=== PATIENT | male | born 1955 | race Caucasian/White ===

== ENCOUNTER 2024-04-07 12:19 | Inpatient (IN) | payer MEDICARE, MEDICAID, SELFPAY ==
[2024-04-07] VITALS (10 sets, daily range): BP systolic 118–188; BP diastolic 62–117; PULSE 85–99; RESP 19–92; TEMP 36.6–36.9; O2SAT 92–98
--- NOTE | 2024-04-07 12:36 | XR_ITS ---
Examination: AP lateral chest 2 views TECHNIQUE: Upright AP lateral chest 2 views Exam date and time: April 07, 2024 1244 hours INDICATIONS: Shortness of breath this week FINDINGS: Minor subsegmental atelectasis left base No pneumonia or pulmonary edema Moderate osteopenia IMPRESSION: No pneumonia or pulmonary edema
--- NOTE | 2024-04-07 12:36 | EKG_ITS ---
[facility] Test Date: 2024-04-07 Pat Name: SHIRLEY VALDIVIA Department: Room: - Gender: Male Drink Mixer: : [id number] Requested By: Mark Pantoja (RYAN) Order Number: [id number] Reading MD: Mark Pantoja (VETERINARY X RAY OPERATOR) Measurements Intervals [place] Rate: 87 P: CO: QRS: 50 QRSD: 136 T: 4 QT: 380 QTc: 460 Interpretive Statements ATRIAL FIBRILLATION RIGHT BUNDLE BRANCH BLOCK [120+ ms QRS DURATION, UPRIGHT V1, 40+ ms S IN I/aVL/V4/V5/V6] Compared to ECG 04/01/2024 15:11:37 Indeterminate axis no longer present /store/S0/[id number].pdf
--- NOTE | 2024-04-07 12:36 | PD.EDRME ---
Rapid Medical Screening Exam RME Arrival date/time: 04/07/24 12:19 68-year-old male with history of CHF presents emergency department complaint of difficulty breathing per the patient, patient was sent by assistant chief nursing officer for admission Chief Complaint: General Adult/Misc Complain Time Seen by Provider: 04/07/24 12:32 Vital signs: Vital Signs Temperature 98.5 F 04/07/24 12:21 Pulse Rate 99 04/07/24 12:21 Respiratory Rate 22 H 04/07/24 12:21 Blood Pressure 125/80 04/07/24 12:21 Pulse Oximetry (%) 95 04/07/24 12:21 Oxygen Delivery Method Room Air 04/07/24 12:21
[2024-04-07 12:54] LABS: Collection Type, Urine Clean Catch; Squamous Epithelial Cell,Urine 0 /hpf (0-5)
[2024-04-07 12:58] LABS: Bilirubin,Urine Negative (Negative); Blood,Urine Negative (Negative); Clarity,Urine Clear (Clear/Hazy); Color,Urine Colorless (Lt Yel-Yel); Glucose, Urine Negative (Negative); Hyaline Casts,Urine < 1 /hpf (0-1); Ketones,Urine Negative (Negative); Leukocyte Esterase,Urine Negative (Negative); Nitrite,Urine Negative (Negative); PH,Urine 6.5 (5.0-7.0); Protein,Urine Negative (Neg - Trace); RBC,Urine 1 /hpf (0-3); Specific Gravity,Urine 1.009 (1.001-1.035); Urobilinogen,Urine Negative mg/dL (0.0-1.0); WBC,Urine < 1 /hpf (0-5)
[2024-04-07 13:09] LABS: Basophils # (Auto) 0.1 Thou/mm3 (0.0-0.2); Basophils % (Auto) 1 % (0-2.5); Eosinophils # (Auto) 0.3 Thou/mm3 (0.0-0.5); Eosinophils % (Auto) 2 % (0-10); Hematocrit 35.3 % (41.0-53.0); Hemoglobin 11.1 g/dL (13.5-16.0); Immature Granulocytes % (Auto) 1 % (0-0); Immature Granulocytes Auto 0.06 Thou/mm3 (0.00-0.00); Lymphocytes # (Auto) 2.3 Thou/mm3 (1.0-4.8); Lymphocytes % (Auto) 17 % (10-50); Mean Corpuscular HGB Conc 31.4 g/dl (31.0-37.0); Mean Corpuscular Hemoglobin 28.1 pg (25.0-35.0); Mean Corpuscular Volume 89 fL (80-100); Monocytes # (Auto) 1.3 Thou/mm3 (0.0-0.8); Monocytes % (Auto) 10 % (0-12); Neutrophils % (Auto) 69 % (37-80); Nucleated Red Blood Cell % 0 /100 WBC (0); Platelet Count 262 Thou/mm3 (140-440); RDW Standard Deviation 58.9 fL (35.1-43.9); Red Blood Count 3.95 Miln/mm3 (4.50-5.90); White Blood Count 12.9 Thou/mm3 (3.8-10.6)
[2024-04-07 13:16] LABS: Amphetamine/Methamp Scrn,U Negative (Negative); Barbiturate Screen,Urine Negative (Negative); Benzodiazepines Screen,Urine Negative (Negative); Benzoylecgonine Screen, Ur Negative (Negative); Fentanyl Screen,Urine Negative (Negative); Opiate Screen,Urine Positive (Negative); THC Screen,Urine Negative (Negative)
[2024-04-07 13:25] LABS: INR 1.1 (0.9-1.3); Partial Thromboplastin Time 31.2 Seconds (22.0-36.0); Prothrombin Time 11.9 Seconds (9.0-12.2)
[2024-04-07 13:26] LABS: B-Type Natriuretic Peptide 76 pg/mL (0-100)
[2024-04-07 13:28] LABS: Alanine Aminotransferase 13 U/L (10-49); Albumin, Serum 4.4 gm/dL (3.4-4.8); Albumin/Globulin Ratio 1.8 (1.2-2.2); Alkaline Phosphatase 172 U/L (46-116); Anion Gap 5 (7-16); BUN/Creatinine Ratio 18 Ratio (12-20); Bilirubin,Total 0.4 mg/dL (0.3-1.2); Blood Urea Nitrogen 31 mg/dL (9-23); Calcium 9.9 mg/dL (8.3-10.6); Calcium (Corrected) 9.9 mg/dL (8.5-10.1); Carbon Dioxide 34.7 mMol/L (20.0-31.0); Chloride 101 mMol/L (98-107); Creatinine (Component) 1.7 mg/dL (0.6-1.3); Globulin 2.5 gm/dL (2.3-3.5); Glucose 261 mg/dL (74-106); Magnesium 2.1 mg/dL (1.6-2.6); Osmolality,Calculated 296 (275-295); Potassium 4.4 mMol/L (3.4-5.1); Sodium 141 mMol/L (136-145); Total Protein 6.9 gm/dL (5.7-8.2); Troponin I < 0.020 ng/mL (0.0-0.045); eGFR 43 See Note
[2024-04-07 13:44] LABS: Aspartate Amino Transferase 14 U/L (0-34)
--- NOTE | 2024-04-07 14:08 | PD.EDRME ---
Rapid Medical Screening Exam RME Arrival date/time: 04/07/24 12:19 04/07/24 12:19 68-year-old male with history of CHF presents emergency department complaint of difficulty breathing per the patient, patient was sent by security engineer for admission Chief Complaint: General Adult/Misc Complain Time Seen by Provider: 04/07/24 12:32 Vital signs: Vital Signs Temperature 98.5 F 04/07/24 12:21 Pulse Rate 99 04/07/24 12:21 Respiratory Rate 22 H 04/07/24 12:21 Blood Pressure 125/80 04/07/24 12:21 Pulse Oximetry (%) 95 04/07/24 12:21 Oxygen Delivery Method Room Air 04/07/24 12:21 RME Narrative: 04/07/24 12:19 68-year-old male with history of CHF presents emergency department complaint of difficulty breathing per the patient, patient was sent by security engineer for admission
--- NOTE | 2024-04-07 17:01 | PD.EDWEAK ---
ED Weakness RME/HPI General Chief complaint: General Adult/Misc Complain Stated complaint: SWOLLEN EVERYWHERE AND HAS PNA Time Seen by Provider: 04/07/24 12:32 Arrival date/time: 04/07/24 12:19 RME / HPI RME / HPI Narrative: 04/07/24 12:19 A 68-year-old male patient with past medical history of atrial fibrillation, coronary artery disease status post stent placement, HFpEF, COPD on home oxygen of 3 L, type 2 diabetes mellitus, hypertension, hyperlipidemia, obesity, CVA, BPH, frequent admission to the hospital secondary to fluid overload was brought to the ED referred from his preparation supervisor freezing office due to volume overload. Patient reported that he is taking his medication regularly however he still retaining significant amount of fluids that made him weak and unable to ambulate. Patient also reported that he has shortness of breath when he lie flat and also increased cough with producing frothy sputum. He denied any fever or chills or chest pain. Related Data Home Medications ?Medication ?Instructions ?Recorded ?Confirmed duloxetine 60 mg capsule,delayed 60 mg PO QDAY 11/25/19 01/31/24 release sprinkle potassium chloride 10 mEq 10 meq PO QDAY 06/19/23 01/31/24 capsule,extended release allopurinol 100 mg tablet 100 mg PO QDAY 01/23/24 01/31/24 amlodipine 5 mg tablet 5 mg PO QDAY 01/23/24 01/31/24 atorvastatin 40 mg tablet 40 mg PO QDAY 01/23/24 01/31/24 carvedilol 6.25 mg tablet 6.25 mg PO BID 01/23/24 01/31/24 montelukast 10 mg tablet 10 mg PO QDAY 01/23/24 01/31/24 pantoprazole 40 mg tablet,delayed 40 mg PO QDAY 01/23/24 01/31/24 release pregabalin 150 mg capsule (Lyrica) 150 mg PO TID 01/23/24 01/31/24 ramipril 5 mg tablet 5 mg PO QDAY 01/23/24 01/31/24 semaglutide 2 mg/dose (8 mg/3 mL) 2 mg subcut QWEEK 01/23/24 01/31/24 subcutaneous pen injector (Ozempic) tizanidine 2 mg tablet 2 mg PO HS 01/23/24 01/31/24 hydrocodone 10 mg-acetaminophen 1 tab PO [id number] PRN Pain 01/31/24 01/31/24 325 mg tablet Previous Rx's ?Medication ?Instructions ?Recorded ferrous sulfate 325 mg (65 mg 325 mg PO QDAY #90 tabs 11/09/23 iron) tablet docusate sodium 100 mg capsule 100 mg PO BID #20 caps 01/29/24 (Colace) polyethylene glycol 3350 17 gram 17 gm PO QDAY #30 ea 01/29/24 oral powder packet (Miralax) furosemide 40 mg tablet (Lasix) 40 mg PO QDAY #3 tabs 03/28/24 Allergies Allergy/AdvReac Type Severity Reaction Status Date / Time baclofen Allergy Severe Confusion Verified 04/07/24 12:22 bee venom protein (honey bee) Allergy Severe Swelling Verified 04/07/24 12:22 of Lip/Tongue/Throat chicken derived Allergy Severe DIFF Verified 04/07/24 12:22 BREATHING ketorolac [From Toradol] Allergy Intermediate Hallucinati Verified 04/07/24 12:22 ng METAL Allergy Severe Rash Uncoded 04/24/23 13:24 ED Exam Narrative Physical exam: GEN: AOx3, morbidly obese, able to speak full sentences HEENT: NC/AC, oral mucosa moist, neck supple CVS: RRR, S1-S2 plus S3, no murmurs appreciated RESP: Wheezing on the right side of the lung, fine crepitations bilaterally basally GI: soft, distended, non tender, NBS MSK: able to move all 4 limbs, +4 lower extremity edema SKIN: warm and dry SCIENCE TUTOR: CN II-XII and Sensation grossly intact. Course Quality Measures none Orders Category Date Time Status EKG (ED ONLY) *Do not use* NOW Care 04/07/24 12:36 Completed EKG (ED Only) Stat Exams 04/07/24 12:36 Draft XR chest 2V Stat Exams 04/07/24 12:36 Completed B-Type Natriuretic Peptide Stat Lab 04/07/24 12:55 Completed CBC Stat Lab 04/07/24 12:55 Completed Comprehensive Metabolic Panel Stat Lab 04/07/24 12:55 Completed Drug Screen,Urine Stat Lab 04/07/24 12:47 Completed Magnesium Stat Lab 04/07/24 12:55 Completed Partial Thromboplastin Time Stat Lab 04/07/24 12:55 Completed Prothrombin Time with INR Stat Lab 04/07/24 12:55 Completed Troponin I Stat Lab 04/07/24 12:55 Completed Urinalysis Stat Lab 04/07/24 12:47 Completed Bumetanide Inj [Bumex Inj] Med 04/07/24 16:19 Discontinued 2 mg IVP X1 ONE HYDROcodone*/APAP 7.5/325 [[place] 7.5/325] Med 04/07/24 16:49 Discontinued 1 tab PO X1 ONE Levalbuterol Rt [Xopenex Rt Raqeul] Med 04/07/24 16:19 Discontinued 1.25 mg INH X1 ONE Sodium Chloride Rt Raquel 0.9% [NS Rt Raquel 0.9%] Med 04/07/24 16:19 Active 3 ml INH PRN PRN Vital Signs Vital signs: Vital Signs Temperature 98.5 F 04/07/24 12:21 Pulse Rate 99 04/07/24 12:21 Respiratory Rate 22 H 04/07/24 12:21 Blood Pressure 125/80 04/07/24 12:21 Pulse Oximetry (%) 95 04/07/24 12:21 Oxygen Delivery Method Room Air 04/07/24 12:21 Weakness MDM Narrative MDM Narrative:: Patient vital stable, blood work showed WBC level of 12.9, hemoglobin of 11.1, sodium and potassium and chloride within normal limits, carbon dioxide 34.7 secondary to his COPD as the patient chronic retainer, BUN and serum creatinine at baseline at 31 and 1.7 respectively, glucose 261, chest x-ray was negative for any congestion or pneumonia. I contacted the preparation supervisor freezing Dr. Rogerio Araujo and he recommended to admit the patient and start him on Bumex drip 2 mg/h with strict in and out. Hospitalist team was notified Patient data External records reviewed:: [facility] previous records Clinical information provided by:: patient and family Social determinants that could affect healthcare access:: none Patient has the following chronic illnesses:: Hypertension, CAD, hyperlipidemia, A-fib, COPD, chf How is presenting disease/condition affected by chronic disease/condition?: caused by Evaluation data The following diagnostics were reviewed and interpreted by me:: lab results, radiology exam(s) and EKG tracing(s) Lab and/or radiology exams considered but not ordered:: None Interpretation Summary: Fluid overload Medications / Prescriptions Medications or Prescriptions considered but not ordered:: None Medication administrations:: Medication Administration History Sodium Chloride (Sodium Chloride Rt Raquel 0.9% 3 Ml Nebu) 3 ml INH PRN PRN PRN Reason: SOLN Stop: 05/07/24 16:18 Discontinued Medications Hydrocodone Bitart/Acetaminophen (Hydrocodone/Apap 7.5/325 Tablet) 1 tab PO X1 ONE Stop: 04/07/24 16:50 Bumetanide (Bumetanide Inj 0.25 Mg/Ml Vial 4 Ml) 2 mg IVP X1 ONE Stop: 04/07/24 16:20 Levalbuterol HCl (Levalbuterol Rt 1.25 Mg/0.5 Ml Nebu) 1.25 mg INH X1 ONE Stop: 04/07/24 16:20 As above Consultations Consultation(s) initiated? (list below): Yes Diagnosis Weakness Differential Diagnosis: other (Of fluid overload) Most likely diagnosis given after review of the tests above:: anasarca Admission Indicated Admission indicated?: indicated Admission Request Was there a request for admission?: Yes Admission Attestation Admission request attestation: Discussed case with [] from Hospitalist service regarding admission. Discussed patients ED course, exam findings, labs, and radiology results. The Hospitalist [agrees,declines] to accept the patient for admission. Disposition Plan Disposition Plan: Admit Discharge Plan Prescriptions/Referrals Prescriptions/Med Rec: No Action duloxetine 60 mg Capsule, Delayed Rel Sprinkle 60 mg PO QDAY potassium chloride 10 mEq Capsule, Extended Release 10 meq PO QDAY Hold Instructions: hold until follow up with your health care provider ferrous sulfate 325 mg (65 mg iron) tablet 325 mg PO QDAY Qty: 90 3RF Hold Instructions: Re-evaluate with PCP atorvastatin 40 mg Tablet 40 mg PO QDAY carvedilol 6.25 mg Tablet 6.25 mg PO BID Rx Instructions: must administer with a meal/food tizanidine 2 mg Tablet 2 mg PO HS amlodipine 5 mg Tablet 5 mg PO QDAY allopurinol 100 mg Tablet 100 mg PO QDAY pantoprazole 40 mg Tablet,Delayed Release (Dr/Ec) 40 mg PO QDAY montelukast 10 mg Tablet 10 mg PO QDAY pregabalin [Lyrica] 150 mg Capsule 150 mg PO TID ramipril 5 mg Tablet 5 mg PO QDAY Hold Instructions: Unable to verify, re-evaluate with PCP Jameyempic 2 mg/dose (8 mg/3 mL) pen injector 2 mg SUBCUT QWEEK Patient Comments: INJECT 2 mg SUBCUTANEOUSLY EVERY WEEK Rx Instructions: Every Friday polyethylene glycol 3350 [Miralax] 17 gram powder in packet 17 gm PO QDAY Qty: 30 0RF docusate sodium [Colace] 100 mg capsule 100 mg PO BID Qty: 20 0RF hydrocodone-acetaminophen 10-325 mg tablet 1 tab PO [id number] PRN (Reason: Pain) furosemide [Lasix] 40 mg tablet 40 mg PO QDAY Qty: 3 0RF Referrals: Howard Briceño MD [Primary Care Provider] - In 1 week Problem List Clinical Impression: Fluid overload Patient/Caregiver Discharge Instructions Print Language: Japanese
[2024-04-07] MEDS: LEVALBUTEROL RT 1.25 MG/0.5 ML NEBU INH (17:13)
[2024-04-07] MEDS: SODIUM CHLORIDE RT SOL 0.9% 3 ML NEBU INH (17:13)
[2024-04-07] MEDS: PANTOPRAZOLE 40 MG TABLET PO (18:25)
[2024-04-07] MEDS: HYDROcodone/APAP 7.5/325 TABLET 1 TAB PO (18:28)
[2024-04-07] MEDS: BUMETANIDE INJ 0.25 MG/ML VIAL 4 ML 2 MG IVP (18:29)
--- NOTE | 2024-04-07 18:29 | ESHP_ITS ---
<Statement entered by Jannet Sibley MD - 04/08/24 16:06> Senior Resident Attestation: I supervised/discussed management plan with resident physician Dr. Sterling, and was involved in the care of this patient. I personally saw and examined the patient and discussed the assessment and plan with the entire medicine team, including my attending. I agree with the assessment and plan as documented. Thank 68-year-old male with complicated past medical history including HFpEF, CAD s/p stent placement, A-fib on Eliquis, CVA with left hemiparesis, COPD on home oxygen, HTN and type 2 diabetes admitted for acute on chronic hypoxic respiratory failure in setting of fluid overload along with COPD exacerbation. Patient was started on aggressive diuresis with bumetanide 2 mg/hour along with methylprednisolone, and DuoNebs. Will continue to monitor patient's ins and out along with cardiology consultation. At time of admission patient's A-fib was rate controlled, will continue same medications. Patient's care was discussed with attending physician, Dr. Milagros Sibley MD PGY-3 Documentation for date of: 04/07/24 HPI History of Present Illness Chief complaint: Shortness of breath and bilateral lower extremity swelling History of present illness: 68-year-old male with past medical history of HLD, T2DM (A1c 8.1%), HTN, HFpEF EF 50-60%, CAD s/p stent, A-fib on Eliquis, CVA with left hemiparesis (2022), COPD dependent on 3 L oxygen at home, gout, and BPH presented to the ED on 04/07/2024 for chief complaint of shortness of breath and bilateral lower extremity swelling. Patient states that his shortness of breath started 2 weeks ago with increased productive foamy clear sputum production. His shortness of breath and sputum have gotten progressively worse over the past few days. He also noted worsening bilateral lower extremity edema. Recent ED visit on 04/01/2024, discharged with oral antibiotics for pneumonia. He went to see his PCP today, who did not prescribe anything. He contacted his pipe stem sawyer Dr. Felton by phone who recommended patient come to the hospital. Patient denies headache, fever, chills, chest pain, palpitation, dizziness, nausea, vomiting, diarrhea, or constipation. Patient was found to to be in a fluid overloaded state. Dr. Felton was consulted, who recommended Bumex drip for CHF. Patient was admitted for management of CHF exacerbation. ED course: Blood pressure 125/80, heart rate 99, respiratory rate 22, temperature 98.5 F, O2 sat 95% room air. CMP: Within normal limits except bicarb 34.7, BUN 31, creatinine 1.7, glucose 261, alkaline phosphatase 172. BNP 76. CBC: WBC 12.9, hemoglobin 11.1, MCV 89, hematocrit 35.3%, platelet 262. Chest x-ray showed no pneumonia or pulmonary edema. EKG showed atrial fibrillation, heart rate 87. Subsegmental atelectasis left base seen on CXR. Past medical history: As above Allergies: Bee stings-swelling, chicken dust-shortness of breath Medications: Pending med rec Family history: Mother,?diabetes mellitus type II; Father?MA followed by Surgical history: Back surgery, left ankle surgery, stent placement Social history: 40-year-old chronic smoker 1-1/2 pack cigarettes daily. Denies alcohol use. Denies illicit drug use. Review of Systems Review of Systems Systems Reviewed: All systems reviewed, normal except as documented Past Medical History Past Medical History NEUROLOGIC: Positive Neurological Disorders, Cerebrovascular Accident and Peripheral Neuropathy CARDIAC: Positive Cardiac Disorders, Myocardial Infarction, Atrial Fibrillation, Coronary Artery Disease, Peripheral Vascular Disease, Hypercholesterolemia, Congestive Heart Failure, Congenital Heart Disease, Edema, Cellulitis and Hypertension RESPIRATORY: Positive Chronic Obstructive Pulmonary Disease (COPD), Asthma, Pneumonia, Smoking and Tobacco Use GASTROINTESTINAL: Positive Gastrointestinal Disorders, Gastrointestinal Bleed, Gastroesophageal Reflux Disease and Obesity GENITOURINARY: Positive Genitourinary Disorders and Benign Prostatic Hyperplasia MUSCULOSKELETAL: Positive Musculoskeletal Disorders, Arthritis and Fractures ENDOCRINE: Positive Endocrine Disorders and Diabetes Mellitus Type 2 HEMATOLOGIC: Positive Blood Disorders and Anemia PSYCHO/SOCIAL: Positive Anxiety OTHER HISTORY: Positive Hospitalization, Falls and MRSA Family History FAMILY HISTORY: Positive Family Respiratory Disorders, Family Cardiac Disorders and Family Cancer Surgical History SURGICAL: Positive Cardiac Surgery, Coronary Stent, Cardiac Catheterization, Angiogram, Joint Replacement and Arthroscopy Social History SMOKING STATUS: Current some day smoker SECOND HAND EXPOSURE: No SUBSTANCE USE: does not use Exam Vital Signs Temp Pulse Resp BP Pulse Ox O2 Del Method 98.0 F 90 20 118/68 98 Room Air 04/07/24 15:26 04/07/24 17:16 04/07/24 17:16 04/07/24 15:26 04/07/24 17:16 04/07/24 15:26 Narrative Exam GEN: able to speak full sentences, alert, sitting up in gurney. HEENT: NC/AC, PERRLA, oral mucosa moist. CVS: Irregular rhythm, S1-S2 present, no murmurs appreciated. +JVD. RESP: Faint wheezing bilaterally, mild lower lobe crackles appreciated GI: soft, non distended, non tender, NBS MSK: Difficulty lifting bilateral lower extremities. 2+ pitting b/l lower extremity edema. Right LE moderately enlarged compared to left LE. SKIN: warm and dry. Ulcer on the medial malleolus of right foot. Shiny bilateral LE from calves to the ankles. HVAC MECHANICAL ENGINEER: CN II-XII and Sensation grossly intact. Results: Labs 04/08/24 05:27 04/08/24 05:27 Labs: Short CBC 04/07/24 Range/Units 12:55 WBC 12.9 H (3.8-10.6) Thou/mm3 Hgb 11.1 L (13.5-16.0) g/dL Hct 35.3 L (41.0-53.0) % Plt Count 262 (140-440) Thou/mm3 BMP 04/07/24 12:55 Sodium 141 Potassium 4.4 Chloride 101 Carbon Dioxide 34.7 H BUN 31 H Creatinine 1.7 H Glucose 261 H Calcium 9.9 Cardiac Enzymes 04/07/24 Range/Units 12:55 Troponin I < 0.020 (0.0-0.045) ng/mL Liver Function 04/07/24 Range/Units 12:55 Total Bilirubin 0.4 (0.3-1.2) mg/dL AST 14 (0-34) U/L ALT 13 (10-49) U/L Alkaline Phosphatase 172 H (46-116) U/L Albumin 4.4 (3.4-4.8) gm/dL Urine 04/07/24 Range/Units 12:47 Urine Color Colorless A (Lt Yel-Yel) Urine Clarity Clear (Clear/Hazy) Urine pH 6.5 (5.0-7.0) Ur Specific [place] 1.009 (1.001-1.035) Urine Protein Negative (Neg - Trace) Urine Glucose (UA) Negative (Negative) Quality Measures Quality Measures none Advance care planning discussed with:: patient Medications Home Medications and Allergies Home Medications ?Medication ?Instructions ?Recorded ?Confirmed ?Type duloxetine 60 mg capsule,delayed 60 mg PO QDAY 11/25/19 01/31/24 History release sprinkle potassium chloride 10 mEq 10 meq PO QDAY 06/19/23 01/31/24 History capsule,extended release allopurinol 100 mg tablet 100 mg PO QDAY 01/23/24 01/31/24 History amlodipine 5 mg tablet 5 mg PO QDAY 01/23/24 01/31/24 History atorvastatin 40 mg tablet 40 mg PO QDAY 01/23/24 01/31/24 History carvedilol 6.25 mg tablet 6.25 mg PO BID 01/23/24 01/31/24 History montelukast 10 mg tablet 10 mg PO QDAY 01/23/24 01/31/24 History pantoprazole 40 mg tablet,delayed 40 mg PO QDAY 01/23/24 01/31/24 History release pregabalin 150 mg capsule (Lyrica) 150 mg PO TID 01/23/24 01/31/24 History ramipril 5 mg tablet 5 mg PO QDAY 01/23/24 01/31/24 History semaglutide 2 mg/dose (8 mg/3 mL) 2 mg subcut QWEEK 01/23/24 01/31/24 History subcutaneous pen injector (Ozempic) tizanidine 2 mg tablet 2 mg PO HS 01/23/24 01/31/24 History hydrocodone 10 mg-acetaminophen 1 tab PO [id number] PRN Pain 01/31/24 01/31/24 History 325 mg tablet Allergies Allergy/AdvReac Type Severity Reaction Status Date / Time baclofen Allergy Severe Confusion Verified 04/07/24 12:22 bee venom protein (honey bee) Allergy Severe Swelling Verified 04/07/24 12:22 of Lip/Tongue/Throat chicken derived Allergy Severe DIFF Verified 04/07/24 12:22 BREATHING ketorolac [From Toradol] Allergy Intermediate Hallucinati Verified 04/07/24 12:22 ng METAL Allergy Severe Rash Uncoded 04/24/23 13:24 Visit Medications Acetaminophen (Acetaminophen 325 Mg Tablet) 650 mg PO Q6H PRN PRN Reason: Fever >101.5 Stop: 05/07/24 17:54 Acetaminophen (Acetaminophen 325 Mg Tablet) 650 mg PO Q6H PRN PRN Reason: PAIN SCALE 1-3 (mild Stop: 05/07/24 17:54 Hydrocodone Bitart/Acetaminophen (Hydrocodone/Apap 10/325 Tab) 1 tab PO Q6H PRN PRN Reason: PAIN SCALE 4-6 (Moderate Stop: 04/12/24 17:54 Heparin Sodium (Porcine) (Heparin Sod Inj 5000 Unit/Ml Vial) 5,000 unit SC Q8HR HUDSON Stop: 04/21/24 21:59 Hydromorphone HCl (Hydromorphone Inj 2 Mg/Ml Vial) 1 mg IVP Q4HR PRN PRN Reason: PAIN Stop: 04/12/24 17:54 Bumetanide 20 mg/ IV (Miscellaneous Supplies) 80 mls @ 8 mls/hr IV .Q10H HUDSON Stop: 04/08/24 14:11 Ondansetron HCl (Ondansetron Inj 2 Mg/Ml Inj 2 Ml) 4 mg IV Q6H PRN; Protocol PRN Reason: NAUSEA OR VOMITING Stop: 05/07/24 17:54 Pantoprazole Sodium (Pantoprazole 40 Mg Tablet) 40 mg PO QDAY HU[place]ON Stop: 05/07/24 17:59 Sennosides (Senna Tablet) 1 tab PO QDAY PRN; Protocol PRN Reason: CONSTIPATION Stop: 05/07/24 18:03 Sodium Chloride (Sodium Chloride Rt Raquel 0.9% 3 Ml Nebu) 3 ml INH PRN PRN PRN Reason: SOLN Stop: 05/07/24 16:18 Last Admin: 04/07/24 17:13 Dose: 3 ml Sodium Chloride (Sodium Chloride Rt Raquel 0.9% 3 Ml Nebu) 3 ml INH PRN PRN PRN Reason: SOLN Stop: 05/07/24 18:16 Discontinued Medications Hydrocodone Bitart/Acetaminophen (Hydrocodone/Apap 7.5/325 Tablet) 1 tab PO X1 ONE Stop: 04/07/24 16:50 Bumetanide (Bumetanide Inj 0.25 Mg/Ml Vial 4 Ml) 2 mg IVP X1 ONE Stop: 04/07/24 16:20 Levalbuterol HCl (Levalbuterol Rt 1.25 Mg/0.5 Ml Nebu) 1.25 mg INH X1 ONE Stop: 04/07/24 16:20 Last Admin: 04/07/24 17:13 Dose: 1.25 mg Levalbuterol HCl (Levalbuterol Rt 1.25 Mg/0.5 Ml Nebu) 1.25 mg INH X1 ONE Stop: 04/07/24 18:18 Methylprednisolone Sodium Succinate (Methylprednisolone Sod Succ 62.5 Mg/Ml 2ml Vial) 125 mg IVP Q6HR HUDSON Stop: 04/14/24 18:29 Sodium Chloride (Sodium Chloride Rt 10% 15 Ml Nebu) 5 ml INH X1 ONE Stop: 04/07/24 18:01 Assessment & Plan Plan 68-year-old male with past medical history of HLD, T2DM (A1c 8.1%), HTN, HFpEF EF 55-60%, CAD s/p stent, A-fib on Eliquis, CVA with left hemiplegia (2022), COPD dependent on 3 L oxygen at home, asthma, gout, and BPH presented to the ED on 04/07/2024 for chief complaint of shortness of breath and bilateral lower extremity swelling. Patient was found to to be in a fluid overloaded state. Dr. Felton was consulted, who recommended Bumex drip for CHF. Patient was admitted for management of CHF exacerbation. #Acutely decompensated heart failure, HFpEF EF 55-60% Most likely secondary to hypertension and obesity Ddx: CHF vs COPD exacerbation Patient initially presented to the ED with shortness of breath and bilateral lower extremity swelling. He endorsed increased sputum production over the past 2 weeks. Patient denies any sick contacts or recent travel. In the setting of hypertension obesity, patient presents with acute decompensated heart failure clinically. Orthopnea and pitting edema noted on b/l lower extremities. +JVD noted. Wheezing b/l with crackles lower lung lobes. Chest x-ray showed no pneumonia or pulmonary edema. Subsegmental atelectasis left base seen on CXR. Echo on 06/2023: EF 55-60%. Plan: -Dr. Felton Cardiology was consulted, who recommended Bumex drip for CHF. -Strict TONY's and daily weight checks -Fluid restriction; 1500 cc daily #COPD #Asthma Patient has a history of COPD and asthma on montelukast and inhaler at home. Chronic smoking history of 40 years; 1.5 pack smoker daily. -Monteleukast -inhaler #A-fib He has hx of atrial fibrillation, on Eliquis. EKG showed atrial fibrillation, heart rate 87. -Appreciate cardiology consultation recommendations -Continue Eliquis 5 mg twice daily -Maintain potassium greater than 4 and magnesium greater than 2 #Hypertension Chronic, uncontrolled -Coreg 6.25 mg orally daily -Initiated metoprolol 50 XL twice daily -Anticipate adding back on home amlodipine tomorrow #DMT2 Chronic, uncontrolled -SSI -Bedside glucose checks -Hypoglycemic protocol #CAD status post stent placement #CVA (2022) with left hemiplegia -atorvastatin 40 mg orally daily -Pending med rec #HLD Patient does not appear to be on any medication for this condition. -recommend outpatient f/up Discussed case with my attending Dr. Linares and senior Jannet Sibley, PGY-3. Thank you, Estrella Sterling, PGY-2 Attending Provider Attestation/Addendum I have discussed and was present for the essential components of the history, physical examination, diagnosis, and treatment plan with the resident. I agree with the patient's care as documented by the resident and amended herein by me. Matias Linares, DO. Although this document has been carefully reviewed, there may still be some phonetic and other typographical errors. These errors are purely grammatical due to imperfections in the software program and should not be construed in any way to compromise the substance of the patient's medical care during this visit.
--- NOTE | 2024-04-07 18:39 | ECHO_ITS ---
Transthoracic Echo Report Ht (in): 69 Wt (lb): 310 Exam Location: Portable Status: Emergency Clinical Applications Manager: Pushpa Zuniga Indications: Procedure Performed: BP: 132 / 80 HR: 91 Rhythm: Atrial fibrillation Technical Quality: Technically difficult study MEASUREMENTS (Male / Female) Normal Values 2D ECHO LV Diastolic Diameter PLAX 5.0 cm 4.2 - 5.9 / 3.9 - 5.3 cm LV Systolic Diameter PLAX 3.6 cm IVS Diastolic Thickness 1.1 cm 0.6 - 1.0 / 0.6 - 0.9 cm LVPW Diastolic Thickness 0.9 cm 0.6 - 1.0 / 0.6 - 0.9 cm LV Relative Wall Thickness 0.4 LVOT Diameter 2.1 cm LA Volume Index 26.1 cm?/m? 16 - 28 cm?/m? Ascending Aorta Diameter 2.9 cm M-MODE Aortic Root Diameter MM 3.0 cm LA Systolic Diameter MM 3.9 cm LA Ao Ratio MM 1.3 AV Cusp Separation MM 1.9 cm DOPPLER AV Peak Velocity 126.0 cm/s AV Peak Gradient 6.4 mmHg AV Mean Gradient 4.0 mmHg AV Velocity Time Integral 24.2 cm LVOT Peak Velocity 109.0 cm/s LVOT Peak Gradient 4.8 mmHg LVOT Velocity Time Integral 21.4 cm LVOT Cardiac Index 2508.4 cm?/min?m? AV Area Cont Eq vti 3.1 cm? AV Area Cont Eq pk 3.0 cm? MV Peak Velocity 102.0 cm/s MV Peak Gradient 4.2 mmHg MV Mean Velocity 58.5 cm/s MV Mean Gradient 2.0 mmHg MV Area PHT 4.2 cm? Mitral E Point Velocity 109.0 cm/s Mitral A Point Velocity 0.5 cm/s Mitral E to A Ratio 224.7 LV E' Lateral Velocity 11.4 cm/s Mitral E to LV E' Lateral Ratio 9.6 LV E' Septal Velocity 5.0 cm/s Mitral E to LV E' Septal Ratio 21.8 FINDINGS Left Ventricle Normal left ventricular size, wall thickness, systolic function with no obvious regional wall motion abnormalities. The ejection fraction is visually estimated at 50-55%. Right Ventricle The right ventricle is normal in size and systolic function. Left Atrium The left atrium is normal by two-dimensional, color flow and Doppler imaging with no structural abnormalities, no thrombus formation present. Right Atrium The right atrium is normal by two-dimensional imaging, color flow and Doppler imaging with no struct ural abnormalities, no thrombus formation present. Atrial Septum The interatrial septum appears normal with no evidence of a shunt. Aorta The aorta is normal by two-dimensional, color flow and Doppler interrogation. Mitral Valve The mitral valve is mildly MAC. There is no significant mitral valve regurgitation. Aortic Valve The aortic valve is trileaflet and normal by two-dimensional, color flow and Doppler interrogation. There is no significant aortic valve regurgitation. Tricuspid Valve The tricuspid valve is normal by two-dimensional, color flow and Doppler interrogation. There is tra ce tricuspid valve regurgitation. Pulmonic Valve The pulmonic valve is not well visualized. There is no significant pulmonic valve regurgitation. Vessels The pulmonary artery appears normal. The inferior vena cava pulmonary and hepatic veins appear madisyn l. Pericardium The pericardium is normal by two-dimensional imaging. There is no significant pericardial effusion. CONCLUSIONS Indication: Fluid overload/CHF Suboptimal images due to body habitas. Normal LV size and function.diastolic function prsesent but cannit grade due to AFib. Estimated EF 5 0-55% Normal RV size and function. Mild MAC. Trace TRMiguel Sherman (Electronically Signed) Final Date: 08 April 2024 15:02
[2024-04-07] MEDS: BUMETANIDE INJ 20 MG in CONTAINER,EMPTY 50 ML 1 BAG 8 MG IV (19:53)
[2024-04-07] MEDS: carVEDILOL 3.125 MG TABLET 6.25 MG PO (20:14)
[2024-04-07] MEDS: APIXABAN 2.5 MG TABLET 5 MG PO (20:14)
[2024-04-07] MEDS: ATORVASTATIN CALCIUM 20 MG TABLET 40 MG PO (20:14)
[2024-04-07] MEDS: HYDROcodone/APAP 10/325 TAB PO (22:18)
[2024-04-07] MEDS: allopurinoL 100 MG TABLET PO (23:33)
[2024-04-07] MEDS: MONTELUKAST SODIUM 10 MG TABLET PO (23:33)
[2024-04-08] VITALS (15 sets, daily range): BP systolic 114–132; BP diastolic 61–81; PULSE 86–107; RESP 16–34; TEMP 36.1–36.8; O2SAT 93–97; BMI 45.1
[2024-04-08] MEDS: BUMETANIDE INJ 20 MG in CONTAINER,EMPTY 50 ML 1 BAG 8 MG IV ×2 (03:12→13:28)
[2024-04-08] MEDS: guaiFENesin SYRUP 200 MG/10 ML UDC 100 MG PO (04:22)
[2024-04-08] MEDS: HYDROcodone/APAP 10/325 TAB PO (04:22)
[2024-04-08 05:54] LABS: Basophils % (Auto) 0 % (0-2.5); Eosinophils # (Auto) 0.3 Thou/mm3 (0.0-0.5); Eosinophils % (Auto) 3 % (0-10); Hematocrit 32.3 % (41.0-53.0); Hemoglobin 10.4 g/dL (13.5-16.0); Immature Granulocytes % (Auto) 0 % (0-0); Immature Granulocytes Auto 0.04 Thou/mm3 (0.00-0.00); Lymphocytes # (Auto) 2.9 Thou/mm3 (1.0-4.8); Lymphocytes % (Auto) 23 % (10-50); Mean Corpuscular HGB Conc 32.2 g/dl (31.0-37.0); Mean Corpuscular Hemoglobin 28.5 pg (25.0-35.0); Mean Corpuscular Volume 89 fL (80-100); Monocytes # (Auto) 1.6 Thou/mm3 (0.0-0.8); Monocytes % (Auto) 13 % (0-12); Neutrophils # (Auto) 7.4 Thou/mm3 (1.8-7.7); Neutrophils % (Auto) 60 % (37-80); Nucleated Red Blood Cell % 0 /100 WBC (0); Platelet Count 249 Thou/mm3 (140-440); RDW Standard Deviation 58.9 fL (35.1-43.9); Red Blood Count 3.65 Miln/mm3 (4.50-5.90); White Blood Count 12.2 Thou/mm3 (3.8-10.6)
[2024-04-08 06:32] LABS: INR 1.1 (0.9-1.3); Prothrombin Time 12.3 Seconds (9.0-12.2)
[2024-04-08 06:42] LABS: Anion Gap 5 (7-16); BUN/Creatinine Ratio 19 Ratio (12-20); Blood Urea Nitrogen 34 mg/dL (9-23); Calcium 9.9 mg/dL (8.3-10.6); Carbon Dioxide 36.2 mMol/L (20.0-31.0); Cardiac Risk Estimate 4.5 RATIO (4.0-6.7); Chloride 100 mMol/L (98-107); Cholesterol 125 mg/dL (132-200); Creatinine (Component) 1.8 mg/dL (0.6-1.3); Estimated Creatinine Clearance 54.4 mL/min (>60); Glucose 220 mg/dL (74-106); HDL Cholesterol 28 mg/dL (40-60); LDL Cholesterol,Calculated 68 mg/dL (0-130); Magnesium 2.1 mg/dL (1.6-2.6); Osmolality,Calculated 295 (275-295); Phosphorous 4.5 mg/dL (2.4-5.1); Potassium 3.9 mMol/L (3.4-5.1); Sodium 141 mMol/L (136-145); Triglycerides 146 mg/dL (30-150); eGFR 40 See Note
[2024-04-08 06:46] LABS: Glucose Estimated Average 237 mg/dL (80-131); Hemoglobin A1C 9.9 % Hgb (4.8-6.0)
[2024-04-08] MEDS: INSULIN LISPRO (AdmeLOG) 1 UNIT/0.01 ML UNIT SC ×4 (07:47→20:46)
[2024-04-08 08:56] LABS: Free T4 (Free Thyroxine) 1.29 ng/dL (0.89-1.76)
[2024-04-08] MEDS: carVEDILOL 3.125 MG TABLET 6.25 MG PO ×2 (09:04→20:43)
[2024-04-08] MEDS: APIXABAN 2.5 MG TABLET 5 MG PO ×2 (09:04→20:43)
[2024-04-08] MEDS: PANTOPRAZOLE 40 MG TABLET PO (09:09)
--- NOTE | 2024-04-08 09:16 | PD.IMCONS ---
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 ; he was admitted yesterday with B/L leg edema , fluid overload , diastolic dysfunction currently on bumex drip BUN 34; creatinine 1.8 pt denies chest pain troponin negative cc:: cc: Trev Llanos MD Meds Home Medications and Allergies Home Medications ?Medication ?Instructions ?Recorded ?Confirmed ?Type duloxetine 60 mg capsule,delayed 60 mg PO QDAY 11/25/19 01/31/24 History release sprinkle potassium chloride 10 mEq 10 meq PO QDAY 06/19/23 01/31/24 History capsule,extended release allopurinol 100 mg tablet 100 mg PO QDAY 01/23/24 01/31/24 History amlodipine 5 mg tablet 5 mg PO QDAY 01/23/24 01/31/24 History atorvastatin 40 mg tablet 40 mg PO QDAY 01/23/24 01/31/24 History carvedilol 6.25 mg tablet 6.25 mg PO BID 01/23/24 01/31/24 History montelukast 10 mg tablet 10 mg PO QDAY 01/23/24 01/31/24 History pantoprazole 40 mg tablet,delayed 40 mg PO QDAY 01/23/24 01/31/24 History release pregabalin 150 mg capsule (Lyrica) 150 mg PO TID 01/23/24 01/31/24 History ramipril 5 mg tablet 5 mg PO QDAY 01/23/24 01/31/24 History semaglutide 2 mg/dose (8 mg/3 mL) 2 mg subcut QWEEK 01/23/24 01/31/24 History subcutaneous pen injector (Ozempic) tizanidine 2 mg tablet 2 mg PO HS 01/23/24 01/31/24 History hydrocodone 10 mg-acetaminophen 1 tab PO [id number] PRN Pain 01/31/24 01/31/24 History 325 mg tablet Allergies Allergy/AdvReac Type Severity Reaction Status Date / Time baclofen Allergy Severe Confusion Verified 04/07/24 12:22 bee venom protein (honey bee) Allergy Severe Swelling Verified 04/07/24 12:22 of Lip/Tongue/Throat chicken derived Allergy Severe DIFF Verified 04/07/24 12:22 BREATHING ketorolac [From Toradol] Allergy Intermediate Hallucinati Verified 04/07/24 12:22 ng METAL Allergy Severe Rash Uncoded 04/24/23 13:24 Exam Vital Signs Temp Pulse Resp BP Pulse Ox O2 Del Method O2 Flow Rate 97.6 F 86 34 H 132/81 H 95 Nasal Cannula 2 04/08/24 04:00 04/08/24 09:04 04/08/24 06:45 04/08/24 09:04 04/08/24 06:45 04/08/24 04:00 04/08/24 06:45 Routine HEENT Exam Head: Present normocephalic and atraumatic Eye: Present EOMI and PERRL ENT: Present mucous membranes moist Routine Neck Exam Neck: Present supple and trachea midline Routine Respiratory Exam Respiratory: Present chest non-tender, lungs clear, normal breath sounds and no resp distress Routine Cardiovascular Exam Cardiovascular: Present RRR Routine Abdominal Exam Abdominal: Present soft and normoactive bowel sounds Routine Extremities Exam Extremities: Present full ROM Routine Skin Exam Skin: Present intact, dry and warm Routine Neurological Exam Neurological: Present alert, oriented X3 and CN II-XII intact Routine Psychiatric Exam Psychiatric: Present normal affect and normal thought process Results Labs 04/08/24 05:27 04/08/24 05:27 Labs: Short CBC 04/07/24 04/08/24 Range/Units 12:55 05:27 WBC 12.9 H 12.2 H (3.8-10.6) Thou/mm3 Hgb 11.1 L 10.4 L (13.5-16.0) g/dL Hct 35.3 L 32.3 L (41.0-53.0) % Plt Count 262 249 (140-440) Thou/mm3 BMP 04/07/24 04/08/24 12:55 05:27 Sodium 141 141 Potassium 4.4 3.9 D Chloride 101 100 Carbon Dioxide 34.7 H 36.2 H BUN 31 H 34 H Creatinine 1.7 H 1.8 H Glucose 261 H 220 H Calcium 9.9 9.9 Cardiac Enzymes 04/07/24 Range/Units 12:55 Troponin I < 0.020 (0.0-0.045) ng/mL Liver Function 04/07/24 Range/Units 12:55 Total Bilirubin 0.4 (0.3-1.2) mg/dL AST 14 (0-34) U/L ALT 13 (10-49) U/L Alkaline Phosphatase 172 H (46-116) U/L Albumin 4.4 (3.4-4.8) gm/dL Urine 04/07/24 Range/Units 12:47 Urine Color Colorless A (Lt Yel-Yel) Urine Clarity Clear (Clear/Hazy) Urine pH 6.5 (5.0-7.0) Ur Specific [place] 1.009 (1.001-1.035) Urine Protein Negative (Neg - Trace) Urine Glucose (UA) Negative (Negative) Assessment and Plan Assessment and plan (1) Fluid overload: Status: Acute (2) Shortness of breath: Status: Acute (3) Congestive heart failure: Status: Acute (4) Localized swelling of lower leg: Status: Acute (5) Acute and chronic respiratory failure with hypoxia: Status: Acute (6) Atrial fibrillation: Status: Acute (7) Coronary artery disease: Status: Acute (8) Diabetes 1.5, managed as type 1: Status: Acute (9) Hypertension: Status: Acute Additional Assessment & Plan Additional Plan: will continue agressive diuresis with bumix creatinine is 1.8 will closely monitor his fluid status and creatinine care d/w family and resident
[2024-04-08] MEDS: amLODIPine BESYLATE 5 MG TABLET PO (09:18)
[2024-04-08] MEDS: POTASSIUM CHLORIDE 20 mEq TABCR 40 MEQ PO (09:18)
[2024-04-08] MEDS: FERROUS SULF 325 MG TABLET PO (09:18)
--- NOTE | 2024-04-08 09:21 | PD.RESCONSUL ---
HPI Data of Consult Requesting Physician: Trev Llanos MD Admitting Provider: Aram Linares DO Attending Provider: Trev Llanos MD Primary Care Provider: Howard Briceño MD Consult Narrative cc:: cc: Trev Llanos MD Exam Vital Signs Temp Pulse Resp BP Pulse Ox O2 Del Method O2 Flow Rate 97.6 F 86 34 H 132/81 H 95 Nasal Cannula 2 04/08/24 04:00 04/08/24 09:18 04/08/24 06:45 04/08/24 09:18 04/08/24 06:45 04/08/24 04:00 04/08/24 06:45 Results Labs 04/08/24 05:27 04/08/24 05:27 Labs: Short CBC 04/07/24 04/08/24 Range/Units 12:55 05:27 WBC 12.9 H 12.2 H (3.8-10.6) Thou/mm3 Hgb 11.1 L 10.4 L (13.5-16.0) g/dL Hct 35.3 L 32.3 L (41.0-53.0) % Plt Count 262 249 (140-440) Thou/mm3 BMP 04/07/24 04/08/24 12:55 05:27 Sodium 141 141 Potassium 4.4 3.9 D Chloride 101 100 Carbon Dioxide 34.7 H 36.2 H BUN 31 H 34 H Creatinine 1.7 H 1.8 H Glucose 261 H 220 H Calcium 9.9 9.9 Cardiac Enzymes 04/07/24 Range/Units 12:55 Troponin I < 0.020 (0.0-0.045) ng/mL Liver Function 04/07/24 Range/Units 12:55 Total Bilirubin 0.4 (0.3-1.2) mg/dL AST 14 (0-34) U/L ALT 13 (10-49) U/L Alkaline Phosphatase 172 H (46-116) U/L Albumin 4.4 (3.4-4.8) gm/dL Urine 04/07/24 Range/Units 12:47 Urine Color Colorless A (Lt Yel-Yel) Urine Clarity Clear (Clear/Hazy) Urine pH 6.5 (5.0-7.0) Ur Specific [place] 1.009 (1.001-1.035) Urine Protein Negative (Neg - Trace) Urine Glucose (UA) Negative (Negative) Quality Measures Quality Measures none Medications Home Medications and Allergies Home Medications ?Medication ?Instructions ?Recorded ?Confirmed ?Type duloxetine 60 mg capsule,delayed 60 mg PO QDAY 11/25/19 01/31/24 History release sprinkle potassium chloride 10 mEq 10 meq PO QDAY 06/19/23 01/31/24 History capsule,extended release allopurinol 100 mg tablet 100 mg PO QDAY 01/23/24 01/31/24 History amlodipine 5 mg tablet 5 mg PO QDAY 01/23/24 01/31/24 History atorvastatin 40 mg tablet 40 mg PO QDAY 01/23/24 01/31/24 History carvedilol 6.25 mg tablet 6.25 mg PO BID 01/23/24 01/31/24 History montelukast 10 mg tablet 10 mg PO QDAY 01/23/24 01/31/24 History pantoprazole 40 mg tablet,delayed 40 mg PO QDAY 01/23/24 01/31/24 History release pregabalin 150 mg capsule (Lyrica) 150 mg PO TID 01/23/24 01/31/24 History ramipril 5 mg tablet 5 mg PO QDAY 01/23/24 01/31/24 History semaglutide 2 mg/dose (8 mg/3 mL) 2 mg subcut QWEEK 01/23/24 01/31/24 History subcutaneous pen injector (Ozempic) tizanidine 2 mg tablet 2 mg PO HS 01/23/24 01/31/24 History hydrocodone 10 mg-acetaminophen 1 tab PO [id number] PRN Pain 01/31/24 01/31/24 History 325 mg tablet Allergies Allergy/AdvReac Type Severity Reaction Status Date / Time baclofen Allergy Severe Confusion Verified 04/07/24 12:22 bee venom protein (honey bee) Allergy Severe Swelling Verified 04/07/24 12:22 of Lip/Tongue/Throat chicken derived Allergy Severe DIFF Verified 04/07/24 12:22 BREATHING ketorolac [From Toradol] Allergy Intermediate Hallucinati Verified 04/07/24 12:22 ng METAL Allergy Severe Rash Uncoded 04/24/23 13:24 Visit Medications Acetaminophen (Acetaminophen 325 Mg Tablet) 650 mg PO Q6H PRN PRN Reason: Fever >101.5 Stop: 05/07/24 17:54 Acetaminophen (Acetaminophen 325 Mg Tablet) 650 mg PO Q6H PRN PRN Reason: PAIN SCALE 1-3 (mild Stop: 05/07/24 17:54 Hydrocodone Bitart/Acetaminophen (Hydrocodone/Apap 10/325 Tab) 1 tab PO Q6H PRN PRN Reason: PAIN SCALE 4-6 (Moderate Stop: 04/12/24 17:54 Last Admin: 04/08/24 04:22 Dose: 1 tab Allopurinol (Allopurinol 100 Mg Tablet) 100 mg PO HS [facility] Stop: 05/07/24 20:59 Last Admin: 04/07/24 23:33 Dose: 100 mg Amlodipine Besylate (Amlodipine Besylate 5 Mg Tablet) 5 mg PO QDAY [facility] Stop: 05/08/24 08:59 Last Admin: 04/08/24 09:18 Dose: 5 mg Apixaban (Apixaban 2.5 Mg Tablet) 5 mg PO BID [facility] Stop: 05/07/24 20:59 Last Admin: 04/08/24 09:04 Dose: 5 mg Atorvastatin Calcium (Atorvastatin Calcium 20 Mg Tablet) 40 mg PO HS [facility] Stop: 05/07/24 20:59 Last Admin: 04/07/24 20:14 Dose: 40 mg Carvedilol (Carvedilol 3.125 Mg Tablet) 6.25 mg PO BID [facility] Stop: 05/07/24 20:59 Last Admin: 04/08/24 09:04 Dose: 6.25 mg Dextrose (Dextrose 50%-Water Inj 50 Ml Syringe) 25 ml IV Q15MIN PRN PRN Reason: BG 50-70 responsive npo pt Stop: 05/08/24 04:01 Dextrose (Dextrose 50%-Water Inj 50 Ml Syringe) 50 ml IV Q15MIN PRN PRN Reason: BG <50 OR BG <70 & pt unresponsive Stop: 05/08/24 04:01 Ferrous Sulfate (Ferrous Sulf 325 Mg Tablet) 325 mg PO QOD [facility] Stop: 05/08/24 08:59 Last Admin: 04/08/24 09:18 Dose: 325 mg Glucagon (Glucagon Inj 1 Mg Vial) 1 mg IM Q15MIN PRN PRN Reason: BG <70, and no IV access Hydromorphone HCl (Hydromorphone Inj 2 Mg/Ml Vial) 1 mg IVP Q4HR PRN PRN Reason: PAIN (7-10) Stop: 04/12/24 17:54 Bumetanide 20 mg/ IV (Miscellaneous Supplies) 80 mls @ 8 mls/hr IV .Q10H [facility] Stop: 04/08/24 14:11 Last Admin: 04/08/24 03:12 Dose: 2 mg/hr, 8 mls/hr Insulin Glargine (Insulin Glargine (Lantus) 5 Unit/0.05 Ml (Per 5 Units)) 10 unit SC QDAY [facility] Stop: 05/08/24 08:59 Insulin Human Lispro (Insulin Lispro (Admelog) 1 Unit/0.01 Ml Unit) 0 unit SC [facility]; Protocol Stop: 05/08/24 07:29 Last Admin: 04/08/24 07:47 Dose: 2 unit Insulin Human Lispro (Insulin Lispro (Admelog) 1 Unit/0.01 Ml Unit) 3 unit SC [facility] Stop: 05/08/24 11:29 Montelukast Sodium (Montelukast Sodium 10 Mg Tablet) 10 mg PO HS [facility] Stop: 05/07/24 20:59 Last Admin: 04/07/24 23:33 Dose: 10 mg Ondansetron HCl (Ondansetron Inj 2 Mg/Ml Inj 2 Ml) 4 mg IV Q6H PRN; Protocol PRN Reason: NAUSEA OR VOMITING Stop: 05/07/24 17:54 Pantoprazole Sodium (Pantoprazole 40 Mg Tablet) 40 mg PO QDAY [facility] Stop: 05/07/24 17:59 Last Admin: 04/08/24 09:09 Dose: 40 mg Sennosides (Senna Tablet) 1 tab PO QDAY PRN; Protocol PRN Reason: CONSTIPATION Stop: 05/07/24 18:03 Sodium Chloride (Sodium Chloride Rt Raquel 0.9% 3 Ml Nebu) 3 ml INH PRN PRN PRN Reason: SOLN Stop: 05/07/24 18:16 Discontinued Medications Hydrocodone Bitart/Acetaminophen (Hydrocodone/Apap 7.5/325 Tablet) 1 tab PO X1 ONE Stop: 04/07/24 16:50 Last Admin: 04/07/24 18:28 Dose: 1 tab Bumetanide (Bumetanide Inj 0.25 Mg/Ml Vial 4 Ml) 2 mg IVP X1 ONE Stop: 04/07/24 16:20 Last Admin: 04/07/24 18:29 Dose: 2 mg Guaifenesin (Guaifenesin Syrup 200 Mg/10 Ml Udc) 100 mg PO X1 ONE; Protocol Stop: 04/08/24 04:06 Last Admin: 04/08/24 04:22 Dose: 100 mg Heparin Sodium (Porcine) (Heparin Sod Inj 5000 Unit/Ml Vial) 5,000 unit SC Q8HR [facility] Stop: 04/21/24 21:59 Hydromorphone HCl (Hydromorphone Inj 2 Mg/Ml Vial) 1 mg IVP Q4HR PRN PRN Reason: PAIN Stop: 04/12/24 17:54 Levalbuterol HCl (Levalbuterol Rt 1.25 Mg/0.5 Ml Nebu) 1.25 mg INH X1 ONE Stop: 04/07/24 16:20 Last Admin: 04/07/24 17:13 Dose: 1.25 mg Levalbuterol HCl (Levalbuterol Rt 1.25 Mg/0.5 Ml Nebu) 1.25 mg INH X1 ONE Stop: 04/07/24 18:18 Last Admin: 04/07/24 21:56 Dose: Not Given Methylprednisolone Sodium Succinate (Methylprednisolone Sod Succ 62.5 Mg/Ml 2ml Vial) 125 mg IVP Q6HR [facility] Stop: 04/14/24 18:29 Potassium Chloride (Potassium Chloride 20 Meq Tabcr) 40 meq PO X1 ONE Stop: 04/08/24 08:15 Last Admin: 04/08/24 09:18 Dose: 40 meq Sodium Chloride (Sodium Chloride Rt Raquel 0.9% 3 Ml Nebu) 3 ml INH PRN PRN PRN Reason: SOLN Stop: 05/07/24 16:18 Last Admin: 04/07/24 17:13 Dose: 3 ml Sodium Chloride (Sodium Chloride Rt 10% 15 Ml Nebu) 5 ml INH X1 ONE Stop: 04/07/24 18:01 Last Admin: 04/07/24 21:56 Dose: Not Given
[2024-04-08] MEDS: INSULIN GLARGINE (Lantus) 5 UNIT/0.05 ML (PER 5 UNITS) 10 UNIT SC (11:42)
[2024-04-08] MEDS: INSULIN LISPRO (AdmeLOG) 1 UNIT/0.01 ML UNIT 3 UNIT SC ×3 (11:43→20:46)
--- NOTE | 2024-04-08 11:46 | PC.SS ---
SS met with patient regarding his d/c plan. Pt is alert/oriented. Pt was admitted for Fluid Overload. Pt confirmed demographic and contact information is correct on facesheet. Pt resides with his son. Pt states he transfers into wheelchair with assistance. Pt also has and electric wheelchair. Pt has his standared wheelchair at bedside. Pt utilizes O2 at home from [facility]. Pt named his son, Maddison Anthony medical decision maker if he is unable. SS provided verbal d/c options for home or SNF. Patient?s choice is to return home upon d/c. Pt states he diabetic, has glucometer, and test strips. Pt states he not on dialysis. Pt followed up with PCP a week ago. Pt states his niece and dtr in law are his [facility] caregivers. Pt will require transportation home at d/c. D/C plan: Return home Next of Kin: Maddison Anthony, son, phone# [phone] PCP: Dr. Howard Briceño Address: Correct on facesheet
[2024-04-08] MEDS: HYDROmorphone INJ 2 MG/ML VIAL 1 MG IVP (12:33)
--- NOTE | 2024-04-08 14:04 | ESPR_ITS ---
Documentation for date of: 04/08/24 Subjective Subjective Interval history: No acute overnight events. Patient was seen and examined at bedside. Labs reviewed. He was laying in bed gurney. He said that he still felt short of breath but oxygen medication overnight helped him. He does not have much of an appetite today. Patient says that he has lower back and neck pain, which are both chronic. Patient is a chronic CO2 retainer. Today he is saturating at 96% on 2 L nasal cannula. Will continue breathing treatments. Will continue oxygen as needed, goal SaO2 88 to 92%. Exam Vital Signs Temp Pulse Resp BP Pulse Ox O2 Del Method O2 Flow Rate 97.5 F 104 H 20 120/81 93 L Nasal Cannula 2 04/08/24 12:00 04/08/24 13:28 04/08/24 12:00 04/08/24 13:28 04/08/24 12:00 04/08/24 12:00 04/08/24 12:00 Narrative Exam GEN: Elderly male wearing eyeglasses with breakfast at bedside,laying in bed gurney at 45 degree angle. HEENT: NC/AC, PERRLA, oral mucosa moist. CVS: Irregular rhythm, S1-S2 present, no murmurs. +JVD. RESP: Faint wheezing bilaterally- improving, mild crackles appreciated in all lung lobes bilaterally. GI: soft, non distended, non tender, NBS MSK: 1+ pitting b/l lower extremity edema, improving. Right LE moderately enlarged compared to left LE. SKIN: warm and dry. Ulcer, dime-size, on the medial malleolus of right foot. Shiny bilateral LE from calves to the ankles. 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 Generally alert and oriented to person and place. Routine HEENT Exam Head: Present normocephalic and atraumatic Eye: Present EOMI and PERRL ENT: Present mucous membranes moist Routine Neck Exam Neck: Present supple and trachea midline Routine Respiratory Exam Respiratory: Present chest non-tender, lungs clear, normal breath sounds and no resp distress Routine Cardiovascular Exam Cardiovascular: Present RRR Routine Abdominal Exam Abdominal: Present soft and normoactive bowel sounds Routine Extremities Exam Extremities: Present full ROM Routine Skin Exam Skin: Present intact, dry and warm Routine Neurological Exam Neurological: Present alert, oriented X3 and CN II-XII intact Routine Psychiatric Exam Psychiatric: Present normal affect and normal thought process Objective Labs 04/08/24 05:27 04/08/24 05:27 Labs: Laboratory Results - last 24 hr 04/08/24 05:27 WBC 12.2 H RBC 3.65 L Hgb 10.4 L Hct 32.3 L MCV 89 MCH 28.5 MCHC 32.2 RDW Std Deviation 58.9 H Plt Count 249 Neut % (Auto) 60 Lymph % (Auto) 23 [place] % (Auto) 13 H Eos % (Auto) 3 Baso % (Auto) 0 Neut # (Auto) 7.4 Lymph # (Auto) 2.9 [place] # (Auto) 1.6 H Eos # (Auto) 0.3 Baso # (Auto) 0.0 Immature Gran # (Auto) 0.04 H Absolute Nucleated RBC 0.00 Immature Gran % 0 Nucleated RBC % 0 PT 12.3 H INR 1.1 Sodium 141 Potassium 3.9 D Chloride 100 Carbon Dioxide 36.2 H Anion Gap 5 L BUN 34 H Creatinine 1.8 H Estim Creat Clear Calc 54.4 L eGFR 40 L BUN/Creatinine Ratio [address] Glu mg/dL 237 H Hemoglobin A1c 9.9 H Calculated Osmolality 295 Calcium 9.9 Phosphorus 4.5 Magnesium 2.1 Triglycerides 146 Cholesterol 125 L LDL Cholesterol, Calc 68 HDL Cholesterol 28 L Cholesterol/HDL Ratio 4.5 TSH 0.40 L Free T4 1.29 Quality Measures Quality Measures none Advance care planning discussed with:: patient Assessment & Plan Assessment Current Active Medications: Generic Name Dose Route Start Last Admin Trade Name Buddyq PRN Reason Stop Dose Admin Acetaminophen 650 mg 04/07/24 17:55 Acetaminophen 325 Mg Tablet PO 05/07/24 17:54 Q6H PRN Fever >101.5 Acetaminophen 650 mg 04/07/24 17:55 Acetaminophen 325 Mg Tablet PO 05/07/24 17:54 Q6H PRN PAIN SCALE 1-3 (mild Hydrocodone Bitart/Acetaminophen 1 tab 04/07/24 17:55 04/08/24 04:22 Hydrocodone/Apap 10/325 Tab PO 04/12/24 17:54 1 tab Q6H PRN Administration PAIN SCALE 4-6 (Moderate Allopurinol 100 mg 04/07/24 21:00 04/07/24 23:33 Allopurinol 100 Mg Tablet PO 05/07/24 20:59 100 mg HS HUDSON Administration Amlodipine Besylate 5 mg 04/08/24 09:00 04/08/24 09:18 Amlodipine Besylate 5 Mg Tablet PO 05/08/24 08:59 5 mg QDAY HUDSON Administration Apixaban 5 mg 04/07/24 21:00 04/08/24 09:04 Apixaban 2.5 Mg Tablet PO 05/07/24 20:59 5 mg BID HUDSON Administration Atorvastatin Calcium 40 mg 04/07/24 21:00 04/07/24 20:14 Atorvastatin Calcium 20 Mg Tablet PO 05/07/24 20:59 40 mg HS HUDSON Administration Carvedilol 6.25 mg 04/07/24 21:00 04/08/24 09:04 Carvedilol 3.125 Mg Tablet PO 05/07/24 20:59 6.25 mg BID HUDSON Administration Dextrose 25 ml 04/08/24 04:02 Dextrose 50%-Water Inj 50 Ml Syringe IV 05/08/24 04:01 Q15MIN PRN BG 50-70 responsive npo pt Dextrose 50 ml 04/08/24 04:02 Dextrose 50%-Water Inj 50 Ml Syringe IV 05/08/24 04:01 Q15MIN PRN BG <50 OR BG <70 & pt unresponsive Ferrous Sulfate 325 mg 04/08/24 09:00 04/08/24 09:18 Ferrous Sulf 325 Mg Tablet PO 05/08/24 08:59 325 mg QOD HUDSON Administration Glucagon 1 mg 04/08/24 04:02 Glucagon Inj 1 Mg Vial IM Q15MIN PRN BG <70, and no IV access Hydromorphone HCl 1 mg 04/07/24 18:36 04/08/24 12:33 Hydromorphone Inj 2 Mg/Ml Vial IVP 04/12/24 17:54 1 mg Q4HR PRN Administration PAIN (7-10) Bumetanide 20 mg/ IV 80 mls @ 8 mls/hr 04/07/24 18:12 04/08/24 03:12 Miscellaneous Supplies IV 04/08/24 14:11 2 mg/hr .Q10H HUDSON 8 mls/hr Administration 2 MG/HR Bumetanide 20 mg/ IV 80 mls @ 8 mls/hr 04/08/24 14:00 04/08/24 13:28 Miscellaneous Supplies IV 04/09/24 09:59 2 mg/hr .Q10H HUDSON 8 mls/hr Administration 2 MG/HR Insulin Glargine 10 unit 04/08/24 09:00 04/08/24 11:42 Insulin Glargine (Lantus) 5 Unit/0.05 Ml (Per 5 Units) SC 05/08/24 08:59 10 unit QDAY HUDSON Administration Insulin Human Lispro 0 unit 04/08/24 07:30 04/08/24 11:44 Insulin Lispro (Admelog) 1 Unit/0.01 Ml Unit SC 05/08/24 07:29 2 unit ACHS HUDSON Administration Protocol Insulin Human Lispro 3 unit 04/08/24 11:30 04/08/24 11:43 Insulin Lispro (Admelog) 1 Unit/0.01 Ml Unit SC 05/08/24 11:29 3 unit ACHS HUDSON Administration Montelukast Sodium 10 mg 04/07/24 21:00 04/07/24 23:33 Montelukast Sodium 10 Mg Tablet PO 05/07/24 20:59 10 mg HS HUDSON Administration Ondansetron HCl 4 mg 04/07/24 17:55 Ondansetron Inj 2 Mg/Ml Inj 2 Ml IV 05/07/24 17:54 Q6H PRN NAUSEA OR VOMITING Protocol Pantoprazole Sodium 40 mg 04/07/24 18:00 04/08/24 09:09 Pantoprazole 40 Mg Tablet PO 05/07/24 17:59 40 mg QDAY HUDSON Administration Sennosides 1 tab 04/07/24 18:04 Senna Tablet PO 05/07/24 18:03 QDAY PRN CONSTIPATION Protocol Sodium Chloride 3 ml 04/07/24 18:17 Sodium Chloride Rt Raquel 0.9% 3 Ml Nebu INH 05/07/24 18:16 PRN PRN SOLN Plan 68-year-old male with past medical history of HLD, T2DM (A1c 8.1%), HTN, HFpEF EF 55-60%, CAD s/p stent, A-fib on Eliquis, CVA with left sided residual deficits (2022), COPD dependent on 3 L oxygen at home, asthma, gout, and BPH presented to the ED on 04/07/2024 for chief complaint of shortness of breath and bilateral lower extremity swelling. Patient was found to to be in a fluid overloaded state. Dr. Felton was consulted, who recommended Bumex drip for CHF. Patient was admitted for management of CHF exacerbation. #Acutely decompensated heart failure #HFpEF EF 55-60% Most likely secondary to hypertension and obesity Ddx: CHF vs COPD exacerbation Patient presented with difficulty breathing and bilateral lower extremity swelling and increased sputum production over the past 2 weeks. He denied any sick contacts or recent travel. In the setting of hypertension obesity, patient presents with acute decompensated heart failure. Clinically, he remains fluid overloaded though significant improvement of lower extremity edema. Orthopnea and +JVD noted on exam. Wheezing b/l with crackles in b/l lungs. Net negative ~700 cc output, but appears to have had more output considering improvement in his clinical picture; it's possible that not all fluid output was recorded. Chest x-ray showed no pneumonia or pulmonary edema. Subsegmental atelectasis left base seen on CXR. Echo on 06/2023: EF 55-60%. NYHA class IV. Plan: -Dr. Felton Cardiology was consulted, who recommended Bumex drip for CHF. -Aggressive diuresis with Bumex drip 2 mg/hr -Echo ordered; pending follow-up -Strict TONY's and daily weight checks -Fluid restriction; 1500 cc daily -Follow-up CMP #COPD #Asthma #Chronic smoking history Patient has a history of COPD and asthma on montelukast and inhaler at home. Chronic smoking history of 40 years; 1.5 pack smoker daily. Wheezing on bilateral lungs. -Monteleukast -inhaler -Encourage patient to discontinue smoking -Will continue oxygen as needed, goal SaO2 88 to 92%. #Leukocytosis, improving Most likely secondary to inflammatory response from CHF with underlying COPD. WBC 12.9 on presentation, downtrended to 12.2 -Follow-up CBC #A-fib He has hx of atrial fibrillation, on Eliquis. EKG showed atrial fibrillation, heart rate 87. -Appreciate cardiology consultation recommendations -Continue Eliquis 5 mg twice daily -Maintain potassium greater than 4 and magnesium greater than 2 #Hypertension Chronic, uncontrolled Blood pressure is well-controlled on current regimen. -Coreg 6.25 mg orally daily -amlodipine 5mg daily #DMT2 Chronic, uncontrolled Glucose elevated at 202. -Glargine 10 units SC daily. -Insulin lispro 3 units SC ACHS -SSI -Bedside glucose checks -Hypoglycemic protocol #CAD status post stent placement #CVA (2022) with left hemiplegia -atorvastatin 40 mg orally daily #HLD Patient does not appear to be on any medication for this condition. -recommend outpatient f/up Discussed case with my attending Dr. Linares and senior Jannet Sibley, PGY-3. Thank you, Estrella Sterling, PGY-2 Attending Provider Attestation/Addendum I have discussed and was present for the essential components of the history, physical examination, diagnosis, and treatment plan with the resident. I agree with the patient's care as documented by the resident and amended herein by me. Matias Linares, DO. Patient seen and evaluated this AM. No subjective complaints overnight, vital signs stable, patient afebrile, currently on 2 L via nasal cannula, SpO2 95%, patient net -700 mL overnight however I suspect all I's and O's were not recorded as the patient clinically speaking, most notably in the lower extremities is much less edematous. Significant problem list #Acute on chronic decompensated diastolic heart failure, history of HFpEF, recent echo today showed an EF of 50 to 55% with normal LV size and function. #HFpEF #Atrial fibrillation #COPD #Active tobacco use #CAD #Hypertension #History of CVA Plan: -Dr. Llanos has been consulted, will continue Bumex drip for now per cardiology recommendations and continue to monitor strict I's and O's until euvolemic, will also add lispro 3 units 3 times daily AC for improved blood glucose control. Will reconcile home meds and add back appropriately. Appreciate cardiology recommendations. Although this document has been carefully reviewed, there may still be some phonetic and other typographical errors. These errors are purely grammatical due to imperfections in the software program and should not be construed in any way to compromise the substance of the patient's medical care during this visit.
[2024-04-08] MEDS: ATORVASTATIN CALCIUM 20 MG TABLET 40 MG PO (20:43)
[2024-04-08] MEDS: MONTELUKAST SODIUM 10 MG TABLET PO (20:44)
[2024-04-08] MEDS: allopurinoL 100 MG TABLET PO (20:44)
[2024-04-08] MEDS: ACETAMINOPHEN 325 MG TABLET 650 MG PO (20:48)
[2024-04-09] VITALS (14 sets, daily range): BP systolic 111–165; BP diastolic 56–109; PULSE 89–107; RESP 20–28; TEMP 36.1–36.6; O2SAT 93–97; BMI 45.1
[2024-04-09] MEDS: BUMETANIDE INJ 20 MG in CONTAINER,EMPTY 50 ML 1 BAG 8 MG IV (00:44)
[2024-04-09 05:56] LABS: Basophils # (Auto) 0.1 Thou/mm3 (0.0-0.2); Basophils % (Auto) 1 % (0-2.5); Eosinophils # (Auto) 0.4 Thou/mm3 (0.0-0.5); Eosinophils % (Auto) 3 % (0-10); Hematocrit 36.1 % (41.0-53.0); Hemoglobin 11.6 g/dL (13.5-16.0); Immature Granulocytes % (Auto) 0 % (0-0); Immature Granulocytes Auto 0.04 Thou/mm3 (0.00-0.00); Lymphocytes # (Auto) 2.8 Thou/mm3 (1.0-4.8); Lymphocytes % (Auto) 25 % (10-50); Mean Corpuscular HGB Conc 32.1 g/dl (31.0-37.0); Mean Corpuscular Hemoglobin 28.4 pg (25.0-35.0); Mean Corpuscular Volume 88 fL (80-100); Monocytes # (Auto) 1.7 Thou/mm3 (0.0-0.8); Monocytes % (Auto) 15 % (0-12); Neutrophils # (Auto) 6.4 Thou/mm3 (1.8-7.7); Neutrophils % (Auto) 56 % (37-80); Nucleated Red Blood Cell % 0 /100 WBC (0); Platelet Count 267 Thou/mm3 (140-440); RDW Standard Deviation 57.3 fL (35.1-43.9); Red Blood Count 4.09 Miln/mm3 (4.50-5.90); White Blood Count 11.4 Thou/mm3 (3.8-10.6)
[2024-04-09 06:23] LABS: Anion Gap 4 (7-16); BUN/Creatinine Ratio 19 Ratio (12-20); Blood Urea Nitrogen 40 mg/dL (9-23); Calcium 9.9 mg/dL (8.3-10.6); Carbon Dioxide 36.7 mMol/L (20.0-31.0); Chloride 100 mMol/L (98-107); Creatinine (Component) 2.1 mg/dL (0.6-1.3); Estimated Creatinine Clearance 46.6 mL/min (>60); Glucose 202 mg/dL (74-106); Magnesium 2.2 mg/dL (1.6-2.6); Osmolality,Calculated 296 (275-295); Potassium 3.7 mMol/L (3.4-5.1); Sodium 141 mMol/L (136-145); eGFR 34 See Note
[2024-04-09] MEDS: INSULIN LISPRO (AdmeLOG) 1 UNIT/0.01 ML UNIT 3 UNIT SC (07:54)
[2024-04-09] MEDS: INSULIN LISPRO (AdmeLOG) 1 UNIT/0.01 ML UNIT SC ×4 (07:55→21:25)
[2024-04-09] MEDS: carVEDILOL 3.125 MG TABLET 6.25 MG PO ×2 (08:10→21:20)
[2024-04-09] MEDS: APIXABAN 2.5 MG TABLET 5 MG PO ×2 (08:11→21:21)
[2024-04-09] MEDS: amLODIPine BESYLATE 5 MG TABLET PO (08:11)
[2024-04-09] MEDS: PANTOPRAZOLE 40 MG TABLET PO (08:11)
[2024-04-09] MEDS: HYDROmorphone INJ 2 MG/ML VIAL 1 MG IVP ×2 (08:12→19:36)
[2024-04-09] MEDS: INSULIN GLARGINE (Lantus) 5 UNIT/0.05 ML (PER 5 UNITS) 10 UNIT SC (08:12)
--- NOTE | 2024-04-09 09:27 | PC.SS ---
Follow up note: Continue IV diureses. Continue to return home upon dc. Pt has O2 at home.
[2024-04-09] MEDS: INSULIN LISPRO (AdmeLOG) 1 UNIT/0.01 ML UNIT 4 UNIT SC ×3 (11:29→21:25)
[2024-04-09] MEDS: HYDROcodone/APAP 10/325 TAB PO (11:31)
[2024-04-09] MEDS: POLYETHYLENE GLYCOL 17 GM PACKET PO (11:31)
--- NOTE | 2024-04-09 12:04 | PD.RESPRO ---
Documentation for date of: 04/09/24 Subjective Subjective Interval history: Patient seen in office on 04/07 with severe SOB and lower extremity swelling despite being on Bumex 4 Mg p.o. twice daily and metolazone 5 Mg p.o. daily. Patient was instructed to present to the ED. Patient was seen and examined at bedside this AM. No acute exents overnight. Patient tolerating diet, adequate urine output and mentation is at baseline. Patient endorses improvement of SOB and denies any chest pressure/pain, dizziness, presyncope/syncope. Patient was on bumetanide infusion since admission which was discontinued this a.m. Patient has adequate diuresis with a fluid balance of negative 4515cc in the past 24 hours. Recommend to transition to Bumex 2 Mg IV twice daily or Bumex 4 Mg p.o. twice daily. Potassium 3.7 and magnesium 2.2. Recommend KCl 40 mEq p.o. x 1. Please maintain potassium greater than 4 and magnesium greater than 2 at all times to prevent any arrhythmias EKG on admission showed atrial fibrillation rate controlled at 87. Previous EKGs also showed similar findings. Transthoracic echocardiogram completed on 04/07 findings include: Suboptimal images due to body habitas. Normal LV size and function.diastolic function prsesent but cannit grade due to AFib. Estimated EF 50-55% Normal RV size and function. Mild MAC. Trace TR. On previous admission transesophageal echocardiogram completed on 07/08/2023 findings include: Negative bubble study, no evidence of PFO or ASD or LA/CHRISTIE thrombus. Normal LV size and function. Estimated EF 55-60% RV mildly dilated and mildly dialted LA. Moderate MR. Mild to moderate TR. There is mild protruding plaque seen in the aortic arch. Pulomary flow is systolic blunting. Exam Vital Signs Temp Pulse Resp BP Pulse Ox O2 Del Method O2 Flow Rate 96.9 F 106 H 27 H 125/79 93 L Nasal Cannula 2 04/09/24 10:50 04/09/24 10:50 04/09/24 10:50 04/09/24 10:50 04/09/24 10:50 04/09/24 10:50 04/09/24 10:50 Narrative Exam Constitutional Alert, oriented x 3 and comfortable. Elderly, Obese male on O2 via NC HEENT Vision grossly intact. Patent nares. Trachea midline Respiratory Chest normal on inspection and decreased AE in all lung steward with crackles at bases b/l Cardiovascular S1 and S2 audible, RRR. No murmurs carotid bruit. No gross JVD. Abdominal Soft,obese and non tender to palpation in all quadrants. BS + Genitourinary No bladder tenderness, no flank pain. Normal to palpation. No scrotal edema Musculoskeletal Extremities tone within normal limits. 1+ LE edema, 3+ Hip edema B/L and Sacral edema Neurological CN II - XII grossly intact. Extremity motor and sensation grossly intact. Skin Warm, dry and intact. No apparent lesions. Psychiatric Patient has good affect, is cooperative Objective Labs 04/11/24 05:26 04/11/24 05:26 Labs: Laboratory Results - last 24 hr 04/09/24 04:45 WBC 11.4 H RBC 4.09 L Hgb 11.6 L Hct 36.1 L MCV 88 MCH 28.4 MCHC 32.1 RDW Std Deviation 57.3 H Plt Count 267 Neut % (Auto) 56 Lymph % (Auto) 25 [place] % (Auto) 15 H Eos % (Auto) 3 Baso % (Auto) 1 Neut # (Auto) 6.4 Lymph # (Auto) 2.8 [place] # (Auto) 1.7 H Eos # (Auto) 0.4 Baso # (Auto) 0.1 Immature Gran # (Auto) 0.04 H Absolute Nucleated RBC 0.00 Immature Gran % 0 Nucleated RBC % 0 Sodium 141 Potassium 3.7 Chloride 100 Carbon Dioxide 36.7 H Anion Gap 4 L BUN 40 H Creatinine 2.1 H Estim Creat Clear Calc 46.6 L eGFR 34 L BUN/Creatinine Ratio 19 Glucose 202 H Calculated Osmolality 296 H Calcium 9.9 Phosphorus 5.0 Magnesium 2.2 Quality Measures Quality Measures none Advance care planning discussed with:: patient and other Assessment & Plan Assessment Current Active Medications: Generic Name Dose Route Start Last Admin Trade Name Freq PRN Reason Stop Dose Admin Acetaminophen 650 mg 04/07/24 17:55 Acetaminophen 325 Mg Tablet PO 05/07/24 17:54 Q6H PRN Fever >101.5 Acetaminophen 650 mg 04/07/24 17:55 04/08/24 20:48 Acetaminophen 325 Mg Tablet PO 05/07/24 17:54 650 mg Q6H PRN Administration PAIN SCALE 1-3 (mild Hydrocodone Bitart/Acetaminophen 1 tab 04/07/24 17:55 04/09/24 11:31 Hydrocodone/Apap 10/325 Tab PO 04/12/24 17:54 1 tab Q6H PRN Administration PAIN SCALE 4-6 (Moderate Allopurinol 100 mg 04/07/24 21:00 04/08/24 20:44 Allopurinol 100 Mg Tablet PO 05/07/24 20:59 100 mg HS HUDSON Administration Amlodipine Besylate 5 mg 04/08/24 09:00 04/09/24 08:11 Amlodipine Besylate 5 Mg Tablet PO 05/08/24 08:59 5 mg QDAY HUDSON Administration Apixaban 5 mg 04/07/24 21:00 04/09/24 08:11 Apixaban 2.5 Mg Tablet PO 05/07/24 20:59 5 mg BID HUDSON Administration Atorvastatin Calcium 40 mg 04/07/24 21:00 04/08/24 20:43 Atorvastatin Calcium 20 Mg Tablet PO 05/07/24 20:59 40 mg HS HUDSON Administration Carvedilol 6.25 mg 04/07/24 21:00 04/09/24 08:10 Carvedilol 3.125 Mg Tablet PO 05/07/24 20:59 6.25 mg BID HUDSON Administration Dextrose 25 ml 04/08/24 04:02 Dextrose 50%-Water Inj 50 Ml Syringe IV 05/08/24 04:01 Q15MIN PRN BG 50-70 responsive npo pt Dextrose 50 ml 04/08/24 04:02 Dextrose 50%-Water Inj 50 Ml Syringe IV 05/08/24 04:01 Q15MIN PRN BG <50 OR BG <70 & pt unresponsive Ferrous Sulfate 325 mg 04/08/24 09:00 04/08/24 09:18 Ferrous Sulf 325 Mg Tablet PO 05/08/24 08:59 325 mg QOD HUDSON Administration Glucagon 1 mg 04/08/24 04:02 Glucagon Inj 1 Mg Vial IM Q15MIN PRN BG <70, and no IV access Hydromorphone HCl 1 mg 04/07/24 18:36 04/09/24 08:12 Hydromorphone Inj 2 Mg/Ml Vial IVP 04/12/24 17:54 1 mg Q4HR PRN Administration PAIN (7-10) Bumetanide 20 mg/ IV 80 mls @ 8 mls/hr 04/08/24 14:00 04/09/24 00:44 Miscellaneous Supplies IV 2 mg/hr .Q10H HUDSON 8 mls/hr Administration 2 MG/HR Insulin Glargine 15 unit 04/10/24 09:00 Insulin Glargine (Lantus) 5 Unit/0.05 Ml (Per 5 Units) SC 05/10/24 08:59 QDAY HUDSON Insulin Human Lispro 0 unit 04/08/24 07:30 04/09/24 11:30 Insulin Lispro (Admelog) 1 Unit/0.01 Ml Unit SC 05/08/24 07:29 2 unit ACHS HUDSON Administration Protocol Insulin Human Lispro 4 unit 04/09/24 11:30 04/09/24 11:29 Insulin Lispro (Admelog) 1 Unit/0.01 Ml Unit SC 05/09/24 11:29 4 unit ACHS HUDSON Administration Montelukast Sodium 10 mg 04/07/24 21:00 04/08/24 20:44 Montelukast Sodium 10 Mg Tablet PO 05/07/24 20:59 10 mg HS HUDSON Administration Ondansetron HCl 4 mg 04/07/24 17:55 Ondansetron Inj 2 Mg/Ml Inj 2 Ml IV 05/07/24 17:54 Q6H PRN NAUSEA OR VOMITING Protocol Pantoprazole Sodium 40 mg 04/07/24 18:00 04/09/24 08:11 Pantoprazole 40 Mg Tablet PO 05/07/24 17:59 40 mg QDAY HUDSON Administration Sennosides 1 tab 04/07/24 18:04 Senna Tablet PO 05/07/24 18:03 QDAY PRN CONSTIPATION Protocol Sodium Chloride 3 ml 04/07/24 18:17 Sodium Chloride Rt Raquel 0.9% 3 Ml Nebu INH 05/07/24 18:16 PRN PRN SOLN Plan 68-year-old male with past medical history of HLD, NIDDM type 2 (A1c 8.1%), HTN, HFpEF EF 50-55%, CAD s/p stent, A-fib on Eliquis, CVA with left hemiparesis (2022), COPD dependent on 3 L oxygen at home, gout, and BPH presented to the ED on 04/07/2024 for chief complaint of shortness of breath and bilateral lower extremity swelling. Patient was admitted for acute decompensated heart failure and cardiology was consulted. 1. Acute decompensated heart failure exacerbation with preserved ejection fraction [50-55%] and mild to moderate PAH Patient's home medication Bumex 4 Mg p.o. twice daily and metolazone 5 Mg p.o. daily. Despite this patient developed worsening SOB and bilateral lower extremity edema the day of admission and he presented to his coater carbon paper, Dr. Sherman who recommended he present to the ED. Chest x-ray on admission showed increased vascular markings and mild atelectasis left base. Patient was started on Bumex infusion initially which was held this morning and patient transition to Bumex 2 Mg IV twice daily. On exam patient has significant sacral and hip edema, crackles at lung bases bilaterally with no lower extremity swelling or scrotal edema BNP on admission was 76 NYHA stage D class III Transthoracic echocardiogram completed on 04/07 findings include: Suboptimal images due to body habitas. Normal LV size and function.diastolic function prsesent but cannit grade due to AFib. Estimated EF 50-55% Normal RV size and function. Mild MAC. Trace TR. On previous admission transesophageal echocardiogram completed on 07/08/2023 findings include: Negative bubble study, no evidence of PFO or ASD or LA/CHRISTIE thrombus. Normal LV size and function. Estimated EF 55-60% RV mildly dilated and mildly dialted LA. Moderate MR. Mild to moderate TR. There is mild protruding plaque seen in the aortic arch. Pulomary flow is systolic blunting. Plan: ? 2 g sodium restricted diet ? Strict input output charting ? Daily weights ?1500 cc/day fluid restriction ? Recommend diuresis with Bumex 2 Mg IV twice daily or Bumex 4 Mg p.o. twice daily with a goal of 1-2 L diuresis per day. ?Beta-blockers contraindicated in severe CHF exacerbation, recommend to discontinue or decrease dose of beta-ashish. 2. Essential hypertension Patient's home medication carvedilol 6.25 mg p.o. twice daily, metolazone 5 Mg p.o. daily and Bumex 4 Mg p.o. twice daily. On admission BP 125/80, currently BP 125/79. Plan: ? Recommend excellent control of blood pressure and maintain SBP less than 140 mmHg 3. CAD s/p stent with DEMARIO 4. Hyperlipidemia Patient on high-dose statin atorvastatin 40 Mg p.o. at bedtime. Patient not on aspirin or Plavix due to recent history of GI bleed 2 months ago. Hb currently stable at 11.6. Plan: ? Continue high intensity statin 5. Atrial fibrillation?long-term persistent Patient rate controlled on carvedilol 6.25 Mg p.o. twice daily at home and anticoagulated with Eliquis 5 Mg p.o. 3 times daily. EKG on admission showed A-fib rate 96 [id number]: 7 points; stroke risk 11.2 %/year HAS-BLED : 5 points; high risk for major bleeding Plan: ? Recommend to continue home anticoagulation Eliquis 5 Mg p.o. twice daily ? Beta-blockers contraindicated in severe CHF exacerbation recommend to decrease dose or hold at this time 6. History of CVA [2022] Patient has residual left hemiparesis. Currently not on aspirin or Plavix due to history of GI bleed 2 months ago. 7. COPD 8. Asthma 9. Nicotine dependence Patient has a history of COPD and asthma on montelukast and inhaler at home. Chronic smoking history of 40 years; 1.5 pack smoker daily. Continue management as per primary team 10. [id number] diabetes mellitus type 2 [8.1] Patient on Ozempic at home. Continue management as per primary team 11. History of GI bleed January 2024 Colonoscopy completed on 02/01/[address] 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 Findings consistent with ischemic colitis multiple polyps resected with hot snare. Recommendations were for repeat colonoscopy in 6 months and to avoid NSAIDs. Pathology of the polyps was positive for tubular adenomas. 12. ALMA on CKD stage III Baseline Cr 1.4-1.9. On admission Cr 1.7. Currently Cr 2.4. Continue management as per primary team Continue rest of management as per primary team. We are grateful to be able to participate in Mr. Anthony's care. Thank you for the consult Plan of care discussed with attending School Traffic Guard, Dr Whit Oleary MD PGY 1 Attending Provider Attestation/Addendum I have personally seen and examined the patient separately on the above date of service and discussed the plan of care with the resident. I reviewed the resident Dr. Oleary consultation progress note and agree with the resident findings and plan in the note above and have also edited the documentation to reflect my findings and plan. Rogerio Sherman M.D. Interventional Cardiology
[2024-04-09] MEDS: POTASSIUM CHLORIDE 20 mEq TABCR 40 MEQ PO (14:15)
[2024-04-09] MEDS: BUMETANIDE INJ 0.25 MG/ML VIAL 4 ML 2 MG IVP (14:16)
--- NOTE | 2024-04-09 16:01 | ESPR_ITS ---
<Statement entered by Jannet Sibley MD - 04/09/24 16:54> Senior Resident Attestation: I supervised/discussed management plan with resident physician Dr. Escudero, and was involved in the care of this patient. I personally saw and examined the patient and discussed the assessment and plan with the entire medicine team, including my attending. I agree with the assessment and plan as documented. Patient's care was discussed with attending physician, Dr. Milagros Sibley MD PGY-3 Documentation for date of: 04/09/24 Subjective Subjective Interval history: Patient seen at bedside. No acute overnight events. Patient reports improvements in her breathing, he does complain of lower back pain today, however this is a chronic condition. I&O today: 1045/5550(-2335). Patient has achieved good diuresis with IV Bumex drip. Labs today significant for bicarb of 36.7-contraction alkalosis and bump in creatinine to 2.1 from 1.8. Blood glucose also elevated today at 202, patient has been on insulin glargine 10 units and lispro 3 units, will adjust insulin regimen. Echocardiogram reported, ejection fraction 50 to 55%. Will hold diuresis now baseline creatinine and follow-up with cardiology recommendations. On telemetry, patient still in A-fib, rate controlled and is on Coreg and Eliquis. Exam Vital Signs Temp Pulse Resp BP Pulse Ox O2 Del Method O2 Flow Rate 97.3 F 101 H 27 H 128/56 L 95 Nasal Cannula 2 04/09/24 12:00 04/09/24 14:16 04/09/24 12:00 04/09/24 14:16 04/09/24 12:00 04/09/24 12:00 04/09/24 12:00 Narrative Exam GENERAL: AAOX3 NEURO: WRIST LINER grossly intact, moves extremities x4 HEENT: Moist mucosa. Eyes open, symmetrical, & clear CARDIO: No chest pain on palpation. Irregular, normal rate PULM: No noted coughing/dyspnea. Crackles bilaterally, saturating 96% on 3L on O2 GI: Abdomen soft, nondistended, no pain on palpation. BSx4 URO/FEDERAL AID COORDINATOR:: No further abnormalities noted. Gonzalez catheter/ in-situ SKIN/MSK/EXT: Bilateral edema 1+ resolving as well as generalized anasarca Objective Labs 04/10/24 05:52 04/10/24 05:52 Labs: Laboratory Results - last 24 hr 04/09/24 04:45 WBC 11.4 H RBC 4.09 L Hgb 11.6 L Hct 36.1 L MCV 88 MCH 28.4 MCHC 32.1 RDW Std Deviation 57.3 H Plt Count 267 Neut % (Auto) 56 Lymph % (Auto) 25 [place] % (Auto) 15 H Eos % (Auto) 3 Baso % (Auto) 1 Neut # (Auto) 6.4 Lymph # (Auto) 2.8 [place] # (Auto) 1.7 H Eos # (Auto) 0.4 Baso # (Auto) 0.1 Immature Gran # (Auto) 0.04 H Absolute Nucleated RBC 0.00 Immature Gran % 0 Nucleated RBC % 0 Sodium 141 Potassium 3.7 Chloride 100 Carbon Dioxide 36.7 H Anion Gap 4 L BUN 40 H Creatinine 2.1 H Estim Creat Clear Calc 46.6 L eGFR 34 L BUN/Creatinine Ratio 19 Glucose 202 H Calculated Osmolality 296 H Calcium 9.9 Phosphorus 5.0 Magnesium 2.2 Quality Measures Quality Measures none Advance care planning discussed with:: patient Assessment & Plan Assessment Current Active Medications: Generic Name Dose Route Start Last Admin Trade Name Freq PRN Reason Stop Dose Admin Acetaminophen 650 mg 04/07/24 17:55 Acetaminophen 325 Mg Tablet PO 05/07/24 17:54 Q6H PRN Fever >101.5 Acetaminophen 650 mg 04/07/24 17:55 04/08/24 20:48 Acetaminophen 325 Mg Tablet PO 05/07/24 17:54 650 mg Q6H PRN Administration PAIN SCALE 1-3 (mild Hydrocodone Bitart/Acetaminophen 1 tab 04/07/24 17:55 04/09/24 11:31 Hydrocodone/Apap 10/325 Tab PO 04/12/24 17:54 1 tab Q6H PRN Administration PAIN SCALE 4-6 (Moderate Allopurinol 100 mg 04/07/24 21:00 04/08/24 20:44 Allopurinol 100 Mg Tablet PO 05/07/24 20:59 100 mg HS HUDSON Administration Amlodipine Besylate 5 mg 04/08/24 09:00 04/09/24 08:11 Amlodipine Besylate 5 Mg Tablet PO 05/08/24 08:59 5 mg QDAY HUDSON Administration Apixaban 5 mg 04/07/24 21:00 04/09/24 08:11 Apixaban 2.5 Mg Tablet PO 05/07/24 20:59 5 mg BID HUDSON Administration Atorvastatin Calcium 40 mg 04/07/24 21:00 04/08/24 20:43 Atorvastatin Calcium 20 Mg Tablet PO 05/07/24 20:59 40 mg HS HUDSON Administration Bumetanide 2 mg 04/09/24 14:00 04/09/24 14:16 Bumetanide Inj 0.25 Mg/Ml Vial 4 Ml IVP 05/09/24 13:59 2 mg BID HUDSON Administration Carvedilol 6.25 mg 04/07/24 21:00 04/09/24 08:10 Carvedilol 3.125 Mg Tablet PO 05/07/24 20:59 6.25 mg BID HUDSON Administration Dextrose 25 ml 04/08/24 04:02 Dextrose 50%-Water Inj 50 Ml Syringe IV 05/08/24 04:01 Q15MIN PRN BG 50-70 responsive npo pt Dextrose 50 ml 04/08/24 04:02 Dextrose 50%-Water Inj 50 Ml Syringe IV 05/08/24 04:01 Q15MIN PRN BG <50 OR BG <70 & pt unresponsive Ferrous Sulfate 325 mg 04/08/24 09:00 04/08/24 09:18 Ferrous Sulf 325 Mg Tablet PO 05/08/24 08:59 325 mg QOD HUDSON Administration Glucagon 1 mg 04/08/24 04:02 Glucagon Inj 1 Mg Vial IM Q15MIN PRN BG <70, and no IV access Hydromorphone HCl 1 mg 04/07/24 18:36 04/09/24 08:12 Hydromorphone Inj 2 Mg/Ml Vial IVP 04/12/24 17:54 1 mg Q4HR PRN Administration PAIN (7-10) Insulin Glargine 15 unit 04/10/24 09:00 Insulin Glargine (Lantus) 5 Unit/0.05 Ml (Per 5 Units) SC 05/10/24 08:59 QDAY HUDSON Insulin Human Lispro 0 unit 04/08/24 07:30 04/09/24 11:30 Insulin Lispro (Admelog) 1 Unit/0.01 Ml Unit SC 05/08/24 07:29 2 unit ACHS HUDSON Administration Protocol Insulin Human Lispro 4 unit 04/09/24 11:30 04/09/24 11:29 Insulin Lispro (Admelog) 1 Unit/0.01 Ml Unit SC 05/09/24 11:29 4 unit ACHS HUDSON Administration Montelukast Sodium 10 mg 04/07/24 21:00 04/08/24 20:44 Montelukast Sodium 10 Mg Tablet PO 05/07/24 20:59 10 mg HS HUDSON Administration Ondansetron HCl 4 mg 04/07/24 17:55 Ondansetron Inj 2 Mg/Ml Inj 2 Ml IV 05/07/24 17:54 Q6H PRN NAUSEA OR VOMITING Protocol Pantoprazole Sodium 40 mg 04/07/24 18:00 04/09/24 08:11 Pantoprazole 40 Mg Tablet PO 05/07/24 17:59 40 mg QDAY HUDSON Administration Sennosides 1 tab 04/07/24 18:04 Senna Tablet PO 05/07/24 18:03 QDAY PRN CONSTIPATION Protocol Sodium Chloride 3 ml 04/07/24 18:17 Sodium Chloride Rt Raquel 0.9% 3 Ml Nebu INH 05/07/24 18:16 PRN PRN SOLN Plan Summary: 68-year-old male with past medical history of HLD, T2DM (A1c 8.1%), HTN, HFpEF EF 55-60%, CAD s/p stent, A-fib on Eliquis, CVA with left sided residual deficits (2022), COPD dependent on 3 L oxygen at home, asthma, gout, and BPH presented to the ED on 04/07/2024 for chief complaint of shortness of breath and bilateral lower extremity swelling. Patient was found to to be in a fluid overloaded state. Dr. Felton was consulted, who recommended Bumex drip for CHF. Patient was admitted for management of CHF exacerbation. #Acutely decompensated heart failure #HFpEF EF 55-60% Most likely secondary to hypertension and obesity Ddx: CHF vs COPD exacerbation Patient presented with difficulty breathing and bilateral lower extremity swelling and increased sputum production over the past 2 weeks. He denied any sick contacts or recent travel. In the setting of hypertension obesity, patient presents with acute decompensated heart failure. Clinically, he remains fluid overloaded though significant improvement of lower extremity edema. Orthopnea and +JVD noted on exam. Wheezing b/l with crackles in b/l lungs. Net negative ~700 cc output, but appears to have had more output considering improvement in his clinical picture; it's possible that not all fluid output was recorded. Chest x-ray showed no pneumonia or pulmonary edema. Subsegmental atelectasis left base seen on CXR. Echo on 06/2023: EF 55-60%. NYHA class IV. 04/09/2024- Patient reports improvements in her breathing, he does complain of lower back pain today, however this is a chronic condition. I&O today: 1045/5550(-4505). Patient has achieved good diuresis with IV Bumex drip. Labs today significant for bicarb of 36.7-contraction alkalosis and bump in creatinine to 2.1 from 1.8. Echocardiogram reported, ejection fraction 50 to 55% Plan: -Hold diuresis for now -Cardio consulted, appreciate recommendations -Strict TONY's and daily weight checks -Fluid restriction; 1500 cc daily -Follow-up CMP #COPD #Asthma #Chronic smoking history Patient has a history of COPD and asthma on montelukast and inhaler at home. Chronic smoking history of 40 years; 1.5 pack smoker daily. Wheezing on bilateral lungs. -Monteleukast -inhaler -Encourage patient to discontinue smoking -Will continue oxygen as needed, goal SaO2 88 to 92%. #Leukocytosis, improving Most likely secondary to inflammatory response from CHF with underlying COPD. WBC 12.9 on presentation, downtrended to 11.4 -Follow-up CBC #A-fib He has hx of atrial fibrillation, on Eliquis. EKG showed atrial fibrillation, heart rate 87. -Appreciate cardiology consultation recommendations -Continue Eliquis 5 mg twice daily -Maintain potassium greater than 4 and magnesium greater than 2 #Hypertension Chronic, uncontrolled Blood pressure is well-controlled on current regimen. -Coreg 6.25 mg orally daily -amlodipine 5mg daily #DMT2 Chronic, uncontrolled Glucose elevated at 202. -Glargine increased to 15 units SC daily. -Insulin lispro increased to 4 units SC ACHS -[facility] -Bedside glucose checks -Hypoglycemic protocol #CAD status post stent placement #CVA (2022) with left hemiplegia -atorvastatin 40 mg orally daily #HLD Patient does not appear to be on any medication for this condition. -recommend outpatient f/up Health maintenance: Dispo: Tele Diet: Cardiac GI: Pantoprazole DVT: Eliquis Gonzalez: None Lines: Peripheral PT: Code:Full Case was discussed with senior resident Dr Sibley PGY-3 and attending physician, Dr Milagros Hayward MD PGY-1 Attending Provider Attestation/Addendum I have discussed and was present for the essential components of the history, physical examination, diagnosis, and treatment plan with the resident. I agree with the patient's care as documented by the resident and amended herein by me. Matias Linares DO. Although this document has been carefully reviewed, there may still be some phonetic and other typographical errors. These errors are purely grammatical due to imperfections in the software program and should not be construed in any way to compromise the substance of the patient's medical care during this visit.
[2024-04-09] MEDS: ATORVASTATIN CALCIUM 20 MG TABLET 40 MG PO (21:20)
[2024-04-09] MEDS: MONTELUKAST SODIUM 10 MG TABLET PO (21:21)
[2024-04-09] MEDS: allopurinoL 100 MG TABLET PO (21:21)
[2024-04-10] VITALS (12 sets, daily range): BP systolic 123–134; BP diastolic 71–89; PULSE 83–107; RESP 17–26; TEMP 36.3–36.6; O2SAT 93–98; BMI 43.4; BMI 42.6
[2024-04-10 06:27] LABS: Basophils # (Auto) 0.1 Thou/mm3 (0.0-0.2); Basophils % (Auto) 0 % (0-2.5); Eosinophils # (Auto) 0.2 Thou/mm3 (0.0-0.5); Eosinophils % (Auto) 2 % (0-10); Hematocrit 37.8 % (41.0-53.0); Hemoglobin 12.1 g/dL (13.5-16.0); Immature Granulocytes % (Auto) 0 % (0-0); Immature Granulocytes Auto 0.04 Thou/mm3 (0.00-0.00); Lymphocytes # (Auto) 2.7 Thou/mm3 (1.0-4.8); Lymphocytes % (Auto) 19 % (10-50); Mean Corpuscular Hemoglobin 27.9 pg (25.0-35.0); Mean Corpuscular Volume 87 fL (80-100); Monocytes # (Auto) 1.9 Thou/mm3 (0.0-0.8); Monocytes % (Auto) 13 % (0-12); Neutrophils # (Auto) 9.3 Thou/mm3 (1.8-7.7); Neutrophils % (Auto) 65 % (37-80); Nucleated Red Blood Cell % 0 /100 WBC (0); Platelet Count 275 Thou/mm3 (140-440); RDW Standard Deviation 57.5 fL (35.1-43.9); Red Blood Count 4.34 Miln/mm3 (4.50-5.90); White Blood Count 14.1 Thou/mm3 (3.8-10.6)
[2024-04-10 06:50] LABS: Anion Gap 8 (7-16); BUN/Creatinine Ratio 18 Ratio (12-20); Blood Urea Nitrogen 43 mg/dL (9-23); Calcium 9.9 mg/dL (8.3-10.6); Carbon Dioxide 34.3 mMol/L (20.0-31.0); Chloride 100 mMol/L (98-107); Creatinine (Component) 2.4 mg/dL (0.6-1.3); Estimated Creatinine Clearance 39.9 mL/min (>60); Glucose 222 mg/dL (74-106); Magnesium 2.3 mg/dL (1.6-2.6); Osmolality,Calculated 300 (275-295); Phosphorous 5.1 mg/dL (2.4-5.1); Sodium 142 mMol/L (136-145); eGFR 29 See Note
[2024-04-10] MEDS: amLODIPine BESYLATE 5 MG TABLET PO (08:02)
[2024-04-10] MEDS: PREGABALIN 50 MG CAPSULE 150 MG PO ×3 (08:02→21:23)
[2024-04-10] MEDS: carVEDILOL 3.125 MG TABLET 6.25 MG PO ×2 (08:03→20:37)
[2024-04-10] MEDS: FERROUS SULF 325 MG TABLET PO (08:03)
[2024-04-10] MEDS: APIXABAN 2.5 MG TABLET 5 MG PO ×2 (08:03→20:38)
[2024-04-10] MEDS: INSULIN GLARGINE (Lantus) 5 UNIT/0.05 ML (PER 5 UNITS) 15 UNIT SC (08:03)
[2024-04-10] MEDS: PANTOPRAZOLE 40 MG TABLET PO (08:03)
[2024-04-10] MEDS: INSULIN LISPRO (AdmeLOG) 1 UNIT/0.01 ML UNIT SC ×3 (08:04→20:35)
[2024-04-10] MEDS: INSULIN LISPRO (AdmeLOG) 1 UNIT/0.01 ML UNIT 4 UNIT SC (08:04)
[2024-04-10] MEDS: DULoxetine HCL 30 MG CAPSULE 60 MG PO (08:12)
--- NOTE | 2024-04-10 09:58 | ESPR_ITS ---
Documentation for date of: 04/10/24 Subjective Subjective Interval history: Patient seen in office on 04/07 with severe SOB and lower extremity swelling despite being on Bumex 4 Mg p.o. twice daily and metolazone 5 Mg p.o. daily. Patient was instructed to present to the ED. Patient was seen and examined at bedside this AM. No acute exents overnight. Patient tolerating diet, adequate urine output and mentation is at baseline. Patient endorses SOB at rest but denies any chest pressure/pain, dizziness, presyncope/syncope. Patient was on bumetanide infusion since admission which was discontinued on 04/09 Patient has adequate diuresis with a fluid balance of negative 2210cc in the past 24 hours. Patient was transitioned to Buex 2 mg IV BID yesterday which is currently on hold by primary team It is ok to give diuretic holiday today in light of ALMA. Can resume tomorrow after reviewing the renal function Bicarb imporved to 34.3 from 36.7, BUN increased to 43 from 40 and Cr increased to 2.4 from 2.1 From telemetry review patient continues to be in A-fib with rate between 110s- 120s overnight Potassium 4 and magnesium 2.3. Please maintain potassium greater than 3.5 and magnesium greater than 2 at all times to prevent any arrhythmias EKG on admission showed atrial fibrillation rate controlled at 87. Previous EKGs also showed similar findings. Transthoracic echocardiogram completed on 04/07 findings include: Suboptimal images due to body habitas. Normal LV size and function.diastolic function prsesent but cannit grade due to AFib. Estimated EF 50-55% Normal RV size and function. Mild MAC. Trace TR. On previous admission transesophageal echocardiogram completed on 07/08/2023 findings include: Negative bubble study, no evidence of PFO or ASD or LA/CHRISTIE thrombus. Normal LV size and function. Estimated EF 55-60% RV mildly dilated and mildly dialted LA. Moderate MR. Mild to moderate TR. There is mild protruding plaque seen in the aortic arch. Pulomary flow is systolic blunting. Exam Vital Signs Temp Pulse Resp BP Pulse Ox O2 Del Method O2 Flow Rate 97.6 F 104 H 26 H 128/74 94 L Humidified Nasal Cannula 2 04/10/24 08:00 04/10/24 08:03 04/10/24 08:00 04/10/24 08:03 04/10/24 08:00 04/10/24 08:00 04/10/24 08:00 Narrative Exam Constitutional Alert, oriented x 3 and comfortable. Elderly, Obese male on O2 via NC HEENT Vision grossly intact. Patent nares. Trachea midline Respiratory Chest normal on inspection and decreased AE in all lung steward with wheeze and crackles at bases b/l Cardiovascular S1 and S2 audible, RRR. No murmurs carotid bruit. No gross JVD. Abdominal Soft,obese and non tender to palpation in all quadrants. BS + Genitourinary No bladder tenderness, no flank pain. Normal to palpation. No scrotal edema Musculoskeletal Extremities tone within normal limits. 1+ LE edema, 3+ Hip edema B/L and Sacral edema Neurological CN II - XII grossly intact. Extremity motor and sensation grossly intact. Skin Warm, dry and intact. No apparent lesions. Psychiatric Patient has good affect, is cooperative Objective Labs 04/11/24 05:26 04/11/24 05:26 Labs: Laboratory Results - last 24 hr 04/10/24 05:52 WBC 14.1 H RBC 4.34 L Hgb 12.1 L Hct 37.8 L MCV 87 MCH 27.9 MCHC 32.0 RDW Std Deviation 57.5 H Plt Count 275 Neut % (Auto) 65 Lymph % (Auto) 19 [place] % (Auto) 13 H Eos % (Auto) 2 Baso % (Auto) 0 Neut # (Auto) 9.3 H Lymph # (Auto) 2.7 [place] # (Auto) 1.9 H Eos # (Auto) 0.2 Baso # (Auto) 0.1 Immature Gran # (Auto) 0.04 H Absolute Nucleated RBC 0.00 Immature Gran % 0 Nucleated RBC % 0 Sodium 142 Potassium 4.0 Chloride 100 Carbon Dioxide 34.3 H Anion Gap 8 BUN 43 H Creatinine 2.4 H Estim Creat Clear Calc 39.9 L eGFR 29 L BUN/Creatinine Ratio 18 Glucose 222 H Calculated Osmolality 300 H Calcium 9.9 Phosphorus 5.1 Magnesium 2.3 Quality Measures Quality Measures none Advance care planning discussed with:: patient and other Assessment & Plan Assessment Current Active Medications: Generic Name Dose Route Start Last Admin Trade Name Freq PRN Reason Stop Dose Admin Acetaminophen 650 mg 04/07/24 17:55 Acetaminophen 325 Mg Tablet PO 05/07/24 17:54 Q6H PRN Fever >101.5 Acetaminophen 650 mg 04/07/24 17:55 04/08/24 20:48 Acetaminophen 325 Mg Tablet PO 05/07/24 17:54 650 mg Q6H PRN Administration PAIN SCALE 1-3 (mild Hydrocodone Bitart/Acetaminophen 1 tab 04/07/24 17:55 04/09/24 11:31 Hydrocodone/Apap 10/325 Tab PO 04/12/24 17:54 1 tab Q6H PRN Administration PAIN SCALE 4-6 (Moderate Allopurinol 100 mg 04/07/24 21:00 04/09/24 21:21 Allopurinol 100 Mg Tablet PO 05/07/24 20:59 100 mg HS HUDSON Administration Amlodipine Besylate 5 mg 04/08/24 09:00 04/10/24 08:02 Amlodipine Besylate 5 Mg Tablet PO 05/08/24 08:59 5 mg QDAY HUDSON Administration Apixaban 5 mg 04/07/24 21:00 04/10/24 08:03 Apixaban 2.5 Mg Tablet PO 05/07/24 20:59 5 mg BID HUDSON Administration Atorvastatin Calcium 40 mg 04/07/24 21:00 04/09/24 21:20 Atorvastatin Calcium 20 Mg Tablet PO 05/07/24 20:59 40 mg HS HUDSON Administration Bumetanide 2 mg 04/09/24 14:00 04/09/24 14:16 Bumetanide Inj 0.25 Mg/Ml Vial 4 Ml IVP 05/09/24 13:59 2 mg BID HUDSON Administration Carvedilol 6.25 mg 04/07/24 21:00 04/10/24 08:03 Carvedilol 3.125 Mg Tablet PO 05/07/24 20:59 6.25 mg BID HUDSON Administration Dextrose 25 ml 04/08/24 04:02 Dextrose 50%-Water Inj 50 Ml Syringe IV 05/08/24 04:01 Q15MIN PRN BG 50-70 responsive npo pt Dextrose 50 ml 04/08/24 04:02 Dextrose 50%-Water Inj 50 Ml Syringe IV 05/08/24 04:01 Q15MIN PRN BG <50 OR BG <70 & pt unresponsive Duloxetine HCl 60 mg 04/10/24 09:00 04/10/24 08:12 Duloxetine Hcl 30 Mg Capsule PO 05/10/24 08:59 60 mg QDAY HUDSON Administration Ferrous Sulfate 325 mg 04/08/24 09:00 04/10/24 08:03 Ferrous Sulf 325 Mg Tablet PO 05/08/24 08:59 325 mg QOD HUDSON Administration Glucagon 1 mg 04/08/24 04:02 Glucagon Inj 1 Mg Vial IM Q15MIN PRN BG <70, and no IV access Hydromorphone HCl 1 mg 04/07/24 18:36 04/09/24 19:36 Hydromorphone Inj 2 Mg/Ml Vial IVP 04/12/24 17:54 1 mg Q4HR PRN Administration PAIN (7-10) Insulin Glargine 25 unit 04/11/24 09:00 Insulin Glargine (Lantus) 5 Unit/0.05 Ml (Per 5 Units) SC 05/11/24 08:59 QDAY HUDSON Insulin Human Lispro 0 unit 04/08/24 07:30 04/10/24 08:04 Insulin Lispro (Admelog) 1 Unit/0.01 Ml Unit SC 05/08/24 07:29 2 unit ACHS [facility] Administration Protocol Insulin Human Lispro 5 unit 04/10/24 11:30 Insulin Lispro (Admelog) 1 Unit/0.01 Ml Unit SC 05/10/24 11:29 ACHS HUDSON Montelukast Sodium 10 mg 04/07/24 21:00 04/09/24 21:21 Montelukast Sodium 10 Mg Tablet PO 05/07/24 20:59 10 mg HS HUDSON Administration Ondansetron HCl 4 mg 04/07/24 17:55 Ondansetron Inj 2 Mg/Ml Inj 2 Ml IV 05/07/24 17:54 Q6H PRN NAUSEA OR VOMITING Protocol Pantoprazole Sodium 40 mg 04/07/24 18:00 04/10/24 08:03 Pantoprazole 40 Mg Tablet PO 05/07/24 17:59 40 mg QDAY HUDSON Administration Pregabalin 150 mg 04/10/24 08:00 04/10/24 08:02 Pregabalin 50 Mg Capsule PO 05/10/24 07:59 150 mg TID HUDSON Administration Sennosides 1 tab 04/07/24 18:04 Senna Tablet PO 05/07/24 18:03 QDAY PRN CONSTIPATION Protocol Sodium Chloride 3 ml 04/07/24 18:17 Sodium Chloride Rt Raquel 0.9% 3 Ml Nebu INH 05/07/24 18:16 PRN PRN SOLN Tizanidine HCl 2 mg 04/10/24 21:00 Tizanidine Hcl 2 Mg Tablet PO 05/10/24 20:59 HS HUDSON Plan 68-year-old male with past medical history of HLD, NIDDM type 2 (A1c 8.1%), HTN, HFpEF EF 50-55%, CAD s/p stent, A-fib on Eliquis, CVA with left hemiparesis (2022), COPD dependent on 3 L oxygen at home, gout, and BPH presented to the ED on 04/07/2024 for chief complaint of shortness of breath and bilateral lower extremity swelling. Patient was admitted for acute decompensated heart failure and cardiology was consulted. 1. Acute decompensated heart failure exacerbation with preserved ejection fraction [50-55%] and mild to moderate PAH Patient's home medication Bumex 4 Mg p.o. twice daily and metolazone 5 Mg p.o. daily. Despite this patient developed worsening SOB and bilateral lower extremity edema the day of admission and he presented to his burring machine operator, Dr. Sherman who recommended he present to the ED. Chest x-ray on admission showed increased vascular markings and mild atelectasis left base. Patient was started on Bumex infusion initially which was held this morning and patient transition to Bumex 2 Mg IV twice daily. On initial exam patient has significant sacral and hip edema, crackles at lung bases bilaterally with no lower extremity swelling or scrotal edema BNP on admission was 76 NYHA stage D class III Transthoracic echocardiogram completed on 04/07 findings include: Suboptimal images due to body habitas. Normal LV size and function.diastolic function prsesent but cannit grade due to AFib. Estimated EF 50-55% Normal RV size and function. Mild MAC. Trace TR. On previous admission transesophageal echocardiogram completed on 07/08/2023 findings include: Negative bubble study, no evidence of PFO or ASD or LA/CHRISTIE thrombus. Normal LV size and function. Estimated EF 55-60% RV mildly dilated and mildly dialted LA. Moderate MR. Mild to moderate TR. There is mild protruding plaque seen in the aortic arch. Pulomary flow is systolic blunting. Patient has adequate diuresis with a fluid balance of negative 2210cc in the past 24 hours. On exam patient still has significant sacral and hip edema Patient was transitioned to Buex 2 mg IV BID yesterday which is currently on hold and will resume in am after reviewing the renal function. Bicarb imporved to 34.3 from 36.7, BUN increased to 43 from 40 and Cr increased to 2.4 from 2.1 Plan: ? 2 g sodium restricted diet ? Strict input output charting ? Daily weights ?1500 cc/day fluid restriction ? It is ok to give diuretic holiday today in light of ALMA. Can resume Bumex 2mg IV BID from tomorrow with a goal of 1-2 L diuresis per day ?Beta-blockers contraindicated in severe CHF exacerbation, recommend to discontinue or decrease dose of beta-ashish. 2. Essential hypertension Patient's home medication carvedilol 6.25 mg p.o. twice daily, metolazone 5 Mg p.o. daily and Bumex 4 Mg p.o. twice daily. On admission BP 125/80, currently BP 128/74 Plan: - Recommend to continue amlodipine 5 mg po Qday ? Recommend excellent control of blood pressure and maintain SBP less than 140 mmHg 3. CAD s/p stent with DEMARIO 4. Hyperlipidemia Patient on high-dose statin atorvastatin 40 Mg p.o. at bedtime. Patient not on aspirin or Plavix due to recent history of GI bleed 2 months ago. Hb currently stable at 11.6. Plan: ? Continue high intensity statin 5. Atrial fibrillation?long-term persistent Patient rate controlled on carvedilol 6.25 Mg p.o. twice daily at home and anticoagulated with Eliquis 5 Mg p.o. 3 times daily. EKG on admission showed A-fib rate 96 [id number]: 7 points; stroke risk 11.2 %/year HAS-BLED : 5 points; high risk for major bleeding From telemetry review patient is in still in A fib with rate between 110's and 120's overnight Plan: ? Recommend to continue home anticoagulation Eliquis 5 Mg p.o. twice daily ? Beta-blockers contraindicated in severe CHF exacerbation recommend to decrease dose or hold at this time 6. History of CVA [2022] Patient has residual left hemiparesis. Currently not on aspirin or Plavix due to history of GI bleed 2 months ago. 7. COPD 8. Asthma 9. Nicotine dependence Patient has a history of COPD and asthma on montelukast and inhaler at home. Chronic smoking history of 40 years; 1.5 pack smoker daily. Continue management as per primary team 10. [id number] diabetes mellitus type 2 [8.1] Patient on Ozempic at home. Continue management as per primary team 11. History of GI bleed January 2024 Colonoscopy completed on 02/01/[address] Grossman, spa technician findings include: Hemorrhoids on perianal exam, mucosal ulceration in the sigmoid colon and in the proximal descending colon. Findings consistent with ischemic colitis multiple polyps resected with hot snare. Recommendations were for repeat colonoscopy in 6 months and to avoid NSAIDs. Pathology of the polyps was positive for tubular adenomas. 12. ALMA on CKD stage III Baseline Cr 1.4-1.9. On admission Cr 1.7. Currently Cr 2.4. Continue management as per primary team Continue rest of management as per primary team. We are grateful to be able to participate in Mr. Anthony's care. Thank you for the consult Plan of care discussed with attending Bottom Turning Lathe Tender, Dr Whit Oleary MD PGY 1 Attending Provider Attestation/Addendum I have personally seen and examined the patient separately on the above date of service and discussed the plan of care with the resident. I reviewed the resident Dr. Oleary consultation progress note and agree with the resident findings and plan in the note above and have also edited the documentation to reflect my findings and plan. Rogerio Sherman M.D. Interventional Cardiology
[2024-04-10] MEDS: ALBUTEROL/IPRATROPIUM (Duoneb) RT SOL 3 ML NEBU INH (11:11)
[2024-04-10] MEDS: INSULIN LISPRO (AdmeLOG) 1 UNIT/0.01 ML UNIT 5 UNIT SC ×3 (12:16→20:36)
--- NOTE | 2024-04-10 13:46 | ESPR_ITS ---
<Statement entered by Jannet Sibley MD - 04/10/24 15:29> Senior Resident Attestation: I supervised/discussed management plan with resident physician Dr. Hayward, and was involved in the care of this patient. I personally saw and examined the patient and discussed the assessment and plan with the entire medicine team, including my attending. I agree with the assessment and plan as documented. Patient's care was discussed with attending physician, Dr. Milagros Sibley MD PGY-3 Documentation for date of: 04/10/24 Subjective Subjective Interval history: Patient seen at bedside. No acute overnight events. Patient has continued improvement in breathing, saturating 95% on 3 L of oxygen. On examination, still has crackles bilaterally with some associated wheezing. Bilateral pitting edema resolving. I&O 240/2450 (-2210) Labs showed creatinine of 2.4, up from 2.1 and some contraction alkalosis. Currently holding Bumex until cardiology reevaluation, will continue Coreg. 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 Eyes open, symmetrical, & clear CARDIO: No chest pain on palpation. Irregular, normal rate PULM: No noted coughing/dyspnea. Crackles bilaterally, saturating 95% on 3L on O2, moderate wheezing bilaterally GI: Abdomen soft, nondistended, no pain on palpation. 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 Gonzalez catheter/ in-situ SKIN/MSK/EXT: Bilateral edema 2+ resolving as well as generalized anasarca Objective Labs 04/10/24 05:52 04/10/24 05:52 Labs: Laboratory Results - last 24 hr 04/10/24 05:52 WBC 14.1 H RBC 4.34 L Hgb 12.1 L Hct 37.8 L MCV 87 MCH 27.9 MCHC 32.0 RDW Std Deviation 57.5 H Plt Count 275 Neut % (Auto) 65 Lymph % (Auto) 19 Curry % (Auto) 13 H Eos % (Auto) 2 Baso % (Auto) 0 Neut # (Auto) 9.3 H Lymph # (Auto) 2.7 Curry # (Auto) 1.9 H Eos # (Auto) 0.2 Baso # (Auto) 0.1 Immature Gran # (Auto) 0.04 H Absolute Nucleated RBC 0.00 Immature Gran % 0 Nucleated RBC % 0 Sodium 142 Potassium 4.0 Chloride 100 Carbon Dioxide 34.3 H Anion Gap 8 BUN 43 H Creatinine 2.4 H Estim Creat Clear Calc 39.9 L eGFR 29 L BUN/Creatinine Ratio 18 Glucose 222 H Calculated Osmolality 300 H Calcium 9.9 Phosphorus 5.1 Magnesium 2.3 Quality Measures Quality Measures none Advance care planning discussed with:: patient Assessment & Plan Assessment Current Active Medications: Generic Name Dose Route Start Last Admin Trade Name Freq PRN Reason Stop Dose Admin Acetaminophen 650 mg 04/07/24 17:55 Acetaminophen 325 Mg Tablet PO 05/07/24 17:54 Q6H PRN Fever >101.5 Acetaminophen 650 mg 04/07/24 17:55 04/08/24 20:48 Acetaminophen 325 Mg Tablet PO 05/07/24 17:54 650 mg Q6H PRN Administration PAIN SCALE 1-3 (mild Hydrocodone Bitart/Acetaminophen 1 tab 04/07/24 17:55 04/09/24 11:31 Hydrocodone/Apap 10/325 Tab PO 04/12/24 17:54 1 tab Q6H PRN Administration PAIN SCALE 4-6 (Moderate Albuterol/Ipratropium 3 ml 04/10/24 10:14 Albuterol/Ipratropium (Duoneb) Rt Raquel 3 Ml Nebu INH 05/10/24 12:59 Q6HRRT PRN AGITATION OR ANXIETY Allopurinol 100 mg 04/07/24 21:00 04/09/24 21:21 Allopurinol 100 Mg Tablet PO 05/07/24 20:59 100 mg HS HUDSON Administration Amlodipine Besylate 5 mg 04/08/24 09:00 04/10/24 08:02 Amlodipine Besylate 5 Mg Tablet PO 05/08/24 08:59 5 mg QDAY HUDSON Administration Apixaban 5 mg 04/07/24 21:00 04/10/24 08:03 Apixaban 2.5 Mg Tablet PO 05/07/24 20:59 5 mg BID HUDSON Administration Atorvastatin Calcium 40 mg 04/07/24 21:00 04/09/24 21:20 Atorvastatin Calcium 20 Mg Tablet PO 05/07/24 20:59 40 mg HS HUDSON Administration Bumetanide 2 mg 04/09/24 14:00 04/09/24 14:16 Bumetanide Inj 0.25 Mg/Ml Vial 4 Ml IVP 05/09/24 13:59 2 mg BID HUDSON Administration Carvedilol 6.25 mg 04/07/24 21:00 04/10/24 08:03 Carvedilol 3.125 Mg Tablet PO 05/07/24 20:59 6.25 mg BID HUDSON Administration Dextrose 25 ml 04/08/24 04:02 Dextrose 50%-Water Inj 50 Ml Syringe IV 05/08/24 04:01 Q15MIN PRN BG 50-70 responsive npo pt Dextrose 50 ml 04/08/24 04:02 Dextrose 50%-Water Inj 50 Ml Syringe IV 05/08/24 04:01 Q15MIN PRN BG <50 OR BG <70 & pt unresponsive Duloxetine HCl 60 mg 04/10/24 09:00 04/10/24 08:12 Duloxetine Hcl 30 Mg Capsule PO 05/10/24 08:59 60 mg QDAY HUDSON Administration Ferrous Sulfate 325 mg 04/08/24 09:00 04/10/24 08:03 Ferrous Sulf 325 Mg Tablet PO 05/08/24 08:59 325 mg QOD HUDSON Administration Glucagon 1 mg 04/08/24 04:02 Glucagon Inj 1 Mg Vial IM Q15MIN PRN BG <70, and no IV access Hydromorphone HCl 1 mg 04/07/24 18:36 04/09/24 19:36 Hydromorphone Inj 2 Mg/Ml Vial IVP 04/12/24 17:54 1 mg Q4HR PRN Administration PAIN (7-10) Insulin Glargine 25 unit 04/11/24 09:00 Insulin Glargine (Lantus) 5 Unit/0.05 Ml (Per 5 Units) SC 05/11/24 08:59 QDAY HUDSON Insulin Human Lispro 0 unit 04/08/24 07:30 04/10/24 12:11 Insulin Lispro (Admelog) 1 Unit/0.01 Ml Unit SC 05/08/24 07:29 Not Given ACHS HUDSON Protocol Insulin Human Lispro 5 unit 04/10/24 11:30 04/10/24 12:16 Insulin Lispro (Admelog) 1 Unit/0.01 Ml Unit SC 05/10/24 11:29 5 unit ACHS HUDSON Administration Montelukast Sodium 10 mg 04/07/24 21:00 04/09/24 21:21 Montelukast Sodium 10 Mg Tablet PO 05/07/24 20:59 10 mg HS HUDSON Administration Ondansetron HCl 4 mg 04/07/24 17:55 Ondansetron Inj 2 Mg/Ml Inj 2 Ml IV 05/07/24 17:54 Q6H PRN NAUSEA OR VOMITING Protocol Pantoprazole Sodium 40 mg 04/07/24 18:00 04/10/24 08:03 Pantoprazole 40 Mg Tablet PO 05/07/24 17:59 40 mg QDAY HUDSON Administration Pregabalin 150 mg 04/10/24 08:00 04/10/24 08:02 Pregabalin 50 Mg Capsule PO 05/10/24 07:59 150 mg TID HUDSON Administration Sennosides 1 tab 04/07/24 18:04 Senna Tablet PO 05/07/24 18:03 QDAY PRN CONSTIPATION Protocol Sodium Chloride 3 ml 04/07/24 18:17 Sodium Chloride Rt Raquel 0.9% 3 Ml Nebu INH 05/07/24 18:16 PRN PRN SOLN Tizanidine HCl 2 mg 04/10/24 21:00 Tizanidine Hcl 2 Mg Tablet PO 05/10/24 20:59 HS HUDSON Plan Summary: 68-year-old male with past medical history of HLD, T2DM (A1c 8.1%), HTN, HFpEF EF 55-60%, CAD s/p stent, A-fib on Eliquis, CVA with left sided residual deficits (2022), COPD dependent on 3 L oxygen at home, asthma, gout, and BPH presented to the ED on 04/07/2024 for chief complaint of shortness of breath and bilateral lower extremity swelling. Patient was found to to be in a fluid overloaded state. Dr. Felton was consulted, who recommended Bumex drip for CHF. Patient was admitted for management of CHF exacerbation. #Acutely decompensated heart failure #HFpEF EF 55-60% Most likely secondary to hypertension and obesity Ddx: CHF vs COPD exacerbation Patient presented with difficulty breathing and bilateral lower extremity swelling and increased sputum production over the past 2 weeks. He denied any sick contacts or recent travel. In the setting of hypertension obesity, patient presents with acute decompensated heart failure. Clinically, he remains fluid overloaded though significant improvement of lower extremity edema. Orthopnea and +JVD noted on exam. Wheezing b/l with crackles in b/l lungs. Net negative ~700 cc output, but appears to have had more output considering improvement in his clinical picture; it's possible that not all fluid output was recorded. Chest x-ray showed no pneumonia or pulmonary edema. Subsegmental atelectasis left base seen on CXR. Echo on 06/2023: EF 55-60%. NYHA class IV. 04/10/2024- Patient has continued improvement in breathing, saturating 95% on 3 L of oxygen. On examination, still has crackles bilaterally with some associated wheezing. Bilateral pitting edema resolving. I&O 240/2450 (-2210) Labs showed creatinine of 2.4, up from 2.1 and some contraction alkalosis. Currently holding Bumex until cardiology reevaluation, will continue Coreg Plan: -Continue holding diuresis for now -Continue Coreg 6.25mg BID -Cardio consulted, appreciate recommendations -Strict TONY's and daily weight checks -Fluid restriction; 1500 cc daily -Follow-up CMP #COPD #Asthma #Chronic smoking history Patient has a history of COPD and asthma on montelukast and inhaler at home. Chronic smoking history of 40 years; 1.5 pack smoker daily. Wheezing on bilateral lungs. -Monteleukast -Duonebs scheduled -Encourage patient to discontinue smoking -Will continue oxygen as needed, goal SaO2 88 to 92%. #Leukocytosis, improving Most likely secondary to inflammatory response from CHF with underlying COPD. WBC 12.9 on presentation, downtrended to 11.4 -Follow-up CBC #A-fib He has hx of atrial fibrillation, on Eliquis. EKG showed atrial fibrillation, heart rate 87. -Appreciate cardiology consultation recommendations -Continue Eliquis 5 mg twice daily -Maintain potassium greater than 4 and magnesium greater than 2 #Hypertension Chronic, uncontrolled Blood pressure is well-controlled on current regimen. -Coreg 6.25 mg orally daily -amlodipine 5mg daily #DMT2 Chronic, uncontrolled Glucose elevated at 202. -Glargine increased to 15 units SC daily. -Insulin lispro increased to 4 units SC [facility] -Bedside glucose checks -Hypoglycemic protocol #CAD status post stent placement #CVA (2022) with left hemiplegia -atorvastatin 40 mg orally daily #HLD Patient does not appear to be on any medication for this condition. -recommend outpatient f/up Health maintenance: Dispo: Tele Diet: Cardiac GI: Pantoprazole DVT: Eliquis Gonzalez: None Lines: Peripheral PT: Not ordered Code:Full Case was discussed with senior resident Dr Sibley PGY-3 and attending physician, Dr Milagros Hayward MD PGY-1 Attending Provider Attestation/Addendum For agitation a hemoglobin of 9.5 and I have discussed and was present for the essential components of the history, physical examination, diagnosis, and treatment plan with the resident. I agree with the patient's care as documented by the resident and amended herein by me. Matias Linares, . Patient seen and evaluated this AM. The patient has no subjective complaints, denies any pain, to include chest pain, back pain, palpitations or shortness of breath in the morning. Patient was a bit tachycardic this morning with a rate of 104, respiratory rate 21, patient presently on nasal cannula, 2 L with an SpO2 measured at 93%. I's and O's 240/2450, Bumex has been held since yesterday due to increasing creatinine which was even more elevated at 2.4 today. I will continue the diuretic holiday as the patient has had copious output, approximately 7.5 L out since arrival. Bicarb slightly decreased to 34 today, WBC stable at 14. Clinically, the patient is significantly improved with a marked decrease in lower extremity edema. As such, we will continue the patient's Coreg, hold Bumex for another day until creatinine stabilizes. Cardiology consult did, I do appreciate recommendations. Although this document has been carefully reviewed, there may still be some phonetic and other typographical errors. These errors are purely grammatical due to imperfections in the software program and should not be construed in any way to compromise the substance of the patient's medical care during this visit.
[2024-04-10] MEDS: MONTELUKAST SODIUM 10 MG TABLET PO (20:38)
[2024-04-10] MEDS: tiZANidine HCL 2 MG TABLET PO (20:38)
[2024-04-10] MEDS: allopurinoL 100 MG TABLET PO (20:38)
[2024-04-10] MEDS: ATORVASTATIN CALCIUM 20 MG TABLET 40 MG PO (20:38)
[2024-04-11] VITALS (13 sets, daily range): BP systolic 100–124; BP diastolic 73–82; PULSE 83–111; RESP 17–23; TEMP 36.3–36.7; O2SAT 92–94; BMI 42.6
[2024-04-11] MEDS: PREGABALIN 50 MG CAPSULE 150 MG PO ×3 (05:51→21:14)
[2024-04-11 06:07] LABS: Basophils # (Auto) 0.1 Thou/mm3 (0.0-0.2); Basophils % (Auto) 0 % (0-2.5); Eosinophils # (Auto) 0.2 Thou/mm3 (0.0-0.5); Eosinophils % (Auto) 2 % (0-10); Hemoglobin 11.9 g/dL (13.5-16.0); Immature Granulocytes % (Auto) 0 % (0-0); Immature Granulocytes Auto 0.05 Thou/mm3 (0.00-0.00); Lymphocytes # (Auto) 3.5 Thou/mm3 (1.0-4.8); Lymphocytes % (Auto) 26 % (10-50); Mean Corpuscular HGB Conc 32.2 g/dl (31.0-37.0); Mean Corpuscular Hemoglobin 28.1 pg (25.0-35.0); Mean Corpuscular Volume 88 fL (80-100); Monocytes # (Auto) 1.8 Thou/mm3 (0.0-0.8); Monocytes % (Auto) 13 % (0-12); Neutrophils # (Auto) 7.8 Thou/mm3 (1.8-7.7); Neutrophils % (Auto) 58 % (37-80); Nucleated Red Blood Cell % 0 /100 WBC (0); Platelet Count 230 Thou/mm3 (140-440); Red Blood Count 4.23 Miln/mm3 (4.50-5.90); White Blood Count 13.4 Thou/mm3 (3.8-10.6)
[2024-04-11 06:22] LABS: Anion Gap 6 (7-16); BUN/Creatinine Ratio 19 Ratio (12-20); Blood Urea Nitrogen 48 mg/dL (9-23); Calcium 9.7 mg/dL (8.3-10.6); Chloride 103 mMol/L (98-107); Creatinine (Component) 2.5 mg/dL (0.6-1.3); Estimated Creatinine Clearance 37.3 mL/min (>60); Glucose 198 mg/dL (74-106); Magnesium 2.4 mg/dL (1.6-2.6); Osmolality,Calculated 305 (275-295); Phosphorous 5.3 mg/dL (2.4-5.1); Potassium 3.6 mMol/L (3.4-5.1); Sodium 144 mMol/L (136-145); eGFR 27 See Note
[2024-04-11] MEDS: INSULIN GLARGINE (Lantus) 5 UNIT/0.05 ML (PER 5 UNITS) 25 UNIT SC (08:01)
[2024-04-11] MEDS: INSULIN LISPRO (AdmeLOG) 1 UNIT/0.01 ML UNIT SC ×4 (08:02→21:14)
[2024-04-11] MEDS: INSULIN LISPRO (AdmeLOG) 1 UNIT/0.01 ML UNIT 5 UNIT SC ×4 (08:03→21:15)
--- NOTE | 2024-04-11 08:11 | ESPR_ITS ---
Documentation for date of: 04/11/24 Subjective Subjective Interval history: Patient seen in office on 04/07 with severe SOB and lower extremity swelling despite being on Bumex 4 Mg p.o. twice daily and metolazone 5 Mg p.o. daily. Patient was instructed to present to the ED. Patient was seen and examined at bedside this AM. No acute exents overnight. Patient tolerating diet, adequate urine output and mentation is at baseline. Patient endorses improvement of SOB at rest and denies any chest pressure/pain, dizziness, presyncope/syncope. Patient was on bumetanide infusion on admission which was discontinued on 04/09 Patient has diuresis with a fluid balance of negative 590cc in the past 24 hours. Patient was transitioned to Bumex 2 mg IV BID on 04/09 which is currently on hold for diuretic holiday due to ALMA on CKD Bicarb increased to 35 from 34.3 , BUN increased to 48 from 43 and Cr increased to 2.5 from 2.4 Recommend Acetazolamide 500mg po x 1 for contraction alkalosis From telemetry review patient continues to be in A-fib with rate between 100s - 110s overnight Potassium 3.6 and magnesium 2.4. Please maintain potassium greater than 3.5 and magnesium greater than 2 at all times to prevent any arrhythmias EKG on admission showed atrial fibrillation rate controlled at 87. Previous EKGs also showed similar findings. Transthoracic echocardiogram completed on 04/07 findings include: Suboptimal images due to body habitas. Normal LV size and function.diastolic function prsesent but cannit grade due to AFib. Estimated EF 50-55% Normal RV size and function. Mild MAC. Trace TR. On previous admission transesophageal echocardiogram completed on 07/08/2023 findings include: Negative bubble study, no evidence of PFO or ASD or LA/CHRISTIE thrombus. Normal LV size and function. Estimated EF 55-60% RV mildly dilated and mildly dialted LA. Moderate MR. Mild to moderate TR. There is mild protruding plaque seen in the aortic arch. Pulmonary flow is systolic blunting. Exam Vital Signs Temp Pulse Resp BP Pulse Ox O2 Del Method O2 Flow Rate 97.3 F 99 22 H 114/82 94 L Humidified Nasal Cannula 2 04/11/24 04:00 04/11/24 06:32 04/11/24 06:32 04/11/24 04:00 04/11/24 06:32 04/11/24 04:00 04/11/24 06:32 Narrative Exam Constitutional Alert, oriented x 3 and comfortable. Elderly, Obese male on O2 via NC HEENT Vision grossly intact. Patent nares. Trachea midline Respiratory Chest normal on inspection and decreased AE in all lung steward, clear to auscultation Cardiovascular S1 and S2 audible, RRR. No murmurs carotid bruit. No gross JVD. Abdominal Soft,obese and non tender to palpation in all quadrants. BS + Genitourinary No bladder tenderness, no flank pain. Normal to palpation. No scrotal edema Musculoskeletal Extremities tone within normal limits. No LE edema, 3+ Hip edema B/L and Sacral edema Neurological CN II - XII grossly intact. Extremity motor and sensation grossly intact. Skin Warm, dry and intact. No apparent lesions. Psychiatric Patient has good affect, is cooperative Objective Labs 04/11/24 05:26 04/11/24 05:26 Labs: Laboratory Results - last 24 hr 04/11/24 05:26 WBC 13.4 H RBC 4.23 L Hgb 11.9 L Hct 37.0 L MCV 88 MCH 28.1 MCHC 32.2 RDW Std Deviation 58.0 H Plt Count 230 D Neut % (Auto) 58 Lymph % (Auto) 26 [place] % (Auto) 13 H Eos % (Auto) 2 Baso % (Auto) 0 Neut # (Auto) 7.8 H Lymph # (Auto) 3.5 [place] # (Auto) 1.8 H Eos # (Auto) 0.2 Baso # (Auto) 0.1 Immature Gran # (Auto) 0.05 H Absolute Nucleated RBC 0.00 Immature Gran % 0 Nucleated RBC % 0 Sodium 144 Potassium 3.6 Chloride 103 Carbon Dioxide 35.0 H Anion Gap 6 L BUN 48 H Creatinine 2.5 H Estim Creat Clear Calc 37.3 L eGFR 27 L BUN/Creatinine Ratio 19 Glucose 198 H Calculated Osmolality 305 H Calcium 9.7 Phosphorus 5.3 H Magnesium 2.4 Quality Measures Quality Measures none Advance care planning discussed with:: patient Assessment & Plan Assessment Current Active Medications: Generic Name Dose Route Start Last Admin Trade Name Freq PRN Reason Stop Dose Admin Acetaminophen 650 mg 04/07/24 17:55 Acetaminophen 325 Mg Tablet PO 05/07/24 17:54 Q6H PRN Fever >101.5 Acetaminophen 650 mg 04/07/24 17:55 04/08/24 20:48 Acetaminophen 325 Mg Tablet PO 05/07/24 17:54 650 mg Q6H PRN Administration PAIN SCALE 1-3 (mild Hydrocodone Bitart/Acetaminophen 1 tab 04/07/24 17:55 04/09/24 11:31 Hydrocodone/Apap 10/325 Tab PO 04/12/24 17:54 1 tab Q6H PRN Administration PAIN SCALE 4-6 (Moderate Albuterol/Ipratropium 3 ml 04/10/24 10:14 Albuterol/Ipratropium (Duoneb) Rt Raquel 3 Ml Nebu INH 05/10/24 12:59 Q6HRRT PRN AGITATION OR ANXIETY Allopurinol 100 mg 04/07/24 21:00 04/10/24 20:38 Allopurinol 100 Mg Tablet PO 05/07/24 20:59 100 mg HS HUDSON Administration Amlodipine Besylate 5 mg 04/08/24 09:00 04/10/24 08:02 Amlodipine Besylate 5 Mg Tablet PO 05/08/24 08:59 5 mg QDAY HUDSON Administration Apixaban 5 mg 04/07/24 21:00 04/10/24 20:38 Apixaban 2.5 Mg Tablet PO 05/07/24 20:59 5 mg BID HUDSON Administration Atorvastatin Calcium 40 mg 04/07/24 21:00 04/10/24 20:38 Atorvastatin Calcium 20 Mg Tablet PO 05/07/24 20:59 40 mg HS HUDSON Administration Bumetanide 2 mg 04/09/24 14:00 04/09/24 14:16 Bumetanide Inj 0.25 Mg/Ml Vial 4 Ml IVP 05/09/24 13:59 2 mg BID HUDSON Administration Carvedilol 6.25 mg 04/07/24 21:00 04/10/24 20:37 Carvedilol 3.125 Mg Tablet PO 05/07/24 20:59 6.25 mg BID HUDSON Administration Dextrose 25 ml 04/08/24 04:02 Dextrose 50%-Water Inj 50 Ml Syringe IV 05/08/24 04:01 Q15MIN PRN BG 50-70 responsive npo pt Dextrose 50 ml 04/08/24 04:02 Dextrose 50%-Water Inj 50 Ml Syringe IV 05/08/24 04:01 Q15MIN PRN BG <50 OR BG <70 & pt unresponsive Duloxetine HCl 60 mg 04/10/24 09:00 04/10/24 08:12 Duloxetine Hcl 30 Mg Capsule PO 05/10/24 08:59 60 mg QDAY HUDSON Administration Ferrous Sulfate 325 mg 04/08/24 09:00 04/10/24 08:03 Ferrous Sulf 325 Mg Tablet PO 05/08/24 08:59 325 mg QOD HUDSON Administration Glucagon 1 mg 04/08/24 04:02 Glucagon Inj 1 Mg Vial IM Q15MIN PRN BG <70, and no IV access Hydromorphone HCl 1 mg 04/07/24 18:36 04/09/24 19:36 Hydromorphone Inj 2 Mg/Ml Vial IVP 04/12/24 17:54 1 mg Q4HR PRN Administration PAIN (7-10) Insulin Glargine 25 unit 04/11/24 09:00 04/11/24 08:01 Insulin Glargine (Lantus) 5 Unit/0.05 Ml (Per 5 Units) SC 05/11/24 08:59 25 unit QDAY HUDSON Administration Insulin Human Lispro 0 unit 04/08/24 07:30 04/11/24 08:02 Insulin Lispro (Admelog) 1 Unit/0.01 Ml Unit SC 05/08/24 07:29 2 unit ACHS HUDSON Administration Protocol Insulin Human Lispro 5 unit 04/10/24 11:30 04/11/24 08:03 Insulin Lispro (Admelog) 1 Unit/0.01 Ml Unit SC 05/10/24 11:29 5 unit ACHS HUDSON Administration Montelukast Sodium 10 mg 04/07/24 21:00 04/10/24 20:38 Montelukast Sodium 10 Mg Tablet PO 05/07/24 20:59 10 mg HS HUDSON Administration Ondansetron HCl 4 mg 04/07/24 17:55 Ondansetron Inj 2 Mg/Ml Inj 2 Ml IV 05/07/24 17:54 Q6H PRN NAUSEA OR VOMITING Protocol Pantoprazole Sodium 40 mg 04/07/24 18:00 04/10/24 08:03 Pantoprazole 40 Mg Tablet PO 05/07/24 17:59 40 mg QDAY HUDSON Administration Pregabalin 150 mg 04/10/24 08:00 04/11/24 05:51 Pregabalin 50 Mg Capsule PO 05/10/24 07:59 150 mg TID HUDSON Administration Sennosides 1 tab 04/07/24 18:04 Senna Tablet PO 05/07/24 18:03 QDAY PRN CONSTIPATION Protocol Sodium Chloride 3 ml 04/07/24 18:17 Sodium Chloride Rt Raquel 0.9% 3 Ml Nebu INH 05/07/24 18:16 PRN PRN SOLN Tizanidine HCl 2 mg 04/10/24 21:00 04/10/24 20:38 Tizanidine Hcl 2 Mg Tablet PO 05/10/24 20:59 2 mg HS HUDSON Administration Plan 68-year-old male with past medical history of HLD, NIDDM type 2 (A1c 8.1%), HTN, HFpEF EF 50-55%, CAD s/p stent, A-fib on Eliquis, CVA with left hemiparesis (2022), COPD dependent on 3 L oxygen at home, gout, and BPH presented to the ED on 04/07/2024 for chief complaint of shortness of breath and bilateral lower extremity swelling. Patient was admitted for acute decompensated heart failure and cardiology was consulted. 1. Acute decompensated heart failure exacerbation with preserved ejection fraction [50-55%] and mild to moderate PAH Patient's home medication Bumex 4 Mg p.o. twice daily and metolazone 5 Mg p.o. daily. Despite this patient developed worsening SOB and bilateral lower extremity edema the day of admission and he presented to his traffic control officer, Dr. Sherman who recommended he present to the ED. Chest x-ray on admission showed increased vascular markings and mild atelectasis left base. Patient was started on Bumex infusion initially which was held this morning and patient transition to Bumex 2 Mg IV twice daily. On initial exam patient has significant sacral and hip edema, crackles at lung bases bilaterally with no lower extremity swelling or scrotal edema BNP on admission was 76 NYHA stage D class III Transthoracic echocardiogram completed on 04/07 findings include: Suboptimal images due to body habitas. Normal LV size and function.diastolic function prsesent but cannit grade due to AFib. Estimated EF 50-55% Normal RV size and function. Mild MAC. Trace TR. On previous admission transesophageal echocardiogram completed on 07/08/2023 findings include: Negative bubble study, no evidence of PFO or ASD or LA/CHRISTIE thrombus. Normal LV size and function. Estimated EF 55-60% RV mildly dilated and mildly dialted LA. Moderate MR. Mild to moderate TR. There is mild protruding plaque seen in the aortic arch. Pulomary flow is systolic blunting. Patient has diuresis with a fluid balance of negative 590cc in the past 24 hours. Patient was transitioned to Bumex 2 mg IV BID on 04/09 which is currently on hold for diuretic holiday due to ALMA on CKD Bicarb increased to 35 from 34.3 , BUN increased to 48 from 43 and Cr increased to 2.5 from 2.4 Recommend Acetazolamide 500mg po x 1 for contraction alkalosis From telemetry review patient continues to be in A-fib with rate between 100s - 110s overnight Potassium 3.6 and magnesium 2.4. Please maintain potassium greater than 3.5 and magnesium greater than 2 at all times to prevent any arrhythmias Plan: ? 2 g sodium restricted diet ? Strict input output charting ? Daily weights ?1500 cc/day fluid restriction ? It is ok to continue diuretic holiday today in light of ALMA. - Recommend Acetazolamide 500mg po x 1 for contraction alkalosis ?Beta-blockers contraindicated in severe CHF exacerbation, recommend to discontinue or decrease dose of beta-ashish. 2. Essential hypertension Patient's home medication carvedilol 6.25 mg p.o. twice daily, metolazone 5 Mg p.o. daily and Bumex 4 Mg p.o. twice daily. On admission BP 125/80, currently BP 114/81 Plan: - Recommend to continue amlodipine 5 mg po Qday ? Recommend excellent control of blood pressure and maintain SBP less than 140 mmHg 3. CAD s/p stent with DEMARIO 4. Hyperlipidemia Patient on high-dose statin atorvastatin 40 Mg p.o. at bedtime. Patient not on aspirin or Plavix due to recent history of GI bleed 2 months ago. Hb currently stable at 11.6. Plan: ? Continue high intensity statin 5. Atrial fibrillation?long-term persistent Patient rate controlled on carvedilol 6.25 Mg p.o. twice daily at home and anticoagulated with Eliquis 5 Mg p.o. 3 times daily. EKG on admission showed A-fib rate 96 [id number]: 7 points; stroke risk 11.2 %/year HAS-BLED : 5 points; high risk for major bleeding From telemetry review patient is in still in A fib with rate between 110s and 110's overnight Plan: ? Recommend to continue home anticoagulation Eliquis 5 Mg p.o. twice daily ? Beta-blockers contraindicated in severe CHF exacerbation recommend to decrease dose or hold at this time 6. History of CVA [2022] Patient has residual left hemiparesis. Currently not on aspirin or Plavix due to history of GI bleed 2 months ago. 7. COPD 8. Asthma 9. Nicotine dependence Patient has a history of COPD and asthma on montelukast and inhaler at home. Chronic smoking history of 40 years; 1.5 pack smoker daily. Continue management as per primary team 10. [id number] diabetes mellitus type 2 [8.1] Patient on Ozempic at home. Continue management as per primary team 11. History of GI bleed January 2024 Colonoscopy completed on 02/01/[address] Grossman, hot stamp operator findings include: Hemorrhoids on perianal exam, mucosal ulceration in the sigmoid colon and in the proximal descending colon. Findings consistent with ischemic colitis multiple polyps resected with hot snare. Recommendations were for repeat colonoscopy in 6 months and to avoid NSAIDs. Pathology of the polyps was positive for tubular adenomas. 12. ALMA on CKD stage III Baseline Cr 1.4-1.9. On admission Cr 1.7. Currently Cr 2.5. Continue management as per primary team Continue rest of management as per primary team. We are grateful to be able to participate in Mr. Anthony's care. Thank you for the consult Plan of care discussed with attending Way Inspector, Dr Whit Oleary MD PGY 1 Attending Provider Attestation/Addendum I reviewed the resident Dr. Oleary consultation progress note and agree with the resident findings and plan in the note above and have also edited the documentation to reflect my findings and plan. Rogerio Sherman M.D. Interventional Cardiology
[2024-04-11] MEDS: carVEDILOL 3.125 MG TABLET 6.25 MG PO ×2 (08:34→21:13)
[2024-04-11] MEDS: PANTOPRAZOLE 40 MG TABLET PO (08:35)
[2024-04-11] MEDS: DULoxetine HCL 30 MG CAPSULE 60 MG PO (08:35)
[2024-04-11] MEDS: amLODIPine BESYLATE 5 MG TABLET PO (08:35)
[2024-04-11] MEDS: APIXABAN 2.5 MG TABLET 5 MG PO ×2 (08:35→21:12)
[2024-04-11] MEDS: ACETAzolaMIDE 250 MG TABLET 500 MG PO (09:36)
[2024-04-11] MEDS: SODIUM CHLORIDE 0.9% 250 ML 250 ML 999 ML IV (11:14)
--- NOTE | 2024-04-11 13:22 | PC.SS ---
Rounding: DC possible 1 more day, pending stabilization of kidney function
--- NOTE | 2024-04-11 14:42 | ESPR_ITS ---
Documentation for date of: 04/11/24 Subjective Subjective Interval history: No acute overnight events. Patient seen and examined at bedside. Labs reviewed. Patient endorses improvement in shortness of breath. He no longer requires head of bed to be elevated at> 60 degrees. Patient producing copious urine. Bumex will not be given today, in the setting of ALMA and recent aggressive diuresis. Exam Vital Signs Temp Pulse Resp BP Pulse Ox O2 Del Method O2 Flow Rate 97.9 F 90 23 H 100/73 93 L Humidified Nasal Cannula 2 04/11/24 12:00 04/11/24 12:00 04/11/24 12:00 04/11/24 12:00 04/11/24 12:00 04/11/24 12:00 04/11/24 12:00 Narrative Exam GENERAL: Elderly male, obese, in no acute distress. HEENT: Moist mucosa. Eyes open, symmetrical, & clear CARDIO: Irregular, normal rate. No murmurs appreciated. PULM: No noted coughing/dyspnea. Crackles bilaterally lower lung lobes>> ULL, improving, saturating 93% on 2L on O2. GI: Abdomen soft, nondistended, no pain on palpation. BSx4 URO/FINANCIAL SALES MANAGER:Gonzalez catheter/ in-situ NEURO: HOT MOLDER grossly intact, moves extremities x4, cranial nerves II through IV grossly intact. SKIN/MSK/EXT: Bilateral edema 1+, resolving. Objective Labs 04/11/24 05:26 04/11/24 05:26 Labs: Laboratory Results - last 24 hr 04/11/24 05:26 WBC 13.4 H RBC 4.23 L Hgb 11.9 L Hct 37.0 L MCV 88 MCH 28.1 MCHC 32.2 RDW Std Deviation 58.0 H Plt Count 230 D Neut % (Auto) 58 Lymph % (Auto) 26 [place] % (Auto) 13 H Eos % (Auto) 2 Baso % (Auto) 0 Neut # (Auto) 7.8 H Lymph # (Auto) 3.5 [place] # (Auto) 1.8 H Eos # (Auto) 0.2 Baso # (Auto) 0.1 Immature Gran # (Auto) 0.05 H Absolute Nucleated RBC 0.00 Immature Gran % 0 Nucleated RBC % 0 Sodium 144 Potassium 3.6 Chloride 103 Carbon Dioxide 35.0 H Anion Gap 6 L BUN 48 H Creatinine 2.5 H Estim Creat Clear Calc 37.3 L eGFR 27 L BUN/Creatinine Ratio 19 Glucose 198 H Calculated Osmolality 305 H Calcium 9.7 Phosphorus 5.3 H Magnesium 2.4 Quality Measures Quality Measures none Advance care planning discussed with:: patient Assessment & Plan Assessment Current Active Medications: Generic Name Dose Route Start Last Admin Trade Name Freq PRN Reason Stop Dose Admin Acetaminophen 650 mg 04/07/24 17:55 Acetaminophen 325 Mg Tablet PO 05/07/24 17:54 Q6H PRN Fever >101.5 Acetaminophen 650 mg 04/07/24 17:55 04/08/24 20:48 Acetaminophen 325 Mg Tablet PO 05/07/24 17:54 650 mg Q6H PRN Administration PAIN SCALE 1-3 (mild Hydrocodone Bitart/Acetaminophen 1 tab 04/07/24 17:55 04/09/24 11:31 Hydrocodone/Apap 10/325 Tab PO 04/12/24 17:54 1 tab Q6H PRN Administration PAIN SCALE 4-6 (Moderate Albuterol/Ipratropium 3 ml 04/10/24 10:14 Albuterol/Ipratropium (Duoneb) Rt Raquel 3 Ml Nebu INH 05/10/24 12:59 Q6HRRT PRN AGITATION OR ANXIETY Allopurinol 100 mg 04/07/24 21:00 04/10/24 20:38 Allopurinol 100 Mg Tablet PO 05/07/24 20:59 100 mg HS HUDSON Administration Amlodipine Besylate 5 mg 04/08/24 09:00 04/11/24 08:35 Amlodipine Besylate 5 Mg Tablet PO 05/08/24 08:59 5 mg QDAY HUDSON Administration Apixaban 5 mg 04/07/24 21:00 04/11/24 08:35 Apixaban 2.5 Mg Tablet PO 05/07/24 20:59 5 mg BID HUDSON Administration Atorvastatin Calcium 40 mg 04/07/24 21:00 04/10/24 20:38 Atorvastatin Calcium 20 Mg Tablet PO 05/07/24 20:59 40 mg HS HUDSON Administration Bumetanide 2 mg 04/09/24 14:00 04/09/24 14:16 Bumetanide Inj 0.25 Mg/Ml Vial 4 Ml IVP 05/09/24 13:59 2 mg BID HUDSON Administration Carvedilol 6.25 mg 04/07/24 21:00 04/11/24 08:34 Carvedilol 3.125 Mg Tablet PO 05/07/24 20:59 6.25 mg BID HUDSON Administration Dextrose 25 ml 04/08/24 04:02 Dextrose 50%-Water Inj 50 Ml Syringe IV 05/08/24 04:01 Q15MIN PRN BG 50-70 responsive npo pt Dextrose 50 ml 04/08/24 04:02 Dextrose 50%-Water Inj 50 Ml Syringe IV 05/08/24 04:01 Q15MIN PRN BG <50 OR BG <70 & pt unresponsive Duloxetine HCl 60 mg 04/10/24 09:00 04/11/24 08:35 Duloxetine Hcl 30 Mg Capsule PO 05/10/24 08:59 60 mg QDAY HUDSON Administration Ferrous Sulfate 325 mg 04/08/24 09:00 04/10/24 08:03 Ferrous Sulf 325 Mg Tablet PO 05/08/24 08:59 325 mg QOD HUDSON Administration Glucagon 1 mg 04/08/24 04:02 Glucagon Inj 1 Mg Vial IM Q15MIN PRN BG <70, and no IV access Hydromorphone HCl 1 mg 04/07/24 18:36 04/09/24 19:36 Hydromorphone Inj 2 Mg/Ml Vial IVP 04/12/24 17:54 1 mg Q4HR PRN Administration PAIN (7-10) Insulin Glargine 25 unit 04/11/24 09:00 04/11/24 08:01 Insulin Glargine (Lantus) 5 Unit/0.05 Ml (Per 5 Units) SC 05/11/24 08:59 25 unit QDAY HUDSON Administration Insulin Human Lispro 0 unit 04/08/24 07:30 04/11/24 11:13 Insulin Lispro (Admelog) 1 Unit/0.01 Ml Unit SC 05/08/24 07:29 3 unit ACHS HUDSON Administration Protocol Insulin Human Lispro 5 unit 04/10/24 11:30 04/11/24 11:14 Insulin Lispro (Admelog) 1 Unit/0.01 Ml Unit SC 05/10/24 11:29 5 unit ACHS HUDSON Administration Montelukast Sodium 10 mg 04/07/24 21:00 04/10/24 20:38 Montelukast Sodium 10 Mg Tablet PO 05/07/24 20:59 10 mg HS HUDSON Administration Ondansetron HCl 4 mg 04/07/24 17:55 Ondansetron Inj 2 Mg/Ml Inj 2 Ml IV 05/07/24 17:54 Q6H PRN NAUSEA OR VOMITING Protocol Pantoprazole Sodium 40 mg 04/07/24 18:00 04/11/24 08:35 Pantoprazole 40 Mg Tablet PO 05/07/24 17:59 40 mg QDAY HUDSON Administration Pregabalin 150 mg 04/10/24 08:00 04/11/24 13:43 Pregabalin 50 Mg Capsule PO 05/10/24 07:59 150 mg TID HUDSON Administration Sennosides 1 tab 04/07/24 18:04 Senna Tablet PO 05/07/24 18:03 QDAY PRN CONSTIPATION Protocol Sodium Chloride 3 ml 04/07/24 18:17 Sodium Chloride Rt Raquel 0.9% 3 Ml Nebu INH 05/07/24 18:16 PRN PRN SOLN Tizanidine HCl 2 mg 04/10/24 21:00 04/10/24 20:38 Tizanidine Hcl 2 Mg Tablet PO 05/10/24 20:59 2 mg HS HUDSON Administration Plan 68-year-old male with past medical history of HLD, T2DM (A1c 8.1%), HTN, HFpEF EF 55-60%, CAD s/p stent, A-fib on Eliquis, CVA with left sided residual deficits (2022), COPD dependent on 3 L oxygen at home, asthma, gout, and BPH presented to the ED on 04/07/2024 for chief complaint of shortness of breath and bilateral lower extremity swelling. Patient was found to to be in a fluid overloaded state. Dr. Felton was consulted, who recommended Bumex drip for CHF. Patient was admitted for management of CHF exacerbation #Acutely compensated heart failure #HFpEF EF 55-60% Most likely secondary to hypertension and obesity Ddx: CHF vs COPD exacerbation Patient presented with difficulty breathing and bilateral lower extremity swelling and increased sputum production over the past 2 weeks. He denied any sick contacts or recent travel. In the setting of hypertension obesity, patient presented with acute decompensated heart failure currently appears compensated. Now, clinically, he remains dry without edema of the lower extremities. Minimal JVD noted on exam. Wheezing, resolved. On examination, pt has faint crackles bilaterally LLL>>ULL. Chest x-ray showed no pneumonia or pulmonary edema. Subsegmental atelectasis left base seen on CXR. Echo on 06/2023: EF 55-60%. NYHA class IV. Plan: -Continue holding diuresis for now, per cardiology recs. -Continue Coreg 6.25mg BID -Cardio consulted, appreciate recommendations -Strict TONY's and daily weight checks -Fluid restriction; 1500 cc daily -Follow-up CMP #ALMA, pre- renal #Metabolic alkalosis ALMA developed in the setting of aggressive diuresis. Contraction alkalosis likely secondary to diuretic use. Creatinine of 2.5, up from 2.1 and some contraction alkalosis. Plan: -IV fluid bolus 250 cc given -Acetazolamide 500 mg x 1 per cardiology recs. -Continue to hold Bumex -Renally medications -Renal panel in a.m. #COPD #Asthma #Chronic smoking history Patient has a history of COPD and asthma on montelukast and inhaler at home. Chronic smoking history of 40 years; 1.5 pack smoker daily. Bilateral crackles in lower lung lobes. Plan: -Monteleukast -Duonebs scheduled -Oxygen as needed, goal SaO2 88 to 92%. #Leukocytosis Most likely secondary to inflammatory response from CHF with underlying COPD. WBC 12.9 on presentation, up trended to 13.4 -Follow-up CBC #A-fib, rate-controlled He has hx of atrial fibrillation, on Eliquis. EKG showed atrial fibrillation, heart rate 87. -Appreciate cardiology consultation recommendations; -Eliquis 5 mg twice daily -Maintain potassium greater than 4 and magnesium greater than 2; replete as needed #Hypertension Chronic, uncontrolled Blood pressure is currently stable. -Coreg 6.25 mg orally daily -amlodipine 5mg daily #DMT2 Chronic, uncontrolled Glucose elevated at 198. -Glargine 25 units SC daily. -Insulin lispro 5 units SC [facility] -Bedside glucose checks -Hypoglycemic protocol #CAD status post stent placement #CVA (2022) with left hemiplegia -atorvastatin 40 mg orally daily #HLD Patient does not appear to be on any medication for this condition. -recommend outpatient f/up Health maintenance: Dispo: Tele Diet: Cardiac GI: Pantoprazole DVT: Eliquis Lines: Peripheral Code:Full Discussed case with my attending Dr. Linares and senior Jannet Sibley, PGY-3. Thank you, Estrella Sterling, PGY-2 Attending Provider Attestation/Addendum I have discussed and was present for the essential components of the history, physical examination, diagnosis, and treatment plan with the resident. I agree with the patient's care as documented by the resident and amended herein by me. Matias Linares, DO. Patient seen and evaluated this AM. Patient clinically much improved, the patient denies any shortness of breath or chest pain, palpitations, nausea or vomiting at present. Patient does state he is thirsty and he is clinically dry. Vital signs stable, patient afebrile overnight, I 02/1100, patient still on diuretic holiday, creatinine slightly up trended to 2.5 today hence we will continue diuretic holiday. Patient can be discharged likely in 1 to 2 days pending renal function improvement. Will continue Eliquis and Coreg, cardiology consulted, appreciate recommendations. Will continue to monitor closely while he is here Although this document has been carefully reviewed, there may still be some phonetic and other typographical errors. These errors are purely grammatical due to imperfections in the software program and should not be construed in any way to compromise the substance of the patient's medical care during this visit.
[2024-04-11] MEDS: PROMETHAZINE/DM SYRUP 5 ML DOSE PO (20:08)
[2024-04-11] MEDS: ATORVASTATIN CALCIUM 20 MG TABLET 40 MG PO (21:12)
[2024-04-11] MEDS: MONTELUKAST SODIUM 10 MG TABLET PO (21:13)
[2024-04-11] MEDS: allopurinoL 100 MG TABLET PO (21:13)
[2024-04-11] MEDS: tiZANidine HCL 2 MG TABLET PO (21:14)
[2024-04-12] VITALS (13 sets, daily range): BP systolic 113–151; BP diastolic 71–85; PULSE 74–93; RESP 17–22; TEMP 36.2–36.6; O2SAT 93–99; BMI 42.9
[2024-04-12] MEDS: HYDROcodone/APAP 10/325 TAB PO ×3 (04:47→21:24)
[2024-04-12] MEDS: PREGABALIN 50 MG CAPSULE 150 MG PO ×3 (05:30→20:11)
[2024-04-12 05:44] LABS: Basophils # (Auto) 0.1 Thou/mm3 (0.0-0.2); Basophils % (Auto) 1 % (0-2.5); Eosinophils # (Auto) 0.4 Thou/mm3 (0.0-0.5); Eosinophils % (Auto) 3 % (0-10); Hematocrit 35.5 % (41.0-53.0); Hemoglobin 11.2 g/dL (13.5-16.0); Immature Granulocytes % (Auto) 1 % (0-0); Immature Granulocytes Auto 0.06 Thou/mm3 (0.00-0.00); Lymphocytes # (Auto) 3.2 Thou/mm3 (1.0-4.8); Lymphocytes % (Auto) 24 % (10-50); Mean Corpuscular HGB Conc 31.5 g/dl (31.0-37.0); Mean Corpuscular Hemoglobin 28.1 pg (25.0-35.0); Mean Corpuscular Volume 89 fL (80-100); Monocytes # (Auto) 1.5 Thou/mm3 (0.0-0.8); Monocytes % (Auto) 11 % (0-12); Neutrophils # (Auto) 8.1 Thou/mm3 (1.8-7.7); Neutrophils % (Auto) 61 % (37-80); Nucleated Red Blood Cell % 0 /100 WBC (0); Platelet Count 250 Thou/mm3 (140-440); RDW Standard Deviation 59.4 fL (35.1-43.9); Red Blood Count 3.98 Miln/mm3 (4.50-5.90); White Blood Count 13.3 Thou/mm3 (3.8-10.6)
[2024-04-12 06:26] LABS: Anion Gap 6 (7-16); BUN/Creatinine Ratio 19 Ratio (12-20); Blood Urea Nitrogen 48 mg/dL (9-23); Calcium 9.4 mg/dL (8.3-10.6); Carbon Dioxide 32.1 mMol/L (20.0-31.0); Chloride 104 mMol/L (98-107); Creatinine (Component) 2.5 mg/dL (0.6-1.3); Estimated Creatinine Clearance 37.2 mL/min (>60); Glucose 183 mg/dL (74-106); Osmolality,Calculated 300 (275-295); Potassium 3.2 mMol/L (3.4-5.1); Sodium 142 mMol/L (136-145); eGFR 27 See Note
[2024-04-12] MEDS: INSULIN GLARGINE (Lantus) 5 UNIT/0.05 ML (PER 5 UNITS) 25 UNIT SC (08:01)
[2024-04-12] MEDS: INSULIN LISPRO (AdmeLOG) 1 UNIT/0.01 ML UNIT 5 UNIT SC ×4 (08:02→20:27)
[2024-04-12] MEDS: INSULIN LISPRO (AdmeLOG) 1 UNIT/0.01 ML UNIT SC ×4 (08:02→20:28)
[2024-04-12] MEDS: carVEDILOL 3.125 MG TABLET 6.25 MG PO ×2 (08:42→20:12)
[2024-04-12] MEDS: INSULIN GLARGINE (Lantus) 5 UNIT/0.05 ML (PER 5 UNITS) SC (08:42)
[2024-04-12] MEDS: DULoxetine HCL 30 MG CAPSULE 60 MG PO (08:42)
[2024-04-12] MEDS: amLODIPine BESYLATE 5 MG TABLET PO (08:43)
[2024-04-12] MEDS: APIXABAN 2.5 MG TABLET 5 MG PO ×2 (08:43→20:12)
[2024-04-12] MEDS: FERROUS SULF 325 MG TABLET PO (08:44)
--- NOTE | 2024-04-12 08:45 | ESPR_ITS ---
Documentation for date of: 04/12/24 Subjective Subjective Interval history: Patient was seen and examined at bedside this AM. No acute exents overnight. Patient tolerating diet, adequate urine output and mentation is at baseline. Patient endorses improvement of SOB at rest and denies any chest pressure/pain, dizziness, presyncope/syncope. Patient was on bumetanide infusion on admission which was discontinued on 04/09 Patient has diuresis with a fluid balance of positive 180cc in the past 24 hours. However on exam patient's edema much improved, input/output most likely inaccurate Patient was transitioned to Bumex 2 mg IV BID on 04/09 which was on hold for diuretic holiday due to ALMA on CKD Recommend to restart Bumex 4mg po BID today Bicarb decreased to 32.1 from 35 , BUN unchanged at 48 and Cr unchanged at 2.5 Acetazolamide 500mg po x 1 for contraction alkalosis given on 04/11 From telemetry review patient continues to be in A-fib with rate between 90s- 100s overnight Potassium 3.2 and magnesium 2.4. Please maintain potassium greater than 3.5 and magnesium greater than 2 at all times to prevent any arrhythmias Will monitor renal function one more day and can start planning DC EKG on admission showed atrial fibrillation rate controlled at 87. Previous EKGs also showed similar findings. Exam Vital Signs Temp Pulse Resp BP Pulse Ox O2 Del Method O2 Flow Rate 97.5 F 84 19 113/72 95 Nasal Cannula 2 04/12/24 08:00 04/12/24 08:43 04/12/24 08:00 04/12/24 08:43 04/12/24 08:00 04/12/24 08:00 04/12/24 08:00 Narrative Exam Constitutional Alert, oriented x 3 and comfortable. Elderly, Obese male on O2 via NC HEENT Vision grossly intact. Patent nares. Trachea midline Respiratory Chest normal on inspection and decreased AE at bases b/l, clear to auscultation Cardiovascular S1 and S2 audible, RRR. No murmurs carotid bruit. No gross JVD. Abdominal Soft,obese and non tender to palpation in all quadrants. BS + Genitourinary No bladder tenderness, no flank pain. Normal to palpation. No scrotal edema Musculoskeletal Extremities tone within normal limits. No LE edema, 2+ Hip edema B/L and Sacral edema, improved Neurological CN II - XII grossly intact. Extremity motor and sensation grossly intact. Skin Warm, dry and intact. No apparent lesions. Psychiatric Patient has good affect, is cooperative Objective Labs 04/12/24 05:07 04/12/24 05:07 Labs: Laboratory Results - last 24 hr 04/12/24 05:07 WBC 13.3 H RBC 3.98 L Hgb 11.2 L Hct 35.5 L MCV 89 MCH 28.1 MCHC 31.5 RDW Std Deviation 59.4 H Plt Count 250 Neut % (Auto) 61 Lymph % (Auto) 24 [place] % (Auto) 11 Eos % (Auto) 3 Baso % (Auto) 1 Neut # (Auto) 8.1 H Lymph # (Auto) 3.2 [place] # (Auto) 1.5 H Eos # (Auto) 0.4 Baso # (Auto) 0.1 Immature Gran # (Auto) 0.06 H Absolute Nucleated RBC 0.00 Immature Gran % 1 H Nucleated RBC % 0 Sodium 142 Potassium 3.2 L Chloride 104 Carbon Dioxide 32.1 H Anion Gap 6 L BUN 48 H Creatinine 2.5 H Estim Creat Clear Calc 37.2 L eGFR 27 L BUN/Creatinine Ratio 19 Glucose 183 H Calculated Osmolality 300 H Calcium 9.4 Quality Measures Quality Measures none Advance care planning discussed with:: patient Assessment & Plan Assessment Current Active Medications: Generic Name Dose Route Start Last Admin Trade Name Freq PRN Reason Stop Dose Admin Acetaminophen 650 mg 04/07/24 17:55 Acetaminophen 325 Mg Tablet PO 05/07/24 17:54 Q6H PRN Fever >101.5 Acetaminophen 650 mg 04/07/24 17:55 04/08/24 20:48 Acetaminophen 325 Mg Tablet PO 05/07/24 17:54 650 mg Q6H PRN Administration PAIN SCALE 1-3 (mild Hydrocodone Bitart/Acetaminophen 1 tab 04/07/24 17:55 04/12/24 04:47 Hydrocodone/Apap 10/325 Tab PO 04/12/24 17:54 1 tab Q6H PRN Administration PAIN SCALE 4-6 (Moderate Albuterol/Ipratropium 3 ml 04/10/24 10:14 Albuterol/Ipratropium (Duoneb) Rt Raquel 3 Ml Nebu INH 05/10/24 12:59 Q6HRRT PRN AGITATION OR ANXIETY Allopurinol 100 mg 04/07/24 21:00 04/11/24 21:13 Allopurinol 100 Mg Tablet PO 05/07/24 20:59 100 mg HS HUDSON Administration Amlodipine Besylate 5 mg 04/08/24 09:00 04/12/24 08:43 Amlodipine Besylate 5 Mg Tablet PO 05/08/24 08:59 5 mg QDAY HUDSON Administration Apixaban 5 mg 04/07/24 21:00 04/12/24 08:43 Apixaban 2.5 Mg Tablet PO 05/07/24 20:59 5 mg BID HUDSON Administration Atorvastatin Calcium 40 mg 04/07/24 21:00 04/11/24 21:12 Atorvastatin Calcium 20 Mg Tablet PO 05/07/24 20:59 40 mg HS HUDSON Administration Bumetanide 2 mg 04/09/24 14:00 04/09/24 14:16 Bumetanide Inj 0.25 Mg/Ml Vial 4 Ml IVP 05/09/24 13:59 2 mg BID HUDSON Administration Carvedilol 6.25 mg 04/07/24 21:00 04/12/24 08:42 Carvedilol 3.125 Mg Tablet PO 05/07/24 20:59 6.25 mg BID HUDSON Administration Dextrose 25 ml 04/08/24 04:02 Dextrose 50%-Water Inj 50 Ml Syringe IV 05/08/24 04:01 Q15MIN PRN BG 50-70 responsive npo pt Dextrose 50 ml 04/08/24 04:02 Dextrose 50%-Water Inj 50 Ml Syringe IV 05/08/24 04:01 Q15MIN PRN BG <50 OR BG <70 & pt unresponsive Duloxetine HCl 60 mg 04/10/24 09:00 04/12/24 08:42 Duloxetine Hcl 30 Mg Capsule PO 05/10/24 08:59 60 mg QDAY HUDSON Administration Ferrous Sulfate 325 mg 04/08/24 09:00 04/12/24 08:44 Ferrous Sulf 325 Mg Tablet PO 05/08/24 08:59 325 mg QOD HUDSON Administration Glucagon 1 mg 04/08/24 04:02 Glucagon Inj 1 Mg Vial IM Q15MIN PRN BG <70, and no IV access Hydromorphone HCl 1 mg 04/07/24 18:36 04/09/24 19:36 Hydromorphone Inj 2 Mg/Ml Vial IVP 04/12/24 17:54 1 mg Q4HR PRN Administration PAIN (7-10) Insulin Glargine 30 unit 04/13/24 09:00 Insulin Glargine (Lantus) 5 Unit/0.05 Ml (Per 5 Units) SC 05/13/24 08:59 QDAY HUDSON Insulin Human Lispro 0 unit 04/08/24 07:30 04/12/24 08:02 Insulin Lispro (Admelog) 1 Unit/0.01 Ml Unit SC 05/08/24 07:29 2 unit ACHS HUDSON Administration Protocol Insulin Human Lispro 5 unit 04/10/24 11:30 04/12/24 08:02 Insulin Lispro (Admelog) 1 Unit/0.01 Ml Unit SC 05/10/24 11:29 5 unit ACHS HUDSON Administration Montelukast Sodium 10 mg 04/07/24 21:00 04/11/24 21:13 Montelukast Sodium 10 Mg Tablet PO 05/07/24 20:59 10 mg HS HUDSON Administration Ondansetron HCl 4 mg 04/07/24 17:55 Ondansetron Inj 2 Mg/Ml Inj 2 Ml IV 05/07/24 17:54 Q6H PRN NAUSEA OR VOMITING Protocol Pantoprazole Sodium 40 mg 04/07/24 18:00 04/11/24 08:35 Pantoprazole 40 Mg Tablet PO 05/07/24 17:59 40 mg QDAY HUDSON Administration Pregabalin 150 mg 04/10/24 08:00 04/12/24 05:30 Pregabalin 50 Mg Capsule PO 05/10/24 07:59 150 mg TID HUDSON Administration Sennosides 1 tab 04/07/24 18:04 Senna Tablet PO 05/07/24 18:03 QDAY PRN CONSTIPATION Protocol Sodium Chloride 3 ml 04/07/24 18:17 Sodium Chloride Rt Raquel 0.9% 3 Ml Nebu INH 05/07/24 18:16 PRN PRN SOLN Tizanidine HCl 2 mg 04/10/24 21:00 04/11/24 21:14 Tizanidine Hcl 2 Mg Tablet PO 05/10/24 20:59 2 mg HS HUDSON Administration Plan 68-year-old male with past medical history of HLD, NIDDM type 2 (A1c 8.1%), HTN, HFpEF EF 50-55%, CAD s/p stent, A-fib on Eliquis, CVA with left hemiparesis (2022), COPD dependent on 3 L oxygen at home, gout, and BPH presented to the ED on 04/07/2024 for chief complaint of shortness of breath and bilateral lower extremity swelling. Patient was admitted for acute decompensated heart failure and cardiology was consulted. 1. Acute decompensated heart failure exacerbation with preserved ejection fraction [50-55%] and mild to moderate PAH Patient's home medication Bumex 4 Mg p.o. twice daily and metolazone 5 Mg p.o. daily. Despite this patient developed worsening SOB and bilateral lower extremity edema the day of admission and he presented to his communications equipment installer, Dr. Sherman who recommended he present to the ED. Chest x-ray on admission showed increased vascular markings and mild atelectasis left base. Patient was started on Bumex infusion initially which was held this morning and patient transition to Bumex 2 Mg IV twice daily. On initial exam patient has significant sacral and hip edema, crackles at lung bases bilaterally with no lower extremity swelling or scrotal edema BNP on admission was 76 NYHA stage D class III Transthoracic echocardiogram completed on 04/07 findings include: Suboptimal images due to body habitas. Normal LV size and function.diastolic function prsesent but cannit grade due to AFib. Estimated EF 50-55% Normal RV size and function. Mild MAC. Trace TR. On previous admission transesophageal echocardiogram completed on 07/08/2023 findings include: Negative bubble study, no evidence of PFO or ASD or LA/CHRISTIE thrombus. Normal LV size and function. Estimated EF 55-60% RV mildly dilated and mildly dialted LA. Moderate MR. Mild to moderate TR. There is mild protruding plaque seen in the aortic arch. Pulomary flow is systolic blunting. Patient has diuresis with a fluid balance of positive 180cc in the past 24 hours. However on exam patient's edema much improved, input/output most likely inaccurate Patient was transitioned to Bumex 2 mg IV BID on 04/09 which was on hold for diuretic holiday due to ALMA on CKD Recommend to restart Bumex 4mg po BID today Bicarb decreased to 32.1 from 35 , BUN unchanged at 48 and Cr unchanged at 2.5 Acetazolamide 500mg po x 1 for contraction alkalosis given on 04/11 From telemetry review patient continues to be in A-fib with rate between 90s- 100s overnight Potassium 3.2 and magnesium 2.4. Please maintain potassium greater than 3.5 and magnesium greater than 2 at all times to prevent any arrhythmias Plan: ? 2 g sodium restricted diet ? Strict input output charting ? Daily weights ?1500 cc/day fluid restriction ? Recommend to start on Bumex 4mg po BID today ?Beta-blockers contraindicated in severe CHF exacerbation, recommend to discontinue or decrease dose of beta-ashish. - Will monitor renal function one more day and can start planning DC 2. Essential hypertension Patient's home medication carvedilol 6.25 mg p.o. twice daily, metolazone 5 Mg p.o. daily and Bumex 4 Mg p.o. twice daily. On admission BP 125/80, currently BP 123/81 Plan: - Recommend to continue amlodipine 5 mg po Qday ? Recommend excellent control of blood pressure and maintain SBP less than 140 mmHg 3. CAD s/p stent with DEMARIO 4. Hyperlipidemia Patient on high-dose statin atorvastatin 40 Mg p.o. at bedtime. Patient not on aspirin or Plavix due to recent history of GI bleed 2 months ago. Hb currently stable at 11.6. Plan: ? Continue high intensity statin 5. Atrial fibrillation?long-term persistent Patient rate controlled on carvedilol 6.25 Mg p.o. twice daily at home and anticoagulated with Eliquis 5 Mg p.o. 3 times daily. EKG on admission showed A-fib rate 96 [id number]: 7 points; stroke risk 11.2 %/year HAS-BLED : 5 points; high risk for major bleeding From telemetry review patient is in still in A fib with rate between 110s and 110's overnight Plan: ? Recommend to continue home anticoagulation Eliquis 5 Mg p.o. twice daily ? Beta-blockers contraindicated in severe CHF exacerbation recommend to decrease dose or hold at this time 6. History of CVA [2022] Patient has residual left hemiparesis. Currently not on aspirin or Plavix due to history of GI bleed 2 months ago. 7. COPD 8. Asthma 9. Nicotine dependence Patient has a history of COPD and asthma on montelukast and inhaler at home. Chronic smoking history of 40 years; 1.5 pack smoker daily. Continue management as per primary team 10. [id number] diabetes mellitus type 2 [8.1] Patient on Ozempic at home. Continue management as per primary team 11. History of GI bleed January 2024 Colonoscopy completed on 02/01/[address] Grossman, cork insulation installer findings include: Hemorrhoids on perianal exam, mucosal ulceration in the sigmoid colon and in the proximal descending colon. Findings consistent with ischemic colitis multiple polyps resected with hot snare. Recommendations were for repeat colonoscopy in 6 months and to avoid NSAIDs. Pathology of the polyps was positive for tubular adenomas. 12. ALMA on CKD stage III Baseline Cr 1.4-1.9. On admission Cr 1.7. Currently Cr 2.5. Continue management as per primary team Continue rest of management as per primary team. We are grateful to be able to participate in Mr. Anthony's care. Thank you for the consult Plan of care discussed with attending [facility] Nurse, Dr Whit Oleary MD PGY 1 Attending Provider Attestation/Addendum I have personally seen and examined the patient separately on the above date of service and discussed the plan of care with the resident. I reviewed the resident Dr. Oleary consultation progress note and agree with the resident findings and plan in the note above and have also edited the documentation to reflect my findings and plan. Rogerio Sherman M.D. Interventional Cardiology
[2024-04-12] MEDS: PANTOPRAZOLE 40 MG TABLET PO (08:46)
[2024-04-12] MEDS: POTASSIUM CHLORIDE 20 mEq TABCR 40 MEQ PO ×2 (09:07→14:00)
[2024-04-12 09:41] LABS: Magnesium 2.4 mg/dL (1.6-2.6)
--- NOTE | 2024-04-12 12:46 | ESPR_ITS ---
<Statement entered by Jannet Sibley MD - 04/13/24 07:35> Senior Resident Attestation: I supervised/discussed management plan with resident physician Dr. Sterling, and was involved in the care of this patient. I personally saw and examined the patient and discussed the assessment and plan with the entire medicine team, including my attending. Patient's care was discussed with attending physician, Dr. Milagros Sibley MD PGY-3 Documentation for date of: 04/12/24 Subjective Subjective Interval history: Absence of acute overnight events. Patient seen and examined at bedside. Patient notices improvement in his breathing. Relatively clear on auscultation. Faint crackles bilateral lower lung lobes. No pitting edema lower extremities bilaterally. Bumex will not be given today, in the setting of ALMA and recent aggressive diuresis. Exam Vital Signs Temp Pulse Resp BP Pulse Ox O2 Del Method O2 Flow Rate 97.5 F 76 22 H 113/72 96 Nasal Cannula 2 04/12/24 08:00 04/12/24 09:00 04/12/24 09:00 04/12/24 08:43 04/12/24 09:00 04/12/24 08:00 04/12/24 09:00 Narrative Exam GENERAL: Elderly male, obese, in no acute distress. HEENT: Moist mucosa. Eyes open, symmetrical, & clear CARDIO: Irregular, normal rate. No murmurs appreciated. PULM: Relatively clear on auscultation. Faint crackles bilateral lower lung lobes, on 2 L nasal cannula saturating at 96% GI: Abdomen soft, nondistended, no pain on palpation. BSx4 URO/MINING MACHINERY ASSEMBLER:Gonzalez catheter. NEURO: PRESALES ENGINEER grossly intact, moves extremities x4, cranial nerves II through IV grossly intact. SKIN/MSK/EXT: Bilateral edema 1+, resolving. Rhytids bilaterally of lower extremities. Objective Labs 04/12/24 05:07 04/12/24 05:07 Labs: Laboratory Results - last 24 hr 04/12/24 05:07 WBC 13.3 H RBC 3.98 L Hgb 11.2 L Hct 35.5 L MCV 89 MCH 28.1 MCHC 31.5 RDW Std Deviation 59.4 H Plt Count 250 Neut % (Auto) 61 Lymph % (Auto) 24 [place] % (Auto) 11 Eos % (Auto) 3 Baso % (Auto) 1 Neut # (Auto) 8.1 H Lymph # (Auto) 3.2 [place] # (Auto) 1.5 H Eos # (Auto) 0.4 Baso # (Auto) 0.1 Immature Gran # (Auto) 0.06 H Absolute Nucleated RBC 0.00 Immature Gran % 1 H Nucleated RBC % 0 Sodium 142 Potassium 3.2 L Chloride 104 Carbon Dioxide 32.1 H Anion Gap 6 L BUN 48 H Creatinine 2.5 H Estim Creat Clear Calc 37.2 L eGFR 27 L BUN/Creatinine Ratio 19 Glucose 183 H Calculated Osmolality 300 H Calcium 9.4 Magnesium 2.4 Quality Measures Quality Measures none Advance care planning discussed with:: patient Assessment & Plan Assessment Current Active Medications: Generic Name Dose Route Start Last Admin Trade Name Freq PRN Reason Stop Dose Admin Acetaminophen 650 mg 04/07/24 17:55 Acetaminophen 325 Mg Tablet PO 05/07/24 17:54 Q6H PRN Fever >101.5 Acetaminophen 650 mg 04/07/24 17:55 04/08/24 20:48 Acetaminophen 325 Mg Tablet PO 05/07/24 17:54 650 mg Q6H PRN Administration PAIN SCALE 1-3 (mild Hydrocodone Bitart/Acetaminophen 1 tab 04/07/24 17:55 04/12/24 04:47 Hydrocodone/Apap 10/325 Tab PO 04/12/24 17:54 1 tab Q6H PRN Administration PAIN SCALE 4-6 (Moderate Albuterol/Ipratropium 3 ml 04/10/24 10:14 Albuterol/Ipratropium (Duoneb) Rt Raquel 3 Ml Nebu INH 05/10/24 12:59 Q6HRRT PRN AGITATION OR ANXIETY Allopurinol 100 mg 04/07/24 21:00 04/11/24 21:13 Allopurinol 100 Mg Tablet PO 05/07/24 20:59 100 mg HS HUDSON Administration Amlodipine Besylate 5 mg 04/08/24 09:00 04/12/24 08:43 Amlodipine Besylate 5 Mg Tablet PO 05/08/24 08:59 5 mg QDAY HUDSON Administration Apixaban 5 mg 04/07/24 21:00 04/12/24 08:43 Apixaban 2.5 Mg Tablet PO 05/07/24 20:59 5 mg BID HUDSON Administration Atorvastatin Calcium 40 mg 04/07/24 21:00 04/11/24 21:12 Atorvastatin Calcium 20 Mg Tablet PO 05/07/24 20:59 40 mg HS HUDSON Administration Bumetanide 4 mg 04/12/24 11:00 Bumetanide 0.5 Mg Tablet PO 05/12/24 10:59 BID HUDSON Carvedilol 6.25 mg 04/07/24 21:00 04/12/24 08:42 Carvedilol 3.125 Mg Tablet PO 05/07/24 20:59 6.25 mg BID HUDSON Administration Dextrose 25 ml 04/08/24 04:02 Dextrose 50%-Water Inj 50 Ml Syringe IV 05/08/24 04:01 Q15MIN PRN BG 50-70 responsive npo pt Dextrose 50 ml 04/08/24 04:02 Dextrose 50%-Water Inj 50 Ml Syringe IV 05/08/24 04:01 Q15MIN PRN BG <50 OR BG <70 & pt unresponsive Duloxetine HCl 60 mg 04/10/24 09:00 04/12/24 08:42 Duloxetine Hcl 30 Mg Capsule PO 05/10/24 08:59 60 mg QDAY HUDSON Administration Ferrous Sulfate 325 mg 04/08/24 09:00 04/12/24 08:44 Ferrous Sulf 325 Mg Tablet PO 05/08/24 08:59 325 mg QOD HUDSON Administration Glucagon 1 mg 04/08/24 04:02 Glucagon Inj 1 Mg Vial IM Q15MIN PRN BG <70, and no IV access Hydromorphone HCl 1 mg 04/07/24 18:36 04/09/24 19:36 Hydromorphone Inj 2 Mg/Ml Vial IVP 04/12/24 17:54 1 mg Q4HR PRN Administration PAIN (7-10) Insulin Glargine 30 unit 04/13/24 09:00 Insulin Glargine (Lantus) 5 Unit/0.05 Ml (Per 5 Units) SC 05/13/24 08:59 QDAY HUDSON Insulin Human Lispro 0 unit 04/08/24 07:30 04/12/24 11:56 Insulin Lispro (Admelog) 1 Unit/0.01 Ml Unit SC 05/08/24 07:29 1 unit ACHS HUDSON Administration Protocol Insulin Human Lispro 5 unit 04/10/24 11:30 04/12/24 11:56 Insulin Lispro (Admelog) 1 Unit/0.01 Ml Unit SC 05/10/24 11:29 5 unit ACHS HUDSON Administration Montelukast Sodium 10 mg 04/07/24 21:00 04/11/24 21:13 Montelukast Sodium 10 Mg Tablet PO 05/07/24 20:59 10 mg HS HUDSON Administration Ondansetron HCl 4 mg 04/07/24 17:55 Ondansetron Inj 2 Mg/Ml Inj 2 Ml IV 05/07/24 17:54 Q6H PRN NAUSEA OR VOMITING Protocol Pantoprazole Sodium 40 mg 04/07/24 18:00 04/12/24 08:46 Pantoprazole 40 Mg Tablet PO 05/07/24 17:59 40 mg QDAY HUDSON Administration Pregabalin 150 mg 04/10/24 08:00 04/12/24 05:30 Pregabalin 50 Mg Capsule PO 05/10/24 07:59 150 mg TID HUDSON Administration Sennosides 1 tab 04/07/24 18:04 Senna Tablet PO 05/07/24 18:03 QDAY PRN CONSTIPATION Protocol Sodium Chloride 3 ml 04/07/24 18:17 Sodium Chloride Rt Raquel 0.9% 3 Ml Nebu INH 05/07/24 18:16 PRN PRN SOLN Tizanidine HCl 2 mg 04/10/24 21:00 04/11/24 21:14 Tizanidine Hcl 2 Mg Tablet PO 05/10/24 20:59 2 mg HS HUDSON Administration Plan 68-year-old male with past medical history of HLD, T2DM (A1c 8.1%), HTN, HFpEF EF 55-60%, CAD s/p stent, A-fib on Eliquis, CVA with left sided residual deficits (2022), COPD dependent on 3 L oxygen at home, asthma, gout, and BPH presented to the ED on 04/07/2024 for chief complaint of shortness of breath and bilateral lower extremity swelling. Patient was found to to be in a fluid overloaded state. Dr. Felton was consulted, who recommended Bumex drip for CHF. Patient was admitted for management of CHF exacerbation #Acutely compensated heart failure #HFpEF EF 55-60% Most likely secondary to hypertension and obesity Ddx: CHF vs COPD exacerbation Patient presented with difficulty breathing and bilateral lower extremity swelling and increased sputum production over the past 2 weeks. He denied any sick contacts or recent travel. In the setting of hypertension obesity, patient presented with acute decompensated heart failure currently appears compensated. Patient appears clinically dry without edema of the lower extremities. On examination, pt has faint crackles bilaterally LLL. Chest x-ray showed no pneumonia or pulmonary edema. Subsegmental atelectasis left base seen on CXR. Echo on 06/2023: EF 55-60%. NYHA class IV. Net +180 cc. Plan: -Continue holding diuresis for now as patient now is in ALMA, creatinine sustaining at 2.5. -If patient improves within 24 hours, patient to be discharged on oral Bumex. -Continue Coreg 6.25mg BID -Cardio consulted, appreciate recommendations-recommends 4 mg Bumex orally twice daily -Strict TONY's and daily weight checks -Fluid restriction; 1500 cc daily -Follow-up CMP #ALMA, pre- renal, stable #Metabolic alkalosis, improving ALMA developed in the setting of aggressive diuresis. Contraction alkalosis likely secondary to diuretic use. Creatinine of 2.5, up from 2.1 with some contraction alkalosis. Plan: -IV fluid bolus 250 cc given -Acetazolamide 500 mg x 1 per cardiology recs. -Continue to hold Bumex -Renally medications -Renal panel in a.m. #COPD #Asthma #Chronic smoking history #Leukocytosis, stable Most likely secondary to inflammatory response from CHF with underlying COPD. Patient has a history of COPD and asthma on montelukast and inhaler at home. Chronic smoking history of 40 years; 1.5 pack smoker daily. Bilateral crackles in lower lung lobes. WBC 12.9 on presentation, up trended to 13.3. Plan: -Monteleukast -Duonebs scheduled -Oxygen as needed, goal SaO2 88 to 92%. -Follow-up CBC #A-fib, rate-controlled He has hx of atrial fibrillation, on Eliquis. On telemetry, patient remains in A-fib rate controlled at 76. EKG showed atrial fibrillation, heart rate 87. -Appreciate cardiology consultation recommendations; -Eliquis 5 mg twice daily -Maintain potassium greater than 4 and magnesium greater than 2; replete as needed #Hypertension Chronic, uncontrolled Blood pressure is currently stable. -Coreg 6.25 mg orally daily -amlodipine 5mg daily #DMT2 Chronic, uncontrolled Glucose elevated at 198. -Glargine 25 units SC daily. -Insulin lispro 5 units SC [facility] -Bedside glucose checks -Hypoglycemic protocol #CAD status post stent placement #CVA (2022) with left hemiplegia -atorvastatin 40 mg orally daily #HLD Patient does not appear to be on any medication for this condition. -recommend outpatient f/up Health maintenance: Dispo: Admitted for management of CHF, currently on Bumex holiday as patient is not in ALMA. If patient improves within 24 hours, patient to be discharged on oral Bumex. Diet: Cardiac GI: Pantoprazole DVT: Eliquis Lines: Peripheral Code:Full Discussed case with my attending Dr. Linares and senior Jannet Sibley, PGY-3. Thank you, Estrella Sterling, PGY-2 Attending Provider Attestation/Addendum I have discussed and was present for the essential components of the history, physical examination, diagnosis, and treatment plan with the resident. I agree with the patient's care as documented by the resident and amended herein by me. Matias Linares, DO. Patient seen and evaluated this AM. In short 68-year-old male admitted for acute decompensated heart failure, specifically asked significant bilateral lower extremity edema. Vital signs stable, patient afebrile overnight, presently on 2 L nasal cannula, SpO2 95%, I/O, 1080/900. Diuretics have been held for the last 2 days due to rising creatinine however has been stable at 2.5 today. Will replete potassium, BUN 48, WBC 13, hemoglobin 11, relatively stable. Will continue Eliquis 5 mg twice daily for him and continue diuresis holiday today however the patient is clinically very dry, may be ready for discharge on 04/13 pending specialist recommendations. Although this document has been carefully reviewed, there may still be some phonetic and other typographical errors. These errors are purely grammatical due to imperfections in the software program and should not be construed in any way to compromise the substance of the patient's medical care during this visit.
--- NOTE | 2024-04-12 14:17 | PC.SS ---
Rounding: DC possible tomorrow still pending kidney improvement
--- NOTE | 2024-04-12 14:22 | PC.SS ---
SS was informed by RNJamila that pts son and caregiver would like to speak to Ingot Car Operator. SS attempted to make over the phone contact with pt son Maddison Anthony phone# [phone], no answer, VM left with call back information.
[2024-04-12] MEDS: ATORVASTATIN CALCIUM 20 MG TABLET 40 MG PO (20:11)
[2024-04-12] MEDS: tiZANidine HCL 2 MG TABLET PO (20:11)
[2024-04-12] MEDS: MONTELUKAST SODIUM 10 MG TABLET PO (20:12)
[2024-04-12] MEDS: allopurinoL 100 MG TABLET PO (20:12)
--- NOTE | 2024-04-12 22:20 | PC.NURSE ---
pt is refusing bed alarm at this time and stating he wants to sit on the side of bed because his back is hurting. Holton given at 2123. educated pt on fall risks. verbalizes understanding. pt is a/o
[2024-04-13] VITALS (15 sets, daily range): BP systolic 104–148; BP diastolic 58–90; PULSE 69–98; RESP 17–22; TEMP 36–36.3; O2SAT 94–99
[2024-04-13] MEDS: HYDROcodone/APAP 10/325 TAB PO ×3 (04:41→19:04)
[2024-04-13] MEDS: PREGABALIN 50 MG CAPSULE 150 MG PO ×3 (05:17→21:07)
[2024-04-13 06:31] LABS: Basophils # (Auto) 0.1 Thou/mm3 (0.0-0.2); Basophils % (Auto) 1 % (0-2.5); Eosinophils # (Auto) 0.5 Thou/mm3 (0.0-0.5); Eosinophils % (Auto) 3 % (0-10); Hematocrit 39.6 % (41.0-53.0); Hemoglobin 12.2 g/dL (13.5-16.0); Immature Granulocytes % (Auto) 0 % (0-0); Immature Granulocytes Auto 0.05 Thou/mm3 (0.00-0.00); Lymphocytes # (Auto) 3.3 Thou/mm3 (1.0-4.8); Lymphocytes % (Auto) 23 % (10-50); Mean Corpuscular HGB Conc 30.8 g/dl (31.0-37.0); Mean Corpuscular Volume 91 fL (80-100); Monocytes # (Auto) 1.6 Thou/mm3 (0.0-0.8); Monocytes % (Auto) 11 % (0-12); Neutrophils # (Auto) 8.7 Thou/mm3 (1.8-7.7); Neutrophils % (Auto) 61 % (37-80); Nucleated Red Blood Cell % 0 /100 WBC (0); Platelet Count 263 Thou/mm3 (140-440); Red Blood Count 4.36 Miln/mm3 (4.50-5.90); White Blood Count 14.3 Thou/mm3 (3.8-10.6)
[2024-04-13 07:24] LABS: Alanine Aminotransferase 8 U/L (10-49); Albumin, Serum 4.4 gm/dL (3.4-4.8); Albumin/Globulin Ratio 1.6 (1.2-2.2); Alkaline Phosphatase 167 U/L (46-116); Anion Gap 8 (7-16); Aspartate Amino Transferase 15 U/L (0-34); BUN/Creatinine Ratio 17 Ratio (12-20); Bilirubin,Total 0.5 mg/dL (0.3-1.2); Blood Urea Nitrogen 44 mg/dL (9-23); Calcium 9.7 mg/dL (8.3-10.6); Calcium (Corrected) 9.7 mg/dL (8.5-10.1); Carbon Dioxide 27.7 mMol/L (20.0-31.0); Chloride 103 mMol/L (98-107); Creatinine (Component) 2.6 mg/dL (0.6-1.3); Estimated Creatinine Clearance 30.8 mL/min (>60); Globulin 2.8 gm/dL (2.3-3.5); Glucose 136 mg/dL (74-106); Magnesium 2.5 mg/dL (1.6-2.6); Osmolality,Calculated 290 (275-295); Sodium 139 mMol/L (136-145); Total Protein 7.2 gm/dL (5.7-8.2); eGFR 26 See Note
[2024-04-13] MEDS: INSULIN LISPRO (AdmeLOG) 1 UNIT/0.01 ML UNIT SC ×4 (07:40→21:09)
[2024-04-13] MEDS: INSULIN LISPRO (AdmeLOG) 1 UNIT/0.01 ML UNIT 5 UNIT SC ×4 (07:41→21:10)
[2024-04-13] MEDS: INSULIN GLARGINE (Lantus) 5 UNIT/0.05 ML (PER 5 UNITS) 30 UNIT SC (08:45)
[2024-04-13] MEDS: DULoxetine HCL 30 MG CAPSULE 60 MG PO (08:46)
[2024-04-13] MEDS: amLODIPine BESYLATE 5 MG TABLET PO (08:46)
[2024-04-13] MEDS: PANTOPRAZOLE 40 MG TABLET PO (08:46)
[2024-04-13] MEDS: APIXABAN 2.5 MG TABLET 5 MG PO ×2 (08:47→20:56)
[2024-04-13] MEDS: carVEDILOL 3.125 MG TABLET 6.25 MG PO ×2 (08:47→20:56)
--- NOTE | 2024-04-13 08:59 | PC.PT ---
PT eval received. Patient is non ambulatory and has shon lift machine at home and is dependent in bed mobility and transfers. Patient is at his maximum rehab potential. Dr. Escudero made aware. Will cancel PT evaluation.
--- NOTE | 2024-04-13 09:37 | PD.RESPRO ---
Documentation for date of: 04/13/24 Subjective Subjective Interval history: Patient was seen and examined at bedside this AM. No acute exents overnight. Patient tolerating diet, adequate urine output and mentation is at baseline. Patient endorses improvement of SOB at rest and sat out of bed yesterday, denies any chest pressure/pain, dizziness, presyncope/syncope. Patient was on bumetanide infusion on admission which was discontinued on 04/09 Patient was transitioned to Bumex 2 mg IV BID on 04/09 which was on hold for diuretic holiday due to ALMA on CKD Bicarb decreased to 27.7 from 32.1 , BUN unchanged at 48 and Cr increased to 2.6 from 2.5 Patient has a fluid balance of positive 140cc in the past 24 hours. However on exam patient's edema much improved, input/output most likely inaccurate Acetazolamide 500mg po x 1 for contraction alkalosis given on 04/11 From telemetry review patient continues to be in A-fib with rate between 60-70s overnight Potassium 4 and magnesium 2.5. Please maintain potassium greater than 3.5 and magnesium greater than 2 at all times to prevent any arrhythmias Recommend to start on Bumex 4 Mg p.o. twice daily, metolazone 2.5 Mg p.o. twice weekly. Follow-up in cardiology clinic within 1 week of discharge EKG on admission showed atrial fibrillation rate controlled at 87. Previous EKGs also showed similar findings. Exam Vital Signs Temp Pulse Resp BP Pulse Ox O2 Del Method O2 Flow Rate 96.8 F 82 19 115/69 99 Nasal Cannula 2 04/13/24 08:00 04/13/24 08:47 04/13/24 08:05 04/13/24 08:47 04/13/24 08:05 04/13/24 00:00 04/13/24 08:05 Narrative Exam Constitutional Alert, oriented x 3 and comfortable. Elderly, Obese male on O2 via NC HEENT Vision grossly intact. Patent nares. Trachea midline Respiratory Chest normal on inspection and decreased AE at bases b/l, clear to auscultation Cardiovascular S1 and S2 audible, RRR. No murmurs carotid bruit. No gross JVD. Abdominal Soft,obese and non tender to palpation in all quadrants. BS + Genitourinary No bladder tenderness, no flank pain. Normal to palpation. No scrotal edema Musculoskeletal Extremities tone within normal limits. 1+ LE edema, 1+ Hip edema B/L and Sacral edema, improved Neurological CN II - XII grossly intact. Extremity motor and sensation grossly intact. Skin Warm, dry and intact. No apparent lesions. Psychiatric Patient has good affect, is cooperative Objective Labs 04/13/24 06:10 04/13/24 06:10 Labs: Laboratory Results - last 24 hr 04/12/24 04/13/24 05:07 06:10 WBC 14.3 H RBC 4.36 L Hgb 12.2 L Hct 39.6 L MCV 91 MCH 28.0 MCHC 30.8 L RDW Std Deviation 60.0 H Plt Count 263 Neut % (Auto) 61 Lymph % (Auto) 23 Irion % (Auto) 11 Eos % (Auto) 3 Baso % (Auto) 1 Neut # (Auto) 8.7 H Lymph # (Auto) 3.3 Irion # (Auto) 1.6 H Eos # (Auto) 0.5 Baso # (Auto) 0.1 Immature Gran # (Auto) 0.05 H Absolute Nucleated RBC 0.00 Immature Gran % 0 Nucleated RBC % 0 Sodium 139 Potassium 4.0 D Chloride 103 Carbon Dioxide 27.7 Anion Gap 8 BUN 44 H Creatinine 2.6 H Estim Creat Clear Calc 30.8 L eGFR 26 L BUN/Creatinine Ratio 17 Glucose 136 H Calculated Osmolality 290 Calcium 9.7 Corrected Calcium 9.7 Magnesium 2.4 2.5 Total Bilirubin 0.5 AST 15 ALT 8 L Alkaline Phosphatase 167 H Total Protein 7.2 Albumin 4.4 Globulin 2.8 Albumin/Globulin Ratio 1.6 Quality Measures Quality Measures none Advance care planning discussed with:: patient Assessment & Plan Assessment Current Active Medications: Generic Name Dose Route Start Last Admin Trade Name Freq PRN Reason Stop Dose Admin Acetaminophen 650 mg 04/07/24 17:55 Acetaminophen 325 Mg Tablet PO 05/07/24 17:54 Q6H PRN Fever >101.5 Acetaminophen 650 mg 04/07/24 17:55 04/08/24 20:48 Acetaminophen 325 Mg Tablet PO 05/07/24 17:54 650 mg Q6H PRN Administration PAIN SCALE 1-3 (mild Hydrocodone Bitart/Acetaminophen 1 tab 04/12/24 20:50 04/13/24 04:41 Hydrocodone/Apap 10/325 Tab PO 04/17/24 20:49 1 tab Q6HR PRN Administration PAIN SCALE 4-6 (Moderate Albuterol/Ipratropium 3 ml 04/10/24 10:14 Albuterol/Ipratropium (Duoneb) Rt Raquel 3 Ml Nebu INH 05/10/24 12:59 Q6HRRT PRN AGITATION OR ANXIETY Allopurinol 100 mg 04/07/24 21:00 04/12/24 20:12 Allopurinol 100 Mg Tablet PO 05/07/24 20:59 100 mg HS HUDSON Administration Amlodipine Besylate 5 mg 04/08/24 09:00 04/13/24 08:46 Amlodipine Besylate 5 Mg Tablet PO 05/08/24 08:59 5 mg QDAY HUDSON Administration Apixaban 5 mg 04/07/24 21:00 04/13/24 08:47 Apixaban 2.5 Mg Tablet PO 05/07/24 20:59 5 mg BID HUDSON Administration Atorvastatin Calcium 40 mg 04/07/24 21:00 04/12/24 20:11 Atorvastatin Calcium 20 Mg Tablet PO 05/07/24 20:59 40 mg HS HUDSON Administration Bumetanide 4 mg 04/12/24 11:00 Bumetanide 0.5 Mg Tablet PO 05/12/24 10:59 BID HUDSON Carvedilol 6.25 mg 04/07/24 21:00 04/13/24 08:47 Carvedilol 3.125 Mg Tablet PO 05/07/24 20:59 6.25 mg BID HUDSON Administration Dextrose 25 ml 04/08/24 04:02 Dextrose 50%-Water Inj 50 Ml Syringe IV 05/08/24 04:01 Q15MIN PRN BG 50-70 responsive npo pt Dextrose 50 ml 04/08/24 04:02 Dextrose 50%-Water Inj 50 Ml Syringe IV 05/08/24 04:01 Q15MIN PRN BG <50 OR BG <70 & pt unresponsive Duloxetine HCl 60 mg 04/10/24 09:00 04/13/24 08:46 Duloxetine Hcl 30 Mg Capsule PO 05/10/24 08:59 60 mg QDAY HUDSON Administration Ferrous Sulfate 325 mg 04/08/24 09:00 04/12/24 08:44 Ferrous Sulf 325 Mg Tablet PO 05/08/24 08:59 325 mg QOD HUDSON Administration Glucagon 1 mg 04/08/24 04:02 Glucagon Inj 1 Mg Vial IM Q15MIN PRN BG <70, and no IV access Insulin Glargine 30 unit 04/13/24 09:00 04/13/24 08:45 Insulin Glargine (Lantus) 5 Unit/0.05 Ml (Per 5 Units) SC 05/13/24 08:59 30 unit QDAY HUDSON Administration Insulin Human Lispro 0 unit 04/08/24 07:30 04/13/24 07:40 Insulin Lispro (Admelog) 1 Unit/0.01 Ml Unit SC 05/08/24 07:29 1 unit ACHS HUDSON Administration Protocol Insulin Human Lispro 5 unit 04/10/24 11:30 04/13/24 07:41 Insulin Lispro (Admelog) 1 Unit/0.01 Ml Unit SC 05/10/24 11:29 5 unit ACHS HUDSON Administration Montelukast Sodium 10 mg 04/07/24 21:00 04/12/24 20:12 Montelukast Sodium 10 Mg Tablet PO 05/07/24 20:59 10 mg HS HUDSON Administration Ondansetron HCl 4 mg 04/07/24 17:55 Ondansetron Inj 2 Mg/Ml Inj 2 Ml IV 05/07/24 17:54 Q6H PRN NAUSEA OR VOMITING Protocol Pantoprazole Sodium 40 mg 04/07/24 18:00 04/13/24 08:46 Pantoprazole 40 Mg Tablet PO 05/07/24 17:59 40 mg QDAY HUDSON Administration Pregabalin 150 mg 04/10/24 08:00 04/13/24 05:17 Pregabalin 50 Mg Capsule PO 05/10/24 07:59 150 mg TID HUDSON Administration Sennosides 1 tab 04/07/24 18:04 Senna Tablet PO 05/07/24 18:03 QDAY PRN CONSTIPATION Protocol Sodium Chloride 3 ml 04/07/24 18:17 Sodium Chloride Rt Raquel 0.9% 3 Ml Nebu INH 05/07/24 18:16 PRN PRN SOLN Tizanidine HCl 2 mg 04/10/24 21:00 04/12/24 20:11 Tizanidine Hcl 2 Mg Tablet PO 05/10/24 20:59 2 mg HS HUDSON Administration Plan 68-year-old male with past medical history of HLD, NIDDM type 2 (A1c 8.1%), HTN, HFpEF EF 50-55%, CAD s/p stent, A-fib on Eliquis, CVA with left hemiparesis (2022), COPD dependent on 3 L oxygen at home, gout, and BPH presented to the ED on 04/07/2024 for chief complaint of shortness of breath and bilateral lower extremity swelling. Patient was admitted for acute decompensated heart failure and cardiology was consulted. 1. Acute decompensated heart failure exacerbation with preserved ejection fraction [50-55%] and mild to moderate PAH Patient's home medication Bumex 4 Mg p.o. twice daily and metolazone 5 Mg p.o. daily. 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 Sherman who recommended he present to the ED. Chest x-ray on admission showed increased vascular markings and mild atelectasis left base. Patient was started on Bumex infusion initially which was held this morning and patient transition to Bumex 2 Mg IV twice daily. On initial exam patient has significant sacral and hip edema, crackles at lung bases bilaterally with no lower extremity swelling or scrotal edema BNP on admission was 76 NYHA stage D class III Transthoracic echocardiogram completed on 04/07 findings include: Suboptimal images due to body habitas. Normal LV size and function.diastolic function prsesent but cannit grade due to AFib. Estimated EF 50-55% Normal RV size and function. Mild MAC. Trace TR. On previous admission transesophageal echocardiogram completed on 07/08/2023 findings include: Negative bubble study, no evidence of PFO or ASD or LA/CHRISTIE thrombus. Normal LV size and function. Estimated EF 55-60% RV mildly dilated and mildly dialted LA. Moderate MR. Mild to moderate TR. There is mild protruding plaque seen in the aortic arch. Pulomary flow is systolic blunting. Bicarb decreased to 27.7 from 32.1 , BUN unchanged at 48 and Cr increased to 2.6 from 2.5 Patient has a fluid balance of positive 140cc in the past 24 hours. However on exam patient's edema much improved, input/output most likely inaccurate Acetazolamide 500mg po x 1 for contraction alkalosis given on 04/11 From telemetry review patient continues to be in A-fib with rate between 60-70s overnight Potassium 4 and magnesium 2.5. Please maintain potassium greater than 3.5 and magnesium greater than 2 at all times to prevent any arrhythmias Plan: ? 2 g sodium restricted diet ? Strict input output charting ? Daily weights ?1500 cc/day fluid restriction ? Recommend to start on Bumex 4 Mg p.o. twice daily and metolazone 2.5 Mg p.o. twice weekly. - Follow-up in cardiology clinic within 1 week of discharge 2. Essential hypertension Patient's home medication carvedilol 6.25 mg p.o. twice daily, metolazone 5 Mg p.o. daily and Bumex 4 Mg p.o. twice daily. On admission BP 125/80, currently BP 123/81 Plan: - Recommend to continue amlodipine 5 mg po Qday ? Recommend excellent control of blood pressure and maintain SBP less than 140 mmHg 3. CAD s/p stent with DEMARIO 4. Hyperlipidemia Patient on high-dose statin atorvastatin 40 Mg p.o. at bedtime. Patient not on aspirin or Plavix due to recent history of GI bleed 2 months ago. Hb currently stable at 11.6. Plan: ? Continue high intensity statin 5. Atrial fibrillation?long-term persistent Patient rate controlled on carvedilol 6.25 Mg p.o. twice daily at home and anticoagulated with Eliquis 5 Mg p.o. 3 times daily. EKG on admission showed A-fib rate 96 [id number]: 7 points; stroke risk 11.2 %/year HAS-BLED : 5 points; high risk for major bleeding From telemetry review patient is in still in A fib with rate between 110s and 110's overnight Plan: ? Recommend to continue home anticoagulation Eliquis 5 Mg p.o. twice daily ? Beta-blockers contraindicated in severe CHF exacerbation recommend to decrease dose or hold at this time 6. History of CVA [2022] Patient has residual left hemiparesis. Currently not on aspirin or Plavix due to history of GI bleed 2 months ago. 7. COPD 8. Asthma 9. Nicotine dependence Patient has a history of COPD and asthma on montelukast and inhaler at home. Chronic smoking history of 40 years; 1.5 pack smoker daily. Continue management as per primary team 10. [id number] diabetes mellitus type 2 [8.1] Patient on Ozempic at home. Continue management as per primary team 11. History of GI bleed January 2024 Colonoscopy completed on 02/01/[address] Grossman, epic anesthesia analyst findings include: Hemorrhoids on perianal exam, mucosal ulceration in the sigmoid colon and in the proximal descending colon. Findings consistent with ischemic colitis multiple polyps resected with hot snare. Recommendations were for repeat colonoscopy in 6 months and to avoid NSAIDs. Pathology of the polyps was positive for tubular adenomas. 12. ALMA on CKD stage III Baseline Cr 1.4-1.9. On admission Cr 1.7. Currently Cr 2.5. Continue management as per primary team Continue rest of management as per primary team. We are grateful to be able to participate in Mr. Anthony's care. Thank you for the consult Plan of care discussed with attending Calender Machine Operator Helper, Dr Whit Oleary MD PGY 1 Attending Provider Attestation/Addendum I have personally seen and examined the patient separately on the above date of service and discussed the plan of care with the resident. I reviewed the resident Dr. Oleary consultation progress note and agree with the resident findings and plan in the note above and have also edited the documentation to reflect my findings and plan. Rogerio Sherman M.D. Interventional Cardiology
--- NOTE | 2024-04-13 14:57 | ESPR_ITS ---
<Statement entered by Jannet Sibley MD - 04/14/24 16:26> Senior Resident Attestation: I supervised/discussed management plan with resident physician Dr. Sterling, and was involved in the care of this patient. I personally saw and examined the patient and discussed the assessment and plan with the entire medicine team, including my attending. Patient's care was discussed with attending physician, Dr. Mariza Sibley MD PGY-3 Documentation for date of: 04/13/24 Subjective Subjective Interval history: Absence of acute overnight events. Patient seen and examined at bedside. Relatively clear on auscultation of b/l lungs. Minimal pitting edema of lower extremities bilaterally. Will restart diuresis with Bumex 4 mg p.o. twice daily today, per cardiology recommendations. Exam Vital Signs Temp Pulse Resp BP Pulse Ox O2 Del Method O2 Flow Rate 97.2 F 69 19 117/58 L 98 Nasal Cannula 2 04/13/24 12:00 04/13/24 12:00 04/13/24 12:00 04/13/24 12:00 04/13/24 12:00 04/13/24 00:00 04/13/24 09:00 Narrative Exam GENERAL: Elderly male, obese, in no acute distress. HEENT: Moist mucosa. Eyes open, symmetrical, & clear CARDIO: Irregular, normal rate. No murmurs appreciated. PULM: Relatively clear on auscultation, on 2 L nasal cannula saturating at 98% GI: Abdomen soft, nondistended, nontender. BSx4 URO/OIL CHANGER:Gonzalez catheter. NEURO: ALLERGIST/PEDIATRIC PULMONOLOGIST grossly intact, moves extremities x4, cranial nerves II through IV grossly intact. SKIN/MSK/EXT: Bilateral edema 1+, stable. Rhytids bilaterally of lower extremities diminishing. Objective Labs 04/13/24 06:10 04/13/24 06:10 Labs: Laboratory Results - last 24 hr 04/13/24 06:10 WBC 14.3 H RBC 4.36 L Hgb 12.2 L Hct 39.6 L MCV 91 MCH 28.0 MCHC 30.8 L RDW Std Deviation 60.0 H Plt Count 263 Neut % (Auto) 61 Lymph % (Auto) 23 Peach % (Auto) 11 Eos % (Auto) 3 Baso % (Auto) 1 Neut # (Auto) 8.7 H Lymph # (Auto) 3.3 Peach # (Auto) 1.6 H Eos # (Auto) 0.5 Baso # (Auto) 0.1 Immature Gran # (Auto) 0.05 H Absolute Nucleated RBC 0.00 Immature Gran % 0 Nucleated RBC % 0 Sodium 139 Potassium 4.0 D Chloride 103 Carbon Dioxide 27.7 Anion Gap 8 BUN 44 H Creatinine 2.6 H Estim Creat Clear Calc 30.8 L eGFR 26 L BUN/Creatinine Ratio 17 Glucose 136 H Calculated Osmolality 290 Calcium 9.7 Corrected Calcium 9.7 Magnesium 2.5 Total Bilirubin 0.5 AST 15 ALT 8 L Alkaline Phosphatase 167 H Total Protein 7.2 Albumin 4.4 Globulin 2.8 Albumin/Globulin Ratio 1.6 Quality Measures Quality Measures none Advance care planning discussed with:: patient Assessment & Plan Assessment Current Active Medications: Generic Name Dose Route Start Last Admin Trade Name Freq PRN Reason Stop Dose Admin Acetaminophen 650 mg 04/07/24 17:55 Acetaminophen 325 Mg Tablet PO 05/07/24 17:54 Q6H PRN Fever >101.5 Acetaminophen 650 mg 04/07/24 17:55 04/08/24 20:48 Acetaminophen 325 Mg Tablet PO 05/07/24 17:54 650 mg Q6H PRN Administration PAIN SCALE 1-3 (mild Hydrocodone Bitart/Acetaminophen 1 tab 04/12/24 20:50 04/13/24 13:14 Hydrocodone/Apap 10/325 Tab PO 04/17/24 20:49 1 tab Q6HR PRN Administration PAIN SCALE 4-6 (Moderate Albuterol/Ipratropium 3 ml 04/10/24 10:14 Albuterol/Ipratropium (Duoneb) Rt Raquel 3 Ml Nebu INH 05/10/24 12:59 Q6HRRT PRN AGITATION OR ANXIETY Allopurinol 100 mg 04/07/24 21:00 04/12/24 20:12 Allopurinol 100 Mg Tablet PO 05/07/24 20:59 100 mg HS HUDSON Administration Amlodipine Besylate 5 mg 04/08/24 09:00 04/13/24 08:46 Amlodipine Besylate 5 Mg Tablet PO 05/08/24 08:59 5 mg QDAY HUDSON Administration Apixaban 5 mg 04/07/24 21:00 04/13/24 08:47 Apixaban 2.5 Mg Tablet PO 05/07/24 20:59 5 mg BID HUDSON Administration Atorvastatin Calcium 40 mg 04/07/24 21:00 04/12/24 20:11 Atorvastatin Calcium 20 Mg Tablet PO 05/07/24 20:59 40 mg HS HUDSON Administration Bumetanide 4 mg 04/12/24 11:00 Bumetanide 0.5 Mg Tablet PO 05/12/24 10:59 BID HUDSON Carvedilol 6.25 mg 04/07/24 21:00 04/13/24 08:47 Carvedilol 3.125 Mg Tablet PO 05/07/24 20:59 6.25 mg BID HUDSON Administration Dextrose 25 ml 04/08/24 04:02 Dextrose 50%-Water Inj 50 Ml Syringe IV 05/08/24 04:01 Q15MIN PRN BG 50-70 responsive npo pt Dextrose 50 ml 04/08/24 04:02 Dextrose 50%-Water Inj 50 Ml Syringe IV 05/08/24 04:01 Q15MIN PRN BG <50 OR BG <70 & pt unresponsive Duloxetine HCl 60 mg 04/10/24 09:00 04/13/24 08:46 Duloxetine Hcl 30 Mg Capsule PO 05/10/24 08:59 60 mg QDAY HUDSON Administration Ferrous Sulfate 325 mg 04/08/24 09:00 04/12/24 08:44 Ferrous Sulf 325 Mg Tablet PO 05/08/24 08:59 325 mg QOD HUDSON Administration Glucagon 1 mg 04/08/24 04:02 Glucagon Inj 1 Mg Vial IM Q15MIN PRN BG <70, and no IV access Insulin Glargine 30 unit 04/13/24 09:00 04/13/24 08:45 Insulin Glargine (Lantus) 5 Unit/0.05 Ml (Per 5 Units) SC 05/13/24 08:59 30 unit QDAY HUDSON Administration Insulin Human Lispro 0 unit 04/08/24 07:30 04/13/24 11:30 Insulin Lispro (Admelog) 1 Unit/0.01 Ml Unit SC 05/08/24 07:29 1 unit ACHS HUDSON Administration Protocol Insulin Human Lispro 5 unit 04/10/24 11:30 04/13/24 11:31 Insulin Lispro (Admelog) 1 Unit/0.01 Ml Unit SC 05/10/24 11:29 5 unit ACHS HUDSON Administration Montelukast Sodium 10 mg 04/07/24 21:00 04/12/24 20:12 Montelukast Sodium 10 Mg Tablet PO 05/07/24 20:59 10 mg HS HUDSON Administration Ondansetron HCl 4 mg 04/07/24 17:55 Ondansetron Inj 2 Mg/Ml Inj 2 Ml IV 05/07/24 17:54 Q6H PRN NAUSEA OR VOMITING Protocol Pantoprazole Sodium 40 mg 04/07/24 18:00 04/13/24 08:46 Pantoprazole 40 Mg Tablet PO 05/07/24 17:59 40 mg QDAY HUDSON Administration Pregabalin 150 mg 04/10/24 08:00 04/13/24 13:14 Pregabalin 50 Mg Capsule PO 05/10/24 07:59 150 mg TID HUDSON Administration Sennosides 1 tab 04/07/24 18:04 Senna Tablet PO 05/07/24 18:03 QDAY PRN CONSTIPATION Protocol Sodium Chloride 3 ml 04/07/24 18:17 Sodium Chloride Rt Raquel 0.9% 3 Ml Nebu INH 05/07/24 18:16 PRN PRN SOLN Tizanidine HCl 2 mg 04/10/24 21:00 04/12/24 20:11 Tizanidine Hcl 2 Mg Tablet PO 05/10/24 20:59 2 mg HS HUDSON Administration Plan 68-year-old male with past medical history of HLD, T2DM (A1c 8.1%), HTN, HFpEF EF 55-60%, CAD s/p stent, A-fib on Eliquis, CVA with left sided residual deficits (2022), COPD dependent on 3 L oxygen at home, asthma, gout, and BPH presented to the ED on 04/07/2024 for chief complaint of shortness of breath and bilateral lower extremity swelling. Patient was found to to be in a fluid overloaded state. Dr. Felton was consulted, who recommended Bumex drip for CHF. Patient was admitted for CHF exacerbation. #Acutely decompensated heart failure #HFpEF EF 55-60% Most likely secondary to hypertension and obesity Patient presented with difficulty breathing and bilateral lower extremity swelling and increased sputum production over the past 2 weeks, sputum nearly resolved. In the setting of hypertension obesity, patient presented with acute decompensated heart failure currently appears compensated. Patient appears clinically with 1+ pitting edema of the lower extremities. On examination, clear on auscultation of b/l lung lobes. Minimal retention of fluids with only less than +200cc net balance over 24 hours. Chest x-ray showed no pneumonia or pulmonary edema. Subsegmental atelectasis left base seen on CXR. Echo on 06/2023: EF 55-60%. Echo on 04/08/2024: Normal LV size and function.diastolic function prsesent but cannit grade due to AFib. Estimated EF 50-55% Normal RV size and function. Mild MAC. Trace TR. NYHA class IV. Repeat BNP 76. Plan: -Bumex 4 mg p.o. twice daily -If patient improves within 24 hours, patient to be discharged on oral Bumex. -Continue Coreg 6.25mg BID -Cardio consulted, appreciate recommendations-recommends 4 mg Bumex orally twice daily and methimazole 5 mg p.o. daily. -Strict TONY's and daily weight checks -Fluid restriction; 1500 cc daily -Follow-up CMP #ALMA on CKD stage IV Most likely in the setting of aggressive diuresis. Fluctuations in creatinine are expected to such patient with CKD. BUN 44, creatinine of 2.6, GFR 26. Patient's baseline cr is 1.8. Plan: -Avoid nephrotoxic agents -Renally medications -Renal panel in a.m. #COPD #Asthma #Chronic smoking history #Leukocytosis Most likely secondary to inflammatory response from CHF with underlying COPD. Patient has a history of COPD and asthma on montelukast and inhaler at home. Chronic smoking history of 40 years; 1.5 pack smoker daily. Bilateral crackles in lower lung lobes, resolved. Clear on auscultation. WBC 12.9 on presentation, up trended to 14.3. Plan: -Monteleukast -Duonebs scheduled -Oxygen as needed, goal SaO2 88 to 92%. -Follow-up CBC #A-fib, rate-controlled He has hx of atrial fibrillation, on Eliquis. On telemetry, patient remains in A-fib rate controlled at 76. EKG showed atrial fibrillation, heart rate 87. -Appreciate cardiology consultation recommendations; Eliquis 5 Mg p.o. twice daily; -beta-blockers contraindicated in severe CHF exacerbation recommend to decrease dose or hold at this time -Eliquis 5 mg twice daily -Maintain potassium greater than 4 and magnesium greater than 2; replete as needed #Hypertension Chronic, uncontrolled Blood pressure is currently stable. -Coreg 6.25 mg BID orally daily -amlodipine 5mg daily #DMT2 Chronic, uncontrolled Glucose elevated at 198. -Glargine 25 units SC daily. -Insulin lispro 5 units SC ACHS -Insulin glargine 30 units SC daily -SSI -Bedside glucose checks -Hypoglycemic protocol #CAD status post stent placement #CVA (2022) with left hemiplegia -atorvastatin 40 mg orally daily #HLD Patient does not appear to be on any medication for this condition. -recommend outpatient f/up #Metabolic alkalosis, resolved Health maintenance: Dispo: Admitted for management of CHF, currently on Bumex 4mg BID orally. If patient improves within 24 hours, patient to be discharged on oral Bumex. Diet: Cardiac GI: Pantoprazole DVT: Eliquis Lines: Peripheral Code:Full Discussed case with my attending Dr. Ramos and senior Jannet Sibley, PGY-3. Thank you, Estrella Sterling, PGY-2 Attending Provider Attestation/Addendum I reviewed labs, imaging, EKG, home medications and prior available records. Face to face evaluation was performed by me. I have personally examined the patient and discussed assessment and plan with the IM team. I reviewed the resident note and agree with the plan with exceptions as below. CHF exacerbation: In the setting of history of heart failure with preserved EF. Continue diuresis with Bumex. Discussed with cardiology: Recommended 4 mg twice daily. Monitor I's and O's. Monitor kidney function. ALMA versus CKD: Creatinine is fluctuating which could be either fluctuation of baseline CKD versus ALMA. Diuresis as above. Monitor kidney function closely. Avoid nephrotoxins. Renally dosed medications. Elevated troponin: Likely type II non-STEMI in the setting of CHF exacerbation. Troponin peaked. Management of CHF as above. Continue telemetry.
[2024-04-13] MEDS: tiZANidine HCL 2 MG TABLET PO (20:55)
[2024-04-13] MEDS: BUMETANIDE 0.5 MG TABLET 4 MG PO (20:55)
[2024-04-13] MEDS: MONTELUKAST SODIUM 10 MG TABLET PO (20:56)
[2024-04-13] MEDS: allopurinoL 100 MG TABLET PO (20:56)
[2024-04-13] MEDS: ATORVASTATIN CALCIUM 20 MG TABLET 40 MG PO (20:56)
[2024-04-14] VITALS (9 sets, daily range): BP systolic 107–165; BP diastolic 73–86; PULSE 67–86; RESP 13–22; TEMP 36.1–36.7; O2SAT 96–98
[2024-04-14] MEDS: HYDROcodone/APAP 10/325 TAB PO ×2 (03:06→14:01)
[2024-04-14] MEDS: PREGABALIN 50 MG CAPSULE 150 MG PO ×2 (05:41→14:08)
[2024-04-14 05:53] LABS: Basophils # (Auto) 0.1 Thou/mm3 (0.0-0.2); Basophils % (Auto) 1 % (0-2.5); Eosinophils # (Auto) 0.4 Thou/mm3 (0.0-0.5); Eosinophils % (Auto) 4 % (0-10); Hematocrit 35.9 % (41.0-53.0); Immature Granulocytes % (Auto) 0 % (0-0); Immature Granulocytes Auto 0.03 Thou/mm3 (0.00-0.00); Lymphocytes # (Auto) 2.9 Thou/mm3 (1.0-4.8); Lymphocytes % (Auto) 28 % (10-50); Mean Corpuscular HGB Conc 30.6 g/dl (31.0-37.0); Mean Corpuscular Hemoglobin 27.8 pg (25.0-35.0); Mean Corpuscular Volume 91 fL (80-100); Monocytes # (Auto) 1.1 Thou/mm3 (0.0-0.8); Monocytes % (Auto) 11 % (0-12); Neutrophils # (Auto) 5.9 Thou/mm3 (1.8-7.7); Neutrophils % (Auto) 57 % (37-80); Nucleated Red Blood Cell % 0 /100 WBC (0); Platelet Count 221 Thou/mm3 (140-440); RDW Standard Deviation 59.2 fL (35.1-43.9); Red Blood Count 3.96 Miln/mm3 (4.50-5.90); White Blood Count 10.4 Thou/mm3 (3.8-10.6)
[2024-04-14 06:44] LABS: Alanine Aminotransferase < 7 U/L (10-49); Albumin/Globulin Ratio 1.7 (1.2-2.2); Alkaline Phosphatase 149 U/L (46-116); Anion Gap 8 (7-16); Aspartate Amino Transferase 12 U/L (0-34); BUN/Creatinine Ratio 23 Ratio (12-20); Bilirubin,Total 0.3 mg/dL (0.3-1.2); Blood Urea Nitrogen 54 mg/dL (9-23); Calcium 9.1 mg/dL (8.3-10.6); Calcium (Corrected) 9.1 mg/dL (8.5-10.1); Carbon Dioxide 30.1 mMol/L (20.0-31.0); Chloride 103 mMol/L (98-107); Creatinine (Component) 2.4 mg/dL (0.6-1.3); Estimated Creatinine Clearance 39.4 mL/min (>60); Globulin 2.4 gm/dL (2.3-3.5); Glucose 143 mg/dL (74-106); Magnesium 2.4 mg/dL (1.6-2.6); Osmolality,Calculated 297 (275-295); Potassium 3.7 mMol/L (3.4-5.1); Sodium 141 mMol/L (136-145); Total Protein 6.4 gm/dL (5.7-8.2); eGFR 29 See Note
[2024-04-14] MEDS: INSULIN LISPRO (AdmeLOG) 1 UNIT/0.01 ML UNIT SC ×2 (07:25→11:42)
[2024-04-14] MEDS: INSULIN LISPRO (AdmeLOG) 1 UNIT/0.01 ML UNIT 5 UNIT SC ×2 (07:26→11:43)
[2024-04-14] MEDS: INSULIN GLARGINE (Lantus) 5 UNIT/0.05 ML (PER 5 UNITS) 30 UNIT SC (08:14)
[2024-04-14] MEDS: amLODIPine BESYLATE 5 MG TABLET PO (08:55)
[2024-04-14] MEDS: APIXABAN 2.5 MG TABLET 5 MG PO (08:55)
[2024-04-14] MEDS: PANTOPRAZOLE 40 MG TABLET PO (08:56)
[2024-04-14] MEDS: DULoxetine HCL 30 MG CAPSULE 60 MG PO (08:56)
[2024-04-14] MEDS: carVEDILOL 3.125 MG TABLET 6.25 MG PO (08:56)
[2024-04-14] MEDS: BUMETANIDE 0.5 MG TABLET 4 MG PO (08:56)
[2024-04-14] MEDS: FERROUS SULF 325 MG TABLET PO (08:56)
--- NOTE | 2024-04-14 10:30 | PC.SS ---
Follow up note: Pt is possible d/c for today. Pending Cardio recommendations. Pt will return home upon dc.
--- NOTE | 2024-04-14 10:33 | PD.RESPRO ---
Documentation for date of: 04/14/24 Subjective Subjective Interval history: Patient was seen and examined at bedside this AM. No acute exents overnight. Patient tolerating diet, adequate urine output and mentation is at baseline. Patient endorses improvement of SOB at rest, says he feels great and sat out of bed yesterday, denies any chest pressure/pain, dizziness, presyncope/syncope. Patient was on bumetanide infusion on admission which was discontinued on 04/09 Patient was transitioned to Bumex 2 mg IV BID on 04/09 which was on hold for diuretic holiday due to ALMA on CKD Bicarb increased to 30.1 from 27.7 , BUN increased to 54 from 48 and Cr decreased to 2.4 from 2.6 Patient has a fluid balance of negative 500cc in the past 24 hours. On exam patient's edema much improved Acetazolamide 500mg po x 1 for contraction alkalosis given on 04/11 From telemetry review patient continues to be in A-fib with rate between 80s-100s overnight Potassium 3.7 and magnesium 2.4. Please maintain potassium greater than 3.5 and magnesium greater than 2 at all times to prevent any arrhythmias. Continue Bumex 4 Mg p.o. twice daily, metolazone 2.5 Mg p.o. twice weekly. Follow-up in cardiology clinic within 1 week of discharge with a BMP and magnesium Exam Vital Signs Temp Pulse Resp BP Pulse Ox O2 Del Method O2 Flow Rate 97.0 F 84 16 116/73 96 Nasal Cannula 1 04/14/24 08:00 04/14/24 09:00 04/14/24 09:00 04/14/24 08:56 04/14/24 09:00 04/14/24 08:00 04/14/24 09:00 Narrative Exam Constitutional Alert, oriented x 3 and comfortable. Elderly, Obese male on O2 via NC HEENT Vision grossly intact. Patent nares. Trachea midline Respiratory Chest normal on inspection and decreased AE at bases b/l, clear to auscultation Cardiovascular S1 and S2 audible, RRR. No murmurs carotid bruit. No gross JVD. Abdominal Soft,obese and non tender to palpation in all quadrants. BS + Genitourinary No bladder tenderness, no flank pain. Normal to palpation. No scrotal edema Musculoskeletal Extremities tone within normal limits. 1+ LE edema, 1+ Hip edema B/L and Sacral edema, improved Neurological CN II - XII grossly intact. Extremity motor and sensation grossly intact. Skin Warm, dry and intact. No apparent lesions. Psychiatric Patient has good affect, is cooperative Objective Labs 04/14/24 05:03 04/14/24 05:03 Labs: Laboratory Results - last 24 hr 04/14/24 05:03 WBC 10.4 RBC 3.96 L Hgb 11.0 L Hct 35.9 L MCV 91 MCH 27.8 MCHC 30.6 L RDW Std Deviation 59.2 H Plt Count 221 D Neut % (Auto) 57 Lymph % (Auto) 28 [place] % (Auto) 11 Eos % (Auto) 4 Baso % (Auto) 1 Neut # (Auto) 5.9 Lymph # (Auto) 2.9 [place] # (Auto) 1.1 H Eos # (Auto) 0.4 Baso # (Auto) 0.1 Immature Gran # (Auto) 0.03 H Absolute Nucleated RBC 0.00 Immature Gran % 0 Nucleated RBC % 0 Sodium 141 Potassium 3.7 Chloride 103 Carbon Dioxide 30.1 Anion Gap 8 BUN 54 H Creatinine 2.4 H Estim Creat Clear Calc 39.4 L eGFR 29 L BUN/Creatinine Ratio 23 H Glucose 143 H Calculated Osmolality 297 H Calcium 9.1 Corrected Calcium 9.1 Magnesium 2.4 Total Bilirubin 0.3 AST 12 ALT < 7 L Alkaline Phosphatase 149 H Total Protein 6.4 Albumin 4.0 Globulin 2.4 Albumin/Globulin Ratio 1.7 Quality Measures Quality Measures none Advance care planning discussed with:: patient Assessment & Plan Assessment Current Active Medications: Generic Name Dose Route Start Last Admin Trade Name James PRN Reason Stop Dose Admin Acetaminophen 650 mg 04/07/24 17:55 Acetaminophen 325 Mg Tablet PO 05/07/24 17:54 Q6H PRN Fever >101.5 Acetaminophen 650 mg 04/07/24 17:55 04/08/24 20:48 Acetaminophen 325 Mg Tablet PO 05/07/24 17:54 650 mg Q6H PRN Administration PAIN SCALE 1-3 (mild Hydrocodone Bitart/Acetaminophen 1 tab 04/12/24 20:50 04/14/24 03:06 Hydrocodone/Apap 10/325 Tab PO 04/17/24 20:49 1 tab Q6HR PRN Administration PAIN SCALE 4-6 (Moderate Albuterol/Ipratropium 3 ml 04/10/24 10:14 Albuterol/Ipratropium (Duoneb) Rt Raquel 3 Ml Nebu INH 05/10/24 12:59 Q6HRRT PRN AGITATION OR ANXIETY Allopurinol 100 mg 04/07/24 21:00 04/13/24 20:56 Allopurinol 100 Mg Tablet PO 05/07/24 20:59 100 mg HS HUDSON Administration Amlodipine Besylate 5 mg 04/08/24 09:00 04/14/24 08:55 Amlodipine Besylate 5 Mg Tablet PO 05/08/24 08:59 5 mg QDAY HUDSON Administration Apixaban 5 mg 04/07/24 21:00 04/14/24 08:55 Apixaban 2.5 Mg Tablet PO 05/07/24 20:59 5 mg BID HUDSON Administration Atorvastatin Calcium 40 mg 04/07/24 21:00 04/13/24 20:56 Atorvastatin Calcium 20 Mg Tablet PO 05/07/24 20:59 40 mg HS HUDSON Administration Bumetanide 4 mg 04/12/24 11:00 04/14/24 08:56 Bumetanide 0.5 Mg Tablet PO 05/12/24 10:59 4 mg BID HUDSON Administration Carvedilol 6.25 mg 04/07/24 21:00 04/14/24 08:56 Carvedilol 3.125 Mg Tablet PO 05/07/24 20:59 6.25 mg BID HUDSON Administration Dextrose 25 ml 04/08/24 04:02 Dextrose 50%-Water Inj 50 Ml Syringe IV 05/08/24 04:01 Q15MIN PRN BG 50-70 responsive npo pt Dextrose 50 ml 04/08/24 04:02 Dextrose 50%-Water Inj 50 Ml Syringe IV 05/08/24 04:01 Q15MIN PRN BG <50 OR BG <70 & pt unresponsive Duloxetine HCl 60 mg 04/10/24 09:00 04/14/24 08:56 Duloxetine Hcl 30 Mg Capsule PO 05/10/24 08:59 60 mg QDAY HUDSON Administration Ferrous Sulfate 325 mg 04/08/24 09:00 04/14/24 08:56 Ferrous Sulf 325 Mg Tablet PO 05/08/24 08:59 325 mg QOD HUDSON Administration Glucagon 1 mg 04/08/24 04:02 Glucagon Inj 1 Mg Vial IM Q15MIN PRN BG <70, and no IV access Insulin Glargine 30 unit 04/13/24 09:00 04/14/24 08:14 Insulin Glargine (Lantus) 5 Unit/0.05 Ml (Per 5 Units) SC 05/13/24 08:59 30 unit QDAY HUDSON Administration Insulin Human Lispro 0 unit 04/08/24 07:30 04/14/24 07:25 Insulin Lispro (Admelog) 1 Unit/0.01 Ml Unit SC 05/08/24 07:29 2 unit ACHS HUDSON Administration Protocol Insulin Human Lispro 5 unit 04/10/24 11:30 04/14/24 07:26 Insulin Lispro (Admelog) 1 Unit/0.01 Ml Unit SC 05/10/24 11:29 5 unit ACHS HUDSON Administration Montelukast Sodium 10 mg 04/07/24 21:00 04/13/24 20:56 Montelukast Sodium 10 Mg Tablet PO 05/07/24 20:59 10 mg HS HUDSON Administration Ondansetron HCl 4 mg 04/07/24 17:55 Ondansetron Inj 2 Mg/Ml Inj 2 Ml IV 05/07/24 17:54 Q6H PRN NAUSEA OR VOMITING Protocol Pantoprazole Sodium 40 mg 04/07/24 18:00 04/14/24 08:56 Pantoprazole 40 Mg Tablet PO 05/07/24 17:59 40 mg QDAY HUDSON Administration Pregabalin 150 mg 04/10/24 08:00 04/14/24 05:41 Pregabalin 50 Mg Capsule PO 05/10/24 07:59 150 mg TID HUDSON Administration Sennosides 1 tab 04/07/24 18:04 Senna Tablet PO 05/07/24 18:03 QDAY PRN CONSTIPATION Protocol Sodium Chloride 3 ml 04/07/24 18:17 Sodium Chloride Rt Raquel 0.9% 3 Ml Nebu INH 05/07/24 18:16 PRN PRN SOLN Tizanidine HCl 2 mg 04/10/24 21:00 04/13/24 20:55 Tizanidine Hcl 2 Mg Tablet PO 05/10/24 20:59 2 mg HS HUDSON Administration Plan 68-year-old male with past medical history of HLD, NIDDM type 2 (A1c 8.1%), HTN, HFpEF EF 50-55%, CAD s/p stent, A-fib on Eliquis, CVA with left hemiparesis (2022), COPD dependent on 3 L oxygen at home, gout, and BPH presented to the ED on 04/07/2024 for chief complaint of shortness of breath and bilateral lower extremity swelling. Patient was admitted for acute decompensated heart failure and cardiology was consulted. 1. Acute decompensated heart failure exacerbation with preserved ejection fraction [50-55%] and mild to moderate PAH - improving Patient's home medication Bumex 4 Mg p.o. twice daily and metolazone 5 Mg p.o. daily. Despite this patient developed worsening SOB and bilateral lower extremity edema the day of admission and he presented to his turkey egg gatherer, Dr. Sherman who recommended he present to the ED. Chest x-ray on admission showed increased vascular markings and mild atelectasis left base. Patient was started on Bumex infusion initially which was held this morning and patient transition to Bumex 2 Mg IV twice daily. On initial exam patient has significant sacral and hip edema, crackles at lung bases bilaterally with no lower extremity swelling or scrotal edema BNP on admission was 76 NYHA stage D class III Transthoracic echocardiogram completed on 04/07 findings include: Suboptimal images due to body habitas. Normal LV size and function.diastolic function prsesent but cannit grade due to AFib. Estimated EF 50-55% Normal RV size and function. Mild MAC. Trace TR. On previous admission transesophageal echocardiogram completed on 07/08/2023 findings include: Negative bubble study, no evidence of PFO or ASD or LA/CHRISTIE thrombus. Normal LV size and function. Estimated EF 55-60% RV mildly dilated and mildly dialted LA. Moderate MR. Mild to moderate TR. There is mild protruding plaque seen in the aortic arch. Pulomary flow is systolic blunting. Bicarb increased to 30.1 from 27.7 , BUN increased to 54 from 48 and Cr decreased to 2.4 from 2.6 Patient has a fluid balance of negative 500cc in the past 24 hours. On exam patient's edema much improved Acetazolamide 500mg po x 1 for contraction alkalosis given on 04/11 From telemetry review patient continues to be in A-fib with rate between 80s-100s overnight Potassium 3.7 and magnesium 2.4. Please maintain potassium greater than 3.5 and magnesium greater than 2 at all times to prevent any arrhythmias Plan: ? 2 g sodium restricted diet ? Strict input output charting ? Daily weights ? 1500 cc/day fluid restriction Continue Bumex 4 Mg p.o. twice daily, metolazone 2.5 Mg p.o. twice weekly. Follow-up in cardiology clinic within 1 week of discharge with a BMP and magnesium 2. Essential hypertension Patient's home medication carvedilol 6.25 mg p.o. twice daily, metolazone 5 Mg p.o. daily and Bumex 4 Mg p.o. twice daily. On admission BP 125/80, currently BP 123/81 Plan: - Recommend to continue amlodipine 5 mg po Qday ? Recommend excellent control of blood pressure and maintain SBP less than 140 mmHg 3. CAD s/p stent with DEMARIO 4. Hyperlipidemia Patient on high-dose statin atorvastatin 40 Mg p.o. at bedtime. Patient not on aspirin or Plavix due to recent history of GI bleed 2 months ago. Hb currently stable at 11.6. Plan: ? Continue high intensity statin 5. Atrial fibrillation?long-term persistent Patient rate controlled on carvedilol 6.25 Mg p.o. twice daily at home and anticoagulated with Eliquis 5 Mg p.o. 3 times daily. EKG on admission showed A-fib rate 96 [id number]: 7 points; stroke risk 11.2 %/year HAS-BLED : 5 points; high risk for major bleeding From telemetry review patient is in still in A fib with rate between 80s-100s overnight Plan: ? Recommend to continue home anticoagulation Eliquis 5 Mg p.o. twice daily ? Can continue beta blockers as part of GDMT, CHF exacerbation now resolving 6. History of CVA [2022] Patient has residual left hemiparesis. Currently not on aspirin or Plavix due to history of GI bleed 2 months ago. 7. COPD 8. Asthma 9. Nicotine dependence Patient has a history of COPD and asthma on montelukast and inhaler at home. Chronic smoking history of 40 years; 1.5 pack smoker daily. Continue management as per primary team 10. Lhy-bymuimf-ejjeeauwy diabetes mellitus type 2 [8.1] Patient on Ozempic at home. Continue management as per primary team 11. History of GI bleed January 2024 Colonoscopy completed on 02/01/[address] Grossman, chemical preparer findings include: Hemorrhoids on perianal exam, mucosal ulceration in the sigmoid colon and in the proximal descending colon. Findings consistent with ischemic colitis multiple polyps resected with hot snare. Recommendations were for repeat colonoscopy in 6 months and to avoid NSAIDs. Pathology of the polyps was positive for tubular adenomas. 12. ALMA on CKD stage III Baseline Cr 1.4-1.9. On admission Cr 1.7. Currently Cr 2.5. Continue management as per primary team Continue rest of management as per primary team. We are grateful to be able to participate in Mr. Anthony's care. Thank you for the consult Plan of care discussed with attending Fur Examiner, Dr Whit Oleary MD PGY 1 Attending Provider Attestation/Addendum I have personally seen and examined the patient separately on the above date of service and discussed the plan of care with the resident. I reviewed the resident Dr. Oleary consultation progress note and agree with the resident findings and plan in the note above and have also edited the documentation to reflect my findings and plan. Rogerio Sherman M.D. Interventional Cardiology
--- NOTE | 2024-04-14 10:43 | ESDS_ITS ---
<Statement entered by Cristina Dawkins DO - 04/14/24 19:11> I, Cristina Dawkins DO, attest that I was physically present for the diehl portions of the service and evaluated the patient with the resident and I reviewed and discussed the case with the resident and agree with the resident's findings and plans of care as documented above Planned Discharge Date 04/14/24 DS: Providers Provider Date of admission: 04/07/24 19:20 Primary care physician: Howard Briceño MD Admitting Provider: Aram Linares DO Attending Provider on Admission: Cristina Dawkins DO Consults: 04/07/24 18:38 Consult to Cardiology Stat Comment: fluid overload Consulting Provider: Rogerio Sherman 04/14/24 09:07 Referral Physical Therapy Routine Comment: Discharging today back to home Physician Instructions: Attending Provider on DC: Estrella Sterling MD Discharging Provider: Estrella Sterling MD DS: Diagnosis Problem List Completed Was Problem List Reviewed/Reconciled?: Yes Hospital Course Hospital Course Hospital course: #Acutely decompensated heart failure, resolved #HFpEF EF 55-60% #ALMA on CKD stage IV #COPD #Asthma #Chronic smoking history #Leukocytosis #A-fib, rate-controlled #Hypertension #DMT2 #CAD status post stent placement #CVA (2022) with left hemiplegia #HLD #Metabolic alkalosis, resolved A 68-year-old male with past medical history of HLD, T2DM (A1c 8.1%), HTN, HFpEF EF 55-60%, CAD s/p stent, A-fib on Eliquis, CVA with left sided residual deficits (2022), COPD dependent on 3 L oxygen at home, asthma, gout, and BPH pr esented to the ED on 04/07/2024 for chief complaint of shortness of breath and bilateral lower extremity swelling. Patient was found to to be in a fluid overloaded state and was admitted for CHF exacerbation. BNP was 62. Weight 136kg. Echo on 04/08/2024: Normal LV size and function.diastolic function prsesent but cannot grade due to AFib. Estimated EF 50-55%. Normal RV size and function. Mild MAC. Trace TR. Dr. Felton was consulted, who recommended Bumex drip for CHF followed by oral bumex. He was placed on diuresis holiday as he was over diuresed and resulted with ALMA on this admission from likely overdiuresis. After 3 days of no diuretic, patient was restarted on home dose bumex 4mg twice daily orally. His ALMA improved. e was given eliquis for a. fib. Repeat BNP 76. Dry weight is 129.33kg. He now denies cough and shortness of breath. He appears euvolemic. He is on 2 L home oxygen now. Patient is medically stable and ready for discharge home. He understands to follow-up in ca rdiology clinic within 1 week of discharge. He will follow-up with PCP in outpatient clinic in 1-2 weeks of discharge. He understands to take insulin glargine 100 units/min (3 mL) insulin pen 30 unit s subcutaneously once at night for diabetes. Continue Ozempic as previously prescribed. Continue Bumex 4 mg p.o. twice daily for heart failure. Continue metolazone 2.5 mg tablet twice weekly by mouth for heart failure. Take montelukast 10 mg orally at night to help with breathing. Take all home medications as previously prescribed, except insulin glargine cartridge and ramipril. Patient understands to return to the ED if symptoms worsen. Discussed case with my attending Dr. Dawkins. Thank you, Estrella Sterling, PGY-2 Time Spent with Patient Time attestation: Total time spent providing and/or coordinating discharge services: Time spent: Greater than 30 minutes Exam Vital Signs Temp Pulse Resp BP Pulse Ox O2 Del Method O2 Flow Rate 97.0 F 84 16 116/73 96 Nasal Cannula 1 04/14/24 08:00 04/14/24 09:00 04/14/24 09:00 04/14/24 08:56 04/14/24 09:00 04/14/24 08:00 04/14/24 09:00 Narrative Exam GENERAL: Elderly male, obese, in no acute distress. HEENT: Moist mucosa. Eyes open, symmetrical, & clear CARDIO: Irregular, normal rate. No murmurs appreciated. PULM: Relatively clear on auscultation, saturating at 98% on 2 nasal cannula. GI: Abdomen soft, nondistended, nontender. BSx4 URO/MAPPING ANALYST:Gonzalez catheter. 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 SKIN/MSK/EXT: Edema of lower right extremity, nearly resolved. No edema of LLE. Rhytids bilaterally of lower extremities, improved. Discharge Plan Plan Patient Disposition: HOME (Self Care) Patient condition on transfer: Stable Care Plan Goals: Please take insulin glargine 100 units/min (3 mL) insulin pen 30 units subcutaneously once at night for diabetes. Please continue Ozempic as previously prescribed. Please take Bumex 4 mg p.o. twice daily for heart failure. Please take metolazone 2.5 mg tablet twice weekly by mouth for heart failure. Please take montelukast 10 mg orally at night to help with breathing. Please take all home medications as previously prescribed, except insulin glargine cartridge and ramipril. Please return to the ED if symptoms worsen. Follow-up in cardiology clinic within 1 week of discharge. Follow-up with PCP in outpatient clinic in 1-2 weeks of discharge. Prescriptions/Referrals Prescriptions/Med Rec: New montelukast 10 mg Tablet 10 mg PO HS Qty: 30 1RF metolazone 2.5 mg tablet See Rx Instructions .ROUTE .COMPLEX Qty: 8 1RF Rx Instructions: 2.5 mg orally twice weekly insulin glargine [Lantus Solostar U-100 Insulin] 100 unit/mL (3 mL) insulin pen 30 unit subcut QPM Qty: 15 2RF Continued duloxetine 60 mg Capsule, Delayed Rel Sprinkle 60 mg PO QDAY potassium chloride 10 mEq Capsule, Extended Release 10 meq PO QDAY Hold Instructions: hold until follow up with your health care provider atorvastatin 40 mg Tablet 40 mg PO QPM carvedilol 6.25 mg Tablet 6.25 mg PO BID Rx Instructions: must administer with a meal/food tizanidine 2 mg Tablet 2 mg PO HS Patient Comments: Per pt son. Pt does not take this every day. Only as needed amlodipine 5 mg Tablet 5 mg PO QDAY allopurinol 100 mg Tablet 100 mg PO HS pantoprazole 40 mg Tablet,Delayed Release (Dr/Ec) 40 mg PO QDAY montelukast 10 mg Tablet 10 mg PO QDAY pregabalin [Lyrica] 150 mg Capsule 150 mg PO TID Ozempic 2 mg/dose (8 mg/3 mL) pen injector 2 mg SUBCUT QWEEK Patient Comments: INJECT 2 mg SUBCUTANEOUSLY EVERY WEEK Rx Instructions: Every Friday hydrocodone-acetaminophen 10-325 mg tablet 1 tab PO [id number] PRN (Reason: Pain) bumetanide 2 mg tablet 4 mg PO BID Patient Comments: TAKE TWO TABLETS BY MOUTH TWICE DAILY FOR FOURTEEN DAYS famotidine 20 mg tablet 20 mg PO QDAY Patient Comments: TAKE ONE TABLET BY MOUTH EVERY DAY HEARTBURN GASTRIC ACIDITY docusate sodium 250 mg capsule 250 mg PO BID dutasteride 0.5 mg capsule 0.5 mg PO QDAY Patient Comments: TAKE ONE CAPSULE BY MOUTH EVERY DAY Eliquis 5 mg tablet 5 mg PO BID Patient Comments: TAKE ONE TABLET BY MOUTH TWICE DAILY FOR THE HEART magnesium oxide 400 mg magnesium Tablet 800 mg PO BID Discontinued ramipril 5 mg Tablet 5 mg PO QPM Hold Instructions: Unable to verify, re-evaluate with PCP insulin glargine 100 unit/mL Cartridge 22 unit SUBCUT QDAY Referrals: Howard Briceño MD [Primary Care Provider] - Patient/Caregiver Discharge Instructions Education Materials: Abdominal Pain, Chronic Lung Disease Sleep Probs, COPD: Coping with Mucus, Diabetes Shopping Preparing Meals, Shortness of Breath Coping, Acute Kidney Failure Dc, Limiting Fluids Dc, Back Exercises: Back Release, Heart Attack: Leaving the Hospital, ED Shortness of Breath (Dyspnea), Heart Failure Print Language: Yakut Stand Alone Forms: Kathleen Award Info., Patient Portal Info Letter Discharge Order Discharge Orders: Discharge (Routine); Ordered 04/14/24 Ordered By: Estrella Sterling Quality Discharge Quality Measures VTE prophylaxis
--- NOTE | 2024-04-14 12:07 | PC.SS ---
Addendum entered by Uma Mercado 04/14/24 15:53: SS has sent patient's facesheet and ambulance form to [facility] using [employer]. Ref# [id number]. Patient's sons, Rizwan and Maddison are aware transport is arranged for 3pm. Bedside nurse, Roberth is aware. Original Note: SS met with pt, Dr. Dawkins, and resident physician team to confirm d/c planl to home. Pt states he has voided today. SS has informed bedside nurse, Jamila. SS has spoken to [employer] from [employer] to setup transportation and [employer] transferred call to the transportation department. SS spoke to [facility] and requested gurney transportation with [facility]. Pt is returning home.
== END 2024-04-14 16:09 | disposition home or self-care (01) | DRG 291 ==
LOC: SERX 13:07 → SERHOLD 19:36 → S2NX 04-08 02:59
PROVIDERS: Nurse Practitioner Primary Care; Student in an Organized Health Care Education/Training Program; Admitting Provider Student in an Organized Health Care Education/Training Program; Emergency Provider Emergency Medicine; PCP Family Medicine; Visit Provider Internal Medicine
DX: I13.0 Hypertensive heart and chronic kidney disease with heart failure and stage 1 through stage 4 chronic kidney disease, or unspecified chronic kidney disease (principal); I50.33 Acute on chronic diastolic (congestive) heart failure; E87.3 Alkalosis; I69.354 Hemiplegia and hemiparesis following cerebral infarction affecting left non-dominant side; Z68.42 Body mass index [BMI] 45.0-49.9, adult; N17.9 Acute kidney failure, unspecified; N18.4 Chronic kidney disease, stage 4 (severe); I48.11 Longstanding persistent atrial fibrillation; I25.10 Atherosclerotic heart disease of native coronary artery without angina pectoris; E66.01 Morbid (severe) obesity due to excess calories; M10.9 Gout, unspecified; J44.89 Other specified chronic obstructive pulmonary disease; M54.50 Low back pain, unspecified; G89.29 Other chronic pain; E11.621 Type 2 diabetes mellitus with foot ulcer; I27.21 Secondary pulmonary arterial hypertension; L97.519 Non-pressure chronic ulcer of other part of right foot with unspecified severity; E78.00 Pure hypercholesterolemia, unspecified; F17.210 Nicotine dependence, cigarettes, uncomplicated; I25.2 Old myocardial infarction; E11.51 Type 2 diabetes mellitus with diabetic peripheral angiopathy without gangrene; E11.42 Type 2 diabetes mellitus with diabetic polyneuropathy; T50.2X5A Adverse effect of carbonic-anhydrase inhibitors, benzothiadiazides and other diuretics, initial encounter; Z95.5 Presence of coronary angioplasty implant and graft; D72.828 Other elevated white blood cell count; Z87.01 Personal history of pneumonia (recurrent); Z79.01 Long term (current) use of anticoagulants; Z87.11 Personal history of peptic ulcer disease; Z87.19 Personal history of other diseases of the digestive system; Z99.81 Dependence on supplemental oxygen; Z79.4 Long term (current) use of insulin; Z79.84 Long term (current) use of oral hypoglycemic drugs; Z79.899 Other long term (current) drug therapy; Y92.230 Patient room in hospital as the place of occurrence of the external cause
CPT/HCPCS: 36415; 71046; 80048; 80053; 80061; 80307; 81001; 83036; 83735; 83880; 84100; 84439; 84443; 84484; 85025; 85610; 85730; 87205; 93005; 93306; 94640; 94664; 96374; 99285; A9270; J1815; J3490; J7050

== ENCOUNTER 2024-04-21 10:16 | Observation (INO) | payer MEDICARE, MEDICAID, SELFPAY ==
[2024-04-21] VITALS (9 sets, daily range): BP systolic 109–132; BP diastolic 57–79; PULSE 76–92; RESP 18–20; TEMP 36.3–37; O2SAT 91–97; BMI 45.1
--- NOTE | 2024-04-21 10:56 | XR_ITS ---
Examination: AP chest single view Technique one AP portable upright chest single view Exam date and time: April 21, 2024 1112 hours Comparison April 07, 2024 INDICATIONS: Coughing shortness of breath today. FINDINGS: Subtle opacity at the left base suspicious for early pneumonia Normal heart size No pulmonary edema Prominent osteopenia IMPRESSION: Suspicious for early left base pneumonia
--- NOTE | 2024-04-21 10:56 | XR_ITS ---
Examination: CT cervical spine without contrast 2-D sagittal reconstructions 2-D coronal reconstructions 3-D reconstructions. Exam date and time:April 21, 2024 1128 hours INDICATIONS: Patient fell today with injury to the neck, neck pain CTDI:vol (mGy) 10.3 DLP: (mGycm) 254 Technique: Multiple 2 mm axial sections of the cervical spine have been obtained. The coronal and sagittal reconstructions have been obtained. 3-D reconstructions have been obtained. Low dose protocols were performed. One or more of the following dose reduction techniques were used; automated exposure control, adjustment of the mA and/or KV according to patient size, use of iterative reconstruction technique. Findings: Axial sections demonstrate intact base of the skull. C1 exhibit satisfactory relationship to the odontoid. No acute cervical vertebral body fracture seen. Alignment posterior spinous processes satisfactory. Impression: No acute cervical fracture. Incidental note heavy carotid vascular calcification
--- NOTE | 2024-04-21 10:56 | XR_ITS ---
Examination: CT brain head without contrast. 2-D sagittal coronal reconstructions Date and time of exam:April 21, 2024 1128 hours INDICATIONS: Patient fell today with injury to the head, head pain CTDI: vol (mGy):106.1 DLP: (mGycm):2061 Technique: Multiple CT axial sections of the brain have been obtained, 5 mm slice thickness. Contrast has not been administered. 2-D sagittal, coronal reconstructions have been obtained Low dose protocols were performed. One or more of the following dose reduction techniques were used; automated exposure control, adjustment of the mA and/or KV according to patient size, use of iterative reconstruction technique. Findings: No significant ventricular enlargement. Encephalomalacia posterior right parietal lobe Intra-axial or extra-axial hemorrhage density is not seen. No mass effect or midline shift Basal cisterns are not remarkable. Fourth ventricle is midline. Cranial vault intact. Impression: Negative for acute hemorrhage, mass effect or midline shift
--- NOTE | 2024-04-21 10:56 | EKG_ITS ---
[facility] Test Date: 2024-04-21 Pat Name: SHIRLEY VALDIVIA Department: Room: - Gender: Male Materials Supervisor: : 1955 Requested By: Sam Alcazar Order Number: [id number] Reading MD: Sam Alcazar Measurements Intervals [place] Rate: 74 P: OK: QRS: 11 QRSD: 159 T: 1 QT: 416 QTc: 463 Interpretive Statements ATRIAL FIBRILLATION RIGHT BUNDLE BRANCH BLOCK [120+ ms QRS DURATION, UPRIGHT V1, 40+ ms S IN I/aVL/V4/V5/V6] Compared to ECG 04/07/2024 12:54:16 No significant changes /store/S0/[id number].pdf
--- NOTE | 2024-04-21 11:20 | PD.EDWEAK ---
ED Weakness RME/HPI General Chief complaint: Weakness Stated complaint: WEAKNESS Time Seen by Provider: 04/21/24 10:43 Arrival date/time: 04/21/24 10:16 RME / HPI RME / HPI Narrative: 68 year old male with history of CVA, CAD s/p PCI, HFpEF EF 50-55% 03/2024, AFib, hypertension, diabetes, hyperlipidemia, COPD on 3L home oxygen, BPH presents to the ED BIBA from home for complaint of generalized weakness beginning 2 days ago. States this morning noted his weakness was worse adding he was falling over and hands were shaky . Patient additionally complains of cough x 3 days, left sided chest pain, no bowel movement x 3 days, and abdominal pain x 2 days. Denies fevers, chills, shortness of breath, nausea, vomiting, or urinary symptoms. Denies any sick contacts at home. Related Data Home Medications ?Medication ?Instructions ?Recorded ?Confirmed duloxetine 60 mg capsule,delayed 60 mg PO QDAY 11/25/19 04/08/24 release sprinkle potassium chloride 10 mEq 10 meq PO QDAY 06/19/23 04/08/24 capsule,extended release allopurinol 100 mg tablet 100 mg PO HS 01/23/24 04/13/24 amlodipine 5 mg tablet 5 mg PO QDAY 01/23/24 04/08/24 atorvastatin 40 mg tablet 40 mg PO QPM 01/23/24 04/08/24 carvedilol 6.25 mg tablet 6.25 mg PO BID 01/23/24 04/08/24 pantoprazole 40 mg tablet,delayed 40 mg PO QDAY 01/23/24 04/08/24 release pregabalin 150 mg capsule (Lyrica) 150 mg PO TID 01/23/24 04/08/24 semaglutide 2 mg/dose (8 mg/3 mL) 2 mg subcut QWEEK 01/23/24 04/08/24 subcutaneous pen injector (Ozempic) tizanidine 2 mg tablet 2 mg PO HS 01/23/24 04/08/24 hydrocodone 10 mg-acetaminophen 1 tab PO [id number] PRN Pain 01/31/24 04/08/24 325 mg tablet apixaban 5 mg tablet (Eliquis) 5 mg PO BID 04/08/24 04/08/24 bumetanide 2 mg tablet 4 mg PO BID 04/08/24 04/08/24 docusate sodium 250 mg capsule 250 mg PO BID 04/08/24 04/13/24 dutasteride 0.5 mg capsule 0.5 mg PO QDAY 04/08/24 04/08/24 famotidine 20 mg tablet 20 mg PO QDAY 04/08/24 04/08/24 magnesium oxide 800 mg PO BID 04/08/24 04/08/24 Previous Rx's ?Medication ?Instructions ?Recorded insulin glargine 100 unit/mL (3 30 unit (0.3 mL) subcut QPM #15 mL 04/14/24 mL) subcutaneous pen (Lantus Solostar U-100 Insulin) metolazone 2.5 mg tablet See Rx Instructions .Route 04/14/24 .COMPLEX #8 tabs montelukast 10 mg tablet 10 mg PO HS #30 tabs 04/14/24 amoxicillin 875 mg-potassium 1 tab PO BID 4 days #8 tabs 04/22/24 clavulanate 125 mg tablet azithromycin 250 mg tablet 250 mg PO QDAY 4 days #4 tabs 04/22/24 Allergies Allergy/AdvReac Type Severity Reaction Status Date / Time baclofen Allergy Severe Confusion Verified 04/07/24 12:22 bee venom protein (honey bee) Allergy Severe Swelling Verified 04/07/24 12:22 of Lip/Tongue/Throat chicken derived Allergy Severe DIFF Verified 04/07/24 12:22 BREATHING ketorolac [From Toradol] Allergy Intermediate Hallucinati Verified 04/07/24 12:22 ng METAL Allergy Severe Rash Uncoded 04/24/23 13:24 Review of Systems Review of Systems Narrative Review of Systems: Gen: No fever, no chills, no weight loss, +generalized weakness EYES: No discharge, no visual changes, no pain HEENT: No ear pain, no congestion, no sore throat PULM: no shortness of breath, +cough, no congestion CV: +chest pain, no palpitations, no chest tightness GI: No nausea, no vomiting, no diarrhea, + pain, + constipation : No frequency, no urgency,? no dysuria Musc/skel: No joint pain, no back pain Skin: No rash, no ecchymosis, no lesions Neuro: No headache Past Medical History Past Medical History NEUROLOGIC: Positive Neurological Disorders, Cerebrovascular Accident (Slight left sided weakness) and Peripheral Neuropathy CARDIAC: Positive Myocardial Infarction, Atrial Fibrillation, Coronary Artery Disease, Peripheral Vascular Disease, Hypercholesterolemia, Congestive Heart Failure, Congenital Heart Disease, Edema, Cellulitis and Hypertension RESPIRATORY: Positive Chronic Obstructive Pulmonary Disease (COPD), Asthma, Pneumonia, Smoking and Tobacco Use GASTROINTESTINAL: Positive Gastrointestinal Disorders, Gastrointestinal Bleed, Gastroesophageal Reflux Disease and Obesity GENITOURINARY: Positive Genitourinary Disorders and Benign Prostatic Hyperplasia MUSCULOSKELETAL: Positive Musculoskeletal Disorders, Arthritis and Gout ENDOCRINE: Positive Diabetes Mellitus Type 2 HEMATOLOGIC: Positive Blood Disorders and Anemia PSYCHO/SOCIAL: Positive Anxiety OTHER HISTORY: Positive Hospitalization, Falls and MRSA Family History FAMILY HISTORY: Positive Family Respiratory Disorders, Family Cardiac Disorders and Family Cancer Surgical History SURGICAL: Positive Cardiac Surgery, Coronary Stent (x 1), Cardiac Catheterization, Angiogram, Joint Replacement (left ankle surgery) and Arthroscopy; Negative Mastectomy Social History SMOKING STATUS: Light (< 1 pack/day) SECOND HAND EXPOSURE: No SUBSTANCE USE: does not use ED Exam Narrative Physical exam: GENERAL APPEARANCE: Slightly lethargic, orientated x4, no obvious distress, nontoxic appearing HEENT: NC, AT. MMM. EOMI, clear conjunctiva, oropharynx clear. NECK: Supple without lymphadenopathy. No stiffness or restricted ROM. HEART: Normal rate and regular rhythm, normal S1/S1, no m/r/g LUNGS: CTAB, moving air well. No crackles or wheezes are heard. ABDOMEN: Soft, nontender, nondistended with good bowel sounds heard. BACK: No midline C/T/L spine pain or deformity, No CVAT, no obvious deformity. EXTREMITIES: +3 lymphedema BLE. Without cyanosis or clubbing. MUSCULOSKELETAL: FROM of all major joints, no chest tenderness NEUROLOGICAL: Grossly nonfocal. Slightly lethargic, oriented, moving all 4 extremities. CN not formally tested but appear grossly intact. Skin: Warm and dry without any rash. Course Quality Measures none Orders Category Date Time Status Bedside COVID-19 Antigen Test NOW Care 04/21/24 10:55 Completed Bedside Influenza A&B Antigen Test NOW Care 04/21/24 10:55 Completed EKG (ED ONLY) *Do not use* NOW Care 04/21/24 10:[address] cervical spine wo con Stat Exams 04/21/24 10:[address] head/brain wo con Stat Exams 04/21/24 10:56 Completed EKG (ED Only) Stat Exams 04/21/24 10:56 Draft XR chest 1V Stat Exams 04/21/24 10:56 Completed Blood Culture (Lab) Stat Lab 04/21/24 15:12 Results CBC Stat Lab 04/21/24 11:03 Completed CMP [Comprehensive Metabolic Panel] Stat Lab 04/21/24 11:03 Completed Lactate (Lactic Acid) Stat Lab 04/21/24 11:03 Completed Procalcitonin Stat Lab 04/21/24 11:03 Completed Troponin I Stat Lab 04/21/24 11:03 Completed Urinalysis Stat Lab 04/21/24 12:24 Completed Cefepime Inj [Maxipime Inj] 1 gm Med 04/21/24 14:33 Discontinued Sodium Chloride 0.9% (P) [Ns 0.9% (P)] 50 ml IV Q12HR Sodium Chloride 0.9% 500 ml [Ns] 500 ml Med 04/21/24 10:54 Discontinued IV 999 mls/hr Vital Signs Vital signs: Vital Signs Temperature 98.6 F 04/21/24 10:46 Pulse Rate 88 04/21/24 10:46 Respiratory Rate 20 04/21/24 10:46 Blood Pressure 124/78 04/21/24 10:46 Pulse Oximetry (%) 91 L 04/21/24 10:46 Oxygen Delivery Method Room Air 04/21/24 10:46 Pulse ox is 91% on room air which is low. Weakness MDM Narrative MDM Narrative:: Mr. Anthony presents to the emergency department with increasing shortness of breath and a workup consistent with leukocytosis and some possible early left lower lobe infiltrate. Patient has a recent hospitalization discharged approximately 1 week ago raising concern for hospital-acquired pneumonia. He was started on antibiotics for hospital-acquired pneumonia and case discussed with hospitalist service for admission as he is requiring supplemental oxygenation IVarsha am scribing for and in the presence of Dr. Alcazar. Patient data External records reviewed:: [facility] previous records (I reviewed admission from 04/07/2024 through 04/14/2024) and EMS form Clinical information provided by:: patient and EMS Social determinants that could affect healthcare access:: none Patient has the following chronic illnesses:: CVA, CAD s/p PCI, HFpEF EF 50-55% 03/2024, AFib, hypertension, diabetes, hyperlipidemia, COPD on 3L home oxygen, BPH How is presenting disease/condition affected by chronic disease/condition?: exacerbated by Evaluation data The following diagnostics were reviewed and interpreted by me:: lab results, radiology exam(s) and EKG tracing(s) (Atrial fibrillation, rate 74, no acute ST or T-wave changes, no STEMI. ) Lab and/or radiology exams considered but not ordered:: None Interpretation Summary: Ordering Physician: Sam Alcazar MD Date of Service: 04/21/24 Procedure(s): CT cervical spine wo con Accession Number(s): [id number] cc: Howard Briceño MD; Sam Alcazar MD; Sonu Ellison MD~ Examination: CT cervical spine without contrast 2-D sagittal reconstructions 2-D coronal reconstructions 3-D reconstructions. Exam date and time:April 21, 2024 1128 hours INDICATIONS: Patient fell today with injury to the neck, neck pain CTDI:vol (mGy) 10.3 DLP: (mGycm) 254 Technique: Multiple 2 mm axial sections of the cervical spine have been obtained. The coronal and sagittal reconstructions have been obtained. 3-D reconstructions have been obtained. Low dose protocols were performed. One or more of the following dose reduction techniques were used; automated exposure control, adjustment of the mA and/or KV according to patient size, use of iterative reconstruction technique. Findings: Axial sections demonstrate intact base of the skull. C1 exhibit satisfactory relationship to the odontoid. No acute cervical vertebral body fracture seen. Alignment posterior spinous processes satisfactory. Impression: No acute cervical fracture. Incidental note heavy carotid vascular calcification Dictated By:Sonu Ellison MD Signed By:<Electronically signed by Sonu Ellison MD in [place]>04/21/24 1158 Ordering Physician: Sam Alcazar MD Date of Service: 04/21/24 Procedure(s): XR chest 1V Accession Number(s): [id number] cc: Sam Alcazar MD; Sonu Ellison MD~ Examination: AP chest single view Technique one AP portable upright chest single view Exam date and time: April 21, 2024 1112 hours Comparison April 07, 2024 INDICATIONS: Coughing shortness of breath today. FINDINGS: Subtle opacity at the left base suspicious for early pneumonia Normal heart size No pulmonary edema Prominent osteopenia IMPRESSION: Suspicious for early left base pneumonia Dictated By:Sonu Ellison MD Signed By:<Electronically signed by Sonu Ellison MD in [place]>04/21/24 1117 Ordering Physician: Sam Alcazar MD Date of Service: 04/21/24 Procedure(s): CT head/brain wo con Accession Number(s): [id number] cc: Howard Briceño MD; Sam Alcazar MD; Sonu Ellison MD~ Examination: CT brain head without contrast. 2-D sagittal coronal reconstructions Date and time of exam:April 21, 2024 1128 hours INDICATIONS: Patient fell today with injury to the head, head pain CTDI: vol (mGy):106.1 DLP: (mGycm):2061 Technique: Multiple CT axial sections of the brain have been obtained, 5 mm slice thickness. Contrast has not been administered. 2-D sagittal, coronal reconstructions have been obtained Low dose protocols were performed. One or more of the following dose reduction techniques were used; automated exposure control, adjustment of the mA and/or KV according to patient size, use of iterative reconstruction technique. Findings: No significant ventricular enlargement. Encephalomalacia posterior right parietal lobe Intra-axial or extra-axial hemorrhage density is not seen. No mass effect or midline shift Basal cisterns are not remarkable. Fourth ventricle is midline. Cranial vault intact. Impression: Negative for acute hemorrhage, mass effect or midline shift Dictated By:Sonu Ellison MD Signed By:<Electronically signed by Sonu Ellison MD in OV>04/21/24 1159 Medications / Prescriptions Medications or Prescriptions considered but not ordered:: None Medication administrations:: Medication Administration History Discontinued Medications Acetaminophen (Acetaminophen 325 Mg Tablet) 650 mg PO Q6H PRN PRN Reason: Pain (1-4) and Fever >101.5 Stop: 05/21/24 15:35 Hydrocodone Bitart/Acetaminophen (Hydrocodone/Apap 5/325 Tablet) 1 tab PO Q6HR PRN PRN Reason: PAIN RATED 5-10 Stop: 04/26/24 16:45 Last Admin: 04/22/24 01:51 Dose: 1 tab Documented By: BONILLA Allopurinol (Allopurinol 100 Mg Tablet) 100 mg PO HS HUDSON Stop: 05/21/24 20:59 Last Admin: 04/21/24 20:39 Dose: 100 mg Documented By: BONILLA Apixaban (Apixaban 2.5 Mg Tablet) 5 mg PO BID HU[facility]ON Stop: 05/21/24 20:59 Last Admin: 04/22/24 08:48 Dose: 5 mg Documented By: Admin: 04/21/24 20:39 Dose: 5 mg Documented By: BONILLA Atorvastatin Calcium (Atorvastatin Calcium 20 Mg Tablet) 40 mg PO HS HU[facility]ON Stop: 05/21/24 20:59 Last Admin: 04/21/24 20:39 Dose: 40 mg Documented By: BONILLA Azithromycin (Azithromycin 250 Mg Tablet) 500 mg PO X1 ONE Stop: 04/22/24 10:05 Last Admin: 04/22/24 11:42 Dose: 500 mg Documented By: LH Azithromycin (Azithromycin 250 Mg Tablet) 250 mg PO QDAY [facility] Stop: 04/30/24 08:59 Bumetanide (Bumetanide 0.5 Mg Tablet) 2 mg PO BID [facility] Stop: 05/21/24 20:59 Last Admin: 04/22/24 08:48 Dose: 2 mg Documented By: Admin: 04/21/24 20:38 Dose: 2 mg Documented By: BONILLA Carvedilol (Carvedilol 3.125 Mg Tablet) 6.25 mg PO BIDWM [facility] Stop: 05/21/24 17:29 Last Admin: 04/22/24 08:48 Dose: 6.25 mg Documented By: Admin: 04/21/24 18:17 Dose: 6.25 mg Documented By: TITI Dextrose (Dextrose 50%-Water Inj 50 Ml Syringe) 25 ml IV Q15MIN PRN PRN Reason: BG 50-70 responsive npo pt Stop: 05/21/24 16:26 Dextrose (Dextrose 50%-Water Inj 50 Ml Syringe) 50 ml IV Q15MIN PRN PRN Reason: BG <50 OR BG <70 & pt unresponsive Stop: 05/21/24 16:26 Famotidine (Famotidine 20 Mg Tablet) 20 mg PO QDAY [facility] Stop: 05/21/24 16:59 Last Admin: 04/22/24 08:48 Dose: 20 mg Documented By: Admin: 04/21/24 18:18 Dose: 20 mg Documented By: TITI Famotidine (Famotidine 20 Mg Tablet) 10 mg PO QDAY [facility] Stop: 05/21/24 16:59 Glucagon (Glucagon Inj 1 Mg Vial) 1 mg IM Q15MIN PRN PRN Reason: BG <70, and no IV access Sodium Chloride (Ns) 500 mls @ 999 mls/hr IV .Q31M ONE Stop: 04/21/24 11:24 Last Infusion: 04/21/24 12:39 Dose: Infused Documented By: Admin: 04/21/24 12:08 Dose: 999 mls/hr Documented By: Cefepime HCl 1 gm/ Sodium (Chloride) 50 mls @ 100 mls/hr IV Q12HR [facility] Stop: 04/28/24 14:32 Last Admin: 04/21/24 17:10 Dose: 100 mls/hr Documented By: Ceftriaxone Sodium/Dextrose (Rocephin/D5w 1gm Iv Premix) 50 mls @ 100 mls/hr IV QDAY [facility] Stop: 04/29/24 09:13 Last Admin: 04/22/24 08:48 Dose: 100 mls/hr Documented By: TITI Insulin Glargine (Insulin Glargine (Lantus) 5 Unit/0.05 Ml (Per 5 Units)) 15 unit SC HS [facility]ON Stop: 05/21/24 20:59 Last Admin: 04/21/24 20:42 Dose: 15 unit Documented By: BONILLA Co-signed By: RB Insulin Human Lispro (Insulin Lispro (Admelog) 1 Unit/0.01 Ml Unit) 0 unit SC AC [facility]; Protocol Stop: 05/21/24 16:59 Last Admin: 04/22/24 12:37 Dose: 1 unit Documented By: TITI Co-signed By: [facility] Admin: 04/22/24 08:49 Dose: 1 unit Documented By: TITI Co-signed By: [facility] Admin: 04/21/24 18:17 Dose: 2 unit Documented By: TITI Co-signed By: INGRIS Insulin Human Lispro (Insulin Lispro (Admelog) 1 Unit/0.01 Ml Unit) 3 unit SC AC [facility] Stop: 05/21/24 16:59 Insulin Human Lispro (Insulin Lispro (Admelog) 1 Unit/0.01 Ml Unit) 2 unit SC AC [facility] Stop: 05/21/24 16:59 Metolazone (Metolazone 2.5 Mg Tablet) 2.5 mg PO 2 X WEEKLY [facility] Stop: 05/22/24 08:59 Last Admin: 04/22/24 11:41 Dose: 2.5 mg Documented By: TITI Montelukast Sodium (Montelukast Sodium 10 Mg Tablet) 10 mg PO [facility] Stop: 05/21/24 20:59 Last Admin: 04/21/24 20:39 Dose: 10 mg Documented By: BONILLA Ondansetron HCl (Ondansetron Inj 2 Mg/Ml Inj 2 Ml) 4 mg IV Q6H PRN; Protocol PRN Reason: NAUSEA OR VOMITING Stop: 05/21/24 15:35 Polyethylene Glycol (Polyethylene Glycol 17 Gm Packet) 17 gm PO QDAY [facility] Stop: 05/22/24 09:29 Last Admin: 04/22/24 11:41 Dose: 17 gm Documented By: TITI Pregabalin (Pregabalin 75 Mg Capsule) 150 mg PO [facility] Stop: 05/21/24 20:59 Last Admin: 04/21/24 20:39 Dose: 150 mg Documented By: BONILLA Sennosides (Senna Tablet) 1 tab PO QDAY [facility]; Protocol Stop: 05/21/24 18:14 Last Admin: 04/22/24 08:48 Dose: 1 tab Documented By: Admin: 04/21/24 18:17 Dose: 1 tab Documented By: TITI Tizanidine HCl (Tizanidine Hcl 2 Mg Tablet) 2 mg PO HS [facility] Stop: 05/21/24 20:59 Last Admin: 04/21/24 20:39 Dose: 2 mg Documented By: BONILLA See above Consultations Consultation(s) initiated? (list below): Yes Consultation #1 (Physician, Specialty, Details): Discussed test HPI, PMHx, lab, radiology results and/or management with hospitalist Dr. Elizabeth with Team B. Will admit for further evaluation and management. Accepts patient for admission. Time: 14:40 Diagnosis Weakness Differential Diagnosis: anemia, hypothyroidism, sepsis, dehydration and other (viral illness, pneumonia ) Most likely diagnosis given after review of the tests above:: As noted below. Admission Indicated Admission indicated?: indicated Admission Request Was there a request for admission?: Yes Admission Attestation Admission request attestation: Discussed case with [] from Hospitalist service regarding admission. Discussed patients ED course, exam findings, labs, and radiology results. The Hospitalist [agrees,declines] to accept the patient for admission. Disposition Plan Disposition Plan: Discharge Discharge Attestation Discharge Attestation: The patient and all family members were given an opportunity to ask questions and understood the discharge instructions. Discharge instructions specifically effects, indications for sooner follow up or return to the emergency department, and the expected course of current diagnosis. Patient condition: Stable Discharge Plan Plan Patient Disposition: Other Care w/in Hosp ([facility]) Problem List Clinical Impression: Pneumonia, Hypoxemia, Leukocytosis Patient/Caregiver Discharge Instructions Discharge Activity: activity as tolerated Other Activity Instructions:: Follow up with PCP within 1 week of discharge Continue home medications as prescribed Antibiotics prescribed for 4 more days, complete course. Return to ED for any new or worsening symptoms.
[2024-04-21 11:24] LABS: Lactate (Lactic Acid) 1.7 mMol/L (0.4-2.0)
[2024-04-21 11:27] LABS: Basophils # (Auto) 0.1 Thou/mm3 (0.0-0.2); Basophils % (Auto) 0 % (0-2.5); Eosinophils # (Auto) 0.3 Thou/mm3 (0.0-0.5); Eosinophils % (Auto) 2 % (0-10); Hematocrit 36.1 % (41.0-53.0); Hemoglobin 11.5 g/dL (13.5-16.0); Immature Granulocytes % (Auto) 1 % (0-0); Immature Granulocytes Auto 0.13 Thou/mm3 (0.00-0.00); Lymphocytes # (Auto) 2.8 Thou/mm3 (1.0-4.8); Lymphocytes % (Auto) 14 % (10-50); Mean Corpuscular HGB Conc 31.9 g/dl (31.0-37.0); Mean Corpuscular Volume 88 fL (80-100); Monocytes # (Auto) 2.3 Thou/mm3 (0.0-0.8); Monocytes % (Auto) 11 % (0-12); Neutrophils # (Auto) 14.7 Thou/mm3 (1.8-7.7); Neutrophils % (Auto) 72 % (37-80); Nucleated Red Blood Cell % 0 /100 WBC (0); Platelet Count 290 Thou/mm3 (140-440); RDW Standard Deviation 59.5 fL (35.1-43.9); White Blood Count 20.4 Thou/mm3 (3.8-10.6)
--- NOTE | 2024-04-21 11:58 | PC.NURSE ---
o2 dropped to 75 than anival to 94 while sleeping
[2024-04-21 12:02] LABS: Alanine Aminotransferase 11 U/L (10-49); Albumin, Serum 4.2 gm/dL (3.4-4.8); Albumin/Globulin Ratio 1.6 (1.2-2.2); Alkaline Phosphatase 152 U/L (46-116); Anion Gap 7 (7-16); Aspartate Amino Transferase 15 U/L (0-34); BUN/Creatinine Ratio 31 Ratio (12-20); Bilirubin,Total 0.6 mg/dL (0.3-1.2); Blood Urea Nitrogen 69 mg/dL (9-23); Calcium 9.6 mg/dL (8.3-10.6); Calcium (Corrected) 9.6 mg/dL (8.5-10.1); Carbon Dioxide 33.3 mMol/L (20.0-31.0); Chloride 96 mMol/L (98-107); Creatinine (Component) 2.2 mg/dL (0.6-1.3); Estimated Creatinine Clearance 44.8 mL/min (>60); Globulin 2.7 gm/dL (2.3-3.5); Glucose 180 mg/dL (74-106); Osmolality,Calculated 297 (275-295); Procalcitonin 0.48 ng/ml (0.0-0.49); Sodium 136 mMol/L (136-145); Total Protein 6.9 gm/dL (5.7-8.2); Troponin I < 0.020 ng/mL (0.0-0.045); eGFR 32 See Note
[2024-04-21] MEDS: SODIUM CHLORIDE 0.9% 500 ML 500 ML 999 ML IV (12:08)
[2024-04-21 12:33] LABS: Collection Type, Urine Clean Catch
[2024-04-21 12:47] LABS: Bacteria,Urine Rare; Bilirubin,Urine Negative (Negative); Blood,Urine Negative (Negative); Clarity,Urine Clear (Clear/Hazy); Color,Urine Colorless (Lt Yel-Yel); Glucose, Urine Negative (Negative); Hyaline Casts,Urine < 1 /hpf (0-1); Ketones,Urine Negative (Negative); Leukocyte Esterase,Urine Positive (Negative); Nitrite,Urine Negative (Negative); PH,Urine 6.5 (5.0-7.0); Protein,Urine Negative (Neg - Trace); RBC,Urine 2 /hpf (0-3); Specific Gravity,Urine 1.008 (1.001-1.035); Squamous Epithelial Cell,Urine 5 /hpf (0-5); Urobilinogen,Urine Negative mg/dL (0.0-1.0); WBC,Urine 54 /hpf (0-5)
--- NOTE | 2024-04-21 16:24 | ESHP_ITS ---
<Statement entered by Justyna Coello MD - 04/25/24 16:33> I reviewed above note and agree with findings and plans. I have also personally examined the patient with medicine team and went over assessment and plan with medical team including continuous improvement intern and resident physician. <Statement entered by Jame Elizabeth DO - 04/21/24 20:03> Senior attestation: Patient was examined and case was reviewed with team including attending physician. Note reviewed, I agree with most of its contents and agree with the patient's care. Patient is 68 year old male with history of HLD, T2DM (A1c 8.1%), HTN, HFpEF 55-60%, CAD s/p stent, A-fib on Eliquis, CVA with left sided residual deficits (2022), COPD dependent on 3 L oxygen at home, asthma, and gout who presented to the ED with concerns of generalized weakness for two days, found to have elevated WBC of 20.4 and on home oxygen. Given elevated WBC, recent hospitalization, and generalized weakness on exam will admit the patient under observation status and start on IV rocephin and azithromycin, will follow up with repeat labs and pending blood culture in the morning. Will resume home medications for chronic conditions and insulin sliding scale for diabetic history. Jame Elizabeth DO PGY-3 Documentation for date of: 04/21/24 HPI History of Present Illness History of present illness: The patient is a 68-year-old male with past medical history of HLD, T2DM (A1c 8.1%), HTN, HFpEF 55-60%, CAD s/p stent, A-fib on Eliquis, CVA with left sided residual deficits (2022), COPD dependent on 3 L oxygen at home, asthma, gout, and BP who presented to the ED on 04/21/2024 with complaints of generalized weakness that started about 2 days ago. The patient reports that he has had symptoms that have progressively worsened over the past 2 days and this morning he noticed that he was much more weak and he was falling over and his hands were again shaking. Additionally, he complains of cough about the same duration and pain in the left side of his chest as well as some abdominal pain that has lasted for about 2 days. He however denies fevers, chills, vomiting, diarrhea or dysuria. Note that the patient was recently discharged from the hospital on 04/14/2024 after being managed for fluid overload secondary to acute decompensated heart disease. ED course: In the ED, the patient was noted to be weak, however afebrile and normotensive, saturating 92% on room air. Labs done was significant for leukocytosis of 20.4 hemoglobin 11.5 PLT 290 NA 136 K4 CL 96 CO2 33.3 BUN 69 creatinine 2.21 (was 2.4 on discharge 10 days ago), glucose 180 and normal lactic acid. UA showed 54 WBCs, positive esterase and rare bacteria. C-spine and head CT were done which are negative for any acute processes and chest x-ray showed suspicion for early left base pneumonia. Patient was given 500 mL bolus of NS as well as IV cefepime and admitted for management/observation of generalized weakness, possible UTI versus pneumonia. Review of Systems Review of Systems Narrative Review of Systems: GENERAL: Denies fevers/chills or diaphoresis. HEENT: Denies headache or visual/hearing changes. Denies nasal discharge. NEURO: Admits unusual weakness, denies difficulty speaking. CARDIO: Denies chest pain or palpitations. PULM: Admits coughing, denies SOB or wheezing. GI: Admits abdominal pain and constipation, denies nausea, vomiting. Reports not having BMs. URO: Denies burning/itching/pain/urinary changes. MSK/EXT/SKIN: Denies joint/skeletal/muscle pain, issues/changes in upper or lower extremities, itchiness, or superficial pain. PSYCH: Cooperative, pleasant mood & affect. Exam Vital Signs Temp Pulse Resp BP Pulse Ox O2 Del Method O2 Flow Rate 98.6 F 85 20 109/79 94 L Nasal Cannula 2 04/21/24 10:46 04/21/24 15:50 04/21/24 15:50 04/21/24 12:00 04/21/24 15:50 04/21/24 12:00 04/21/24 15:50 Narrative Exam GENERAL: AAOX3 NEURO: CARBONIZER grossly intact, moves extremities x4 HEENT: Dry mucosa. Eyes open, symmetrical, & clear CARDIO: No chest pain on palpation. Heart RRR, no obvious murmurs PULM: No noted coughing/dyspnea. Lungs CTA B/L GI: Abdomen soft, nondistended, no pain on palpation. BSx4 URO/SAND CASTER:: No further abnormalities noted. SKIN/MSK/EXT: Bilateral pitting edema 1+ Results: Labs 04/21/24 11:03 04/21/24 11:03 Labs: Short CBC 04/21/24 Range/Units 11:03 WBC 20.4 H (3.8-10.6) Thou/mm3 Hgb 11.5 L (13.5-16.0) g/dL Hct 36.1 L (41.0-53.0) % Plt Count 290 D (140-440) Thou/mm3 BMP 04/21/24 11:03 Sodium 136 Potassium 4.0 Chloride 96 L Carbon Dioxide 33.3 H BUN 69 H Creatinine 2.2 H Glucose 180 H Calcium 9.6 Cardiac Enzymes 04/21/24 Range/Units 11:03 Troponin I < 0.020 (0.0-0.045) ng/mL Liver Function 04/21/24 Range/Units 11:03 Total Bilirubin 0.6 (0.3-1.2) mg/dL AST 15 (0-34) U/L ALT 11 (10-49) U/L Alkaline Phosphatase 152 H (46-116) U/L Albumin 4.2 (3.4-4.8) gm/dL Urine 04/21/24 Range/Units 12:24 Urine Color Colorless A (Lt Yel-Yel) Urine Clarity Clear (Clear/Hazy) Urine pH 6.5 (5.0-7.0) Ur Specific [place] 1.008 (1.001-1.035) Urine Protein Negative (Neg - Trace) Urine Glucose (UA) Negative (Negative) Quality Measures Quality Measures none Advance care planning discussed with:: patient Medications Home Medications and Allergies Home Medications ?Medication ?Instructions ?Recorded ?Confirmed ?Type duloxetine 60 mg capsule,delayed 60 mg PO QDAY 11/25/19 04/08/24 History release sprinkle potassium chloride 10 mEq 10 meq PO QDAY 06/19/23 04/08/24 History capsule,extended release allopurinol 100 mg tablet 100 mg PO HS 01/23/24 04/13/24 History amlodipine 5 mg tablet 5 mg PO QDAY 01/23/24 04/08/24 History atorvastatin 40 mg tablet 40 mg PO QPM 01/23/24 04/08/24 History carvedilol 6.25 mg tablet 6.25 mg PO BID 01/23/24 04/08/24 History montelukast 10 mg tablet 10 mg PO QDAY 01/23/24 04/08/24 History pantoprazole 40 mg tablet,delayed 40 mg PO QDAY 01/23/24 04/08/24 History release pregabalin 150 mg capsule (Lyrica) 150 mg PO TID 01/23/24 04/08/24 History semaglutide 2 mg/dose (8 mg/3 mL) 2 mg subcut QWEEK 01/23/24 04/08/24 History subcutaneous pen injector (Ozempic) tizanidine 2 mg tablet 2 mg PO HS 01/23/24 04/08/24 History hydrocodone 10 mg-acetaminophen 1 tab PO [id number] PRN Pain 01/31/24 04/08/24 History 325 mg tablet apixaban 5 mg tablet (Eliquis) 5 mg PO BID 04/08/24 04/08/24 History bumetanide 2 mg tablet 4 mg PO BID 04/08/24 04/08/24 History docusate sodium 250 mg capsule 250 mg PO BID 04/08/24 04/13/24 History dutasteride 0.5 mg capsule 0.5 mg PO QDAY 04/08/24 04/08/24 History famotidine 20 mg tablet 20 mg PO QDAY 04/08/24 04/08/24 History magnesium oxide 800 mg PO BID 04/08/24 04/08/24 History Allergies Allergy/AdvReac Type Severity Reaction Status Date / Time baclofen Allergy Severe Confusion Verified 04/07/24 12:22 bee venom protein (honey bee) Allergy Severe Swelling Verified 04/07/24 12:22 of Lip/Tongue/Throat chicken derived Allergy Severe DIFF Verified 04/07/24 12:22 BREATHING ketorolac [From Toradol] Allergy Intermediate Hallucinati Verified 04/07/24 12:22 ng METAL Allergy Severe Rash Uncoded 04/24/23 13:24 Visit Medications Acetaminophen (Acetaminophen 325 Mg Tablet) 650 mg PO Q6H PRN PRN Reason: Pain (1-4) and Fever >101.5 Stop: 05/21/24 15:35 Ceftriaxone Sodium/Dextrose (Rocephin/D5w 1gm Iv Premix) 50 mls @ 100 mls/hr IV QDAY HUDSON Stop: 04/29/24 09:13 Ondansetron HCl (Ondansetron Inj 2 Mg/Ml Inj 2 Ml) 4 mg IV Q6H PRN; Protocol PRN Reason: NAUSEA OR VOMITING Stop: 05/21/24 15:35 Discontinued Medications Sodium Chloride (Ns) 500 mls @ 999 mls/hr IV .Q31M ONE Stop: 04/21/24 11:24 Last Infusion: 04/21/24 12:39 Dose: Infused Cefepime HCl 1 gm/ Sodium (Chloride) 50 mls @ 100 mls/hr IV Q12HR HUDSON Stop: 04/28/24 14:32 Assessment & Plan Assessment Summary: The patient is a 68-year-old male with past medical history of HLD, T2DM (A1c 8.1%), HTN, HFpEF 55-60%, CAD s/p stent, A-fib on Eliquis, CVA with left sided residual deficits (2022), COPD dependent on 3 L oxygen at home, asthma, gout, and BP who presented to the ED on 04/21/2024 with complaints of generalized weakness that started about 2 days ago. He has been admitted for observation/management of generalized weakness, possible UTI versus pneumonia. #Generalized weakness #?CAP vs HAP #?UTI The patient reports that he has had symptoms that have progressively worsened over the past 2 days and this morning he noticed that he was much more weak and he was falling over and his hands were again shaking. Additionally, he complains of cough about the same duration and pain in the left side of his chest as well as some abdominal pain that has lasted for about 2 days. He however denies fevers, chills, vomiting, diarrhea or dysuria. Note that the patient was recently discharged from the hospital on 04/14/2024 after being managed for fluid overload secondary to acute decompensated heart disease. Labs are significant for WBC of 20.4. Chest x-ray showed suspicion for early left base pneumonia and UA showed 54 RBCs, positive esterase and rare bacteria. Plan: -Admit to med telemetry obs -IV ceftriaxone 1 g daily -Blood and urine culture -MRSA nares -Continue to monitor CBC #Acute kidney injury #ALMA on CKD On discharge 10 days ago, creatinine was 2.4. Admitting creatinine today is 2.2. Patient suspected to have CKD component, possibly stage IIIb with resolving ALMA. Plan: -Encourage oral intake -Avoid nephrotoxic medications -Renally dose all medications -Continue to monitor CMP #Hx of HFpEF 55-60% At home, he is on Bumex 4 mg twice daily. On this admission, patient does not like fluid overloaded, auscultation shows the lungs are mostly clear. He still does have mild bilateral pitting edema Creatinine on admission-2.2 Plan: -Closely monitor intake and output -Continue Bumex 2mg twice daily #COPD #Asthma #Chronic smoking history Patient has a history of COPD and asthma on montelukast and inhaler at home. Chronic smoking history of 40 years; 1.5 pack smoker daily. Wheezing on bilateral lungs. -Monteleukast -Duonebs scheduled -Encourage patient to discontinue smoking -Will continue oxygen as needed, goal SaO2 88 to 92%. # History of A-fib He has hx of atrial fibrillation, on Eliquis. No EKG on admission Plan: -EKG -Continue Eliquis 5 mg twice daily -Maintain potassium greater than 4 and magnesium greater than 2 #History of DMT2 Glucose elevated at 180 on admission. Plan: -Insulin glargine at 15units -[place] [employer] [facility] -Bedside glucose checks -Hypoglycemic protocol #History of hypertension Blood pressure 165/82 now At home on Coreg 6.25 mg and amlodipine 5mg daily -Will restart home meds #History of CAD status post stent placement #CVA (2022) with left hemiplegia -atorvastatin 40 mg orally daily Health maintenance: Dispo: MedTele Obs Diet: Cardiac DVT: Eliquis Gonzalez: None Lines: Peripheral Med Rec: Pending, f/u PT: Code: Full Case was discussed with senior resident Dr Elizabeth PGY-3 and attending physician, Dr Mode Hayward MD PGY-1
--- NOTE | 2024-04-21 16:37 | EKG_ITS ---
[facility] Test Date: 2024-04-21 Pat Name: SHIRLEY VALDIVIA Department: Room: [facility] Gender: Male Seed Collector: : 1955 Requested By: Leandra Hayward Order Number: [id number] Reading MD: Leandra Hayward Measurements Intervals [place] Rate: 80 P: DC: QRS: 26 QRSD: 149 T: 18 QT: 380 QTc: 439 Interpretive Statements ATRIAL FIBRILLATION RIGHT BUNDLE BRANCH BLOCK [120+ ms QRS DURATION, UPRIGHT V1, 40+ ms S IN I/aVL/V4/V5/V6] Compared to ECG 04/21/2024 11:27:52 No significant changes /store/S0/[id number]/ecg/[id number].pdf
[2024-04-21] MEDS: CEFEPIME INJ 1 GM in SODIUM CHLORIDE 0.9% (P) 50 ML IV (17:10)
[2024-04-21] MEDS: carVEDILOL 3.125 MG TABLET 6.25 MG PO (18:17)
[2024-04-21] MEDS: SENNA TABLET 1 TAB PO (18:17)
[2024-04-21] MEDS: INSULIN LISPRO (AdmeLOG) 1 UNIT/0.01 ML UNIT SC (18:17)
[2024-04-21] MEDS: FAMOTIDINE 20 MG TABLET PO (18:18)
[2024-04-21] MEDS: BUMETANIDE 0.5 MG TABLET 2 MG PO (20:38)
[2024-04-21] MEDS: allopurinoL 100 MG TABLET PO (20:39)
[2024-04-21] MEDS: PREGABALIN 75 MG CAPSULE 150 MG PO (20:39)
[2024-04-21] MEDS: MONTELUKAST SODIUM 10 MG TABLET PO (20:39)
[2024-04-21] MEDS: tiZANidine HCL 2 MG TABLET PO (20:39)
[2024-04-21] MEDS: APIXABAN 2.5 MG TABLET 5 MG PO (20:39)
[2024-04-21] MEDS: ATORVASTATIN CALCIUM 20 MG TABLET 40 MG PO (20:39)
[2024-04-21] MEDS: INSULIN GLARGINE (Lantus) 5 UNIT/0.05 ML (PER 5 UNITS) 15 UNIT SC (20:42)
[2024-04-22] VITALS (11 sets, daily range): BP systolic 110–137; BP diastolic 62–80; PULSE 63–90; RESP 17–96; TEMP 35.9–36.4; O2SAT 94–98
[2024-04-22] MEDS: HYDROcodone/APAP 5/325 TABLET 1 TAB PO (01:51)
[2024-04-22 06:28] LABS: Basophils # (Auto) 0.1 Thou/mm3 (0.0-0.2); Basophils % (Auto) 0 % (0-2.5); Eosinophils # (Auto) 0.2 Thou/mm3 (0.0-0.5); Eosinophils % (Auto) 2 % (0-10); Hematocrit 36.1 % (41.0-53.0); Immature Granulocytes % (Auto) 1 % (0-0); Immature Granulocytes Auto 0.09 Thou/mm3 (0.00-0.00); Lymphocytes # (Auto) 3.1 Thou/mm3 (1.0-4.8); Lymphocytes % (Auto) 19 % (10-50); Mean Corpuscular HGB Conc 33.2 g/dl (31.0-37.0); Mean Corpuscular Hemoglobin 28.6 pg (25.0-35.0); Mean Corpuscular Volume 86 fL (80-100); Monocytes # (Auto) 1.8 Thou/mm3 (0.0-0.8); Monocytes % (Auto) 11 % (0-12); Neutrophils # (Auto) 11.2 Thou/mm3 (1.8-7.7); Neutrophils % (Auto) 68 % (37-80); Nucleated Red Blood Cell % 0 /100 WBC (0); Platelet Count 301 Thou/mm3 (140-440); RDW Standard Deviation 56.9 fL (35.1-43.9); White Blood Count 16.4 Thou/mm3 (3.8-10.6)
[2024-04-22 07:03] LABS: Alanine Aminotransferase 10 U/L (10-49); Albumin, Serum 4.1 gm/dL (3.4-4.8); Albumin/Globulin Ratio 1.6 (1.2-2.2); Alkaline Phosphatase 151 U/L (46-116); Anion Gap 4 (7-16); Aspartate Amino Transferase 13 U/L (0-34); BUN/Creatinine Ratio 36 Ratio (12-20); Bilirubin,Total 0.6 mg/dL (0.3-1.2); Blood Urea Nitrogen 69 mg/dL (9-23); Calcium 9.8 mg/dL (8.3-10.6); Calcium (Corrected) 9.8 mg/dL (8.5-10.1); Carbon Dioxide 36.9 mMol/L (20.0-31.0); Chloride 97 mMol/L (98-107); Creatinine (Component) 1.9 mg/dL (0.6-1.3); Estimated Creatinine Clearance 37.2 mL/min (>60); Globulin 2.6 gm/dL (2.3-3.5); Glucose 170 mg/dL (74-106); Osmolality,Calculated 299 (275-295); Phosphorous 4.3 mg/dL (2.4-5.1); Potassium 3.5 mMol/L (3.4-5.1); Sodium 138 mMol/L (136-145); Total Protein 6.7 gm/dL (5.7-8.2); eGFR 38 See Note
[2024-04-22] MEDS: APIXABAN 2.5 MG TABLET 5 MG PO (08:48)
[2024-04-22] MEDS: SENNA TABLET 1 TAB PO (08:48)
[2024-04-22] MEDS: cefTRIAXone/D5w 1gm IV premix 50 ML IV (08:48)
[2024-04-22] MEDS: BUMETANIDE 0.5 MG TABLET 2 MG PO (08:48)
[2024-04-22] MEDS: carVEDILOL 3.125 MG TABLET 6.25 MG PO (08:48)
[2024-04-22] MEDS: FAMOTIDINE 20 MG TABLET PO (08:48)
[2024-04-22] MEDS: INSULIN LISPRO (AdmeLOG) 1 UNIT/0.01 ML UNIT SC ×2 (08:49→12:37)
--- NOTE | 2024-04-22 09:01 | PC.NURSE ---
called pharmacy for zaroxolyn
--- NOTE | 2024-04-22 11:04 | ESDS_ITS ---
<Statement entered by Justyna Coello MD - 04/25/24 16:33> I reviewed above note and agree with findings and plans. I have also personally examined the patient with medicine team and went over assessment and plan with medical team including international student counselor and resident physician. <Statement entered by Jame Elizabeth DO - 04/22/24 14:26> Senior attestation: Patient was examined and case was reviewed with team including attending physician. Note reviewed, I agree with most of its contents and agree with the patient's care. Jame Elizabeth DO PGY-3 Planned Discharge Date 04/22/24 DS: Providers Provider Date of admission: 04/21/24 15:35 Primary care physician: Howard Briceño MD Admitting Provider: Justyna Coelol MD Attending Provider on Admission: Justyna Coello MD Attending Provider on DC: Justyna Coello MD Discharging Provider: Justyna Coello MD DS: Diagnosis Problem List Completed Was Problem List Reviewed/Reconciled?: Yes Hospital Course Hospital Course Hospital course: The patient is a 68-year-old male with past medical history of HLD, T2DM (A1c 8.1%), HTN, HFpEF 55-60%, CAD s/p stent, A-fib on Eliquis, CVA with left sided residual deficits (2022), COPD dependent on 3 L oxygen at home, asthma, gout, and BP who presented to the ED on 04/21/2024 with complaints of generalized weakness that started about 2 days ago. He also endorsed cough and pain in the left side of his chest as well as some abdominal pain. ED, patient was noted to be weak however afebrile and normotensive, saturating 90% on room air. Labs were significant for leukocytosis and creatinine of 2.2 which was improved from discharge 10 days prior. Chest x-ray showed suspicion for early left base pneumonia. UA showed 54 WBCs and esterase plus rare bacteria the patient denied dysuria. He was given 500 mL bolus of NS as well as IV cefepime and admitted for management/observation generalized weakness, possible UTI versus pneumonia. Has continued on IV ceftriaxone and azithromycin and all other medications were continued. Today, the patient is clinically and hemodynamically stable, medically cleared for discharge. He will continue on Augmentin and azithromycin for 4 more days. He is recommended to follow-up with his PCP within 1 week of discharge. #Generalized weakness #?UTI versus CAP #Acute kidney injury #History of HFpEF # History of A-fib #History of type II DM #History of hypertension Case was discussed with senior resident Dr Elizabeth PGY-3 and attending physician, Dr Mode Hayward MD PGY-1 Status at Discharge Overall status at discharge: patient is progressing back to baseline Time Spent with Patient Time attestation: Total time spent providing and/or coordinating discharge services:more than 30minutes Exam Vital Signs Temp Pulse Resp BP Pulse Ox O2 Del Method O2 Flow Rate 96.7 F L 73 20 110/62 97 Nasal Cannula 3.5 04/22/24 08:00 04/22/24 11:02 04/22/24 08:20 04/22/24 08:48 04/22/24 08:20 04/22/24 08:00 04/22/24 08:20 Narrative Exam GENERAL: AAOX3 NEURO: SIGNAL INSPECTOR grossly intact, moves extremities x4 HEENT: Moist mucosa. Eyes open, symmetrical, & clear CARDIO: No chest pain on palpation. Heart RRR, no obvious murmurs PULM: No noted coughing/dyspnea. Lungs CTA B/L GI: Abdomen soft, nondistended, no pain on palpation. BSx4 URO/FAGOT HEATER HELPER:: No further abnormalities noted. SKIN/MSK/EXT: Bilateral pitting edema 1+ Discharge Plan Plan Patient Disposition: HOME (Self Care) Care Plan Goals: Follow up with your PCP within one week of discharge Complete antibiotic course with augmentin twice daily and azithromycin 250mg daily for 4more days Continue all other medications as prescribed Prescriptions/Referrals Prescriptions/Med Rec: New amoxicillin-pot clavulanate 875-125 mg tablet 1 tab PO BID 4 Days Qty: 8 0RF azithromycin 250 mg tablet 250 mg PO QDAY 4 Days Qty: 4 0RF Continued duloxetine 60 mg Capsule, Delayed Rel Sprinkle 60 mg PO QDAY potassium chloride 10 mEq Capsule, Extended Release 10 meq PO QDAY Hold Instructions: hold until follow up with your health care provider atorvastatin 40 mg Tablet 40 mg PO QPM carvedilol 6.25 mg Tablet 6.25 mg PO BID Rx Instructions: must administer with a meal/food tizanidine 2 mg Tablet 2 mg PO HS Patient Comments: Per pt son. Pt does not take this every day. Only as needed amlodipine 5 mg Tablet 5 mg PO QDAY allopurinol 100 mg Tablet 100 mg PO HS pantoprazole 40 mg Tablet,Delayed Release (Dr/Ec) 40 mg PO QDAY pregabalin [Lyrica] 150 mg Capsule 150 mg PO TID Ozempic 2 mg/dose (8 mg/3 mL) pen injector 2 mg SUBCUT QWEEK Patient Comments: INJECT 2 mg SUBCUTANEOUSLY EVERY WEEK Rx Instructions: Every Friday hydrocodone-acetaminophen 10-325 mg tablet 1 tab PO [id number] PRN (Reason: Pain) bumetanide 2 mg tablet 4 mg PO BID Patient Comments: TAKE TWO TABLETS BY MOUTH TWICE DAILY FOR FOURTEEN DAYS famotidine 20 mg tablet 20 mg PO QDAY Patient Comments: TAKE ONE TABLET BY MOUTH EVERY DAY HEARTBURN GASTRIC ACIDITY docusate sodium 250 mg capsule 250 mg PO BID dutasteride 0.5 mg capsule 0.5 mg PO QDAY Patient Comments: TAKE ONE CAPSULE BY MOUTH EVERY DAY Eliquis 5 mg tablet 5 mg PO BID Patient Comments: TAKE ONE TABLET BY MOUTH TWICE DAILY FOR THE HEART magnesium oxide 400 mg magnesium Tablet 800 mg PO BID montelukast 10 mg Tablet 10 mg PO HS Qty: 30 1RF metolazone 2.5 mg tablet See Rx Instructions .ROUTE .COMPLEX Qty: 8 1RF Rx Instructions: 2.5 mg orally twice weekly insulin glargine [Lantus Solostar U-100 Insulin] 100 unit/mL (3 mL) insulin pen 30 unit subcut QPM Qty: 15 2RF Discontinued montelukast 10 mg Tablet 10 mg PO QDAY Referrals: Howard Briceño MD [Primary Care Provider] - Patient/Caregiver Discharge Instructions Discharge Activity: activity as tolerated Other Discharge Activity Instructions:: Follow up with PCP within 1 week of discharge Continue home medications as prescribed Antibiotics prescribed for 4 more days, complete course. Return to ED for any new or worsening symptoms. Education Materials: ED Weakness (Uncertain Cause) Print Language: Lithuanian Stand Alone Forms: Kathlene Award Info., Patient Portal Info Letter, Work/Release Restrictions Discharge Order Discharge Orders: Discharge (Routine); Ordered 04/22/24 Ordered By: Jame Elizabeth Quality Discharge Quality Measures VTE prophylaxis
--- NOTE | 2024-04-22 11:04 | PC.SS ---
SS met with patient and his son, Maddison regarding patient's d/c plan. Pt is alert/oriented. Pt was admitted for Generalized Weakness. Pt confirmed demographic and contact information is correct on facesheet. Pt resides with his son, Maddison. Pt transfers with assistance and shon lift. Son states pt has an electric wheelchair, shon lift, hospital bed, and shower chair. Pt has O2 at home from [facility]. Son, pt has 4 caregivers ([employer]) at home who help care for pt. Pt named his son, Maddison Anthony medical decision maker if he is unable. SS provided verbal options for d/c to home or SNF. Son and patient?s choice is to return home upon d/c. Pt last followed up with PCP in March 2024. D/C plan: Return home Next of Kin: Maddison Anthony, son, phone# [phone] PCP: Dr. Howard Briceño Address: Correct on facesheet
[2024-04-22] MEDS: POLYETHYLENE GLYCOL 17 GM PACKET PO (11:41)
[2024-04-22] MEDS: metOLazone 2.5 MG TABLET PO (11:41)
[2024-04-22] MEDS: AZITHROMYCIN 250 MG TABLET 500 MG PO (11:42)
--- NOTE | 2024-04-22 12:34 | PC.SS ---
SS has setup transportation with Lita from [facility] transport and requested [facility]. Ref# [id number]. has called MJ from [facility]. has sent ambulance form and patient's facesheet to [facility] using [employer]. [facility]. has placed pt on will call list until [facility] has contacted them. SS requested transport time of 4pm. Pt's son, Maddison is aware. Bedside nurse, Melissa is aware.
== END 2024-04-22 16:32 | disposition home or self-care (01) ==
LOC: SERX 11:48 → SERHOLD 16:20 → S3NX 18:01
PROVIDERS: Admitting Provider Internal Medicine; Emergency Provider Emergency Medicine; PCP Family Medicine; Visit Provider Internal Medicine
DX: R53.1 Weakness (principal); N18.9 Chronic kidney disease, unspecified; N17.9 Acute kidney failure, unspecified; M19.90 Unspecified osteoarthritis, unspecified site; M10.9 Gout, unspecified; K21.9 Gastro-esophageal reflux disease without esophagitis; J44.89 Other specified chronic obstructive pulmonary disease; I69.354 Hemiplegia and hemiparesis following cerebral infarction affecting left non-dominant side; I50.32 Chronic diastolic (congestive) heart failure; I48.91 Unspecified atrial fibrillation; I25.2 Old myocardial infarction; I25.10 Atherosclerotic heart disease of native coronary artery without angina pectoris; I13.0 Hypertensive heart and chronic kidney disease with heart failure and stage 1 through stage 4 chronic kidney disease, or unspecified chronic kidney disease; F41.9 Anxiety disorder, unspecified; F17.200 Nicotine dependence, unspecified, uncomplicated; E78.00 Pure hypercholesterolemia, unspecified; E66.9 Obesity, unspecified; E11.51 Type 2 diabetes mellitus with diabetic peripheral angiopathy without gangrene; E11.22 Type 2 diabetes mellitus with diabetic chronic kidney disease
CPT/HCPCS: 36415; 70450; 71045; 72125; 80053; 81001; 83605; 83735; 84100; 84145; 84484; 85025; 87040; 87081; 87086; 87400; 87811; 93005; 96360; 96372; 99285; G0378; J0692; J0696; J1815; J7040; J7050; A9270

== ENCOUNTER → 2024-06-07 | Outpatient (CLI) | payer MEDICARE, MEDICAID, SELFPAY ==
[2024-06-07 15:02] LABS: Basophils # (Auto) 0.1 Thou/mm3 (0.0-0.2); Basophils % (Auto) 1 % (0-2.5); Eosinophils # (Auto) 0.5 Thou/mm3 (0.0-0.5); Eosinophils % (Auto) 3 % (0-10); Hematocrit 34.5 % (41.0-53.0); Hemoglobin 10.7 g/dL (13.5-16.0); Immature Granulocytes % (Auto) 0 % (0-0); Immature Granulocytes Auto 0.04 Thou/mm3 (0.00-0.00); Lymphocytes # (Auto) 2.3 Thou/mm3 (1.0-4.8); Lymphocytes % (Auto) 17 % (10-50); Mean Corpuscular Hemoglobin 28.2 pg (25.0-35.0); Mean Corpuscular Volume 91 fL (80-100); Monocytes # (Auto) 1.3 Thou/mm3 (0.0-0.8); Monocytes % (Auto) 10 % (0-12); Neutrophils # (Auto) 9.1 Thou/mm3 (1.8-7.7); Neutrophils % (Auto) 69 % (37-80); Nucleated Red Blood Cell % 0 /100 WBC (0); Platelet Count 303 Thou/mm3 (140-440); RDW Standard Deviation 60.3 fL (35.1-43.9); White Blood Count 13.2 Thou/mm3 (3.8-10.6)
[2024-06-07 15:13] LABS: Anion Gap 7 (7-16); BUN/Creatinine Ratio 19 Ratio (12-20); Blood Urea Nitrogen 33 mg/dL (9-23); Calcium 9.2 mg/dL (8.3-10.6); Chloride 103 mMol/L (98-107); Creatinine (Component) 1.7 mg/dL (0.6-1.3); Glucose 240 mg/dL (74-106); Magnesium 2.3 mg/dL (1.6-2.6); Osmolality,Calculated 300 (275-295); Potassium 4.4 mMol/L (3.4-5.1); Sodium 143 mMol/L (136-145); eGFR 43 See Note
== END | disposition home or self-care (01) ==
PROVIDERS: PCP Family Medicine; Referring Provider Internal Medicine Cardiovascular Disease; Visit Provider Internal Medicine Cardiovascular Disease
DX: I10 Essential (primary) hypertension (principal); E11.9 Type 2 diabetes mellitus without complications; I50.32 Chronic diastolic (congestive) heart failure
CPT/HCPCS: 36415; 80048; 83735; 85025

== ENCOUNTER 2024-06-28 15:43 | Emergency (ER) | payer MEDICARE, MEDICAID, SELFPAY ==
[2024-06-28 15:53] VITALS: BP 128/70; PULSE 79; RESP 17; TEMP 36.4; O2SAT 95
[2024-06-28 15:54] VITALS: PULSE 70; RESP 68; BMI 45.8
--- NOTE | 2024-06-28 16:12 | PC.NURSE ---
BIBA FROM HOME HE WAS SITTING IN HIS WHEELCHAIR AND LEANED FORWARD AND FELL OUT OF HIS WHEELCHAIR ON HIS RIGHT SIDE. C/O GENERALIZED BACK PAIN AND PAIN TO THE SACRUM. BASELINE GCS 14, CURRENTLY A 14. PATIENT HAS A CONTUSION TO HIS RIGHT FOREHEAD AND ABRASION TO HIS RIGHT UPPER ARM DENIES LOC. PMH INCLUDES: COPD CHF AFIB (ON ELIQUIS) DM, BACK SURGERY.
--- NOTE | 2024-06-28 16:21 | PC.NURSE ---
PATIENT STATES HE TOOK A NORCO THIS MORNING
--- NOTE | 2024-06-28 16:29 | XR_ITS ---
Examination: CT cervical spine without contrast 2-D sagittal reconstructions 2-D coronal reconstructions 3-D reconstructions. Exam date and time:June 28, 2024 at 1720 hours Comparison is April 21, 2024 INDICATIONS: Patient fell today with injury to the neck, generalized neck pain CTDI:vol (mGy) 10.4 DLP: (mGycm) 241 Technique: Multiple 2 mm axial sections of the cervical spine have been obtained. The coronal and sagittal reconstructions have been obtained. 3-D reconstructions have been obtained. Low dose protocols were performed. One or more of the following dose reduction techniques were used; automated exposure control, adjustment of the mA and/or KV according to patient size, use of iterative reconstruction technique. Findings: Axial sections demonstrate intact base of the skull. C1 exhibit satisfactory relationship to the odontoid. No acute cervical vertebral body fracture seen. Alignment posterior spinous processes satisfactory. Advanced degenerative disc disease C3-C4, C5-C6, C6-C7 C5-C6 moderate bilateral neural foraminal stenosis Impression: No acute cervical fracture. Advanced degenerative disc disease, C3-C4, C5-C6, C6-C7
--- NOTE | 2024-06-28 16:29 | XR_ITS ---
Examination: CT brain head without contrast. 2-D sagittal coronal reconstructions Date and time of exam:June 28, 2024 1720 hours INDICATIONS: Patient fell today with into the head, headache dizziness postfall CTDI: vol (mGy):53.8 DLP: (mGycm):1118 Technique: Multiple CT axial sections of the brain have been obtained, 5 mm slice thickness. Contrast has not been administered. 2-D sagittal, coronal reconstructions have been obtained Low dose protocols were performed. One or more of the following dose reduction techniques were used; automated exposure control, adjustment of the mA and/or KV according to patient size, use of iterative reconstruction technique. Findings: No significant ventricular enlargement. Stable encephalomalacia posterior right parietal lobe compared with April 21, 2024 Intra-axial or extra-axial hemorrhage density is not seen. No mass effect or midline shift Basal cisterns are not remarkable. Fourth ventricle is midline. Cranial vault intact. Impression: Negative for acute hemorrhage, mass effect or midline shift
--- NOTE | 2024-06-28 16:29 | XR_ITS ---
Examination: CT pelvis without intravenous contrast. 2-D sagittal and coronal reconstructions. Date and time of exam:June 28, 2024 1734 hours INDICATIONS: Patient fell today with injury to the pelvis, pelvic pain CTDI: vol (mGy) :22.4 DLP: (mGycm) : 823 Technique: Multiple 3 mm axial sections of the pelvis have been obtained with the 64 slice high resolution scanner. 2-D sagittal and coronal reconstructions. Low dose protocols were performed. One or more of the following dose reduction techniques were used; automated exposure control, adjustment of the mA and/or KV according to patient size, use of iterative reconstruction technique. Findings: Prominent osteopenia Sacral segments intact Iliac bones, acetabular regions anterior rami intact No hip fractures or dislocations No pelvic hematoma Urinary bladder intact IMPRESSION: No acute hip or pelvic fracture
--- NOTE | 2024-06-28 16:31 | XR_ITS ---
Examination: Shoulder,right, 3 views Technique: Shoulder AP internal rotation, AP external rotation, Y view shoulder, 3 views Exam date and time :June 28, 2024 1634 hours INDICATIONS: Patient fell today with injury of the shoulder, shoulder pain FINDINGS: No shoulder fracture or dislocation Moderate narrowing glenohumeral joint Prominent osteopenia Minimal calcific tendinitis IMPRESSION: No shoulder fracture or dislocation
--- NOTE | 2024-06-28 16:32 | PD.EDFALL ---
ED Fall Injury RME/HPI General Chief Complaint: Fall Stated Complaint: FALL Time Seen by Provider: 06/28/24 16:23 Arrival date/time: 06/28/24 15:43 68 year old male present to emergency room via EMS with c/o of GLF today. per patient was in wheel chair lean over and fell over. LOCATION: head SEVERITY: Symptoms are described as being severe with limitations on activities of daily living QUALITY: Symptoms are described as being dull or achy CONTEXT: GLF today DURATION/TIMING: The symptoms started approximately 1 day and have been constant this then. ASSOCIATED SYMPTOMS: The patient is unable to identify any other associated symptoms. MODIFYING FACTORS: The patient is unable to identify any alleviating or aggravating symptoms. PERTINENT ROS: No associated syncope or presyncope, on anticoagulant use, no associated focal neurological deficits, denies associated neck pain, no recent fevers, no unexplained rashes, no recent foreign travel, immunized, no unexplained nausea or vomiting. REVIEW OF SYSTEMS: See History of Present Illness - with the exception of those mentioned in the history of present illness, all other systems reviewed and reported as negative GENERAL: In general the patient is awake, interactive, in an emergency department gurney. HEAD/EYES/EARS/NOSE/THROAT: right forehead hematoma noted. mucus membranes are moist, anicteric, palpebral conjunctiva is pink, trachea is midline. CARDIOVASCULAR: regular rate and regular rhythm, no murmurs, heart sounds are not distant, strong pulses in all four extremities that are equal and symmetric bilateral upper and lower extremities, normal capillary refill. CHEST/PULMONARY: normal chest rise and fall, good air movement, clear to auscultation bilaterally, normal inspiratory to expiratory ratios without evidence of respiratory distress. NECK: No midline/Paraspinal tenderness, no step off ROM/Strenght intact No Kernig and bruzinski sign. No trauma ABDOMEN: soft, not tender, no masses appreciated BACK: No ulcer noted but erythema noted. without warm normal range of motion without pain. NEUROLOGICAL: cranio-facial features are symmetric, moves all four extremities equally without obvious limitations or weakness. EXTREMITY: right upper shoulder abrasion/skin tear. ( chronic pain per patient) no tenderness to palpation over the long bones or large joints of the bilateral lower extremities, no joint swelling, no joint erythema, no unilateral leg swelling and no peripheral edema. SKIN: warm, dry, well-perfused, no jaundice, no rash, no telangiectasias or petechia. PSYCH: calm, cooperative, no evidence of psychosis or agitation Related Data Home Medications ?Medication ?Instructions ?Recorded ?Confirmed duloxetine 60 mg capsule,delayed 60 mg PO QDAY 11/25/19 04/08/24 release sprinkle potassium chloride 10 mEq 10 meq PO QDAY 06/19/23 04/08/24 capsule,extended release allopurinol 100 mg tablet 100 mg PO HS 01/23/24 04/13/24 amlodipine 5 mg tablet 5 mg PO QDAY 01/23/24 04/08/24 atorvastatin 40 mg tablet 40 mg PO QPM 01/23/24 04/08/24 carvedilol 6.25 mg tablet 6.25 mg PO BID 01/23/24 04/08/24 pantoprazole 40 mg tablet,delayed 40 mg PO QDAY 01/23/24 04/08/24 release pregabalin 150 mg capsule (Lyrica) 150 mg PO TID 01/23/24 04/08/24 semaglutide 2 mg/dose (8 mg/3 mL) 2 mg subcut QWEEK 01/23/24 04/08/24 subcutaneous pen injector (Ozempic) tizanidine 2 mg tablet 2 mg PO HS 01/23/24 04/08/24 hydrocodone 10 mg-acetaminophen 1 tab PO [id number] PRN Pain 01/31/24 04/08/24 325 mg tablet apixaban 5 mg tablet (Eliquis) 5 mg PO BID 04/08/24 04/08/24 bumetanide 2 mg tablet 4 mg PO BID 04/08/24 04/08/24 docusate sodium 250 mg capsule 250 mg PO BID 04/08/24 04/13/24 dutasteride 0.5 mg capsule 0.5 mg PO QDAY 04/08/24 04/08/24 famotidine 20 mg tablet 20 mg PO QDAY 04/08/24 04/08/24 magnesium oxide 800 mg PO BID 04/08/24 04/08/24 Previous Rx's ?Medication ?Instructions ?Recorded insulin glargine 100 unit/mL (3 30 unit (0.3 mL) subcut QPM #15 mL 04/14/24 mL) subcutaneous pen (Lantus Solostar U-100 Insulin) metolazone 2.5 mg tablet See Rx Instructions .Route 04/14/24 .COMPLEX #8 tabs montelukast 10 mg tablet 10 mg PO HS #30 tabs 04/14/24 Allergies Allergy/AdvReac Type Severity Reaction Status Date / Time baclofen Allergy Severe Confusion Verified 04/07/24 12:22 bee venom protein (honey bee) Allergy Severe Swelling Verified 04/07/24 12:22 of Lip/Tongue/Throat chicken derived Allergy Severe DIFF Verified 04/07/24 12:22 BREATHING ketorolac (From Toradol) Allergy Intermediate Hallucinati Verified 04/07/24 12:22 ng METAL Allergy Severe Rash Uncoded 04/24/23 13:24 Course Course Course Narrative: This presents with head trauma after a mechanical GLF. DDX includes MSK trauma, facial fractures, ICH or traumatic SAH, C-spine injury. Doubt other extracranial causes of injury. Considered nonmechanical causes of fall such as syncope, primary cardiopulmonary etiologies such as ACS/PE, but think these are unlikely. Will get head/face/pelvic CT shoulder xray , pain control, reassess, discharge Quality Measures none Orders Category Date Time Status CT cervical spine wo con Stat Exams 06/28/24 16:[address] head/brain wo con Stat Exams 06/28/24 16:[address] pelvis wo con Stat Exams 06/28/24 16:29 Completed XR shoulder RT min 2V Stat Exams 06/28/24 16:31 Completed oxyCODONE/APAP 5/325 [Percocet 5/325] Med 06/28/24 16:29 Discontinued 1 tab PO X1 ONE Vital Signs Vital signs: Vital Signs Temperature 97.5 F 06/28/24 15:53 Pulse Rate 79 06/28/24 15:53 Respiratory Rate 17 06/28/24 15:53 Blood Pressure 128/70 06/28/24 15:53 Pulse Oximetry (%) 95 06/28/24 15:53 Oxygen Delivery Method Room Air 06/28/24 15:53 Fall Patient data External records reviewed:: [facility] previous records Clinical information provided by:: patient and EMS Social determinants that could affect healthcare access:: none Patient has the following chronic illnesses:: in chart How is presenting disease/condition affected by chronic disease/condition?: uneffected by Evaluation data The following diagnostics were reviewed and interpreted by me:: radiology exam(s) Lab and/or radiology exams considered but not ordered:: none Interpretation Summary: shoulder: No shoulder fracture or dislocation Moderate narrowing glenohumeral joint Prominent osteopenia Minimal calcific tendinitis IMPRESSION: No shoulder fracture or dislocation CT head/Pelvic no acute findings CT Neck: Axial sections demonstrate intact base of the skull. C1 exhibit satisfactory relationship to the odontoid. No acute cervical vertebral body fracture seen. Alignment posterior spinous processes satisfactory. Advanced degenerative disc disease C3-C4, C5-C6, C6-C7 C5-C6 moderate bilateral neural foraminal stenosis Impression: No acute cervical fracture. Advanced degenerative disc disease, C3-C4, C5-C6, C6-C7 Medications / Prescriptions Medications or Prescriptions considered but not ordered:: none Medication administrations:: Medication Administration History Discontinued Medications Oxycodone/Acetaminophen (Oxycodone/Apap 5/325 Tablet) 1 tab PO X1 ONE Stop: 06/28/24 16:30 Last Admin: 06/28/24 16:35 Dose: 1 tab Documented By: as stated above Consultations Consultation(s) initiated? (list below): No Diagnosis Fall Differential Diagnosis: compression fracture, concussion without loss of consciousness and other (head bleed/fracture, hip/pelvic fracture ) Most likely diagnosis given after review of the tests above:: head injury, shoulder abrasion Admission Indicated Admission indicated?: not indicated Admission Request Was there a request for admission?: No Disposition Plan Disposition Plan: Discharge Discharge Attestation Discharge Attestation: The patient and all family members were given an opportunity to ask questions and understood the discharge instructions. Discharge instructions specifically effects, indications for sooner follow up or return to the emergency department, and the expected course of current diagnosis. Patient condition: Stable Discharge Plan Plan Patient Disposition: HOME (Self Care) Health Concerns: Follow with PMD as directed Take tylenol as need Return to ED if sx worsen Prescriptions/Referrals Prescriptions/Med Rec: No Action duloxetine 60 mg Capsule, Delayed Rel Sprinkle 60 mg PO QDAY potassium chloride 10 mEq Capsule, Extended Release 10 meq PO QDAY atorvastatin 40 mg Tablet 40 mg PO QPM carvedilol 6.25 mg Tablet 6.25 mg PO BID Rx Instructions: must administer with a meal/food tizanidine 2 mg Tablet 2 mg PO HS Patient Comments: Per pt son. Pt does not take this every day. Only as needed amlodipine 5 mg Tablet 5 mg PO QDAY allopurinol 100 mg Tablet 100 mg PO HS pantoprazole 40 mg Tablet,Delayed Release (Dr/Ec) 40 mg PO QDAY pregabalin [Lyrica] 150 mg Capsule 150 mg PO TID Ozempic 2 mg/dose (8 mg/3 mL) pen injector 2 mg SUBCUT QWEEK Patient Comments: INJECT 2 mg SUBCUTANEOUSLY EVERY WEEK Rx Instructions: Every Friday hydrocodone-acetaminophen 10-325 mg tablet 1 tab PO [id number] PRN (Reason: Pain) bumetanide 2 mg tablet 4 mg PO BID Patient Comments: TAKE TWO TABLETS BY MOUTH TWICE DAILY FOR FOURTEEN DAYS famotidine 20 mg tablet 20 mg PO QDAY Patient Comments: TAKE ONE TABLET BY MOUTH EVERY DAY HEARTBURN GASTRIC ACIDITY docusate sodium 250 mg capsule 250 mg PO BID dutasteride 0.5 mg capsule 0.5 mg PO QDAY Patient Comments: TAKE ONE CAPSULE BY MOUTH EVERY DAY Eliquis 5 mg tablet 5 mg PO BID Patient Comments: TAKE ONE TABLET BY MOUTH TWICE DAILY FOR THE HEART magnesium oxide 400 mg magnesium Tablet 800 mg PO BID montelukast 10 mg Tablet 10 mg PO HS Qty: 30 1RF metolazone 2.5 mg tablet See Rx Instructions .ROUTE .COMPLEX Qty: 8 1RF Rx Instructions: 2.5 mg orally twice weekly insulin glargine [Lantus Solostar U-100 Insulin] 100 unit/mL (3 mL) insulin pen 30 unit subcut QPM Qty: 15 2RF Problem List Clinical Impression: Head injury, Abrasion of shoulder Patient/Caregiver Discharge Instructions Education Materials: ED Abrasions, ED Head Injury (Adult) Print Language: Latvian Stand Alone Forms: Kathleen Award Info., Patient Portal Info Letter
[2024-06-28] MEDS: oxyCODONE/APAP 5/325 TABLET 1 TAB PO (16:35)
[2024-06-28 18:18] VITALS: BP 125/66; PULSE 73; RESP 18; TEMP 36.4; O2SAT 99
--- NOTE | 2024-06-28 18:39 | PC.NURSE ---
Patient's son states he will call his brother to come pick him up.
[2024-06-28 19:36] VITALS: BP 136/86; PULSE 70; RESP 18; O2SAT 95
== END 2024-06-28 20:08 | disposition home or self-care (01) ==
PROVIDERS: Emergency Provider Emergency Medicine; PCP Family Medicine
DX: S00.83XA Contusion of other part of head, initial encounter (principal); S40.211A Abrasion of right shoulder, initial encounter; W18.30XA Fall on same level, unspecified, initial encounter; R10.2 Pelvic and perineal pain; M54.2 Cervicalgia
CPT/HCPCS: 70450; 72125; 72192; 73030; 99284; A9270

== ENCOUNTER 2024-07-27 13:23 | Emergency (ER) | payer MEDICARE, MEDICAID, SELFPAY ==
[2024-07-27] VITALS (10 sets, daily range): BP systolic 106–152; BP diastolic 64–92; PULSE 81–108; RESP 15–21; TEMP 36.6–37.2; O2SAT 90–100
--- NOTE | 2024-07-27 14:19 | XR_ITS ---
Examination: AP chest single view Technique one AP portable upright chest single view Exam date and time: July 27, 2024 1432 hours Comparison April 21, 2024 INDICATIONS: Shortness of breath today. FINDINGS: Normal heart size Accentuation basilar bronchovascular markings. Mild vascular congestion. No lobar pneumonia IMPRESSION: Mild basilar bronchitis pattern
--- NOTE | 2024-07-27 14:19 | EKG_ITS ---
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
--- NOTE | 2024-07-27 14:26 | PD.EDSOB ---
ED SOB =RME/HPI General Chief Complaint: Weakness Stated Complaint: WEAKNESS Time Seen by Provider: 07/27/24 14:16 Arrival date/time: 07/27/24 13:23 RME / HPI RME / HPI Narrative: Patient is a 68-year-old male with history of Type 2 DM, HTN, CHF, CAD s/p stent, A-fib on Eliquis, CVA with left sided residual deficits (2022), and COPD (dependent on 3 L oxygen at home), who presents to the emergency department with complaint of shortness of breath/feeling like there is water on his lungs onset today. Also complains of generalized weakness. No CP. No abdominal pain. No vomiting. Pt reports that he smokes a pack a day. Related Data Home Medications ?Medication ?Instructions ?Recorded ?Confirmed duloxetine 60 mg capsule,delayed 60 mg PO QDAY 11/25/19 04/08/24 release sprinkle potassium chloride 10 mEq 10 meq PO QDAY 06/19/23 04/08/24 capsule,extended release allopurinol 100 mg tablet 100 mg PO HS 01/23/24 04/13/24 amlodipine 5 mg tablet 5 mg PO QDAY 01/23/24 04/08/24 atorvastatin 40 mg tablet 40 mg PO QPM 01/23/24 04/08/24 carvedilol 6.25 mg tablet 6.25 mg PO BID 01/23/24 04/08/24 pantoprazole 40 mg tablet,delayed 40 mg PO QDAY 01/23/24 04/08/24 release pregabalin 150 mg capsule (Lyrica) 150 mg PO TID 01/23/24 04/08/24 semaglutide 2 mg/dose (8 mg/3 mL) 2 mg subcut QWEEK 01/23/24 04/08/24 subcutaneous pen injector (Ozempic) tizanidine 2 mg tablet 2 mg PO HS 01/23/24 04/08/24 hydrocodone 10 mg-acetaminophen 1 tab PO [id number] PRN Pain 01/31/24 04/08/24 325 mg tablet apixaban 5 mg tablet (Eliquis) 5 mg PO BID 04/08/24 04/08/24 bumetanide 2 mg tablet 4 mg PO BID 04/08/24 04/08/24 docusate sodium 250 mg capsule 250 mg PO BID 04/08/24 04/13/24 dutasteride 0.5 mg capsule 0.5 mg PO QDAY 04/08/24 04/08/24 famotidine 20 mg tablet 20 mg PO QDAY 04/08/24 04/08/24 magnesium oxide 800 mg PO BID 04/08/24 04/08/24 Previous Rx's ?Medication ?Instructions ?Recorded insulin glargine 100 unit/mL (3 30 unit (0.3 mL) subcut QPM #15 mL 04/14/24 mL) subcutaneous pen (Lantus Solostar U-100 Insulin) metolazone 2.5 mg tablet See Rx Instructions .Route 04/14/24 .COMPLEX #8 tabs montelukast 10 mg tablet 10 mg PO HS #30 tabs 04/14/24 Allergies Allergy/AdvReac Type Severity Reaction Status Date / Time baclofen Allergy Severe Confusion Verified 04/07/24 12:22 bee venom protein (honey bee) Allergy Severe Swelling Verified 04/07/24 12:22 of Lip/Tongue/Throat chicken derived Allergy Severe DIFF Verified 04/07/24 12:22 BREATHING ketorolac (From Toradol) Allergy Intermediate Hallucinati Verified 04/07/24 12:22 ng METAL Allergy Severe Rash Uncoded 04/24/23 13:24 Review of Systems Review of Systems Systems Reviewed: All systems reviewed, normal except as documented ED Exam Narrative Physical exam: Constitutional: Lying on the gurney, in no acute distress, age appropriate, non-toxic Eyes: PERRL, conjunctivae w/o pallor, EOMI HENT: normocephalic, atraumatic. Oral mucosa moist Respiratory Effort: no stridor, effort normal, no retractions Breath sounds: Slight expiratory wheezing bilaterally, coarse Rales also heard in the lung bases. Cardiovascular: regular rhythm, S1 and S2 normal, no murmur Abdominal: soft; non-distended, non-tender Musculoskeletal: no deformities, no swelling, no LE edema Skin: warm, dry; No rash Neurology: alert, oriented X 4. 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 Cranial nerves intact. No facial droop. Psychology: cooperative, normal mood Course Quality Measures none Orders Category Date Time Status EKG (ED ONLY) *Do not use* NOW Care 07/27/24 14:20 Completed Consult to Physician Stat Cons 07/27/24 17:57 Ordered EKG (ED Only) Stat Exams 07/27/24 14:19 Draft XR chest 1V portable Stat Exams 07/27/24 14:19 Completed BNP [B-Type Natriuretic Peptide] Stat Lab 07/27/24 14:58 Completed CBC Stat Lab 07/27/24 14:58 Completed CMP [Comprehensive Metabolic Panel] Stat Lab 07/27/24 14:58 Completed Troponin I Stat Lab 07/27/24 14:58 Completed Albuterol/Ipratr Rt Raquel [Duoneb Rt Raquel] Med 07/27/24 14:22 Discontinued 3 ml INH X1 ONE Bumetanide [Bumex] Med 07/27/24 14:19 Discontinued 4 mg PO X1 ONE Vital Signs Vital signs: Vital Signs Temperature 98.0 F 07/27/24 13:44 Pulse Rate 90 07/27/24 13:44 Respiratory Rate 15 07/27/24 13:44 Blood Pressure 122/75 07/27/24 13:44 Pulse Oximetry (%) 100 07/27/24 13:44 Oxygen Delivery Method Nasal Cannula 07/27/24 13:44 Oxygen Flow Rate 4 07/27/24 13:44 Shortness of Breath / Dyspnea MDM Narrative MDM Narrative:: 68-year-old male presents with shortness of breath, states he feels like there is water on his lungs. Differential diagnoses include CHF exacerbation, COPD exacerbation, acute coronary syndrome, pneumonia, viral URI. Plan for labs, EKG, chest x-ray. Will give home dose of Bumex and also DuoNeb. Patient doing well on 2 L nasal cannula, which is his home dose of O2. Of note on the vital signs are recorded, it says patient is on 4 L, but when I examined him in the room, he is on 2 L of O2 and states he is comfortable, and is not having any respiratory distress. EKG without ischemic changes. BNP normal. Chest x ray is reassuring. 1550: Case discussed with Dr. Escudero, who is the resident working with Dr. 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 He will discuss the case with his attending and call me back 1941: Dr. Sherman was kind enough to come to the ED and see the patient. They recommend follow-up in the office. Patient will be discharged with outpatient follow-up. Strict return to ED precautions given. Patient data External records reviewed:: [facility] previous records Clinical information provided by:: patient Social determinants that could affect healthcare access:: none Patient has the following chronic illnesses:: See HPI How is presenting disease/condition affected by chronic disease/condition?: caused by Evaluation data The following diagnostics were reviewed and interpreted by me:: lab results, radiology exam(s) and EKG tracing(s) Lab and/or radiology exams considered but not ordered:: N/A Interpretation Summary: Chest x-ray: Mild vascular congestion. No infiltrate. No pleural effusion. My independent interpretation. EKG: Atrial fibrillation, rate of 91. No ST elevation or depression. No T wave abnormalities. No STEMI. CBC shows no leukocytosis or anemia CMP shows no electrolyte abnormalities, no ALMA. LFTs less than 3x upper limit of normal Normal BNP. Troponin within normal limits. Medications / Prescriptions Medications or Prescriptions considered but not ordered:: N/A Medication administrations:: Medication Administration History Discontinued Medications Albuterol/Ipratropium (Albuterol/Ipratropium (Duoneb) Rt Raquel 3 Ml Nebu) 3 ml INH X1 ONE Stop: 07/27/24 14:23 Last Admin: 07/27/24 14:41 Dose: 3 ml Documented By: OSEI Bumetanide (Bumetanide 0.5 Mg Tablet) 4 mg PO X1 ONE Stop: 07/27/24 14:20 Last Admin: 07/27/24 17:51 Dose: 4 mg Documented By: RD See above Consultations Consultation(s) initiated? (list below): No Diagnosis Shortness of Breath Differential Diagnosis: acute exacerbation of chronic obstructive airways disease, congestive heart failure, community acquired pneumonia, asthma with exacerbation, pulmonary embolism and other (See MDM section) Most likely diagnosis given after review of the tests above:: CHF exacerbation Admission Indicated Admission indicated?: not indicated Admission Request Was there a request for admission?: No Disposition Plan Disposition Plan: Discharge Discharge Attestation Discharge Attestation: The patient and all family members were given an opportunity to ask questions and understood the discharge instructions. Discharge instructions specifically effects, indications for sooner follow up or return to the emergency department, and the expected course of current diagnosis. Patient condition: Stable Discharge Plan Plan Patient Disposition: HOME (Self Care) Prescriptions/Referrals Prescriptions/Med Rec: No Action duloxetine 60 mg Capsule, Delayed Rel Sprinkle 60 mg PO QDAY potassium chloride 10 mEq Capsule, Extended Release 10 meq PO QDAY atorvastatin 40 mg Tablet 40 mg PO QPM carvedilol 6.25 mg Tablet 6.25 mg PO BID Rx Instructions: must administer with a meal/food tizanidine 2 mg Tablet 2 mg PO HS Patient Comments: Per pt son. Pt does not take this every day. Only as needed amlodipine 5 mg Tablet 5 mg PO QDAY allopurinol 100 mg Tablet 100 mg PO HS pantoprazole 40 mg Tablet,Delayed Release (Dr/Ec) 40 mg PO QDAY pregabalin [Lyrica] 150 mg Capsule 150 mg PO TID Ozempic 2 mg/dose (8 mg/3 mL) pen injector 2 mg SUBCUT QWEEK Patient Comments: INJECT 2 mg SUBCUTANEOUSLY EVERY WEEK Rx Instructions: Every Friday hydrocodone-acetaminophen 10-325 mg tablet 1 tab PO [id number] PRN (Reason: Pain) bumetanide 2 mg tablet 4 mg PO BID Patient Comments: TAKE TWO TABLETS BY MOUTH TWICE DAILY FOR FOURTEEN DAYS famotidine 20 mg tablet 20 mg PO QDAY Patient Comments: TAKE ONE TABLET BY MOUTH EVERY DAY HEARTBURN GASTRIC ACIDITY docusate sodium 250 mg capsule 250 mg PO BID dutasteride 0.5 mg capsule 0.5 mg PO QDAY Patient Comments: TAKE ONE CAPSULE BY MOUTH EVERY DAY Eliquis 5 mg tablet 5 mg PO BID Patient Comments: TAKE ONE TABLET BY MOUTH TWICE DAILY FOR THE HEART magnesium oxide 400 mg magnesium Tablet 800 mg PO BID montelukast 10 mg Tablet 10 mg PO HS Qty: 30 1RF metolazone 2.5 mg tablet See Rx Instructions .ROUTE .COMPLEX Qty: 8 1RF Rx Instructions: 2.5 mg orally twice weekly insulin glargine [Lantus Solostar U-100 Insulin] 100 unit/mL (3 mL) insulin pen 30 unit subcut QPM Qty: 15 2RF Referrals: No Primary/Family,Physician [Primary Care Provider] - In 1 week Problem List Clinical Impression: CHF exacerbation Patient/Caregiver Discharge Instructions Education Materials: Heart Failure Additional Instructions: Follow up with Dr. Sherman this week. Return to the ED for new or worsening symptoms. Print Language: Korean Stand Alone Forms: Kathleen Award Info., Patient Portal Info Letter
[2024-07-27] MEDS: ALBUTEROL/IPRATROPIUM (Duoneb) RT SOL 3 ML NEBU INH (14:41)
[2024-07-27 15:18] LABS: Basophils # (Auto) 0.1 Thou/mm3 (0.0-0.2); Basophils % (Auto) 0 % (0-2.5); Eosinophils # (Auto) 0.3 Thou/mm3 (0.0-0.5); Eosinophils % (Auto) 2 % (0-10); Hematocrit 39.1 % (41.0-53.0); Hemoglobin 12.3 g/dL (13.5-16.0); Immature Granulocytes % (Auto) 1 % (0-0); Immature Granulocytes Auto 0.08 Thou/mm3 (0.00-0.00); Lymphocytes % (Auto) 17 % (10-50); Mean Corpuscular HGB Conc 31.5 g/dl (31.0-37.0); Mean Corpuscular Hemoglobin 28.4 pg (25.0-35.0); Mean Corpuscular Volume 90 fL (80-100); Monocytes # (Auto) 1.9 Thou/mm3 (0.0-0.8); Monocytes % (Auto) 11 % (0-12); Neutrophils # (Auto) 12.1 Thou/mm3 (1.8-7.7); Neutrophils % (Auto) 69 % (37-80); Nucleated Red Blood Cell % 0 /100 WBC (0); Platelet Count 296 Thou/mm3 (140-440); Red Blood Count 4.33 Miln/mm3 (4.50-5.90); White Blood Count 17.4 Thou/mm3 (3.8-10.6)
[2024-07-27 15:41] LABS: Alanine Aminotransferase 13 U/L (10-49); Albumin, Serum 4.1 gm/dL (3.4-4.8); Albumin/Globulin Ratio 1.6 (1.2-2.2); Alkaline Phosphatase 200 U/L (46-116); Anion Gap 8 (7-16); Aspartate Amino Transferase 16 U/L (0-34); BUN/Creatinine Ratio 30 Ratio (12-20); Bilirubin,Total 0.3 mg/dL (0.3-1.2); Blood Urea Nitrogen 62 mg/dL (9-23); Calcium 9.6 mg/dL (8.3-10.6); Calcium (Corrected) 9.6 mg/dL (8.5-10.1); Carbon Dioxide 34.5 mMol/L (20.0-31.0); Chloride 98 mMol/L (98-107); Creatinine (Component) 2.1 mg/dL (0.6-1.3); Globulin 2.6 gm/dL (2.3-3.5); Glucose 298 mg/dL (74-106); Osmolality,Calculated 308 (275-295); Potassium 4.2 mMol/L (3.4-5.1); Sodium 140 mMol/L (136-145); Total Protein 6.7 gm/dL (5.7-8.2); Troponin I < 0.020 ng/mL (0.0-0.045); eGFR 34 See Note
[2024-07-27 15:42] LABS: B-Type Natriuretic Peptide 61 pg/mL (0-100)
[2024-07-27] MEDS: BUMETANIDE 0.5 MG TABLET 4 MG PO (17:51)
--- NOTE | 2024-07-27 18:18 | PD.RESCONSUL ---
HPI Data of Consult Patient: known to practice within the last 3 years Consult date: 07/27/24 Requesting Physician: Isrrael Whitaker PA-C Attending Provider: Rogerio Sherman MD Primary Care Provider: Physician No Primary/Family Consult Narrative Reason for consult: CHF History of present illness: Mr. Anthony is a 68-year-old male with past medical history of hyperlipidemia, diabetes mellitus type 2, hypertension, heart failure with preserved ejection fraction, EF 50 to 55%, coronary artery disease status post stent, atrial fibrillation on Eliquis, CVA with left hemiparesis (2022), COPD dependent on supplemental oxygen 3 L at home, gout and benign prostate hyperplasia who presented to [facility] emergency department on 07/27/2024 with a chief complaint of having too much fluid. Patient reported that he was at home when he kept dropping objects, did not feel like himself complaint of generalized weakness, patient's family told him he has too much fluid buildup and decided to call EMS to bring the patient to ER for further evaluation. Patient does have bilateral lower extremity edema, has heart failure with preserved ejection fraction was managed outpatient is on Bumex 2 mg twice daily. Patient denies any shortness of breath, chest pain, palpitation, PND, dizziness, syncope or headache currently, patient is alert oriented x 3, reports he feels great, denies any nausea vomiting abdominal pain. Patient is still an active smoker currently. Patient is managed outpatient by pediatric assistant Dr. Sherman was seen recently in clinic, reports compliance with medication, family assists with medication administration uses a pillbox. ED Course: ED Vitals: On presentation in ED blood pressure 122/75, pulse 90, respiratory rate 15, temp 98.0, O2 sat 100 on 4 L nasal cannula ED Labs: Emergency department labs significant for WBC 17.4, RBC 4.33, hemoglobin 12.3, hematocrit 39.1, left shift with neutrophil count elevation noted, sodium 140, venous CO2 34.5, BUN 62, creatinine 2.1, GFR 34, glucose 298, osmolality 308, alk phos 200, albumin 4.1, globulin 2.6, BNP negative, troponin negative AST ALT normal ED Imaging:Chest x-ray in emergency department shows mild bibasilar bronchitis pattern and mild vascular congestion. EKG in ED shows atrial fibrillation rate 91 ED Treatment: Patient was given breathing treatment with DuoNebs and Bumex 4 mg p.o. x 1 in the emergency department ED Course: Cardiology consulted in ED to evaluate patient for CHF, concern of CHF exacerbation possibly. cc:: cc: Review of Systems Review of Systems Narrative Review of Systems: ROS: -CONSTITUTIONAL: Denies weight loss, fever and chills. Positive for generalized weakness. -HEENT: Denies changes in vision and hearing. -RESPIRATORY: Denies SOB and cough. -CV: Denies palpitations and Chest Pain. Positive for bilateral lower extremity edema. -GI: Denies abdominal pain, nausea, vomiting,constipation and diarrhea. -: Denies dysuria and urinary frequency. -MSK: Denies myalgia and joint pain. -SKIN: Denies rash and pruritus. -NEUROLOGICAL: Denies headache and syncope. -PSYCHIATRIC: Denies recent changes in mood. Denies anxiety and depression. Past Medical History Past Medical History Comments PMH COMMENT: PSHx: stents, Joint Replacement and Arthroscopy, cholecystectomy Social Hx: Smoker since age 6, about a 1 pack a day, denies any illicit drug abuse or alcohol abuse. Allergies: Baclofen, BB nonprotein, ketorolac. Exam Vital Signs Temp Pulse Resp BP Pulse Ox O2 Del Method O2 Flow Rate 98.1 F 81 20 108/78 98 Nasal Cannula 2 07/27/24 18:04 07/27/24 18:04 07/27/24 18:04 07/27/24 18:04 07/27/24 18:04 07/27/24 18:04 07/27/24 18:04 Narrative Exam Physical Exam General: Awake and in no acute distress. Conversational and non-toxic appearing. HEENT: Normocephalic, atraumatic, mucous membranes moist. Heart: Irregular rhythm atrial fibrillation, rate controlled, no murmurs. Lungs: Positive for wheezing bilaterally Abdomen: Soft, nondistended, nontender, positive bowel sounds. ?No guarding or rebound tenderness. Neurologic: Alert and oriented x3, no gross neurological deficit, and patient able to move all 4 extremities. Extremities: 1+ bilateral lower extremity edema, edema noted on dependent parts Skin: No rash or ecchymoses. Results Labs 07/27/24 14:58 07/27/24 14:58 Labs: Short CBC 07/27/24 Range/Units 14:58 WBC 17.4 H (3.8-10.6) Thou/mm3 Hgb 12.3 L (13.5-16.0) g/dL Hct 39.1 L (41.0-53.0) % Plt Count 296 (140-440) Thou/mm3 BMP 07/27/24 14:58 Sodium 140 Potassium 4.2 Chloride 98 Carbon Dioxide 34.5 H BUN 62 H Creatinine 2.1 H Glucose 298 H Calcium 9.6 Cardiac Enzymes 07/27/24 Range/Units 14:58 Troponin I < 0.020 (0.0-0.045) ng/mL Liver Function 07/27/24 Range/Units 14:58 Total Bilirubin 0.3 (0.3-1.2) mg/dL AST 16 (0-34) U/L ALT 13 (10-49) U/L Alkaline Phosphatase 200 H (46-116) U/L Albumin 4.1 (3.4-4.8) gm/dL Quality Measures Quality Measures none Advance care planning discussed with:: patient Medications Home Medications and Allergies Home Medications ?Medication ?Instructions ?Recorded ?Confirmed ?Type duloxetine 60 mg capsule,delayed 60 mg PO QDAY 11/25/19 04/08/24 History release sprinkle potassium chloride 10 mEq 10 meq PO QDAY 06/19/23 04/08/24 History capsule,extended release allopurinol 100 mg tablet 100 mg PO HS 01/23/24 04/13/24 History amlodipine 5 mg tablet 5 mg PO QDAY 01/23/24 04/08/24 History atorvastatin 40 mg tablet 40 mg PO QPM 01/23/24 04/08/24 History carvedilol 6.25 mg tablet 6.25 mg PO BID 01/23/24 04/08/24 History pantoprazole 40 mg tablet,delayed 40 mg PO QDAY 01/23/24 04/08/24 History release pregabalin 150 mg capsule (Lyrica) 150 mg PO TID 01/23/24 04/08/24 History semaglutide 2 mg/dose (8 mg/3 mL) 2 mg subcut QWEEK 01/23/24 04/08/24 History subcutaneous pen injector (Ozempic) tizanidine 2 mg tablet 2 mg PO HS 01/23/24 04/08/24 History hydrocodone 10 mg-acetaminophen 1 tab PO [id number] PRN Pain 01/31/24 04/08/24 History 325 mg tablet apixaban 5 mg tablet (Eliquis) 5 mg PO BID 04/08/24 04/08/24 History bumetanide 2 mg tablet 4 mg PO BID 04/08/24 04/08/24 History docusate sodium 250 mg capsule 250 mg PO BID 04/08/24 04/13/24 History dutasteride 0.5 mg capsule 0.5 mg PO QDAY 04/08/24 04/08/24 History famotidine 20 mg tablet 20 mg PO QDAY 04/08/24 04/08/24 History magnesium oxide 800 mg PO BID 04/08/24 04/08/24 History Allergies Allergy/AdvReac Type Severity Reaction Status Date / Time baclofen Allergy Severe Confusion Verified 04/07/24 12:22 bee venom protein (honey bee) Allergy Severe Swelling Verified 04/07/24 12:22 of Lip/Tongue/Throat chicken derived Allergy Severe DIFF Verified 04/07/24 12:22 BREATHING ketorolac (From Toradol) Allergy Intermediate Hallucinati Verified 04/07/24 12:22 ng METAL Allergy Severe Rash Uncoded 04/24/23 13:24 Visit Medications Discontinued Medications Albuterol/Ipratropium (Albuterol/Ipratropium (Duoneb) Rt Raquel 3 Ml Nebu) 3 ml INH X1 ONE Stop: 07/27/24 14:23 Last Admin: 07/27/24 14:41 Dose: 3 ml Bumetanide (Bumetanide 0.5 Mg Tablet) 4 mg PO X1 ONE Stop: 07/27/24 14:20 Last Admin: 07/27/24 17:51 Dose: 4 mg Assessment & Plan Plan Assessment and plan: Summary: Mr. Anthony is a 68-year-old male with past medical history of hyperlipidemia, diabetes mellitus type 2, hypertension, heart failure with preserved ejection fraction, EF 50 to 55%, coronary artery disease status post stent, atrial fibrillation on Eliquis, CVA with left hemiparesis (2022), COPD dependent on supplemental oxygen 3 L at home, gout and benign prostate hyperplasia who presented to [facility] emergency department on 07/27/2024 with a chief complaint of having too much fluid. Emergency department physician consulted cardiology due to concern of CHF exacerbation, patient is well-known to practice as patient follows outpatient with cardiology service. #Heart failure with preserved ejection fraction EF 50 to 55% #Right heart failure, RV dilation #Mild mitral annulus calcification #Mild protruding plaque in aortic arch #Moderate mitral regurgitation and mild to moderate tricuspid regurgitation Patient assessed at bedside for fluid overload, though patient does have bilateral lower extremity edema 1+ and significant edema on dependent parts, BNP 61, per review of chart patient's BNP during exacerbation is at least more than 100, has been 553 in the past during severe exacerbation, otherwise chest x-ray shows mild vascular congestion and currently on baseline oxygen, no signs of significant fluid overload, patient does have CKD stage III, creatinine 2.1 around patient's baseline of 1.7-2.0, hence patient less likely has an ALMA. Patient currently does not seem to be in acute decompensated heart failure hence patient can be managed outpatient with close follow-up with cardiology. Patient was prescribed Bumex 2 mg twice daily, also was prescribed metolazone in the past for diuresis, currently reports medication compliance. Patient was given Bumex 4 mg p.o. x 1 in ED Transthoracic echocardiogram completed on 04/07/2024 findings include: Suboptimal images due to body habitas. Normal LV size and function.diastolic function present but cannot grade due to AFib. Estimated EF 50-55% Normal RV size and function. Mild MAC. Trace TR. On previous admission transesophageal echocardiogram completed on 07/08/2023 findings include: Negative bubble study, no evidence of PFO or ASD or LA/CHRISTIE thrombus. Normal LV size and function. Estimated EF 55-60% RV mildly dilated and mildly dialted LA. Moderate MR. Mild to moderate TR. There is mild protruding plaque seen in the aortic arch. Pulomary flow is systolic blunting. Recommendations: -Discharge patient on current medication and follow-up closely outpatient with cardiology -Recommend outpatient appointment in 1 week. -Patient seen and counseled at bedside to follow-up outpatient -Continue p.o. Bumex 2 mg twice daily #COPD #Supplemental oxygen dependence #Nicotine dependence Patient has history of COPD, is current smoker, has history of more than 60 pack years. Smokes 1 pack/day currently, on supplemental oxygen 3 L at home. Currently saturating well at 98% on 2 L supplemental oxygen, no accessory muscle use noted, bilateral wheezing appreciated on physical exam Encouraged patient to quit smoking, smoking cessation education, was given DuoNeb breathing treatment x 1 in ED Continue outpatient follow-up, management as per ED physician #Atrial fibrillation by history [id number] score 7 points, 11.2% risk of stroke per year and 15.7% risk of stroke/TIA/systemic embolism Has bled score for major bleeding risk 3 points, 5.8% risk EKG in ED shows atrial fibrillation, rate 91 Patient on Coreg 6.25 mg twice daily and Eliquis 5 mg twice daily, continue current medication #Diabetes mellitus, type II Patient's last hemoglobin A1c from 04/08/2024 is 9.9 per review of medical reconciliation patient was prescribed insulin by primary care physician Continue outpatient follow-up with PCP, counseled at bedside to maintain adequate glycemic control #Hypertension #Hyperlipidemia Patient is on amlodipine 5 mg daily, Coreg 6.25 mg daily and Bumex 2 mg twice daily, blood pressure within normal limits in ED, continue current medications #Coronary artery disease status post stent placement Patient has history of stent placement, had DEMARIO placed per chart review, patient is currently not on any aspirin or Plavix due to history of GI bleed in January 2024 #CVA with left sided deficits, by history Patient reports history of CVA in 2022 with left-sided deficits #GI bleed, by history January 2024 Hemoglobin currently stable at 12.3, does have CKD stage III, continue to monitor #CKD stage III On presentation today BUN 62, creatinine 2.1, GFR 34, baseline creatinine in the range of 1.7-2.1 per chart review. #Gout #Benign prostate hyperplasia #GERD #Chronic back pain Patient on allopurinol 100 mg at bedtime, famotidine 20 mg daily, [place] as needed for pain and dutasteride 0.5 mg daily, continue, follow-up with PCP Case discussed with Attending Dr. Sherman. Martinez Escudero PGY1 Disclaimer: This note was dictated by speech recognition. Minor errors in solid waste collector may be present due to voice recognition software. Attending Provider Attestation/Addendum I have personally seen and examined the patient separately on the above date of service and discussed the plan of care with the resident. I reviewed the resident Dr. Martinez Escudero consultation note and agree with the resident findings and plan in the note above and have also edited the documentation to reflect my findings and plan. Rogerio Sherman M.D. Interventional Cardiology
--- NOTE | 2024-07-27 19:55 | PC.NURSE ---
pt attempted to use urinal. did a complete linen change, wipe down, brief change and reposition.
--- NOTE | 2024-07-27 21:20 | PC.NURSE ---
Awake, resting quietly without distress noted. Awaiting for transport.
== END 2024-07-27 22:10 | disposition home or self-care (01) ==
PROVIDERS: Physician Assistant; Emergency Provider Emergency Medicine
DX: I11.0 Hypertensive heart disease with heart failure (principal); I50.30 Unspecified diastolic (congestive) heart failure; I48.91 Unspecified atrial fibrillation; I45.10 Unspecified right bundle-branch block; R09.89 Other specified symptoms and signs involving the circulatory and respiratory systems; F17.210 Nicotine dependence, cigarettes, uncomplicated; I25.10 Atherosclerotic heart disease of native coronary artery without angina pectoris; Z95.5 Presence of coronary angioplasty implant and graft; Z79.01 Long term (current) use of anticoagulants
CPT/HCPCS: 36415; 71045; 80053; 83880; 84484; 85025; 93005; 94640; 99283; A9270

== ENCOUNTER 2024-08-04 13:06 | Emergency (ER) | payer MEDICARE, MEDICAID, SELFPAY ==
[2024-08-04] VITALS (7 sets, daily range): BP systolic 114–125; BP diastolic 62–95; PULSE 68–112; RESP 16–20; TEMP 36.3–36.6; O2SAT 89–99; BMI 56.1
--- NOTE | 2024-08-04 14:09 | PD.EDWEAK ---
ED Weakness RME/HPI General Chief complaint: [facility] Complain Stated complaint: WEAKNESS Time Seen by Provider: 08/04/24 14:09 Arrival date/time: 08/04/24 13:06 RME / HPI RME / HPI Narrative: DR. MOSQUERA MAIN ED EVALUATION: 68 year old male with past medical history significant for hyperlipidemia, diabetes mellitus type 2, hypertension, heart failure with preserved ejection fraction, EF 50 to 55%, coronary artery disease status post stent, atrial fibrillation on Eliquis, CVA with left hemiparesis (2022), COPD dependent on supplemental oxygen 3 L at home, gout and benign prostate hyperplasia presents to the Emergency Department [facility] with complaint of generalized weakness. [id number] was concerned about him being tired, weak, and not resting. Per EMS, the family also reported high blood glucose at home. Patient himself has no symptoms and denies any pain. 1551: [id number] arrived and provided more history. Patient has been out of it since last night, not wanting to wake up like sleepy and generally really weak. Blood glucose at home is 456. Last week here and told him he was retaining water; similar to today's symptoms but worse. Patient has decreased appetite and not drinking water, just 2 sips which is not normal for him. Patient is also constipated but that is chronic due to [place] use for chronic back pain; last bowel movement was yesterday. Related Data Home Medications ?Medication ?Instructions ?Recorded ?Confirmed duloxetine 60 mg capsule,delayed 60 mg PO QDAY 11/25/19 04/08/24 release sprinkle potassium chloride 10 mEq 10 meq PO QDAY 06/19/23 04/08/24 capsule,extended release allopurinol 100 mg tablet 100 mg PO HS 01/23/24 04/13/24 amlodipine 5 mg tablet 5 mg PO QDAY 01/23/24 04/08/24 atorvastatin 40 mg tablet 40 mg PO QPM 01/23/24 04/08/24 carvedilol 6.25 mg tablet 6.25 mg PO BID 01/23/24 04/08/24 pantoprazole 40 mg tablet,delayed 40 mg PO QDAY 01/23/24 04/08/24 release pregabalin 150 mg capsule (Lyrica) 150 mg PO TID 01/23/24 04/08/24 semaglutide 2 mg/dose (8 mg/3 mL) 2 mg subcut QWEEK 01/23/24 04/08/24 subcutaneous pen injector (Ozempic) tizanidine 2 mg tablet 2 mg PO HS 01/23/24 04/08/24 hydrocodone 10 mg-acetaminophen 1 tab PO [id number] PRN Pain 01/31/24 04/08/24 325 mg tablet apixaban 5 mg tablet (Eliquis) 5 mg PO BID 04/08/24 04/08/24 bumetanide 2 mg tablet 4 mg PO BID 04/08/24 04/08/24 docusate sodium 250 mg capsule 250 mg PO BID 04/08/24 04/13/24 dutasteride 0.5 mg capsule 0.5 mg PO QDAY 04/08/24 04/08/24 famotidine 20 mg tablet 20 mg PO QDAY 04/08/24 04/08/24 magnesium oxide 800 mg PO BID 04/08/24 04/08/24 Previous Rx's ?Medication ?Instructions ?Recorded insulin glargine 100 unit/mL (3 30 unit (0.3 mL) subcut QPM #15 mL 04/14/24 mL) subcutaneous pen (Lantus Solostar U-100 Insulin) metolazone 2.5 mg tablet See Rx Instructions .Route 04/14/24 .COMPLEX #8 tabs montelukast 10 mg tablet 10 mg PO HS #30 tabs 04/14/24 Allergies Allergy/AdvReac Type Severity Reaction Status Date / Time baclofen Allergy Severe Confusion Verified 04/07/24 12:22 bee venom protein (honey bee) Allergy Severe Swelling Verified 04/07/24 12:22 of Lip/Tongue/Throat chicken derived Allergy Severe DIFF Verified 04/07/24 12:22 BREATHING ketorolac (From Toradol) Allergy Intermediate Hallucinati Verified 04/07/24 12:22 ng METAL Allergy Severe Rash Uncoded 04/24/23 13:24 Review of Systems Review of Systems Systems Reviewed: All systems reviewed, normal except as documented Narrative Review of Systems: GEN: No fever, no chills, + decreased appetite (including fluid intake see HPI) EYES: No discharge, no visual changes, no pain HEENT: No ear pain, no congestion, no sore throat PULM: No shortness of breath, no cough, no congestion CV: No chest pain, no dyspnea on exertion, no palpitations GI: No nausea, no vomiting, no diarrhea, no pain, + chronic constipation : No frequency, no urgency and no dysuria MUSC/SKEL: No joint pain, no back pain SKIN: No rash PSYCH: No hallucinations, no depression HEME/LYMPH: No easy bleeding or bruising tendencies NEURO: + generalized weakness (see HPI), no headache Past Medical History Past Medical History NEUROLOGIC: Positive Neurological Disorders, Cerebrovascular Accident and Peripheral Neuropathy; Negative Seizures CARDIAC: Positive Cardiac Disorders, Myocardial Infarction, Atrial Fibrillation, Coronary Artery Disease, Peripheral Vascular Disease, Hypercholesterolemia, Congestive Heart Failure, Congenital Heart Disease, Edema, Cellulitis and Hypertension RESPIRATORY: Positive Chronic Obstructive Pulmonary Disease (COPD), Asthma, Pneumonia, Smoking and Tobacco Use GASTROINTESTINAL: Positive Gastrointestinal Disorders, Gastrointestinal Bleed, Gastroesophageal Reflux Disease and Obesity GENITOURINARY: Positive Genitourinary Disorders and Benign Prostatic Hyperplasia; Negative Renal Disease MUSCULOSKELETAL: Positive Musculoskeletal Disorders, Arthritis, Gout and Fractures ENDOCRINE: Positive Endocrine Disorders and Diabetes Mellitus Type 2; Negative Diabetes Mellitus Type 1 HEMATOLOGIC: Positive Blood Disorders and Anemia; Negative Sickle Cell Disease PSYCHO/SOCIAL: Positive Anxiety OTHER HISTORY: Positive Hospitalization, Falls and MRSA; Negative Autoimmune Disease, Down Syndrome, Developmental Delay, Blood Transfusions, Blood Transfusion Reaction, Anesthesia Reactions, Clostridium Difficile or Cancer Family History FAMILY HISTORY: Positive Family Respiratory Disorders, Family Cardiac Disorders and Family Cancer Surgical History SURGICAL: Positive Cardiac Surgery, Coronary Stent, Cardiac Catheterization, Angiogram, Joint Replacement and Arthroscopy; Negative Ear Surgery, Abdominal Surgery, Nephrectomy, Neurologic Surgery, Mastectomy or Vasectomy Social History SMOKING STATUS: Current every day smoker SECOND HAND EXPOSURE: No SUBSTANCE USE: does not use ALCOHOL: Never ED Exam Narrative Physical exam: GENERAL APPEARANCE: alert and oriented x 4, well-developed, well-nourished, no acute distress VITALS: All vitals were reviewed and the pulse ox is 95% on 2 L/min via a nasal cannula. HEENT: Normocephalic, atraumatic; pupils equal, round, reactive to light; EOMI; mucous membranes pink, moist; oropharynx clear NECK: Supple LUNGS: CTABL; no wheezes, no rales, no rhonchi HEART: Regular rate, regular rhythm; normal S1, S2; no murmurs ABDOMEN: non distended; normal BS; soft, no tenderness, no guarding, no rebound; no masses, no organomegaly, no hernia BACK: no CVA tenderness EXTREMITIES: atraumatic; there is 3+ pitting edema bilaterally NEUROLOGIC: awake; alert and oriented x4; cranial nerves II-XII grossly intact; no focal sensory or motor deficits PSYCHIATRIC: appropriate mood and affect SKIN: warm, dry, normal color; no rashes Course Quality Measures none Orders Category Date Time Status Bedside COVID-19 Antigen Test NOW Care 08/04/24 14:10 Completed Bedside Influenza A&B Antigen Test NOW Care 08/04/24 14:10 Completed Wash Worker NOW Care 08/04/24 14:10 Completed Consult [place] X1 Care 08/05/24 02:34 Completed EKG (ED ONLY) *Do not use* NOW Care 08/04/24 14:10 Completed In and Out Catheter X1 Care 08/04/24 17:[address] abdomen pelvis wo con Stat Exams 08/04/24 15:[address] head/brain wo con Stat Exams 08/04/24 15:56 Completed EKG (ED Only) Stat Exams 08/04/24 14:10 Draft XR chest 1V portable Stat Exams 08/04/24 14:10 Completed ABG [Arterial Blood Gas] Stat Lab 08/04/24 16:19 Completed Alcohol, Blood Medical Stat Lab 08/04/24 14:44 Completed B-Type Natriuretic Peptide Stat Lab 08/04/24 14:44 Completed CBC Stat Lab 08/04/24 14:44 Completed Comprehensive Metabolic Panel Stat Lab 08/04/24 14:44 Completed Drug Screen,Urine Stat Lab 08/04/24 17:24 Completed Lipase Stat Lab 08/04/24 14:44 Completed Magnesium Stat Lab 08/04/24 14:44 Completed Partial Thromboplastin Time Stat Lab 08/04/24 14:44 Completed Prothrombin Time with INR Stat Lab 08/04/24 14:44 Completed Troponin I Stat Lab 08/04/24 14:44 Completed UA, C/S IF [Urinalysis, C/S if Indicated] Stat Lab 08/04/24 17:33 Completed HYDROcodone/APAP 10/325 [[place] 10/325] Med 08/04/24 22:19 Discontinued 1 tab PO X1 ONE Vital Signs Vital signs: Vital Signs Temperature 97.8 F 08/04/24 13:22 Pulse Rate 90 08/04/24 13:22 Respiratory Rate 20 08/04/24 13:22 Blood Pressure 124/62 08/04/24 13:22 Pulse Oximetry (%) 95 08/04/24 13:22 Oxygen Delivery Method Nasal Cannula 08/04/24 13:22 Oxygen Flow Rate 2 08/04/24 13:22 Procedures -ED EKG Interpretation #1: Date of EK08/04/24 Time of EK:36 Rate: 87 Interpretation: Interpreted by me Additional EKG comment: atrial fibrillation, rate 87, a lot of artifact Smoking Cessation Time Spent Discussing Smoking Cessation w/Patient (min): 3 Patient Acknowledges Need for Cessation: Yes Additional Comments: The patient was counseled as to the multiple risks to their health from continued use of tobacco products. It was explained that continuing to smoke may lead to multiple short and long term care social worker negative health consequences, including but not limited to mouth/esophageal/lung cancer, COPD, and heart disease. The patient states they understand these risks, and also understand the options and resources available to them to help them stop smoking. Nicotine replacement therapy, local hotlines, and local resources were discussed as viable options for helping them stop their tobacco use. The total time spent counseling the patient regarding tobacco cessation was 3 minutes. Weakness MDM Narrative MDM Narrative:: I, Ira Harris am scribing for and in the presence of Dr. Mosquera. Patient data External records reviewed:: [facility] previous records (Reviewed cardiology consultation note by Dr. Garcia dated 07/27/24.) and EMS form Clinical information provided by:: patient and EMS Social determinants that could affect healthcare access:: none Patient has the following chronic illnesses:: Hyperlipidemia, diabetes mellitus type 2, hypertension, heart failure with preserved ejection fraction, EF 50 to 55%, coronary artery disease status post stent, atrial fibrillation on Eliquis, CVA with left hemiparesis (2022), COPD dependent on supplemental oxygen 3 L at home, gout and benign prostate hyperplasia. How is presenting disease/condition affected by chronic disease/condition?: exacerbated by Evaluation data The following diagnostics were reviewed and interpreted by me:: lab results, radiology exam(s) and EKG tracing(s) (EKG#1: EKG at 1436 hours. Interpreted by me: atrial fibrillation, rate 87, a lot of artifact) Lab and/or radiology exams considered but not ordered:: none Interpretation Summary: Procedure(s): XR chest 1V portable Accession Number(s): [id number] cc: Joselito Butts MD; Howard Briceño MD; Shannan Mosquera MD~ EXAMINATION: XR chest 1V portable ORDERING PROVIDER: Shannan Mosquera MD HISTORY: chest pain TECHNIQUE: Single portable AP radiograph of the chest. COMPARISON: 07/27/2024, chest radiographs. FINDINGS: Lines and Tubes: None. Lungs: No consolidation. Mild increased interstitial markings. Mild prominence pulmonary vasculature. Pleura: No pneumothorax or pleural effusion. Cardiomediastinal Silhouette: Unchanged moderate cardiomegaly. Calcifications aortic arch. Soft Tissues/Bones: Moderate bony degenerative changes. IMPRESSION: Mild positive fluid balance. Dictated By: Joselito Butts MD Medications / Prescriptions Medications or Prescriptions considered but not ordered:: none Medication administrations:: Medication Administration History Discontinued Medications Hydrocodone Bitart/Acetaminophen (Hydrocodone/Apap 10/325 Tab) 1 tab PO X1 ONE Stop: 08/04/24 22:20 Last Admin: 08/04/24 22:34 Dose: 1 tab Documented By: WO see above if any Consultations Consultation(s) initiated? (list below): No Diagnosis Weakness Differential Diagnosis: acute myocardial infarction, sepsis, dehydration and other (electrolyte imbalance) Most likely diagnosis given after review of the tests above:: No official diagnoses at this time, still pending diagnostic tests. Patient signout to the slot shift supervisor provider. Admission Indicated Admission indicated?: not indicated Explain why admission is indicated or not indicated:: No final disposition plan at this time, still pending diagnostic tests. Patient signout to the slot shift supervisor provider. Admission Request Was there a request for admission?: No Disposition Plan Disposition Plan: other (specify) (Patient signout to the slot shift supervisor provider. ) Discharge Plan Plan Patient Disposition: HOME (Self Care) Patient condition on transfer: Stable Prescriptions/Referrals Prescriptions/Med Rec: No Action duloxetine 60 mg Capsule, Delayed Rel Sprinkle 60 mg PO QDAY potassium chloride 10 mEq Capsule, Extended Release 10 meq PO QDAY atorvastatin 40 mg Tablet 40 mg PO QPM carvedilol 6.25 mg Tablet 6.25 mg PO BID Rx Instructions: must administer with a meal/food tizanidine 2 mg Tablet 2 mg PO HS Patient Comments: Per pt son. Pt does not take this every day. Only as needed amlodipine 5 mg Tablet 5 mg PO QDAY allopurinol 100 mg Tablet 100 mg PO HS pantoprazole 40 mg Tablet,Delayed Release (Dr/Ec) 40 mg PO QDAY pregabalin [Lyrica] 150 mg Capsule 150 mg PO TID Ozempic 2 mg/dose (8 mg/3 mL) pen injector 2 mg SUBCUT QWEEK Patient Comments: INJECT 2 mg SUBCUTANEOUSLY EVERY WEEK Rx Instructions: Every Friday hydrocodone-acetaminophen 10-325 mg tablet 1 tab PO [id number] PRN (Reason: Pain) bumetanide 2 mg tablet 4 mg PO BID Patient Comments: TAKE TWO TABLETS BY MOUTH TWICE DAILY FOR FOURTEEN DAYS famotidine 20 mg tablet 20 mg PO QDAY Patient Comments: TAKE ONE TABLET BY MOUTH EVERY DAY HEARTBURN GASTRIC ACIDITY docusate sodium 250 mg capsule 250 mg PO BID dutasteride 0.5 mg capsule 0.5 mg PO QDAY Patient Comments: TAKE ONE CAPSULE BY MOUTH EVERY DAY Eliquis 5 mg tablet 5 mg PO BID Patient Comments: TAKE ONE TABLET BY MOUTH TWICE DAILY FOR THE HEART magnesium oxide 400 mg magnesium Tablet 800 mg PO BID montelukast 10 mg Tablet 10 mg PO HS Qty: 30 1RF metolazone 2.5 mg tablet See Rx Instructions .ROUTE .COMPLEX Qty: 8 1RF Rx Instructions: 2.5 mg orally twice weekly insulin glargine [Lantus Solostar U-100 Insulin] 100 unit/mL (3 mL) insulin pen 30 unit subcut QPM Qty: 15 2RF Referrals: Howard Briceño MD [Primary Care Provider] - In 1 week Problem List Clinical Impression: Generalized weakness Patient/Caregiver Discharge Instructions Education Materials: ED Weakness (Uncertain Cause) Print Language: Danish Stand Alone Forms: Kathleen Award Info., Patient Portal Info Letter
--- NOTE | 2024-08-04 14:10 | EKG_ITS ---
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
[2024-08-04 15:03] LABS: Basophils # (Auto) 0.1 Thou/mm3 (0.0-0.2); Basophils % (Auto) 0 % (0-2.5); Eosinophils # (Auto) 0.3 Thou/mm3 (0.0-0.5); Eosinophils % (Auto) 2 % (0-10); Hematocrit 38.8 % (41.0-53.0); Hemoglobin 12.3 g/dL (13.5-16.0); Immature Granulocytes % (Auto) 0 % (0-0); Immature Granulocytes Auto 0.05 Thou/mm3 (0.00-0.00); Lymphocytes % (Auto) 18 % (10-50); Mean Corpuscular HGB Conc 31.7 g/dl (31.0-37.0); Mean Corpuscular Hemoglobin 28.5 pg (25.0-35.0); Mean Corpuscular Volume 90 fL (80-100); Monocytes # (Auto) 1.8 Thou/mm3 (0.0-0.8); Monocytes % (Auto) 10 % (0-12); Neutrophils # (Auto) 11.9 Thou/mm3 (1.8-7.7); Neutrophils % (Auto) 70 % (37-80); Nucleated Red Blood Cell % 0 /100 WBC (0); Platelet Count 253 Thou/mm3 (140-440); RDW Standard Deviation 55.6 fL (35.1-43.9); Red Blood Count 4.32 Miln/mm3 (4.50-5.90); White Blood Count 17.1 Thou/mm3 (3.8-10.6)
[2024-08-04 15:22] LABS: B-Type Natriuretic Peptide 73 pg/mL (0-100)
[2024-08-04 15:32] LABS: Alanine Aminotransferase 17 U/L (10-49); Albumin, Serum 4.1 gm/dL (3.4-4.8); Albumin/Globulin Ratio 1.5 (1.2-2.2); Alkaline Phosphatase 190 U/L (46-116); Anion Gap 7 (7-16); Aspartate Amino Transferase 18 U/L (0-34); BUN/Creatinine Ratio 36 Ratio (12-20); Bilirubin,Total 0.3 mg/dL (0.3-1.2); Blood Urea Nitrogen 71 mg/dL (9-23); Calcium 9.7 mg/dL (8.3-10.6); Calcium (Corrected) 9.7 mg/dL (8.5-10.1); Carbon Dioxide 35.5 mMol/L (20.0-31.0); Chloride 96 mMol/L (98-107); Estimated Creatinine Clearance 55.7 mL/min (>60); Globulin 2.8 gm/dL (2.3-3.5); Glucose 256 mg/dL (74-106); Lipase 40 U/L (12-53); Magnesium 2.4 mg/dL (1.6-2.6); Osmolality,Calculated 305 (275-295); Potassium 3.6 mMol/L (3.4-5.1); Sodium 138 mMol/L (136-145); Total Protein 6.9 gm/dL (5.7-8.2); Troponin I < 0.020 ng/mL (0.0-0.045); eGFR 36 See Note
[2024-08-04 15:33] LABS: INR 1.1 (0.9-1.3); Partial Thromboplastin Time 34.4 Seconds (22.0-36.0); Prothrombin Time 11.9 Seconds (9.0-12.2)
--- NOTE | 2024-08-04 15:56 | XR_ITS ---
Examination: CT brain head without contrast. 2-D sagittal coronal reconstructions Date and time of exam:August 04, 2024 1627 hrs. Indications: Onset altered mental status today CTDI: vol (mGy):47.5 DLP: (mGycm):688 Technique: Multiple CT axial sections of the brain have been obtained, 5 mm slice thickness. Contrast has not been administered. 2-D sagittal, coronal reconstructions have been obtained Low dose protocols were performed. One or more of the following dose reduction techniques were used; automated exposure control, adjustment of the mA and/or KV according to patient size, use of iterative reconstruction technique. Findings: No significant ventricular enlargement. Encephalomalacia in the posterior right parietal lobe Intra-axial or extra-axial hemorrhage density is not seen. No mass effect or midline shift Basal cisterns are not remarkable. Fourth ventricle is midline. Cranial vault intact. Impression: Negative for acute hemorrhage, mass effect or midline shift Advise clinical correlation and follow-up accordingly
--- NOTE | 2024-08-04 15:56 | XR_ITS ---
Examination: CT abdomen and pelvis without contrast. Coronal 3-D reconstructions. Sagittal 2-D reconstructions. Date and time of exam:August 04, 2024 1635 hrs. Comparison June 28, 2024 Indications: Sepsis with altered mental status today CTDI: vol (mGy): 149.7 DLP: (mGycm): 1375 Technique: Axial images of the abdomen have been obtained, 3 mm slice thickness Intravenous contrast material has not been administered. Low dose protocols were performed. One or more of the following dose reduction techniques were used; automated exposure control, adjustment of the mA and/or KV according to patient size, use of iterative reconstruction technique. Findings: No focal liver lesions No biliary tract dilatation No pancreatic mass. Moderate bilateral renal parenchymal scar formation, Cirrhosis Heavy abdominal aortic calcification No pericecal inflammatory change No bowel obstruction No significant prostate tissue Abundant stool in rectum Urinary bladder intact Impression: No abdominal or pelvic abscess Perinephric stranding moderate bilateral renal parenchymal scar formation, consider urinary tract infection
[2024-08-04 16:24] LABS: Base Excess 12 (-3-3); HCO3 38 mEq/L (20-26); Inspired O2, VO2 Liters 3 L/min; Inspired Oxygen, FIO2 21 %; O2 Saturation 98 % (91-98); PCO2 52 mmHg (32.0-48.0); PO2 90 mmHg (83-108); pH, Arterial 7.46 (7.35-7.45)
[2024-08-04 16:26] LABS: Allen Test Not Performed; Puncture Site Right Brachial
[2024-08-04 17:37] LABS: Collection Type, Urine Clean Catch
[2024-08-04 18:02] LABS: Alcohol, Blood Medical < 3.0 mg/dL (0-10.0)
[2024-08-04 18:10] LABS: Bilirubin,Urine Negative (Negative); Blood,Urine Negative (Negative); Clarity,Urine Clear (Clear/Hazy); Color,Urine Colorless (Lt Yel-Yel); Culture Indicated,Urine Not Indicated; Glucose, Urine Negative (Negative); Hyaline Casts,Urine < 1 /hpf (0-1); Ketones,Urine Negative (Negative); Leukocyte Esterase,Urine Negative (Negative); Nitrite,Urine Negative (Negative); Protein,Urine Negative (Neg - Trace); RBC,Urine 2 /hpf (0-3); Specific Gravity,Urine 1.009 (1.001-1.035); Squamous Epithelial Cell,Urine 3 /hpf (0-5); Urobilinogen,Urine Negative mg/dL (0.0-1.0); WBC,Urine < 1 /hpf (0-5)
[2024-08-04 18:17] LABS: Amphetamine/Methamp Scrn,U Negative (Negative); Barbiturate Screen,Urine Negative (Negative); Benzodiazepines Screen,Urine Negative (Negative); Benzoylecgonine Screen, Ur Negative (Negative); Fentanyl Screen,Urine Negative (Negative); Opiate Screen,Urine Positive (Negative); THC Screen,Urine Negative (Negative)
--- NOTE | 2024-08-04 18:30 | EDNOTE_ITS ---
Emergency Room Addendum <Elmira Fisher MD - Last Filed: 08/04/24 21:05> Addendum Narrative: Care assumed from Dr. Mosquera, the previous shift emergency physician. Past medical, surgical, social and family history reviewed. Vitals and home medications reviewed. Results and treatment plan discussed. I will assume the care of the patient at this time and will follow the patient, pending and urinalysis and possible submission. Patient is sitting up in the bed in no acute distress. <Maya Gregory - Last Filed: 08/04/24 21:43> Addendum Narrative: 1800: Care assumed from Dr. Mosquera, the previous shift emergency physician. Past medical, surgical, social and family history reviewed. Vitals and home medications reviewed. Results and treatment plan discussed. I will assume the c are of the patient at this time and will follow the patient, pending and urinalysis and possible admission. Patient is sitting up in the bed in no acute distress. <Dennise Patrice - Last Filed: 08/05/24 06:16> Addendum Narrative: 1800: Care assumed from Dr. Mosquera, the previous shift emergency physician. Past medical, surgical, social and family history reviewed. Vitals and home medications reviewed. Results and treatment plan discussed. I will assume the care of the patient at this time and will follow the patient, pending and urinalysis and possible admission. Patient is sitting up in the bed in no acute distress. UA is unremarkable, UDS is negative. Patient is unable to care for himself. Will likely need SNF placement. 0615: Informed by the charge nurse that the patient has a professional tutor at home. Patient is stable to be discharged home. MD Attestation <Maya Gregory - Last Filed: 08/04/24 21:43> Attestation Scribe Attestation: Jeremy, Lobo Gregory, am scribing for and in the presence of Dr. Fisher. Provider Notation: Although this document has been carefully reviewed, there may still be some phonetic and other typographical errors. These errors are purely grammatical due to imperfections in the software program and should not be construed in any way to compromise the substance of the patient's medical care during this visit.
[2024-08-04] MEDS: HYDROcodone/APAP 10/325 TAB PO (22:34)
[2024-08-05 02:00] VITALS: BP 146/88; PULSE 97; RESP 20; TEMP 36.9; O2SAT 100
[2024-08-05 04:00] VITALS: BP 133/90; PULSE 90; RESP 20; TEMP 36.6; O2SAT 98
[2024-08-05 06:45] VITALS: BP 120/89; PULSE 100; RESP 19; TEMP 36.6; O2SAT 98
[2024-08-05 08:53] VITALS: BP 157/97; PULSE 87; RESP 20; TEMP 36.6; O2SAT 96
== END 2024-08-05 09:14 | disposition home or self-care (01) ==
PROVIDERS: Emergency Medicine; Emergency Provider Emergency Medicine; PCP Family Medicine
DX: R53.1 Weakness (principal); R07.9 Chest pain, unspecified; R41.82 Altered mental status, unspecified; I48.91 Unspecified atrial fibrillation; I45.10 Unspecified right bundle-branch block; Z79.01 Long term (current) use of anticoagulants; I11.0 Hypertensive heart disease with heart failure; I50.32 Chronic diastolic (congestive) heart failure; Z95.5 Presence of coronary angioplasty implant and graft; I25.10 Atherosclerotic heart disease of native coronary artery without angina pectoris; F17.210 Nicotine dependence, cigarettes, uncomplicated
CPT/HCPCS: 51701; 36415; 36600; 70450; 71045; 74176; 80053; 80307; 80320; 81001; 82803; 83690; 83735; 83880; 84484; 85025; 85610; 85730; 87400; 87811; 93005; 99284; A9270; G0480

== ENCOUNTER 2024-08-11 15:19 | Inpatient (IN) | payer MEDICARE, MEDICAID, SELFPAY ==
[2024-08-11] VITALS (7 sets, daily range): BP systolic 117–147; BP diastolic 57–104; PULSE 81–98; RESP 17–25; TEMP 36.8–37.4; O2SAT 94–99; BMI 41.3
--- NOTE | 2024-08-11 15:20 | PC.NURSE ---
PT BROUGHT IN BY AMBULANCE FROM HOME WITH C/O GENERALIZED WEAKNESS. PT HYPOTENSIVE ON SCENE FOR EMS. PT WITH STAGE 2 WOUNDS TO BOTH SIDES OF COCCYX.
--- NOTE | 2024-08-11 15:52 | XR_ITS ---
Examination: CT brain head without contrast. 2-D sagittal coronal reconstructions Date and time of exam:August 11, 2024, 1729 hours Comparison August 04, 2024 INDICATIONS: Altered mental status today CTDI: vol (mGy):49.6 DLP: (mGycm):01/01/2029 Technique: Multiple CT axial sections of the brain have been obtained, 5 mm slice thickness. Contrast has not been administered. 2-D sagittal, coronal reconstructions have been obtained Low dose protocols were performed. One or more of the following dose reduction techniques were used; automated exposure control, adjustment of the mA and/or KV according to patient size, use of iterative reconstruction technique. Findings: No significant ventricular enlargement. Again noted is encephalomalacia in the right parietal lobe Intra-axial or extra-axial hemorrhage density is not seen. No mass effect or midline shift Basal cisterns are not remarkable. Fourth ventricle is midline. Cranial vault intact. Impression: No interval acute hemorrhage, mass effect or midline shift As clinically warranted, brain MRI follow-up would best assess for acute ischemic change
--- NOTE | 2024-08-11 15:52 | XR_ITS ---
Examination: AP chest single view TECHNIQUE: AP portable upright chest single view. Examination time: August 11, 2024 1518 hours Comparison August 04, 2024 INDICATIONS: Chest pain today. FINDINGS: Poor inspiratory effort Moderate vascular congestion. No lobar pneumonia. Moderate osteopenia. IMPRESSION: Moderate vascular congestion.
--- NOTE | 2024-08-11 15:52 | EKG_ITS ---
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
--- NOTE | 2024-08-11 15:52 | PD.EDWEAK ---
ED Weakness RME/HPI General Chief complaint: Weakness Stated complaint: GENERALIZED WEAKNESS, HYPOTENSIVE Time Seen by Provider: 08/11/24 15:45 Arrival date/time: 08/11/24 15:19 RME / HPI RME / HPI Narrative: 68-year-old male patient with significant history of COPD, congestive heart failure, hypertension, HLD, diabetes mellitus, HFpEF 55-60%, CAD s/p stent, A-fib on Eliquis, CVA with left sided residual deficits (2022), dependent on oxygen, total 3 L nasal cannula was brought in by EMS for evaluation regarding generalized body weakness hypotensive and confused. Patient came from home. Was noted to be hypotensive and was also noted to be confused severity mild. On my initial evaluation patient is drowsy not really answering question appropriately. Patient was also noted to be hypotensive by EMS was given a liter of NS on the way to the emergency room. On my initial evaluation blood pressure was noted to be 128/104. Heart rate of 98. Satting 94% on 2 L. He was coughing on my initial evaluation also noted. No other pertinent information can be extracted by the patient. This is his third visit for the month. Related Data Home Medications ?Medication ?Instructions ?Recorded ?Confirmed duloxetine 60 mg capsule,delayed 60 mg PO QDAY 11/25/19 04/08/24 release sprinkle potassium chloride 10 mEq 10 meq PO QDAY 06/19/23 04/08/24 capsule,extended release allopurinol 100 mg tablet 100 mg PO HS 01/23/24 04/13/24 amlodipine 5 mg tablet 5 mg PO QDAY 01/23/24 04/08/24 atorvastatin 40 mg tablet 40 mg PO QPM 01/23/24 04/08/24 carvedilol 6.25 mg tablet 6.25 mg PO BID 01/23/24 04/08/24 pantoprazole 40 mg tablet,delayed 40 mg PO QDAY 01/23/24 04/08/24 release pregabalin 150 mg capsule (Lyrica) 150 mg PO TID 01/23/24 04/08/24 semaglutide 2 mg/dose (8 mg/3 mL) 2 mg subcut QWEEK 01/23/24 04/08/24 subcutaneous pen injector (Ozempic) tizanidine 2 mg tablet 2 mg PO HS 01/23/24 04/08/24 hydrocodone 10 mg-acetaminophen 1 tab PO [id number] PRN Pain 01/31/24 04/08/24 325 mg tablet apixaban 5 mg tablet (Eliquis) 5 mg PO BID 04/08/24 04/08/24 bumetanide 2 mg tablet 4 mg PO BID 04/08/24 04/08/24 docusate sodium 250 mg capsule 250 mg PO BID 04/08/24 04/13/24 dutasteride 0.5 mg capsule 0.5 mg PO QDAY 04/08/24 04/08/24 famotidine 20 mg tablet 20 mg PO QDAY 04/08/24 04/08/24 magnesium oxide 800 mg PO BID 04/08/24 04/08/24 Previous Rx's ?Medication ?Instructions ?Recorded insulin glargine 100 unit/mL (3 30 unit (0.3 mL) subcut QPM #15 mL 04/14/24 mL) subcutaneous pen (Lantus Solostar U-100 Insulin) metolazone 2.5 mg tablet See Rx Instructions .Route 04/14/24 .COMPLEX #8 tabs montelukast 10 mg tablet 10 mg PO HS #30 tabs 04/14/24 Allergies Allergy/AdvReac Type Severity Reaction Status Date / Time baclofen Allergy Severe Confusion Verified 04/07/24 12:22 bee venom protein (honey bee) Allergy Severe Swelling Verified 04/07/24 12:22 of Lip/Tongue/Throat chicken derived Allergy Severe DIFF Verified 04/07/24 12:22 BREATHING ketorolac (From Toradol) Allergy Intermediate Hallucinati Verified 04/07/24 12:22 ng METAL Allergy Severe Rash Uncoded 04/24/23 13:24 Review of Systems Review of Systems Narrative Review of Systems: Review of system reviewed and within normal limits except mentioned in HPI ED Exam Narrative Physical exam: VITAL SIGNS: Reviewed. GENERAL APPEARANCE: Awake, drowsy, does not follows commands, no acute distress, HEAD AND FACE: Non-traumatic. ENT: PERRL, pink conjunctivitis, eyelid no trauma, Mucous membrane moist. NECK: Supple, nontender, no nuchal rigidity. CHEST: No tenderness, no crepitus, no paradoxical movement, no retractions. LUNGS: Clear, well ventilated, symmetric, no rales, no wheezing, no ronchi, no stridor, good breath sounds bilaterally. HEART: Regular rate, regular rhythm, no murmur, no gallops. ABDOMEN: Soft, positive bowel sounds, nondistended, no guarding, nontender, no rebound, no masses, RECTAL: Deferred. GENITAL: Deferred. NEUROLOGICAL: Gross motor function intact sensory function intact, Appropriate for age. MUSCULOSKELETAL: low back nontender, full range of motion. EXTREMITIES: Bilateral lower extremity edema +2, full range of motion. SKIN: Color pink, dry, no rash, no lacerations, no abrasions, no contusions. LYMPHATICS: Deferred. Course Quality Measures none Orders Category Date Time Status Bedside COVID-19 Antigen Test NOW Care 08/11/24 19:49 Completed Bedside COVID-19 Antigen Test NOW Care 08/11/24 23:26 Completed Bedside Influenza A&B Antigen Test NOW Care 08/11/24 19:49 Completed COVID-19 Screening Questionnaire NOW Care 08/11/24 22:55 Active Decision to Admit X1 Care 08/11/24 22:55 Completed EKG (ED ONLY) *Do not use* NOW Care 08/11/24 15:52 Completed In and Out Catheter X1 Care 08/11/24 19:[address] head/brain wo con Stat Exams 08/11/24 15:52 Completed EKG (ED Only) Stat Exams 08/11/24 15:52 Draft XR chest 1V Stat Exams 08/11/24 15:52 Completed Arterial Blood Gas Stat Lab 08/11/24 16:51 Completed B-Type Natriuretic Peptide Stat Lab 08/11/24 16:21 Completed Blood Culture (Lab) Stat Lab 08/11/24 16:21 Results C-Reactive Protein Stat Lab 08/11/24 16:21 Completed CBC Stat Lab 08/11/24 16:21 Completed Comprehensive Metabolic Panel Stat Lab 08/11/24 16:21 Completed Lactate (Lactic Acid) Stat Lab 08/11/24 16:21 Completed Partial Thromboplastin Time Stat Lab 08/11/24 16:21 Completed Procalcitonin Stat Lab 08/11/24 16:21 Completed Prothrombin Time with INR Stat Lab 08/11/24 16:21 Completed Troponin I Stat Lab 08/11/24 16:21 Completed UA, C/S IF [Urinalysis, C/S if Indicated] Stat Lab 08/11/24 19:56 Completed Sodium Chloride 0.9% 500 ml [Ns] 500 ml Med 08/11/24 19:45 Discontinued IV 999 mls/hr Vital Signs Vital signs: Vital Signs Temperature 98.6 F 08/11/24 15:20 Pulse Rate 98 08/11/24 15:20 Respiratory Rate 18 08/11/24 15:20 Blood Pressure 128/104 H 08/11/24 15:20 Pulse Oximetry (%) 94 L 08/11/24 15:20 Oxygen Delivery Method Room Air 08/11/24 15:20 Weakness MDM Narrative MDM Narrative:: 68-year-old male patient with significant history of COPD, congestive heart failure, hypertension, HLD, diabetes mellitus, HFpEF 55-60%, CAD s/p stent, A-fib on Eliquis, CVA with left sided residual deficits (2022), dependent on oxygen, total 3 L nasal cannula was brought in by EMS for evaluation regarding generalized body weakness hypotensive and confused. Patient came from home. Was noted to be hypotensive and was also noted to be confused severity mild. On my initial evaluation patient is drowsy not really answering question appropriately. Patient was also noted to be hypotensive by EMS was given a liter of NS on the way to the emergency room. On my initial evaluation blood pressure was noted to be 128/104. Heart rate of 98. Satting 94% on 2 L. He was coughing on my initial evaluation also noted. No other pertinent information can be extracted by the patient. This is his third visit for the month. EKG showed atrial fibrillation, ventricular rate of 78 bpm, QRS duration 143 MS, no ST segment elevation or depression noted. CT scan of the head came back unremarkable. Urinalysis no UTI. The rest of the labs unremarkable. Except for chronic kidney disease. Patient received IV fluids for hydration. Patient data External records reviewed:: None Clinical information provided by:: patient and family Social determinants that could affect healthcare access:: none Patient has the following chronic illnesses:: CHF, COPD, hypertension diabetes mellitus How is presenting disease/condition affected by chronic disease/condition?: exacerbated by Evaluation data The following diagnostics were reviewed and interpreted by me:: lab results, radiology exam(s) and EKG tracing(s) Lab and/or radiology exams considered but not ordered:: None Interpretation Summary: See results in MDM Medications / Prescriptions Medications or Prescriptions considered but not ordered:: None Medication administrations:: Medication Administration History Acetaminophen (Acetaminophen 325 Mg Tablet) 650 mg PO Q6H PRN PRN Reason: Fever >101.5 or Pain 1-3 Stop: 09/11/24 01:26 Albuterol/Ipratropium (Albuterol/Ipratropium (Duoneb) Rt Raquel 3 Ml Nebu) 3 ml INH Q6HRRT [facility] Stop: 09/11/24 06:59 Bisacodyl (Bisacodyl 5 Mg Tabec) 10 mg PO QDAY PRN; Protocol PRN Reason: CONSTIPATION Stop: 09/11/24 01:26 Dextrose (Dextrose 50%-Water Inj 50 Ml Syringe) 25 ml IV Q15MIN PRN PRN Reason: BG 50-70 responsive npo pt Stop: 09/11/24 01:40 Dextrose (Dextrose 50%-Water Inj 50 Ml Syringe) 50 ml IV Q15MIN PRN PRN Reason: BG <50 OR BG <70 & pt unresponsive Stop: 09/11/24 01:40 Glucagon (Glucagon Inj 1 Mg Vial) 1 mg IM Q15MIN PRN PRN Reason: BG <70, and no IV access Heparin Sodium (Porcine) (Heparin Sod Inj 5000 Unit/Ml Vial) 5,000 unit SC Q12HR [facility] Stop: 08/26/24 20:59 Lactated Ringer's (Lactated Ringers) 1,000 mls @ 50 mls/hr IV .Q20H [facility] Stop: 09/11/24 01:42 Last Admin: 08/12/24 03:15 Dose: 50 mls/hr Documented By: CVL Cefazolin Sodium (Ancef 2gm Ivpb) 2 gm in 100 mls @ 100 mls/hr IV Q8HR [facility] Stop: 08/19/24 03:16 Last Admin: 08/12/24 15:20 Dose: 100 mls/hr Documented By: Infusion: 08/12/24 09:05 Dose: Infused Documented By: Admin: 08/12/24 07:57 Dose: 100 mls/hr Documented By: Infusion: 08/12/24 04:49 Dose: Infused Documented By: Admin: 08/12/24 03:39 Dose: 100 mls/hr Documented By: CVL Insulin Human Lispro (Insulin Lispro (Admelog) 1 Unit/0.01 Ml Unit) 0 unit SC AC [facility]; Protocol Stop: 09/11/24 07:29 Last Admin: 08/12/24 17:13 Dose: Not Given Documented By: CARLA Non-Admin Reason: no indicated per protocol Admin: 08/12/24 12:19 Dose: 1 unit Documented By: CARLA Co-signed By: Admin: 08/12/24 08:13 Dose: 1 unit Documented By: LEYDI Co-signed By: CARLA Labetalol HCl (Labetalol Inj 5 Mg/Ml Vial 20 Ml) 10 mg IVP Q2H PRN PRN Reason: SBP >180mmHg Stop: 09/11/24 01:40 Ondansetron HCl (Ondansetron Inj 2 Mg/Ml Inj 2 Ml) 4 mg IV Q6H PRN; Protocol PRN Reason: NAUSEA OR VOMITING Stop: 09/11/24 01:26 Oxycodone/Acetaminophen (Oxycodone/Apap 5/325 Tablet) 1 tab PO Q8HR PRN PRN Reason: PAIN SCALE 4-6 (Moderate Stop: 08/17/24 01:26 Pantoprazole Sodium (Pantoprazole 40 Mg Tablet) 40 mg PO QDAY [facility] Stop: 09/11/24 08:59 Last Admin: 08/12/24 09:35 Dose: 40 mg Documented By: LEYDI Discontinued Medications Heparin Sodium (Porcine) (Heparin Sod Inj 5000 Unit/Ml Vial) 5,000 unit SC Q8HR [facility] Stop: 08/26/24 05:59 Last Admin: 08/12/24 14:49 Dose: 5,000 unit Documented By: CARLA Co-signed By: MARTHA Admin: 08/12/24 07:59 Dose: 5,000 unit Documented By: LEYDI Co-signed By: MARTHA Sodium Chloride (Ns) 500 mls @ 999 mls/hr IV .Q31M ONE Stop: 08/11/24 20:15 Last Infusion: 08/11/24 20:37 Dose: Infused Documented By: Admin: 08/11/24 20:03 Dose: 999 mls/hr Documented By: CVL IV fluids for hydration Consultations Consultation(s) initiated? (list below): No Diagnosis Weakness Differential Diagnosis: anemia, sepsis and dehydration Most likely diagnosis given after review of the tests above:: Confusion Admission Indicated Admission indicated?: indicated Admission Request Was there a request for admission?: Yes Admission Attestation Admission request attestation: Discussed case with [Dr. Ritter] from Hospitalist service regarding admission. Discussed patients ED course, exam findings, labs, and radiology results. The Hospitalist [agrees] to accept the patient for admission. Disposition Plan Disposition Plan: Admit Discharge Plan Plan Patient Disposition: Other Care w/in Hosp ([facility]) Problem List Clinical Impression: Confusion
[2024-08-11 16:35] LABS: Lactate (Lactic Acid) 1.6 mMol/L (0.4-2.0)
[2024-08-11 16:37] LABS: Basophils % (Auto) 0 % (0-2.5); Eosinophils # (Auto) 0.5 Thou/mm3 (0.0-0.5); Eosinophils % (Auto) 3 % (0-10); Hemoglobin 11.4 g/dL (13.5-16.0); Immature Granulocytes % (Auto) 0 % (0-0); Immature Granulocytes Auto 0.04 Thou/mm3 (0.00-0.00); Lymphocytes # (Auto) 2.2 Thou/mm3 (1.0-4.8); Lymphocytes % (Auto) 17 % (10-50); Mean Corpuscular HGB Conc 31.7 g/dl (31.0-37.0); Mean Corpuscular Hemoglobin 28.4 pg (25.0-35.0); Mean Corpuscular Volume 90 fL (80-100); Monocytes # (Auto) 1.4 Thou/mm3 (0.0-0.8); Monocytes % (Auto) 11 % (0-12); Neutrophils # (Auto) 9.2 Thou/mm3 (1.8-7.7); Neutrophils % (Auto) 69 % (37-80); Nucleated Red Blood Cell % 0 /100 WBC (0); Platelet Count 243 Thou/mm3 (140-440); RDW Standard Deviation 55.4 fL (35.1-43.9); Red Blood Count 4.01 Miln/mm3 (4.50-5.90); White Blood Count 13.4 Thou/mm3 (3.8-10.6)
[2024-08-11 16:51] LABS: INR 1.2 (0.9-1.3); Partial Thromboplastin Time 35.9 Seconds (22.0-36.0); Prothrombin Time 12.5 Seconds (9.0-12.2)
[2024-08-11 16:53] LABS: B-Type Natriuretic Peptide 86 pg/mL (0-100)
[2024-08-11 16:55] LABS: Base Excess 8 (-3-3); HCO3 35 mEq/L (20-26); Inspired O2, VO2 Liters 2 L/min; O2 Saturation 96 % (91-98); PCO2 55 mmHg (32.0-48.0); PO2 75 mmHg (83-108); pH, Arterial 7.41 (7.35-7.45)
[2024-08-11 16:58] LABS: Allen Test Not Performed; Puncture Site Right Radial
[2024-08-11 17:03] LABS: Alanine Aminotransferase 15 U/L (10-49); Albumin/Globulin Ratio 1.5 (1.2-2.2); Alkaline Phosphatase 177 U/L (46-116); Anion Gap 6 (7-16); Aspartate Amino Transferase 18 U/L (0-34); BUN/Creatinine Ratio 27 Ratio (12-20); Bilirubin,Total 0.3 mg/dL (0.3-1.2); Blood Urea Nitrogen 57 mg/dL (9-23); Calcium 9.5 mg/dL (8.3-10.6); Calcium (Corrected) 9.5 mg/dL (8.5-10.1); Carbon Dioxide 32.6 mMol/L (20.0-31.0); Chloride 101 mMol/L (98-107); Creatinine (Component) 2.1 mg/dL (0.6-1.3); Estimated Creatinine Clearance 44.4 mL/min (>60); Globulin 2.7 gm/dL (2.3-3.5); Glucose 197 mg/dL (74-106); Osmolality,Calculated 300 (275-295); Potassium 4.6 mMol/L (3.4-5.1); Procalcitonin 0.37 ng/ml (0.0-0.49); Sodium 140 mMol/L (136-145); Total Protein 6.7 gm/dL (5.7-8.2); Troponin I < 0.020 ng/mL (0.0-0.045); eGFR 34 See Note
--- NOTE | 2024-08-11 18:05 | PC.NURSE ---
son rodney called to check status of father
[2024-08-11 20:00] LABS: Collection Type, Urine Clean Catch
[2024-08-11] MEDS: SODIUM CHLORIDE 0.9% 500 ML 500 ML 999 ML IV (20:03)
[2024-08-11 20:13] LABS: Bilirubin,Urine Negative (Negative); Blood,Urine Negative (Negative); Clarity,Urine Clear (Clear/Hazy); Color,Urine Colorless (Lt Yel-Yel); Culture Indicated,Urine Not Indicated; Glucose, Urine Negative (Negative); Ketones,Urine Negative (Negative); Leukocyte Esterase,Urine Negative (Negative); Nitrite,Urine Negative (Negative); Protein,Urine Negative (Neg - Trace); RBC,Urine < 1 /hpf (0-3); Specific Gravity,Urine 1.008 (1.001-1.035); Squamous Epithelial Cell,Urine 1 /hpf (0-5); Urobilinogen,Urine Negative mg/dL (0.0-1.0); WBC,Urine < 1 /hpf (0-5)
--- NOTE | 2024-08-11 20:35 | PC.NURSE ---
pt was saturated. total linen change. carole care completed. RN notified about wound on pts bottom. foam flower dressing placed. pt repositioned for comfort.
[2024-08-12] VITALS (12 sets, daily range): BP systolic 121–161; BP diastolic 62–88; PULSE 75–98; RESP 16–21; TEMP 36.3–37.4; O2SAT 95–99
--- NOTE | 2024-08-12 01:46 | ESHP_ITS ---
<Statement entered by Justyna Coello MD - 08/12/24 05:55> 68-year-old male with multiple comorbidities including hypertension, hyperlipidemia, type 2 diabetes mellitus, COPD on 2 L supplemental oxygen, coronary artery disease status post stent placement, heart failure with preserved EF with a EF 55-60%, atrial fibrillation on Eliquis and history of ischemic CVA with residual left-sided deficit who presented to the ER from home with lethargy and confusion. Per ER note, patient was noted to be hypotensive and received 1 L of fluids and upon arrival to the ER patient symptoms improved. As of now, plan to admit the patient for acute encephalopathy with differential diagnoses including cellulitis versus orthostatic hypotension given that patient is on diuretic therapy and patient was noted to be hypotensive receiving 1 L of bolus. As for COPD, plan to continue 2 L supplemental oxygen and patient does not appear to be in fluid overload state.I reviewed above note and agree with findings and plans. I have also personally examined the patient with medicine team and went over assessment and plan with medical team including international controller and resident physician. Documentation for date of: 08/12/24 HPI History of Present Illness Chief complaint: Generalized weakness and confusion History of present illness: HPI:A 68-year-old male patient with past medical history of COPD on 2 L of oxygen at home, hyperlipidemia, type 2 diabetes mellitus, hypertension, HFpEF 55 to 60%, coronary artery disease status post stent, A-fib on Eliquis, history of CVA with left-sided residual deficit in 2022, asthma, gout, BPH was brought to the ED from home after he was noticed to have severe lethargy at home. Even though the patient was oriented x 3 however patient was severely lethargic and was not able to complete taking history from the patient.. As per the ED note the patient and route was noticed to be hypotensive in which she was given 1 L of IV fluids. In review of the patient's chart patient was noticed to have multiple previous visit secondary to similar symptoms. Of note patient was admitted to the ED for evaluation of generalized weakness and similar symptoms. No history of fall, paralysis or neurological deficit. On arrival patient was given 1 bolus of 500 mL of NS by the ED team. Patient was noticed to be saturating 94% on room air he was put on 2 L of oxygen in which increase his saturation to 98. CBC showed WBC of 13.4 and last week it was 17.1, hemoglobin is 11.4, coagulation panel within normal limits, ABG showed pH of 7.41, CO2 of 55 and O2 saturation of 96, his bicarb is 35 seems to be at baseline as the patient has COPD and chronic retainer. His CMP showed BUN of 57, serum creatinine 2.1 which is his baseline, glucose of 197, and was noticed to have persistently elevated alkaline phosphatase. His CRP was noticed to be mildly elevated of 3.0. And procalcitonin within normal limits. Urinalysis was clear U-Tox tested positive for opiates which is consistent with the patient history of chronic pain in which she use opioids. Brain CT scan was negative for any acute hemorrhage or mass effect. And chest x-ray showed moderate vascular congestion. Upon review the patient's medication noticed that the patient has multiple medication that may lead to drop of his blood pressure. Or can cause acute confusion. Past medical history: As above Allergies: No known medical allergies Medications: Pending med rec Family history: Mother,?diabetes mellitus type II; Father?PR followed by Surgical history: Back surgery, left ankle surgery, stent placement Social history: Active smoker of 40-year-old 1-1/2 pack cigarettes daily. Denies alcohol use. Denies illicit drug use. Review of Systems Review of Systems ROS Unobtainable: unobtainable due to mental status Exam Vital Signs Temp Pulse Resp BP Pulse Ox O2 Del Method O2 Flow Rate 99.0 F 91 18 121/69 98 Nasal Cannula 2 08/12/24 01:28 08/12/24 01:28 08/12/24 01:28 08/12/24 01:28 08/12/24 01:41 08/12/24 01:28 08/12/24 01:41 Narrative Exam GEN: AOx3, severe lethargy HEENT: NC/AC, PERRLA, oral mucosa dry, neck supple CVS: RRR, S1-S2 present, no murmurs appreciated RESP: CTAB GI: soft,non distended, non tender, NBS MSK: able to move all 4 limbs, lower extremity swelling, nonpitting associated with redness and excoriation ramos extend from the ankles of both legs up to the knee. Mildly warm. SKIN: warm and dry GUIDE EXCURSION: CN II-XII and Sensation grossly intact. Results: Labs 08/11/24 16:21 08/11/24 16:21 Labs: Short CBC 08/11/24 Range/Units 16:21 WBC 13.4 H (3.8-10.6) Thou/mm3 Hgb 11.4 L (13.5-16.0) g/dL Hct 36.0 L (41.0-53.0) % Plt Count 243 (140-440) Thou/mm3 BMP 08/11/24 16:21 Sodium 140 Potassium 4.6 Chloride 101 Carbon Dioxide 32.6 H BUN 57 H Creatinine 2.1 H Glucose 197 H Calcium 9.5 Cardiac Enzymes 08/11/24 Range/Units 16:21 Troponin I < 0.020 (0.0-0.045) ng/mL Liver Function 08/11/24 Range/Units 16:21 Total Bilirubin 0.3 (0.3-1.2) mg/dL AST 18 (0-34) U/L ALT 15 (10-49) U/L Alkaline Phosphatase 177 H (46-116) U/L Albumin 4.0 (3.4-4.8) gm/dL Urine 08/11/24 Range/Units 19:56 Urine Color Colorless A (Lt Yel-Yel) Urine Clarity Clear (Clear/Hazy) Urine pH 7.0 (5.0-7.0) Ur Specific [place] 1.008 (1.001-1.035) Urine Protein Negative (Neg - Trace) Urine Glucose (UA) Negative (Negative) ABG Interpretation ABG results: 08/11/24 16:51 ABG pH 7.41 ABG pCO2 55 H ABG pO2 75 L ABG HCO3 35 H ABG O2 Saturation 96 ABG Base Excess 8 H Quality Measures Quality Measures VTE prophylaxis Advance care planning discussed with:: patient Medications Home Medications and Allergies Home Medications ?Medication ?Instructions ?Recorded ?Confirmed ?Type duloxetine 60 mg capsule,delayed 60 mg PO QDAY 0 04/08/24 History release sprinkle potassium chloride 10 mEq 10 meq PO QDAY 06/19/2303/26 History capsule,extended release allopurinol 100 mg tablet 100 mg PO HS 01/23/24 History amlodipine 5 mg tablet 5 mg PO QDAY 01/23/24 History atorvastatin 40 mg tablet 40 mg PO QPM 01/23/24 History carvedilol 6.25 mg tablet 6.25 mg PO BID 01/23/2403/26 History pantoprazole 40 mg tablet,delayed 40 mg PO QDAY 04/08/24 History release pregabalin 150 mg capsule (Lyrica) 150 mg PO TID 01/2204/08/24 History semaglutide 2 mg/dose (8 mg/3 mL) 2 mg subcut QWEEK 04/08/24 History subcutaneous pen injector (Ozempic) tizanidine 2 mg tablet 2 mg PO HS 01/23/24 04/08/24 History hydrocodone 10 mg-acetaminophen 1 tab PO [id number] PRN P ain 01/31/24 04/08/24 History 325 mg tablet apixaban 5 mg tablet (Eliquis) 5 mg PO BID 04/08/24 History bumetanide 2 mg tablet 4 mg PO BID 04/08/24 4 History docusate sodium 250 mg capsule 250 mg PO BID 04/08/24 04/13/24 History dutasteride 0.5 mg capsule 0.5 mg PO QDAY 04/08/24 History famotidine 20 mg tablet 20 mg PO QDAY 04/08/2404/08 History magnesium oxide 800 mg PO BID 04/08/2404/08 History Allergies Allergy/AdvReac Type Severity Reaction Status Date / Time baclofen Allergy Severe Confusion Verified 04/07/24 12:22 bee venom protein (honey bee) Allergy Severe Swelling Verified 04/07/24 12:22 of Lip/Tongue/Throat chicken derived Allergy Severe DIFF Verified 04/07/24 12:22 BREATHING ketorolac (From Toradol) Allergy Intermediate Hallucinati Verified 04/07/24 12:22 ng METAL Allergy Severe Rash Uncoded 04/24/23 13:24 Visit Medications Acetaminophen (Acetaminophen 325 Mg Tablet) 650 mg PO Q6H PRN PRN Reason: Fever >101.5 or Pain 1-3 Stop: 09/11/24 01:26 Bisacodyl (Bisacodyl 5 Mg Tabec) 10 mg PO QDAY PRN; Protocol PRN Reason: CONSTIPATION Stop: 09/11/24 01:26 Heparin Sodium (Porcine) (Heparin Sod Inj 5000 Unit/Ml Vial) 5,000 unit SC Q8HR [facility] Stop: 08/26/24 05:59 Ondansetron HCl (Ondansetron Inj 2 Mg/Ml Inj 2 Ml) 4 mg IV Q6H PRN; Protocol PRN Reason: NAUSEA OR VOMITING Stop: 09/11/24 01:26 Oxycodone/Acetaminophen (Oxycodone/Apap 5/325 Tablet) 1 tab PO Q8HR PRN PRN Reason: PAIN SCALE 4-6 (Moderate Stop: 08/17/24 01:26 Pantoprazole Sodium (Pantoprazole 40 Mg Tablet) 40 mg PO QDAY [facility] Stop: 09/11/24 08:59 Discontinued Medications Sodium Chloride (Ns) 500 mls @ 999 mls/hr IV .Q31M ONE Stop: 08/11/24 20:15 Last Infusion: 08/11/24 20:37 Dose: Infused Assessment & Plan Assessment Summary:A 68-year-old male patient with past medical history of COPD on 2 L of oxygen at home, hyperlipidemia, type 2 diabetes mellitus, hypertension, HFpEF 55 to 60%, coronary artery disease status post stent, A-fib on Eliquis, history of CVA with left-sided residual deficit in 2022, asthma, gout, BPH was brought to the ED from home after he was noticed to have severe lethargy at home. Patient was admitted for management of acute encephalopathy. Assessment and plan #Acute encephalopathy #Cellulitis of the lower extremities DDx medication side effect, secondary to LE cellulitis, dehydration, arrhythmia, adrenal insufficiency, hypothyroidism Patient has multiple medications that can lower his blood pressure which include carvedilol, Bumex, metolazone, and also has narcotics such as hydrocodone was noticed in his external length of prescriptions Because he has history of CHF patient is more prone to arrhythmias, and less likely patient might be also experiencing adrenal insufficiency or hypothyroidism. Patient noticed to have heterogeneous redness in the lower extremities with excoriation naomi, there is small wound on the lovelace of the right lower extremity. Feels warmer than the surrounding skin. Previous MRSA screening were negative CT scan was negative for any bleed or hemorrhage, chest x-ray was negative for any pneumonia however there was vascular congestion. Pro-Bryant was normal however CRP was mildly elevated at 3.0. WBC was also mildly elevated however it was noticed to be downtrending since last visit on 04 August this year which was 15.7 his urinalysis was clear. Plan ? Admit patient to telemetry for observation and close monitoring for heart rate and rhythm ? Hold home medications diuretics, beta-blockers, and Eliquis with close monitoring until patient is cleared by the day team ? Will start the patient on cefazolin 2 g every 8 hours for cellulitis ? Wound care ? Start the patient on IV fluid gentle 50 mL of NS for 1 bag ? Orthostatic vitals ? Hold all narcotic medications and only to be given as needed? ? TSH screening ? Consider adrenal insufficiency workup if clinically warranted ? Consider consulting neurology for consider further imaging if needed #History of HFpEF last echo showed EF 55 to 60% #History of coronary artery disease status post stent #History of A-fib on Eliquis #History of hypertension Because the patient has multiple medications that can lower his blood pressure and make the patient confused. Will hold on resuming his home medications at this time as the patient also seems to be dehydrated with delayed skin turgor and hypertension on presentation. Patient was given 500 mL bolus at the ED NS. Plan ? Will continue another bag of 1 L NS 50 mL ? Strict in and out ? Consider resuming his Eliquis and aspirin if any after med reconciliation ? Patient education might be needed before discharge regarding using his diuretics #History of COPD on 2 L of oxygen at home #History of asthma Plan ? Oxygen to keep O2 saturation between 88 and 92% ? DuoNebs every 8 hours scheduled #History of diabetes mellitus Last A1c was 9.9 was in March 2024 Plan ? A1c screening ? Exercising skin ? Hypoglycemia protocol in place History of BPH Plan ? Will hold his home medication tamsulosin if he is on as the patient presented with hypotension ? Bladder scan as needed, consider inserting Gonzalez's or In-N-Out catheter if there is urinary retention Hospital Maintenance: FEN: N.p.o. until he passed swallow eval nursing DVT ppx: SCD GI ppx: Protonix IV lines: PIV Gonzalez: None Code status: Full code by default Dispo: Telemetry - Patient's plan and care discussed with my attending, Dr. Mode Díaz MD Internal Medicine PGY-2
[2024-08-12 02:39] LABS: Amphetamine/Methamp Scrn,U Negative (Negative); Barbiturate Screen,Urine Negative (Negative); Benzodiazepines Screen,Urine Negative (Negative); Benzoylecgonine Screen, Ur Negative (Negative); Fentanyl Screen,Urine Negative (Negative); Opiate Screen,Urine Positive (Negative); THC Screen,Urine Negative (Negative)
[2024-08-12] MEDS: RINGERS LACTATED 1000 ML 1,000 ML 50 ML IV ×2 (03:15→21:54)
[2024-08-12] MEDS: ceFAZolin/D5W 2 GM IV 2 GM/100 ML BAG IV ×4 (03:39→21:54)
[2024-08-12 05:27] LABS: Basophils % (Auto) 0 % (0-2.5); Eosinophils # (Auto) 0.3 Thou/mm3 (0.0-0.5); Eosinophils % (Auto) 3 % (0-10); Hematocrit 35.5 % (41.0-53.0); Hemoglobin 11.1 g/dL (13.5-16.0); Immature Granulocytes % (Auto) 1 % (0-0); Immature Granulocytes Auto 0.05 Thou/mm3 (0.00-0.00); Lymphocytes # (Auto) 2.4 Thou/mm3 (1.0-4.8); Lymphocytes % (Auto) 22 % (10-50); Mean Corpuscular HGB Conc 31.3 g/dl (31.0-37.0); Mean Corpuscular Hemoglobin 28.3 pg (25.0-35.0); Mean Corpuscular Volume 91 fL (80-100); Monocytes % (Auto) 18 % (0-12); Neutrophils # (Auto) 6.2 Thou/mm3 (1.8-7.7); Neutrophils % (Auto) 56 % (37-80); Nucleated Red Blood Cell % 0 /100 WBC (0); Platelet Count 202 Thou/mm3 (140-440); RDW Standard Deviation 55.7 fL (35.1-43.9); Red Blood Count 3.92 Miln/mm3 (4.50-5.90)
[2024-08-12 05:41] LABS: Sed Rate (ESR) 93 mm/hr (0-20)
[2024-08-12 05:58] LABS: Glucose Estimated Average 229 mg/dL (80-131); Hemoglobin A1C 9.6 % Hgb (4.8-6.0)
[2024-08-12 06:03] LABS: Vitamin B12 340 pg/mL (211-911)
--- NOTE | 2024-08-12 06:06 | PC.NURSE ---
vs taken. pt didnt need brief change.
[2024-08-12 06:07] LABS: Alanine Aminotransferase 13 U/L (10-49); Albumin, Serum 3.7 gm/dL (3.4-4.8); Albumin/Globulin Ratio 1.4 (1.2-2.2); Alkaline Phosphatase 168 U/L (46-116); Anion Gap 8 (7-16); Aspartate Amino Transferase 17 U/L (0-34); BUN/Creatinine Ratio 24 Ratio (12-20); Bilirubin,Total 0.3 mg/dL (0.3-1.2); Blood Urea Nitrogen 48 mg/dL (9-23); Calcium 9.4 mg/dL (8.3-10.6); Calcium (Corrected) 9.6 mg/dL (8.5-10.1); Carbon Dioxide 32.4 mMol/L (20.0-31.0); Chloride 103 mMol/L (98-107); Estimated Creatinine Clearance 46.6 mL/min (>60); Globulin 2.6 gm/dL (2.3-3.5); Glucose 179 mg/dL (74-106); Magnesium 2.6 mg/dL (1.6-2.6); Osmolality,Calculated 301 (275-295); Potassium 4.4 mMol/L (3.4-5.1); Sodium 143 mMol/L (136-145); Thyroid Stimulating Hormone 0.19 uIU/mL (0.55-4.78); Total Protein 6.3 gm/dL (5.7-8.2); eGFR 36 See Note
[2024-08-12] MEDS: HEPARIN SOD INJ 5000 UNIT/ML VIAL SC ×3 (07:59→21:55)
[2024-08-12] MEDS: INSULIN LISPRO (AdmeLOG) 1 UNIT/0.01 ML UNIT SC ×2 (08:13→12:19)
[2024-08-12] MEDS: PANTOPRAZOLE 40 MG TABLET PO (09:35)
--- NOTE | 2024-08-12 10:38 | PC.CC ---
Patient is a 68 year-old male who presents to the hospital for Acute Encephalopathy/Hypotension. ASW made face to face contact with patient to complete initial assessment. Patient was asleep ASW completed initial assessment with patient's son Maddison Anthony. Patient's son reports the patient lives at home with him and he helps care for the patient. The patient also receives In-Home Supportive Services as he needs assistance with his ADLs. Patient is bed bound and requires a Becca Lift to help lift him from his hospital bed into his electric wheelchair. Patient uses oxygen at home and has the oxygen, per son Maddison. Patient receives primary care with Howard Briceño. Upon discharge patient plans to return back home with his son. public services librarian to follow up with any discharge needs.
--- NOTE | 2024-08-12 15:29 | ESPR_ITS ---
<Statement entered by Sara Jones MD - 08/12/24 17:11> I discussed with and supervised the leadership program internship physician who took care of this patient. I personally saw and examined the patient and discussed the assessment and plan with the entire medicine team, including my attending Dr. Daugherty, I agree with most of the assessment and plan as documented below Sara Jones M.D. PGY-2 Documentation for date of: 08/12/24 Subjective Subjective Interval history: No overnight events. Patient seen and examined at bedside, lethargic. Patient arousable to verbal stimuli, able to give short answers to questions, disoriented. Endorsed having a cold , but denies fevers, chills, shortness of breath, cough, chest pain, nausea, vomiting. Mucopurulent sputum seen on patient's wrist, patient denied productive cough. Ordered free T4 for tomorrow morning. Exam Vital Signs Temp Pulse Resp BP Pulse Ox O2 Del Method O2 Flow Rate 99.3 F 75 16 122/62 98 Nasal Cannula 1 08/12/24 10:11 08/12/24 14:31 08/12/24 14:31 08/12/24 14:31 08/12/24 14:31 08/12/24 14:31 08/12/24 14:31 Narrative Exam PE: Gen: Well-developed and well-nourished. Obese. HEENT: NCAT, PERRLA, EOMI, MMM, anicteric conjunctivae. CVS: normal S1 and S2. RRR. No M/R/G. Resp: Poor lung sounds due to body habitus, rhonchi on right side. Abd: soft, non-tender, non-distended. MSK: Good ROM in BUE & BLE. Nonblanching erythema, nontender, around bilateral ankles. 1+ pitting edema bilateral lower extremities. Neuro: CN II-XII grossly intact. Strength 5/5 in BUE & BLE. Alert and oriented x3. Psych: appropriate mood and affect. Objective Labs 08/12/24 04:30 08/12/24 04:30 Labs: Laboratory Results - last 24 hr 08/11/24 08/11/24 08/11/24 16:21 16:51 19:56 WBC 13.4 H RBC 4.01 L Hgb 11.4 L Hct 36.0 L MCV 90 MCH 28.4 MCHC 31.7 RDW Std Deviation 55.4 H Plt Count 243 Neut % (Auto) 69 Lymph % (Auto) 17 [place] % (Auto) 11 Eos % (Auto) 3 Baso % (Auto) 0 Neut # (Auto) 9.2 H Lymph # (Auto) 2.2 [place] # (Auto) 1.4 H Eos # (Auto) 0.5 Baso # (Auto) 0.0 Immature Gran # (Auto) 0.04 H Absolute Nucleated RBC 0.00 Immature Gran % 0 Nucleated RBC % 0 ESR PT 12.5 H INR 1.2 APTT 35.9 Puncture Site Right Radial ABG pH 7.41 ABG pCO2 55 H ABG pO2 75 L ABG HCO3 35 H ABG O2 Saturation 96 ABG Base Excess 8 H Oxygen Liter Flow 2 Sodium 140 Potassium 4.6 Chloride 101 Carbon Dioxide 32.6 H Anion Gap 6 L BUN 57 H Creatinine 2.1 H Estim Creat Clear Calc 44.4 L eGFR 34 L BUN/Creatinine Ratio 27 H Glucose [address] Glu mg/dL Hemoglobin A1c Calculated Osmolality 300 H Lactic Acid 1.6 Calcium 9.5 Corrected Calcium 9.5 Magnesium Total Bilirubin 0.3 AST 18 ALT 15 Alkaline Phosphatase 177 H Troponin I < 0.020 C-Reactive Prot, Quant 3.0 H B-Natriuretic Peptide 86 Total Protein 6.7 Albumin 4.0 Globulin 2.7 Albumin/Globulin Ratio 1.5 Vitamin B12 Procalcitonin 0.37 TSH Ur Collection Type Clean Catch Urine Color Colorless A Urine Clarity Clear Urine pH 7.0 Ur Specific [place] 1.008 Urine Protein Negative Urine Glucose (UA) Negative Urine Ketones Negative Urine Blood Negative Urine Nitrite Negative Urine Bilirubin Negative Urine Urobilinogen (Auto) Negative Ur Leukocyte Esterase Negative Urine RBC < 1 Urine WBC < 1 Ur Squamous Epith Cells 1 Urine Bacteria None Ur Culture Indicated? Not Indicated Urine Opiates Screen Urine Fentanyl Screen Ur Barbiturates Screen U Amphetamin/Meth Scrn U Benzodiazepines Scrn U Cocaine Metab Screen U Marijuana (THC) Screen 08/12/24 08/12/24 00:00 04:30 WBC 11.0 H RBC 3.92 L Hgb 11.1 L Hct 35.5 L MCV 91 MCH 28.3 MCHC 31.3 RDW Std Deviation 55.7 H Plt Count 202 D Neut % (Auto) 56 Lymph % (Auto) 22 [place] % (Auto) 18 H Eos % (Auto) 3 Baso % (Auto) 0 Neut # (Auto) 6.2 Lymph # (Auto) 2.4 [place] # (Auto) 2.0 H Eos # (Auto) 0.3 Baso # (Auto) 0.0 Immature Gran # (Auto) 0.05 H Absolute Nucleated RBC 0.00 Immature Gran % 1 H Nucleated RBC % 0 ESR 93 H PT INR APTT Puncture Site ABG pH ABG pCO2 ABG pO2 ABG HCO3 ABG O2 Saturation ABG Base Excess Oxygen Liter Flow Sodium 143 Potassium 4.4 Chloride 103 Carbon Dioxide 32.4 H Anion Gap 8 BUN 48 H Creatinine 2.0 H Estim Creat Clear Calc 46.6 L eGFR 36 L BUN/Creatinine Ratio 24 H Glucose [address] Glu mg/dL 229 H Hemoglobin A1c 9.6 H Calculated Osmolality 301 H Lactic Acid Calcium 9.4 Corrected Calcium 9.6 Magnesium 2.6 Total Bilirubin 0.3 AST 17 ALT 13 Alkaline Phosphatase 168 H Troponin I C-Reactive Prot, Quant B-Natriuretic Peptide Total Protein 6.3 Albumin 3.7 Globulin 2.6 Albumin/Globulin Ratio 1.4 Vitamin B12 340 Procalcitonin TSH 0.19 L Ur Collection Type Urine Color Urine Clarity Urine pH Ur Specific [place] Urine Protein Urine Glucose (UA) Urine Ketones Urine Blood Urine Nitrite Urine Bilirubin Urine Urobilinogen (Auto) Ur Leukocyte Esterase Urine RBC Urine WBC Ur Squamous Epith Cells Urine Bacteria Ur Culture Indicated? Urine Opiates Screen Positive A Urine Fentanyl Screen Negative Ur Barbiturates Screen Negative U Amphetamin/Meth Scrn Negative U Benzodiazepines Scrn Negative U Cocaine Metab Screen Negative U Marijuana (THC) Screen Negative ABG Interpretation ABG results: 08/11/24 16:51 ABG pH 7.41 ABG pCO2 55 H ABG pO2 75 L ABG HCO3 35 H ABG O2 Saturation 96 ABG Base Excess 8 H Quality Measures Quality Measures VTE prophylaxis Advance care planning discussed with:: patient Assessment & Plan Assessment Current Active Medications: Generic Name Dose Route Start Last Admin Trade Name Freq PRN Reason Stop Dose Admin Acetaminophen 650 mg 08/12/24 01:27 Acetaminophen 325 Mg Tablet PO 09/11/24 01:26 Q6H PRN Fever >101.5 or Pain 1-3 Albuterol/Ipratropium 3 ml 08/12/24 07:00 Albuterol/Ipratropium (Duoneb) Rt Raquel 3 Ml Nebu INH 09/11/24 06:59 Q6HRRT HUDSON Bisacodyl 10 mg 08/12/24 01:27 Bisacodyl 5 Mg Tabec PO 09/11/24 01:26 QDAY PRN CONSTIPATION Protocol Dextrose 25 ml 08/12/24 01:41 Dextrose 50%-Water Inj 50 Ml Syringe IV 09/11/24 01:40 Q15MIN PRN BG 50-70 responsive npo pt Dextrose 50 ml 08/12/24 01:41 Dextrose 50%-Water Inj 50 Ml Syringe IV 09/11/24 01:40 Q15MIN PRN BG <50 OR BG <70 & pt unresponsive Glucagon 1 mg 08/12/24 01:41 Glucagon Inj 1 Mg Vial IM Q15MIN PRN BG <70, and no IV access Heparin Sodium (Porcine) 5,000 unit 08/12/24 06:00 08/12/24 14:49 Heparin Sod Inj 5000 Unit/Ml Vial SC 08/26/24 05:59 5,000 unit Q8HR HUDSON Administration Lactated Ringer's 1,000 mls @ 50 mls/hr 08/12/24 01:43 08/12/24 03:15 Lactated Ringers IV 09/11/24 01:42 50 mls/hr .Q20H HUDSON Administration Cefazolin Sodium 2 gm in 100 mls @ 100 mls/hr 08/12/24 03:17 08/12/24 15:20 Ancef 2gm Ivpb IV 08/19/24 03:16 100 mls/hr Q8HR HUDSON Administration Insulin Human Lispro 0 unit 08/12/24 07:30 08/12/24 12:19 Insulin Lispro (Admelog) 1 Unit/0.01 Ml Unit SC 09/11/24 07:29 1 unit AC HUDSON Administration Protocol Labetalol HCl 10 mg 08/12/24 01:41 Labetalol Inj 5 Mg/Ml Vial 20 Ml IVP 09/11/24 01:40 Q2H PRN SBP >180mmHg Ondansetron HCl 4 mg 08/12/24 01:27 Ondansetron Inj 2 Mg/Ml Inj 2 Ml IV 09/11/24 01:26 Q6H PRN NAUSEA OR VOMITING Protocol Oxycodone/Acetaminophen 1 tab 08/12/24 01:27 Oxycodone/Apap 5/325 Tablet PO 08/17/24 01:26 Q8HR PRN PAIN SCALE 4-6 (Moderate Pantoprazole Sodium 40 mg 08/12/24 09:00 08/12/24 09:35 Pantoprazole 40 Mg Tablet PO 09/11/24 08:59 40 mg QDAY HUDSON Administration Plan 68-year-old male patient with past medical history of COPD on 2 L of oxygen at home, hyperlipidemia, type 2 diabetes mellitus, hypertension, HFpEF 55 to 60%, coronary artery disease status post stent, A-fib on Eliquis, history of CVA with left-sided residual deficit in 2022, asthma, gout, BPH was brought to the ED from home after he was noticed to have severe lethargy at home. Patient was admitted for management of acute encephalopathy. #Acute encephalopathy, infectious versus metabolic versus toxic #Possible cellulitis of the lower extremities DDx medication side effect, secondary to LE cellulitis, dehydration, arrhythmia, adrenal insufficiency, hypothyroidism Patient has multiple medications that can lower his blood pressure which include carvedilol, Bumex, metolazone, and also has narcotics such as hydrocodone was noticed in his external length of prescriptions Because he has history of CHF patient is more prone to arrhythmias, and less likely patient might be also experiencing adrenal insufficiency or hypothyroidism. Patient noticed to have heterogeneous redness in the lower extremities with excoriation naomi, there is small wound on the lovelace of the right lower extremity. CT scan was negative for any bleed or hemorrhage, chest x-ray was negative for any pneumonia however there was vascular congestion. Pro-Bryant was normal however CRP was mildly elevated at 3.0. WBC was also mildly elevated however it was noticed to be downtrending since last visit on 04 August this year which was 15.7 his urinalysis was clear. TSH low, 0.19, appears to be within normal range for patient. -Hold home medications diuretics, beta-blockers, and Eliquis with close monitoring -Cefazolin 2 g every 8 hours for cellulitis -Wound care -Start the patient on IV fluid gentle 50 mL of NS for 1 bag -Orthostatic vitals -Hold all narcotic medications and only to be given as needed -Free T4, follow-up -Consider adrenal insufficiency workup if clinically warranted -Consider consulting neurology for consider further imaging if needed #History of HFpEF, EF 55 to 60% #History of coronary artery disease status post stent #History of A-fib on Eliquis #History of hypertension Because the patient has multiple medications that can lower his blood pressure, will hold on resuming his home medications at this time. Patient also seems to be dehydrated with delayed skin turgor and hypertension on presentation. Patient was given 500 mL bolus at the ED NS. -Will continue another bag of 1 L NS 50 mL -Strict in and out -Consider resuming his Eliquis and aspirin if any after med reconciliation -Patient education might be needed before discharge regarding using his diuretics #History of COPD on 2 L of oxygen at home #History of asthma Patient history as stated -Oxygen to keep O2 saturation between 88 and 92% -DuoNebs every 8 hours scheduled #History of diabetes mellitus Patient history as stated. A1c 9.6%. -Hypoglycemia protocol in place -Insulin sliding scale #History of BPH Patient history as stated -Will hold his home medication tamsulosin due to presentation with hypotension DVT prophylaxis: Heparin GI prophylaxis: Protonix Diet: Cardiac, consistent carb Lines: Peripheral IV Code status: Full code Plan of care discussed with senior resident Dr. Jones PGY?[address] Daugherty. Remigio Quiroga MD PGY?1 Attending Provider Attestation/Addendum I have examined the patient, reviewed labs and imaging findings, discussed the case with the resident(s), and reviewed entered orders. I agree with the plan of care as outlined in this note. Dr. Willow MD
[2024-08-12] MEDS: oxyCODONE/APAP 5/325 TABLET 1 TAB PO (22:57)
[2024-08-13] VITALS (13 sets, daily range): BP systolic 117–139; BP diastolic 65–89; PULSE 81–98; RESP 17–22; TEMP 36.4–36.7; O2SAT 92–99; BMI 44.0; BMI 44.1
--- NOTE | 2024-08-13 00:07 | PC.NURSE ---
Orthostatic Vitals ordered as now for 0032 time, Not Done as patient is confused, unable to bear weight, is a fall risk precautions.
[2024-08-13] MEDS: ceFAZolin/D5W 2 GM IV 2 GM/100 ML BAG IV ×3 (05:17→21:02)
[2024-08-13 06:08] LABS: Basophils % (Auto) 0 % (0-2.5); Eosinophils # (Auto) 0.2 Thou/mm3 (0.0-0.5); Eosinophils % (Auto) 2 % (0-10); Hematocrit 32.9 % (41.0-53.0); Hemoglobin 10.5 g/dL (13.5-16.0); Immature Granulocytes % (Auto) 0 % (0-0); Immature Granulocytes Auto 0.01 Thou/mm3 (0.00-0.00); Lymphocytes # (Auto) 2.2 Thou/mm3 (1.0-4.8); Lymphocytes % (Auto) 32 % (10-50); Mean Corpuscular HGB Conc 31.9 g/dl (31.0-37.0); Mean Corpuscular Volume 91 fL (80-100); Monocytes # (Auto) 1.3 Thou/mm3 (0.0-0.8); Monocytes % (Auto) 19 % (0-12); Neutrophils # (Auto) 3.3 Thou/mm3 (1.8-7.7); Neutrophils % (Auto) 47 % (37-80); Nucleated Red Blood Cell % 0 /100 WBC (0); Platelet Count 219 Thou/mm3 (140-440); RDW Standard Deviation 56.6 fL (35.1-43.9); Red Blood Count 3.62 Miln/mm3 (4.50-5.90); White Blood Count 7.1 Thou/mm3 (3.8-10.6)
[2024-08-13 06:44] LABS: Alanine Aminotransferase < 7 U/L (10-49); Albumin, Serum 3.4 gm/dL (3.4-4.8); Albumin/Globulin Ratio 1.5 (1.2-2.2); Alkaline Phosphatase 146 U/L (46-116); Anion Gap 7 (7-16); Aspartate Amino Transferase 13 U/L (0-34); BUN/Creatinine Ratio 22 Ratio (12-20); Bilirubin,Total 0.2 mg/dL (0.3-1.2); Blood Urea Nitrogen 40 mg/dL (9-23); Calcium (Corrected) 9.5 mg/dL (8.5-10.1); Chloride 108 mMol/L (98-107); Creatinine (Component) 1.8 mg/dL (0.6-1.3); Estimated Creatinine Clearance 53.6 mL/min (>60); Free T4 (Free Thyroxine) 1.14 ng/dL (0.89-1.76); Globulin 2.3 gm/dL (2.3-3.5); Glucose 123 mg/dL (74-106); Magnesium 2.5 mg/dL (1.6-2.6); Osmolality,Calculated 303 (275-295); Phosphorous 3.6 mg/dL (2.4-5.1); Potassium 3.8 mMol/L (3.4-5.1); Sodium 147 mMol/L (136-145); Total Protein 5.7 gm/dL (5.7-8.2); eGFR 40 See Note
[2024-08-13] MEDS: ALBUTEROL/IPRATROPIUM (Duoneb) RT SOL 3 ML NEBU INH ×3 (07:18→19:11)
--- NOTE | 2024-08-13 07:25 | ESPR_ITS ---
Documentation for date of: 08/13/24 Subjective Subjective Interval history: No overnight acute events This morning the bedside, patient is at mentation baseline, he is stated that he is in a lot of pain, saturating 99% on 2 L oxygen per nasal cannula, denied chest pain, shortness of breath, palpitations or any other associated symptoms different than the mentioned above. We will resume patient home Allyn but half dose for pain control and avoid opioid withdrawal. Due to the patient mentation is back to baseline we will monitor the patient for 1 more day and we will anticipate discharge if patient remains stable in the next 24 to 48 hours. Exam Vital Signs Temp Pulse Resp BP Pulse Ox O2 Del Method O2 Flow Rate 98.1 F 90 18 124/81 99 Nasal Cannula 2 08/13/24 04:00 08/13/24 07:18 08/13/24 07:18 08/13/24 04:00 08/13/24 07:18 08/13/24 04:00 08/13/24 07:18 Narrative Exam General: No acute distress, frail, looks chronically ill, saturating 99% on 2 L per nasal cannula, obese HEENT: NC/AT, PERRL, EOMI, Good conjugate gaze, moist mucous membranes. Neck: Supple, No masses, No adenopathy, carotid pulse 2+ bilaterally without bruits, No JVD, normal range of motion. Chest: Symmetrical, atraumatic, and with equal expansion , Nontender on palpation no deformity and no crepitus. CVS: S1 and S2 present, irregular, No murmurs, rubs or gallops perceived during auscultation. Lungs: Normal respiratory effort, decreased breath sounds on bilateral lung bases, No intercostal or subcostal retraction. Abdomen : Increased abdominal girth no tenderness to palpation, no guarding ,no rebound, +BS, no organomegaly. Extremities: 1+ bilateral lower extremity edema warm well perfused, normal tone and ROM, strength and sensation intact, cap refill less than 2, +2 dp equal bilaterally, able to move all 4 extremities spontaneously. Skin: Multiple bilateral lower extremity skin excoriations, bilateral onychomycosis,or jaundice noted Neuro: AOx3, no focal neurologic deficits noted, GCS 15 Psych: Appropriate mood and affect. Objective Labs 08/14/24 04:47 08/14/24 04:47 Labs: Laboratory Results - last 24 hr 08/13/24 05:13 WBC 7.1 RBC 3.62 L Hgb 10.5 L Hct 32.9 L MCV 91 MCH 29.0 MCHC 31.9 RDW Std Deviation 56.6 H Plt Count 219 Neut % (Auto) 47 Lymph % (Auto) 32 [place] % (Auto) 19 H Eos % (Auto) 2 Baso % (Auto) 0 Neut # (Auto) 3.3 Lymph # (Auto) 2.2 [place] # (Auto) 1.3 H Eos # (Auto) 0.2 Baso # (Auto) 0.0 Immature Gran # (Auto) 0.01 H Absolute Nucleated RBC 0.00 Immature Gran % 0 Nucleated RBC % 0 Sodium 147 H Potassium 3.8 D Chloride 108 H Carbon Dioxide 32.0 H Anion Gap 7 BUN 40 H Creatinine 1.8 H Estim Creat Clear Calc 53.6 L eGFR 40 L BUN/Creatinine Ratio 22 H Glucose 123 H D Calculated Osmolality 303 H Calcium 9.0 Corrected Calcium 9.5 Phosphorus 3.6 Magnesium 2.5 Total Bilirubin 0.2 L AST 13 ALT < 7 L Alkaline Phosphatase 146 H D Total Protein 5.7 Albumin 3.4 Globulin 2.3 Albumin/Globulin Ratio 1.5 Free T4 1.14 ABG Interpretation ABG results: 08/11/24 16:51 ABG pH 7.41 ABG pCO2 55 H ABG pO2 75 L ABG HCO3 35 H ABG O2 Saturation 96 ABG Base Excess 8 H Quality Measures Quality Measures none Advance care planning discussed with:: patient Assessment & Plan Assessment Current Active Medications: Generic Name Dose Route Start Last Admin Trade Name Freq PRN Reason Stop Dose Admin Acetaminophen 650 mg 08/12/24 01:27 Acetaminophen 325 Mg Tablet PO 09/11/24 01:26 Q6H PRN Fever >101.5 or Pain 1-3 Albuterol/Ipratropium 3 ml 08/12/24 07:00 08/13/24 07:18 Albuterol/Ipratropium (Duoneb) Rt Raquel 3 Ml Nebu INH 09/11/24 06:59 3 ml Q6HRRT HUDSON Administration Bisacodyl 10 mg 08/12/24 01:27 Bisacodyl 5 Mg Tabec PO 09/11/24 01:26 QDAY PRN CONSTIPATION Protocol Dextrose 25 ml 08/12/24 01:41 Dextrose 50%-Water Inj 50 Ml Syringe IV 09/11/24 01:40 Q15MIN PRN BG 50-70 responsive npo pt Dextrose 50 ml 08/12/24 01:41 Dextrose 50%-Water Inj 50 Ml Syringe IV 09/11/24 01:40 Q15MIN PRN BG <50 OR BG <70 & pt unresponsive Glucagon 1 mg 08/12/24 01:41 Glucagon Inj 1 Mg Vial IM Q15MIN PRN BG <70, and no IV access Heparin Sodium (Porcine) 5,000 unit 08/12/24 21:00 08/12/24 21:55 Heparin Sod Inj 5000 Unit/Ml Vial SC 08/26/24 20:59 5,000 unit Q12HR HUDSON Administration Lactated Ringer's 1,000 mls @ 50 mls/hr 08/12/24 01:43 08/12/24 21:54 Lactated Ringers IV 09/11/24 01:42 50 mls/hr .Q20H HUDSON Administration Cefazolin Sodium 2 gm in 100 mls @ 100 mls/hr 08/12/24 03:17 08/13/24 05:17 Ancef 2gm Ivpb IV 08/19/24 03:16 100 mls/hr Q8HR HUDSON Administration Insulin Human Lispro 0 unit 08/12/24 07:30 08/12/24 17:13 Insulin Lispro (Admelog) 1 Unit/0.01 Ml Unit SC 09/11/24 07:29 Not Given AC HUDSON Protocol Labetalol HCl 10 mg 08/12/24 01:41 Labetalol Inj 5 Mg/Ml Vial 20 Ml IVP 09/11/24 01:40 Q2H PRN SBP >180mmHg Ondansetron HCl 4 mg 08/12/24 01:27 Ondansetron Inj 2 Mg/Ml Inj 2 Ml IV 09/11/24 01:26 Q6H PRN NAUSEA OR VOMITING Protocol Oxycodone/Acetaminophen 1 tab 08/12/24 01:27 Oxycodone/Apap 5/325 Tablet PO 08/17/24 01:26 Q8HR PRN PAIN SCALE 4-6 (Moderate Pantoprazole Sodium 40 mg 08/12/24 09:00 08/12/24 09:35 Pantoprazole 40 Mg Tablet PO 09/11/24 08:59 40 mg QDAY HUDSON Administration Plan 68-year-old male patient with past medical history of COPD on 2 L of oxygen at home, hyperlipidemia, type 2 diabetes mellitus, hypertension, HFpEF 55 to 60%, coronary artery disease status post stent, A-fib on Eliquis, history of CVA with left-sided residual deficit in 2022, asthma, gout, BPH was brought to the ED from home after he was noticed to have severe lethargy at home. Patient was admitted for management of acute encephalopathy. #Acute encephalopathy, infectious versus metabolic versus toxic improving #Possible cellulitis of the lower extremities DDx medication side effect, secondary to LE cellulitis, dehydration, arrhythmia, adrenal insufficiency, hypothyroidism Patient has multiple medications that can lower his blood pressure which include carvedilol, Bumex, metolazone, and also has narcotics such as hydrocodone was noticed in his external length of prescriptions Because he has history of CHF patient is more prone to arrhythmias, and less likely patient might be also experiencing adrenal insufficiency or hypothyroidism. Patient noticed to have heterogeneous redness in the lower extremities with excoriation naomi, there is small wound on the lovelace of the right lower extremity. CT scan was negative for any bleed or hemorrhage, chest x-ray was negative for any pneumonia however there was vascular congestion. Pro-Bryant was normal however CRP was mildly elevated at 3.0. WBC was also mildly elevated however it was noticed to be downtrending since last visit on 04 August this year which was 15.7 his urinalysis was clear. TSH low, 0.19, appears to be within normal range for patient. 08/13/2024: Patient is at mentation baseline, AOx3, respond to question properly -Continue cefazolin 2 g every 8 hours for cellulitis -Allyn 5/325 mg p.o. every 6 hours as needed for pain -Duloxetine 60 mg p.o. daily -Pregabalin 150 mg p.o. 3 times daily -Follow-up CBC and CMP #History of HFpEF EF 55 to 60% #History of coronary artery disease status post stent #History of A-fib on Eliquis #History of hypertension Because the patient has multiple medications that can lower his blood pressure, will hold on resuming his home medications at this time. Patient also seems to be dehydrated with delayed skin turgor and hypertension on presentation. -Continue Eliquis 5 mg p.o. twice daily -Follow-up CMP #ALMA on CKD stage IIIb Baseline creatinine around 1.7 Downtrending 1.8 - Strict ins and outs - Avoid nephrotoxic drugs - Renally dose medications - Follow-up CMP #History of COPD on 2 L of oxygen at home #History of asthma Patient history as stated -Oxygen to keep O2 saturation between 88 and 92% -DuoNebs every 8 hours scheduled #History of diabetes mellitus Patient history as stated. A1c 9.6%. -Hypoglycemia protocol in place -Insulin sliding scale #History of BPH Patient history as stated -Will hold his home medication tamsulosin due to presentation with hypotension DVT prophylaxis: Eliquis GI prophylaxis: Protonix Diet: Cardiac, consistent carb Lines: Peripheral IV Code status: Full code Patient discussed with my attending Dr Willow Patel MD PGY-3 Disclaimer: Despite multiple revisions, due to the dictation software being used, the document bellow may not be free of grammatical errors including phonetic/typographic errors. However, this does not deter from our commitment to providing health care in the patient's best interest in mind. Attending Provider Attestation/Addendum I have examined the patient, reviewed labs and imaging findings, discussed the case with the resident(s), and reviewed entered orders. I agree with the plan of care as outlined in this note. Dr. Willow MD
[2024-08-13] MEDS: ACETAMINOPHEN 325 MG TABLET 650 MG PO ×2 (07:57→18:37)
[2024-08-13] MEDS: PANTOPRAZOLE 40 MG TABLET PO (08:00)
[2024-08-13] MEDS: HEPARIN SOD INJ 5000 UNIT/ML VIAL SC (08:00)
[2024-08-13] MEDS: INSULIN LISPRO (AdmeLOG) 1 UNIT/0.01 ML UNIT SC ×3 (08:03→17:24)
--- NOTE | 2024-08-13 09:49 | CHAP ---
Patient sleeping. Prayed silently near bed.
[2024-08-13] MEDS: HYDROcodone/APAP 5/325 TABLET 1 TAB PO (14:22)
[2024-08-13] MEDS: DULoxetine HCL 30 MG CAPSULE 60 MG PO (15:23)
--- NOTE | 2024-08-13 15:37 | PC.DIETICIAN ---
Nutrition Prescription: 1. Prostat SF BID with lunch and dinner 2. RD recommends adding Vitamin C 500mg BID, Zinc 220mg x14 days and multivitamin-mineral daily
[2024-08-13] MEDS: APIXABAN 2.5 MG TABLET 5 MG PO (20:35)
[2024-08-13] MEDS: PREGABALIN 75 MG CAPSULE 150 MG PO (21:02)
[2024-08-14] VITALS (10 sets, daily range): BP systolic 130–148; BP diastolic 69–83; PULSE 75–96; RESP 18–23; TEMP 36.2–36.7; O2SAT 92–99; BMI 45.6
[2024-08-14] MEDS: PREGABALIN 75 MG CAPSULE 150 MG PO (05:20)
[2024-08-14] MEDS: ceFAZolin/D5W 2 GM IV 2 GM/100 ML BAG IV ×3 (05:20→21:18)
[2024-08-14 05:36] LABS: Basophils % (Auto) 0 % (0-2.5); Eosinophils # (Auto) 0.2 Thou/mm3 (0.0-0.5); Eosinophils % (Auto) 2 % (0-10); Hematocrit 34.2 % (41.0-53.0); Hemoglobin 10.8 g/dL (13.5-16.0); Immature Granulocytes % (Auto) 0 % (0-0); Immature Granulocytes Auto 0.03 Thou/mm3 (0.00-0.00); Lymphocytes # (Auto) 2.7 Thou/mm3 (1.0-4.8); Lymphocytes % (Auto) 37 % (10-50); Mean Corpuscular HGB Conc 31.6 g/dl (31.0-37.0); Mean Corpuscular Hemoglobin 28.1 pg (25.0-35.0); Mean Corpuscular Volume 89 fL (80-100); Monocytes # (Auto) 1.1 Thou/mm3 (0.0-0.8); Monocytes % (Auto) 15 % (0-12); Neutrophils # (Auto) 3.3 Thou/mm3 (1.8-7.7); Neutrophils % (Auto) 45 % (37-80); Nucleated Red Blood Cell % 0 /100 WBC (0); Platelet Count 244 Thou/mm3 (140-440); RDW Standard Deviation 55.4 fL (35.1-43.9); Red Blood Count 3.84 Miln/mm3 (4.50-5.90); White Blood Count 7.3 Thou/mm3 (3.8-10.6)
[2024-08-14 06:11] LABS: Alanine Aminotransferase < 7 U/L (10-49); Albumin, Serum 3.6 gm/dL (3.4-4.8); Albumin/Globulin Ratio 1.5 (1.2-2.2); Alkaline Phosphatase 137 U/L (46-116); Anion Gap 8 (7-16); Aspartate Amino Transferase 18 U/L (0-34); BUN/Creatinine Ratio 19 Ratio (12-20); Bilirubin,Total 0.2 mg/dL (0.3-1.2); Blood Urea Nitrogen 31 mg/dL (9-23); Calcium 9.1 mg/dL (8.3-10.6); Calcium (Corrected) 9.4 mg/dL (8.5-10.1); Carbon Dioxide 31.2 mMol/L (20.0-31.0); Chloride 107 mMol/L (98-107); Creatinine (Component) 1.6 mg/dL (0.6-1.3); Estimated Creatinine Clearance 59.5 mL/min (>60); Globulin 2.4 gm/dL (2.3-3.5); Glucose 144 mg/dL (74-106); Magnesium 2.4 mg/dL (1.6-2.6); Osmolality,Calculated 300 (275-295); Phosphorous 3.4 mg/dL (2.4-5.1); Potassium 3.8 mMol/L (3.4-5.1); Sodium 146 mMol/L (136-145); eGFR 47 See Note
[2024-08-14] MEDS: ALBUTEROL/IPRATROPIUM (Duoneb) RT SOL 3 ML NEBU INH ×3 (06:15→18:49)
[2024-08-14] MEDS: INSULIN LISPRO (AdmeLOG) 1 UNIT/0.01 ML UNIT SC ×3 (07:25→17:55)
[2024-08-14] MEDS: DULoxetine HCL 30 MG CAPSULE 60 MG PO (08:40)
[2024-08-14] MEDS: PANTOPRAZOLE 40 MG TABLET PO (08:41)
[2024-08-14] MEDS: APIXABAN 2.5 MG TABLET 5 MG PO ×2 (08:41→20:36)
--- NOTE | 2024-08-14 13:36 | ESPR_ITS ---
Documentation for date of: 08/14/24 Subjective Subjective Interval history: No overnight events Patient seen and examined at bedside. Patient resting comfortably, appropriately responsive. Remains mildly disoriented, per family at bedside not back to baseline. Patient denies fever, chills, nausea, vomiting, pain. Will hold duloxetine and Lyrica, likely DC tomorrow if patient continues to improve. Exam Vital Signs Temp Pulse Resp BP Pulse Ox O2 Del Method O2 Flow Rate 97.4 F 83 18 130/69 99 Nasal Cannula 1 08/14/24 12:00 08/14/24 12:26 08/14/24 12:26 08/14/24 12:00 08/14/24 12:26 08/14/24 08:32 08/14/24 12:26 Narrative Exam PE: Gen: Well-developed and well-nourished. Obese. HEENT: NCAT, PERRLA, EOMI, MMM, anicteric conjunctivae. CVS: normal S1 and S2. RRR. No M/R/G. Resp: Poor lung sounds due to body habitus, rhonchi on right side. Abd: soft, non-tender, non-distended. MSK: Good ROM in BUE & BLE. Nonblanching erythema, nontender, around bilateral ankles. 1+ pitting edema bilateral lower extremities. Stasis dermatitis. Neuro: CN II-XII grossly intact. Strength 5/5 in BUE & BLE. Alert and oriented x2. Psych: appropriate mood and affect. Objective Labs 08/15/24 05:33 08/15/24 05:33 Labs: Laboratory Results - last 24 hr 08/14/24 04:47 WBC 7.3 RBC 3.84 L Hgb 10.8 L Hct 34.2 L MCV 89 MCH 28.1 MCHC 31.6 RDW Std Deviation 55.4 H Plt Count 244 Neut % (Auto) 45 Lymph % (Auto) 37 [place] % (Auto) 15 H Eos % (Auto) 2 Baso % (Auto) 0 Neut # (Auto) 3.3 Lymph # (Auto) 2.7 [place] # (Auto) 1.1 H Eos # (Auto) 0.2 Baso # (Auto) 0.0 Immature Gran # (Auto) 0.03 H Absolute Nucleated RBC 0.00 Immature Gran % 0 Nucleated RBC % 0 Sodium 146 H Potassium 3.8 Chloride 107 Carbon Dioxide 31.2 H Anion Gap 8 BUN 31 H Creatinine 1.6 H Estim Creat Clear Calc 59.5 L eGFR 47 L BUN/Creatinine Ratio 19 Glucose 144 H Calculated Osmolality 300 H Calcium 9.1 Corrected Calcium 9.4 Phosphorus 3.4 Magnesium 2.4 Total Bilirubin 0.2 L AST 18 ALT < 7 L Alkaline Phosphatase 137 H Total Protein 6.0 Albumin 3.6 Globulin 2.4 Albumin/Globulin Ratio 1.5 ABG Interpretation ABG results: 08/11/24 16:51 ABG pH 7.41 ABG pCO2 55 H ABG pO2 75 L ABG HCO3 35 H ABG O2 Saturation 96 ABG Base Excess 8 H Quality Measures Quality Measures VTE prophylaxis Advance care planning discussed with:: patient and child Assessment & Plan Assessment Current Active Medications: Generic Name Dose Route Start Last Admin Trade Name Freq PRN Reason Stop Dose Admin Acetaminophen 650 mg 08/12/24 01:27 08/13/24 18:37 Acetaminophen 325 Mg Tablet PO 09/11/24 01:26 650 mg Q6H PRN Administration Fever >101.5 or Pain 1-3 Hydrocodone Bitart/Acetaminophen 1 tab 08/14/24 10:27 Hydrocodone/Apap 5/325 Tablet PO 08/18/24 13:56 Q8HR PRN PAIN SCALE 4-10(Mod-Sev Albuterol/Ipratropium 3 ml 08/12/24 07:00 08/14/24 12:25 Albuterol/Ipratropium (Duoneb) Rt Raquel 3 Ml Nebu INH 09/11/24 06:59 3 ml Q6HRRT HUDSON Administration Apixaban 5 mg 08/13/24 21:00 08/14/24 08:41 Apixaban 2.5 Mg Tablet PO 09/12/24 20:59 5 mg BID HUDSON Administration Bisacodyl 10 mg 08/12/24 01:27 Bisacodyl 5 Mg Tabec PO 09/11/24 01:26 QDAY PRN CONSTIPATION Protocol Dextrose 25 ml 08/12/24 01:41 Dextrose 50%-Water Inj 50 Ml Syringe IV 09/11/24 01:40 Q15MIN PRN BG 50-70 responsive npo pt Dextrose 50 ml 08/12/24 01:41 Dextrose 50%-Water Inj 50 Ml Syringe IV 09/11/24 01:40 Q15MIN PRN BG <50 OR BG <70 & pt unresponsive Glucagon 1 mg 08/12/24 01:41 Glucagon Inj 1 Mg Vial IM Q15MIN PRN BG <70, and no IV access Cefazolin Sodium 2 gm in 100 mls @ 100 mls/hr 08/12/24 03:17 08/14/24 05:20 Ancef 2gm Ivpb IV 08/19/24 03:16 100 mls/hr Q8HR HUDSON Administration Insulin Human Lispro 0 unit 08/12/24 07:30 08/14/24 12:04 Insulin Lispro (Admelog) 1 Unit/0.01 Ml Unit SC 09/11/24 07:29 1 unit AC HUDSON Administration Protocol Labetalol HCl 10 mg 08/12/24 01:41 Labetalol Inj 5 Mg/Ml Vial 20 Ml IVP 09/11/24 01:40 Q2H PRN SBP >180mmHg Ondansetron HCl 4 mg 08/12/24 01:27 Ondansetron Inj 2 Mg/Ml Inj 2 Ml IV 09/11/24 01:26 Q6H PRN NAUSEA OR VOMITING Protocol Pantoprazole Sodium 40 mg 08/12/24 09:00 08/14/24 08:41 Pantoprazole 40 Mg Tablet PO 09/11/24 08:59 40 mg QDAY HUDSON Administration Plan 68-year-old male patient with past medical history of COPD on 2 L of oxygen at home, hyperlipidemia, type 2 diabetes mellitus, hypertension, HFpEF 55 to 60%, coronary artery disease status post stent, A-fib on Eliquis, history of CVA with left-sided residual deficit in 2022, asthma, gout, BPH was brought to the ED from home after he was noticed to have severe lethargy at home. Patient was admitted for management of acute encephalopathy. #Acute encephalopathy, infectious versus metabolic versus toxic improving #Possible cellulitis of the lower extremities DDx medication side effect, secondary to LE cellulitis, dehydration, arrhythmia, adrenal insufficiency, hypothyroidism Patient has multiple medications that can lower his blood pressure which include carvedilol, Bumex, metolazone, and also has narcotics such as hydrocodone was noticed in his external length of prescriptions Because he has history of CHF patient is more prone to arrhythmias, and less likely patient might be also experiencing adrenal insufficiency or hypothyroidism. Patient noticed to have heterogeneous redness in the lower extremities with excoriation naomi, there is small wound on the lovelace of the right lower extremity. CT scan was negative for any bleed or hemorrhage, chest x-ray was negative for any pneumonia however there was vascular congestion. Pro-Bryant was normal however CRP was mildly elevated at 3.0. WBC was also mildly elevated however it was noticed to be downtrending since last visit on 04 August this year which was 15.7 his urinalysis was clear. TSH low, 0.19, appears to be within normal range for patient. Patient improved but not to baseline, A&Ox2. -Continue cefazolin 2 g every 8 hours for cellulitis -[place] 5/325 mg p.o. every 6 hours as needed for pain -Duloxetine and Pregabalin held #History of HFpEF EF 55 to 60% #History of coronary artery disease status post stent #History of A-fib on Eliquis #History of hypertension Because the patient has multiple medications that can lower his blood pressure, will hold on resuming his home medications at this time. Patient also seems to be dehydrated with delayed skin turgor and hypertension on presentation. -Continue Eliquis 5 mg p.o. twice daily -Follow-up CMP #ALMA (resolved) on CKD stage IIIb Baseline creatinine around 1.7 Downtrending 1.8 - Strict ins and outs - Avoid nephrotoxic drugs - Renally dose medications - Follow-up CMP #History of COPD on 2 L of oxygen at home #History of asthma Patient history as stated -Oxygen to keep O2 saturation between 88 and 92% -DuoNebs every 8 hours scheduled #History of diabetes mellitus Patient history as stated. A1c 9.6%. -Hypoglycemia protocol in place -Insulin sliding scale #History of BPH Patient history as stated -Will hold his home medication tamsulosin due to presentation with hypotension DVT prophylaxis: Eliquis GI prophylaxis: Protonix Diet: Cardiac, consistent carb Lines: Peripheral IV Code status: Full code Plan of care discussed with attending Dr. Daugherty. Remigio Pierce MD PGY-1 Disclaimer: Despite multiple revisions, due to the dictation software being used, the document bellow may not be free of grammatical errors including phonetic/typographic errors. However, this does not deter from our commitment to providing health care in the patient's best interest in mind. Attending Provider Attestation/Addendum I have examined the patient, reviewed labs and imaging findings, discussed the case with the resident(s), and reviewed entered orders. I agree with the plan of care as outlined in this note, with these additional summaries/recommendations: Patient seen at bedside. Patient continues to be encephalopathic. Patient originally had improvement in mentation but appears to have regressed today. He is able to state his name. He said the year is 2025. He is unsure of which city he lives in or who he lives with. He is unable to name his family members at this time. Encephalopathy most likely secondary to polypharmacy at this point. We will discontinue Lyrica for now. [place] dose also decreased. Continue soft low Zosyn for cellulitis. Repeat hematology and chemistry panel in AM. Anticipate discharge in the next 24 to 48 hours if mentation improves back to baseline. Dr. Willow MD
[2024-08-15] VITALS (7 sets, daily range): BP systolic 127–142; BP diastolic 68–99; PULSE 73–101; RESP 17–18; TEMP 36.3–36.9; O2SAT 93–99; BMI 46.6
[2024-08-15] MEDS: ALBUTEROL/IPRATROPIUM (Duoneb) RT SOL 3 ML NEBU INH ×3 (01:23→12:45)
[2024-08-15] MEDS: HYDROcodone/APAP 5/325 TABLET 1 TAB PO (04:29)
[2024-08-15] MEDS: ceFAZolin/D5W 2 GM IV 2 GM/100 ML BAG IV (05:38)
[2024-08-15 06:18] LABS: Basophils % (Auto) 0 % (0-2.5); Eosinophils # (Auto) 0.2 Thou/mm3 (0.0-0.5); Eosinophils % (Auto) 2 % (0-10); Hematocrit 32.9 % (41.0-53.0); Hemoglobin 10.6 g/dL (13.5-16.0); Immature Granulocytes % (Auto) 0 % (0-0); Immature Granulocytes Auto 0.05 Thou/mm3 (0.00-0.00); Lymphocytes # (Auto) 2.8 Thou/mm3 (1.0-4.8); Lymphocytes % (Auto) 25 % (10-50); Mean Corpuscular HGB Conc 32.2 g/dl (31.0-37.0); Mean Corpuscular Hemoglobin 28.5 pg (25.0-35.0); Mean Corpuscular Volume 88 fL (80-100); Monocytes # (Auto) 1.4 Thou/mm3 (0.0-0.8); Monocytes % (Auto) 12 % (0-12); Neutrophils # (Auto) 6.8 Thou/mm3 (1.8-7.7); Neutrophils % (Auto) 60 % (37-80); Nucleated Red Blood Cell % 0 /100 WBC (0); Platelet Count 271 Thou/mm3 (140-440); RDW Standard Deviation 54.4 fL (35.1-43.9); Red Blood Count 3.72 Miln/mm3 (4.50-5.90); White Blood Count 11.3 Thou/mm3 (3.8-10.6)
[2024-08-15 06:47] LABS: Alanine Aminotransferase < 7 U/L (10-49); Albumin, Serum 3.6 gm/dL (3.4-4.8); Albumin/Globulin Ratio 1.4 (1.2-2.2); Alkaline Phosphatase 135 U/L (46-116); Anion Gap 6 (7-16); Aspartate Amino Transferase 11 U/L (0-34); BUN/Creatinine Ratio 15 Ratio (12-20); Bilirubin,Total 0.3 mg/dL (0.3-1.2); Blood Urea Nitrogen 24 mg/dL (9-23); Calcium 8.8 mg/dL (8.3-10.6); Calcium (Corrected) 9.1 mg/dL (8.5-10.1); Carbon Dioxide 28.6 mMol/L (20.0-31.0); Chloride 107 mMol/L (98-107); Creatinine (Component) 1.6 mg/dL (0.6-1.3); Estimated Creatinine Clearance 61.4 mL/min (>60); Globulin 2.5 gm/dL (2.3-3.5); Glucose 152 mg/dL (74-106); Magnesium 1.9 mg/dL (1.6-2.6); Osmolality,Calculated 290 (275-295); Phosphorous 2.9 mg/dL (2.4-5.1); Potassium 3.8 mMol/L (3.4-5.1); Sodium 142 mMol/L (136-145); Total Protein 6.1 gm/dL (5.7-8.2); eGFR 47 See Note
[2024-08-15] MEDS: INSULIN LISPRO (AdmeLOG) 1 UNIT/0.01 ML UNIT SC ×2 (08:13→11:23)
[2024-08-15] MEDS: APIXABAN 2.5 MG TABLET 5 MG PO (08:51)
[2024-08-15] MEDS: PANTOPRAZOLE 40 MG TABLET PO (08:51)
--- NOTE | 2024-08-15 10:56 | PC.NURSE ---
I tried to reach out to son Maddison with phone number listed on facesheet, the photolithographic stripper stated Maddison was no available and hung up. I then called the next of kin, no one answered. I spoke with business services assistant to follow up on family contact for discharge plan. Patient will need transport as patient is bedbound. Will follow up with director social service.
--- NOTE | 2024-08-15 11:03 | PC.SS ---
CONSTRUCTION OPERATIONS MANAGER recieved a call from nurse and stated that they are not able to get ahold of family and pt will be discharing back home, drafter tool design called son Maddison Anthony and was able to talk to son about discharge plan and son stated that he needs EMS to transport son, CONSTRUCTION OPERATIONS MANAGER to call [facility] to set up transportation.
--- NOTE | 2024-08-15 11:26 | PC.SS ---
COMB MACHINE OPERATOR called [facility] to set up transportation for pt, ETA is [phone]. COMB MACHINE OPERATOR Updated nurse on eta
--- NOTE | 2024-08-15 11:40 | PC.SS ---
DIRECTOR FINANCIAL ANALYSIS summited referral via [facility] for douglas
--- NOTE | 2024-08-15 12:48 | ESDS_ITS ---
Planned Discharge Date 08/15/24 DS: Providers Provider Date of admission: 08/15/24 11:57 Primary care physician: Physician No Primary/Family Admitting Provider: Justyna Coello MD Attending Provider on Admission: James Daugherty MD Consults: 08/13/24 01:12 Referral Wound Care Routine Comment: wound to buttock area 08/13/24 10:46 Referral Nutritional Services Routine Comment: Wounds 08/13/24 10:47 Referral Discharge Planning Routine Comment: Will need wound care on discharge Attending Provider on DC: James Daugherty MD Discharging Provider: Remigio Pierce MD DS: Diagnosis Problem List Completed Was Problem List Reviewed/Reconciled?: Yes Hospital Course Hospital Course Hospital course: 68-year-old male patient with past medical history of COPD on 2 L of oxygen at home, hyperlipidemia, type 2 diabetes mellitus, hypertension, HFpEF 55 to 60%, coronary artery disease status post stent, A-fib on Eliquis, history of CVA with left-sided residual deficit in 2022, asthma, gout, BPH was brought to the ED from home on 08/12/2024 after he was noticed to have severe lethargy at home, admitted for acute encephalopathy. After conversations with family, developed high suspicion for polypharmacy leading to acute encephalopathy, due to patient taking [place] 10, duloxetine, Lyrica at home. Duloxetine and Lyrica held, [place] 10 decreased to [place] 5 with reduced frequency. Patient developed significant symptomatic improvement, back to baseline. Patient medically stable and cleared for discharge. Discharge plan: The following changes have been made to your medications: -Please stop duloxetine and Lyrica until your next PCP appointment -[place] 10 every 6 hours as needed for pain has been changed to [place] 5 every 8 hours as needed for pain Continue taking all other medications as previously prescribed. Please follow-up with your PCP within 1-2 weeks. Return to the ED if you develop new or worsening symptoms. Diagnoses: #Acute encephalopathy, infectious versus metabolic versus toxic improving #Possible cellulitis of the lower extremities #History of HFpEF EF 55 to 60% #History of coronary artery disease status post stent #History of A-fib on Eliquis #History of hypertension #ALMA (resolved) on CKD stage IIIb #History of COPD on 2 L of oxygen at home #History of asthma #History of diabetes mellitus #History of BPH Plan of care discussed with attending Dr. Daugherty. Remigio Pierce MD PGY?1 Status at Discharge Overall status at discharge: patient is progressing back to baseline Time Spent with Patient Time attestation: Total time spent providing and/or coordinating discharge services: Time spent: Greater than 30 minutes Exam Vital Signs Temp Pulse Resp BP Pulse Ox O2 Del Method O2 Flow Rate 97.4 F 91 18 137/77 H 95 Room Air 2 08/15/24 12:00 08/15/24 12:08/15/24 12:00 08/15/24 12:08/15/24 12:08/15/24 12:08/15/24 06:13 Narrative Exam PE: Gen: Well-developed and well-nourished. Obese. HEENT: NCAT, PERRLA, EOMI, MMM, anicteric conjunctivae. CVS: normal S1 and S2. RRR. No M/R/G. Resp: Poor lung sounds due to body habitus. Abd: soft, non-tender, non-distended. MSK: Good ROM in BUE & BLE. Nonblanching erythema, nontender, around bilateral ankles. 1+ pitting edema bilateral lower extremities. Stasis dermatitis. Neuro: CN II-XII grossly intact. Strength 5/5 in BUE & BLE. Alert and oriented x2. Psych: appropriate mood and affect. Discharge Plan Plan Patient Disposition: HOME (Self Care) Patient condition on transfer: Stable Care Plan Goals: The following changes have been made to your medications: -Please stop duloxetine and Lyrica until your next PCP appointment -[place] 10 every 6 hours as needed for pain has been changed to [place] 5 every 8 hours as needed for pain Continue taking all other medications as previously prescribed. Please follow-up with your PCP within 1-2 weeks. Return to the ED if you develop new or worsening symptoms. Prescriptions/Referrals Prescriptions/Med Rec: New hydrocodone-acetaminophen 5-325 mg Tablet 1 tab PO Q8HR MDD 3 PRN (Reason: Pain Scale 4-10(Mod-Sev) 7 Days Qty: 20 0RF Continued potassium chloride 10 mEq Capsule, Extended Release 10 meq PO QDAY atorvastatin 40 mg Tablet 40 mg PO QPM carvedilol 6.25 mg Tablet 6.25 mg PO BID Rx Instructions: must administer with a meal/food tizanidine 2 mg Tablet 2 mg PO HS Patient Comments: Per pt son. Pt does not take this every day. Only as needed amlodipine 5 mg Tablet 5 mg PO QDAY allopurinol 100 mg Tablet 100 mg PO HS pantoprazole 40 mg Tablet,Delayed Release (Dr/Ec) 40 mg PO QDAY Ozempic 2 mg/dose (8 mg/3 mL) pen injector 2 mg SUBCUT QWEEK Patient Comments: INJECT 2 mg SUBCUTANEOUSLY EVERY WEEK Rx Instructions: Every Friday bumetanide 2 mg tablet 4 mg PO BID Patient Comments: TAKE TWO TABLETS BY MOUTH TWICE DAILY FOR FOURTEEN DAYS famotidine 20 mg tablet 20 mg PO QDAY Patient Comments: TAKE ONE TABLET BY MOUTH EVERY DAY HEARTBURN GASTRIC ACIDITY docusate sodium 250 mg capsule 250 mg PO BID dutasteride 0.5 mg capsule 0.5 mg PO QDAY Patient Comments: TAKE ONE CAPSULE BY MOUTH EVERY DAY Eliquis 5 mg tablet 5 mg PO BID Patient Comments: TAKE ONE TABLET BY MOUTH TWICE DAILY FOR THE HEART magnesium oxide 400 mg magnesium Tablet 800 mg PO BID montelukast 10 mg Tablet 10 mg PO HS Qty: 30 1RF metolazone 2.5 mg tablet See Rx Instructions .ROUTE .COMPLEX Qty: 8 1RF Rx Instructions: 2.5 mg orally twice weekly insulin glargine [Lantus Solostar U-100 Insulin] 100 unit/mL (3 mL) insulin pen 30 unit subcut QPM Qty: 15 2RF Discontinued duloxetine 60 mg Capsule, Delayed Rel Sprinkle 60 mg PO QDAY pregabalin [Lyrica] 150 mg Capsule 150 mg PO TID hydrocodone-acetaminophen 10-325 mg tablet 1 tab PO [id number] PRN (Reason: Pain) Referrals: No Primary/Family,Physician [Primary Care Provider] - Patient/Caregiver Discharge Instructions Discharge Activity: resume usual activities Education Materials: Complementary Care for Pain, Back Basics: A Healthy Spine, Back Exercises: Seated Rotation, Back Exercises: Side Stretch, Taking Opioid Medicines Print Language: Turkmen Stand Alone Forms: Kathleen Award Info., Patient Portal Info Letter, Work/Release Restrictions Discharge Order Discharge Orders: Discharge (Routine); Ordered 08/15/24 Ordered By: Remigio Pierce Quality Discharge Quality Measures VTE prophylaxis Attestestation Attestation I have examined the patient, reviewed labs and imaging findings, discussed the case with the resident(s), and reviewed entered orders. I agree with the plan of care as outlined in this note. Time spent: [address] Willow MD
== END 2024-08-15 14:10 | disposition home or self-care (01) | DRG 92 ==
LOC: SERX 16:56 → SERHOLD 08-12 02:32 → S3NX 08-12 18:33
PROVIDERS: Nurse Practitioner Family; Student in an Organized Health Care Education/Training Program; Admitting Provider Internal Medicine; Emergency Provider Family Medicine; Visit Provider Student in an Organized Health Care Education/Training Program
DX: G92.8 Other toxic encephalopathy (principal); I13.0 Hypertensive heart and chronic kidney disease with heart failure and stage 1 through stage 4 chronic kidney disease, or unspecified chronic kidney disease; I50.32 Chronic diastolic (congestive) heart failure; L03.115 Cellulitis of right lower limb; L03.116 Cellulitis of left lower limb; N17.9 Acute kidney failure, unspecified; T40.2X5A Adverse effect of other opioids, initial encounter; I25.10 Atherosclerotic heart disease of native coronary artery without angina pectoris; N18.32 Chronic kidney disease, stage 3b; E11.22 Type 2 diabetes mellitus with diabetic chronic kidney disease; I48.91 Unspecified atrial fibrillation; N40.0 Benign prostatic hyperplasia without lower urinary tract symptoms; E78.5 Hyperlipidemia, unspecified; I95.9 Hypotension, unspecified; J44.9 Chronic obstructive pulmonary disease, unspecified; E86.0 Dehydration; G89.29 Other chronic pain; I69.30 Unspecified sequelae of cerebral infarction; T42.6X5A Adverse effect of other antiepileptic and sedative-hypnotic drugs, initial encounter; Z95.5 Presence of coronary angioplasty implant and graft; Z99.81 Dependence on supplemental oxygen; Z79.01 Long term (current) use of anticoagulants; Z87.891 Personal history of nicotine dependence; Z79.899 Other long term (current) drug therapy; Z88.8 Allergy status to other drugs, medicaments and biological substances
CPT/HCPCS: 36415; 36600; 70450; 71045; 80053; 80307; 81001; 82607; 82803; 83036; 83605; 83735; 83880; 84100; 84145; 84439; 84443; 84484; 85025; 85610; 85652; 85730; 86140; 87040; 87400; 87811; 93005; 93225; 94640; 94664; 96360; 96365; 96372; 99285; A9270; G0378; J0689; J1643; J1815; J7040; J7120

== ENCOUNTER 2024-08-29 13:05 | Emergency (ER) | payer MEDICARE, MEDICAID, SELFPAY ==
[2024-08-29] VITALS (10 sets, daily range): BP systolic 110–144; BP diastolic 51–91; PULSE 74–96; RESP 16–22; TEMP 36.6–37.1; O2SAT 94–98; BMI 50.2
--- NOTE | 2024-08-29 13:34 | EKG_ITS ---
[facility] Test Date: 2024-08-29 Pat Name: SHIRLEY VALDIVIA Department: Room: - Gender: Male [employer] Dean: : 1955 Requested By: Canelo Murphy Order Number: [id number] Reading MD: Canelo Murphy Measurements Intervals Bone Gap Rate: 96 P: SD: QRS: 54 QRSD: 138 T: 7 QT: 362 QTc: 459 Interpretive Statements ATRIAL FIBRILLATION RIGHT BUNDLE BRANCH BLOCK [120+ ms QRS DURATION, UPRIGHT V1, 40+ ms S IN I/aVL/V4/V5/V6] Compared to ECG 08/11/2024 16:13:25 No significant changes /store/S0/[id number]/[id number].pdf
--- NOTE | 2024-08-29 13:37 | XR_ITS ---
Examination: Venous duplex lower extremity sonogram, bilateral. Date and time of exam: August 29, 2024 1539 hours INDICATIONS: Onset bilateral leg swelling beginning one week ago Technique: Multiple sonographic images of the deep venous system have been obtained. B-mode/2-D grayscale imaging of vascular structures and Doppler spectral analysis (waveforms) and color performed Both legs are examined. Findings: Deep venous systems do not demonstrate abnormal echogenicity. All visualized deep veins exhibit compressibility. All visualized deep veins exhibit augmentation. Impression: Negative for deep vein thrombosis
--- NOTE | 2024-08-29 13:37 | XR_ITS ---
Examination: AP chest single view Technique: AP portable upright chest single view Exam date and time: August 29, 2024 1350 hrs. Indications: Coughing shortness of breath beginning 3 days ago. Findings: Mild enlargement cardiac contour No pneumonia or pulmonary edema Moderate osteopenia Impression: No pneumonia or pulmonary edema
--- NOTE | 2024-08-29 13:39 | PC.NURSE ---
Pt daughter in law called (Diane) to inquire about pt. Information relayed with pt verbal permission
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
[2024-08-29] MEDS: MORPHINE SULF INJ 10 MG/ML VIAL 5 MG IV (13:45)
[2024-08-29] MEDS: FUROSEMIDE INJ 10 MG/ML 4ML VIAL 40 MG IVP (13:46)
[2024-08-29] MEDS: ONDANSETRON INJ 2 MG/ML INJ 2 ML 4 MG IV (13:54)
[2024-08-29] MEDS: metOLazone 2.5 MG TABLET 5 MG PO (13:58)
[2024-08-29 14:11] LABS: Basophils # (Auto) 0.1 Thou/mm3 (0.0-0.2); Basophils % (Auto) 1 % (0-2.5); Eosinophils # (Auto) 0.2 Thou/mm3 (0.0-0.5); Eosinophils % (Auto) 2 % (0-10); Hematocrit 33.3 % (41.0-53.0); Hemoglobin 10.5 g/dL (13.5-16.0); Immature Granulocytes % (Auto) 1 % (0-0); Immature Granulocytes Auto 0.06 Thou/mm3 (0.00-0.00); Lymphocytes # (Auto) 2.2 Thou/mm3 (1.0-4.8); Lymphocytes % (Auto) 18 % (10-50); Mean Corpuscular HGB Conc 31.5 g/dl (31.0-37.0); Mean Corpuscular Hemoglobin 28.8 pg (25.0-35.0); Mean Corpuscular Volume 91 fL (80-100); Monocytes # (Auto) 1.5 Thou/mm3 (0.0-0.8); Monocytes % (Auto) 12 % (0-12); Neutrophils # (Auto) 8.4 Thou/mm3 (1.8-7.7); Neutrophils % (Auto) 67 % (37-80); Nucleated Red Blood Cell % 0 /100 WBC (0); Platelet Count 341 Thou/mm3 (140-440); RDW Standard Deviation 58.2 fL (35.1-43.9); Red Blood Count 3.65 Miln/mm3 (4.50-5.90); White Blood Count 12.5 Thou/mm3 (3.8-10.6)
[2024-08-29 14:29] LABS: B-Type Natriuretic Peptide 74 pg/mL (0-100)
[2024-08-29 14:40] LABS: Alanine Aminotransferase 10 U/L (10-49); Albumin, Serum 3.6 gm/dL (3.4-4.8); Albumin/Globulin Ratio 1.5 (1.2-2.2); Alkaline Phosphatase 143 U/L (46-116); Anion Gap 7 (7-16); Aspartate Amino Transferase 14 U/L (0-34); BUN/Creatinine Ratio 22 Ratio (12-20); Bilirubin,Total 0.4 mg/dL (0.3-1.2); Blood Urea Nitrogen 41 mg/dL (9-23); Calcium 8.7 mg/dL (8.3-10.6); Carbon Dioxide 28.4 mMol/L (20.0-31.0); Chloride 105 mMol/L (98-107); Creatinine (Component) 1.9 mg/dL (0.6-1.3); Estimated Creatinine Clearance 54.8 mL/min (>60); Globulin 2.4 gm/dL (2.3-3.5); Glucose 169 mg/dL (74-106); Osmolality,Calculated 293 (275-295); Potassium 4.7 mMol/L (3.4-5.1); Sodium 140 mMol/L (136-145); Troponin I < 0.020 ng/mL (0.0-0.045); eGFR 38 See Note
== END 2024-08-29 23:08 | disposition home or self-care (01) ==
PROVIDERS: Emergency Provider Family Medicine; PCP Family Medicine
DX: G89.29 Other chronic pain (principal); E78.5 Hyperlipidemia, unspecified; I25.10 Atherosclerotic heart disease of native coronary artery without angina pectoris; I11.0 Hypertensive heart disease with heart failure; I48.91 Unspecified atrial fibrillation; I50.32 Chronic diastolic (congestive) heart failure; N40.0 Benign prostatic hyperplasia without lower urinary tract symptoms; M54.50 Low back pain, unspecified; J44.89 Other specified chronic obstructive pulmonary disease; E11.9 Type 2 diabetes mellitus without complications; Z95.5 Presence of coronary angioplasty implant and graft
CPT/HCPCS: 36415; 71045; 80053; 83880; 84484; 85025; 93005; 93970; 96374; 96375; 99284; J1938; J2270; J2405; A9270

== ENCOUNTER → 2024-09-09 | Outpatient (CLI) | payer MEDICARE, MEDICAID, SELFPAY ==
[2024-09-09 14:42] LABS: Basophils # (Auto) 0.1 Thou/mm3 (0.0-0.2); Basophils % (Auto) 0 % (0-2.5); Eosinophils # (Auto) 0.4 Thou/mm3 (0.0-0.5); Eosinophils % (Auto) 3 % (0-10); Hematocrit 34.8 % (41.0-53.0); Immature Granulocytes % (Auto) 1 % (0-0); Immature Granulocytes Auto 0.07 Thou/mm3 (0.00-0.00); Lymphocytes # (Auto) 2.9 Thou/mm3 (1.0-4.8); Lymphocytes % (Auto) 20 % (10-50); Mean Corpuscular HGB Conc 31.6 g/dl (31.0-37.0); Mean Corpuscular Hemoglobin 28.6 pg (25.0-35.0); Mean Corpuscular Volume 90 fL (80-100); Monocytes # (Auto) 1.3 Thou/mm3 (0.0-0.8); Monocytes % (Auto) 9 % (0-12); Neutrophils % (Auto) 68 % (37-80); Nucleated Red Blood Cell % 0 /100 WBC (0); Platelet Count 316 Thou/mm3 (140-440); RDW Standard Deviation 55.8 fL (35.1-43.9); Red Blood Count 3.85 Miln/mm3 (4.50-5.90); White Blood Count 14.8 Thou/mm3 (3.8-10.6)
[2024-09-09 14:44] LABS: Anion Gap 6 (7-16); BUN/Creatinine Ratio 26 Ratio (12-20); Blood Urea Nitrogen 69 mg/dL (9-23); Calcium 9.1 mg/dL (8.3-10.6); Carbon Dioxide 30.7 mMol/L (20.0-31.0); Chloride 99 mMol/L (98-107); Creatinine (Component) 2.7 mg/dL (0.6-1.3); Glucose 194 mg/dL (74-106); Magnesium 2.1 mg/dL (1.6-2.6); Osmolality,Calculated 297 (275-295); Potassium 4.7 mMol/L (3.4-5.1); Sodium 136 mMol/L (136-145); eGFR 25 See Note
== END | disposition home or self-care (01) ==
PROVIDERS: PCP Family Medicine; Referring Provider Internal Medicine Cardiovascular Disease; Visit Provider Internal Medicine Cardiovascular Disease
DX: I50.32 Chronic diastolic (congestive) heart failure (principal)
CPT/HCPCS: 36415; 80048; 83735; 85025

== ENCOUNTER → 2024-09-27 | Outpatient (CLI) | payer MEDICARE, MEDICAID, SELFPAY ==
[2024-09-27 14:17] LABS: Basophils # (Auto) 0.1 Thou/mm3 (0.0-0.2); Basophils % (Auto) 0 % (0-2.5); Eosinophils # (Auto) 0.3 Thou/mm3 (0.0-0.5); Eosinophils % (Auto) 2 % (0-10); Hematocrit 33.8 % (41.0-53.0); Immature Granulocytes % (Auto) 1 % (0-0); Immature Granulocytes Auto 0.09 Thou/mm3 (0.00-0.00); Lymphocytes # (Auto) 2.9 Thou/mm3 (1.0-4.8); Lymphocytes % (Auto) 17 % (10-50); Mean Corpuscular HGB Conc 32.5 g/dl (31.0-37.0); Mean Corpuscular Hemoglobin 28.9 pg (25.0-35.0); Mean Corpuscular Volume 89 fL (80-100); Monocytes # (Auto) 1.6 Thou/mm3 (0.0-0.8); Monocytes % (Auto) 9 % (0-12); Neutrophils # (Auto) 11.8 Thou/mm3 (1.8-7.7); Neutrophils % (Auto) 70 % (37-80); Nucleated Red Blood Cell % 0 /100 WBC (0); Platelet Count 412 Thou/mm3 (140-440); RDW Standard Deviation 56.3 fL (35.1-43.9); Red Blood Count 3.81 Miln/mm3 (4.50-5.90); White Blood Count 16.8 Thou/mm3 (3.8-10.6)
[2024-09-27 14:29] LABS: Anion Gap 10 (7-16); BUN/Creatinine Ratio 29 Ratio (12-20); Blood Urea Nitrogen 75 mg/dL (9-23); Calcium 8.9 mg/dL (8.3-10.6); Carbon Dioxide 31.2 mMol/L (20.0-31.0); Chloride 96 mMol/L (98-107); Creatinine (Component) 2.6 mg/dL (0.6-1.3); Glucose 203 mg/dL (74-106); Magnesium 1.5 mg/dL (1.6-2.6); Osmolality,Calculated 302 (275-295); Potassium 3.2 mMol/L (3.4-5.1); Sodium 137 mMol/L (136-145); eGFR 26 See Note
== END | disposition home or self-care (01) ==
LOC: COPL 13:02
PROVIDERS: PCP Family Medicine; Referring Provider Internal Medicine Cardiovascular Disease; Visit Provider Internal Medicine Cardiovascular Disease
DX: I50.32 Chronic diastolic (congestive) heart failure (principal)
CPT/HCPCS: 36415; 80048; 83735; 85025

== ENCOUNTER → 2024-11-02 | Outpatient (CLI) | payer MEDICARE, MEDICAID, SELFPAY ==
[2024-11-02 12:17] LABS: Anion Gap 9 (7-16); BUN/Creatinine Ratio 26 Ratio (12-20); Blood Urea Nitrogen 67 mg/dL (9-23); Calcium 8.8 mg/dL (8.3-10.6); Carbon Dioxide 32.9 mMol/L (20.0-31.0); Chloride 94 mMol/L (98-107); Creatinine (Component) 2.6 mg/dL (0.6-1.3); Glucose 249 mg/dL (74-106); Magnesium 1.7 mg/dL (1.6-2.6); Osmolality,Calculated 299 (275-295); Potassium 4.3 mMol/L (3.4-5.1); Sodium 136 mMol/L (136-145); eGFR 26 See Note
== END | disposition home or self-care (01) ==
LOC: COPL 11:11
PROVIDERS: PCP Family Medicine; Referring Provider Internal Medicine Cardiovascular Disease; Visit Provider Internal Medicine Cardiovascular Disease
DX: I50.32 Chronic diastolic (congestive) heart failure (principal)
CPT/HCPCS: 36415; 80048; 83735

== ENCOUNTER 2024-12-09 14:00 | Outpatient (RCR) | payer MEDICARE, MEDICAID, SELFPAY ==
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
--- NOTE | 2024-12-09 17:55 | PT.ODAYNRPT ---
PT Outpatient Daily Note OP Daily Note Outpatient Physical Therapy Treatment Date: 12/09/24 Visit Reasons: back pain Subjective: Pt is motivated to strengthen LE's. His manager education niece is here with him and he has portable 02 tank and presents in W/C. Objective: See F/S for therex Assessment: MinAx2 for sit to stand transfers with hands on parallel bars. Pt ambulated about 6-7' with W/C follow and then fatigued and sat down x4 in parallel bars. Plan: Continue per POC Length of Time (minutes) of Treatment: 30 Minutes Procedure Charges Therapeutic Exercise 30 minutes: Yes
== END 2024-12-23 23:59 | disposition home or self-care (01) ==
LOC: CPTX 14:00
PROVIDERS: PCP Family Medicine; Referring Provider Family Medicine; Visit Provider Family Medicine
DX: M51.16 Intervertebral disc disorders with radiculopathy, lumbar region (principal); R26.2 Difficulty in walking, not elsewhere classified; Z87.891 Personal history of nicotine dependence; I10 Essential (primary) hypertension; E11.9 Type 2 diabetes mellitus without complications
CPT/HCPCS: 97110; 97162

== ENCOUNTER → 2024-12-30 | Outpatient (CLI) | payer MEDICARE, MEDICAID, SELFPAY ==
[2024-12-30 16:05] LABS: Basophils # (Auto) 0.1 Thou/mm3 (0.0-0.2); Basophils % (Auto) 0 % (0-2.5); Eosinophils # (Auto) 0.3 Thou/mm3 (0.0-0.5); Eosinophils % (Auto) 2 % (0-10); Hematocrit 30.6 % (41.0-53.0); Hemoglobin 9.9 g/dL (13.5-16.0); Immature Granulocytes Auto 0.05 Thou/mm3 (0.00-0.00); Lymphocytes # (Auto) 2.3 Thou/mm3 (1.0-4.8); Lymphocytes % (Auto) 17 % (10-50); Mean Corpuscular HGB Conc 32.4 g/dl (31.0-37.0); Mean Corpuscular Hemoglobin 31.0 pg (25.0-35.0); Mean Corpuscular Volume 96 fL (80-100); Monocytes # (Auto) 1.0 Thou/mm3 (0.0-0.8); Monocytes % (Auto) 8 % (0-12); Neutrophils # (Auto) 10.0 Thou/mm3 (1.8-7.7); Neutrophils % (Auto) 73 % (37-80); Nucleated Red Blood Cell # 0.00 Thou/mm3 (0.00-0.00); Nucleated Red Blood Cell % 0 /100 WBC (0); Platelet Count 399 Thou/mm3 (140-440); RDW Standard Deviation 59.2 fL (35.1-43.9); Red Blood Count 3.19 Miln/mm3 (4.50-5.90); White Blood Count 13.8 Thou/mm3 (3.8-10.6)
[2024-12-30 16:12] LABS: Anion Gap 7 (7-16); BUN/Creatinine Ratio 18 Ratio (12-20); Blood Urea Nitrogen 40 mg/dL (9-23); Calcium 8.7 mg/dL (8.3-10.6); Carbon Dioxide 30.4 mMol/L (20.0-31.0); Chloride 101 mMol/L (98-107); Creatinine (Component) 2.2 mg/dL (0.6-1.3); Glucose 269 mg/dL (74-106); Osmolality,Calculated 294 (275-295); Potassium 4.4 mMol/L (3.4-5.1); Sodium 138 mMol/L (136-145); eGFR 32 See Note
[2024-12-30 16:13] LABS: Glucose Estimated Average 220 mg/dL (80-131); Hemoglobin A1C 9.3 % Hgb (4.8-6.0)
[2024-12-30 16:18] LABS: Creatinine MALB Rnd Ur 31 mg/dL (30-125); Microalbumin Creat Ratio 42 mg/gCrea (<30); Microalbumin, Random Urine 13 mg/L (0-300)
== END | disposition home or self-care (01) ==
LOC: COPL 14:04
PROVIDERS: PCP Family Medicine; Referring Provider Family Medicine; Visit Provider Family Medicine
DX: M51.9 Unspecified thoracic, thoracolumbar and lumbosacral intervertebral disc disorder (principal); E11.65 Type 2 diabetes mellitus with hyperglycemia; I50.32 Chronic diastolic (congestive) heart failure
CPT/HCPCS: 36415; 80048; 82043; 82570; 83036; 85025

== ENCOUNTER 2025-03-03 11:54 | Emergency (ER) | payer MEDICARE, MEDICAID, SELFPAY ==
[2025-03-03] VITALS (8 sets, daily range): BP systolic 122–174; BP diastolic 64–96; PULSE 84–92; RESP 16–24; TEMP 36.4–36.7; O2SAT 96–99; BMI 34.0
--- NOTE | 2025-03-03 14:40 | EKG_ITS ---
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
--- NOTE | 2025-03-03 14:50 | PD.EDURI ---
Upper Respiratory Inf. RME/HPI General Chief Complaint: Flu Like Symptoms Stated Complaint: FLU LIKE SYMPTOMS Arrival date/time: 03/03/25 11:54 Limitations: no limitations RME / HPI RME / HPI Narrative: 69 year old male with history of HFpEF (EF 50-55% 03/2024) , CAD s/p PCI, atrial fibrillation, CVA, hypertension, diabetes, asthma, COPD on 2L supplemental oxygen presents to the ED BIBA from home for evaluation of cough beginning several days ago. Accompanied by globally feeling weak and unwell. Additionally complains of right sided chest pain that is aggravated with coughing and left hand pain beginning several days ago. States he does have a nebulizer machine however has not felt the need to use. Denies any injury or trauma to hand. Denies fevers, chills, abdominal pain, n/v/d, or urinary symptoms. Related Data Home Medications ?Medication ?Instructions ?Recorded ?Confirmed potassium chloride 10 mEq 10 meq PO QDAY 06/19/23 04/08/24 capsule,extended release allopurinol 100 mg tablet 100 mg PO HS 01/23/24 04/13/24 amlodipine 5 mg tablet 5 mg PO QDAY 01/23/24 04/08/24 atorvastatin 40 mg tablet 40 mg PO QPM 01/23/24 04/08/24 carvedilol 6.25 mg tablet 6.25 mg PO BID 01/23/24 04/08/24 pantoprazole 40 mg tablet,delayed 40 mg PO QDAY 01/23/24 04/08/24 release semaglutide 2 mg/dose (8 mg/3 mL) 2 mg subcut QWEEK 01/23/24 04/08/24 subcutaneous pen injector (Ozempic) tizanidine 2 mg tablet 2 mg PO HS 01/23/24 04/08/24 apixaban 5 mg tablet (Eliquis) 5 mg PO BID 04/08/24 04/08/24 bumetanide 2 mg tablet 4 mg PO BID 04/08/24 04/08/24 docusate sodium 250 mg capsule 250 mg PO BID 04/08/24 04/13/24 dutasteride 0.5 mg capsule 0.5 mg PO QDAY 04/08/24 04/08/24 famotidine 20 mg tablet 20 mg PO QDAY 04/08/24 04/08/24 magnesium oxide 800 mg PO BID 04/08/24 04/08/24 Previous Rx's ?Medication ?Instructions ?Recorded insulin glargine 100 unit/mL (3 30 unit (0.3 mL) subcut QPM #15 mL 04/14/24 mL) subcutaneous pen (Lantus Solostar U-100 Insulin) metolazone 2.5 mg tablet See Rx Instructions .Route 04/14/24 .COMPLEX #8 tabs montelukast 10 mg tablet 10 mg PO HS #30 tabs 04/14/24 metolazone 5 mg tablet 5 mg PO QDAY #7 tabs 08/29/24 potassium chloride 10 mEq 10 meq PO QDAY #7 tabs 08/29/24 tablet,extended release Allergies Allergy/AdvReac Type Severity Reaction Status Date / Time baclofen Allergy Severe Confusion Verified 04/07/24 12:22 bee venom protein (honey bee) Allergy Severe Swelling Verified 04/07/24 12:22 of Lip/Tongue/Throat chicken derived Allergy Severe DIFF Verified 04/07/24 12:22 BREATHING ketorolac (From Toradol) Allergy Intermediate Hallucinati Verified 04/07/24 12:22 ng METAL Allergy Severe Rash Uncoded 04/24/23 13:24 Review of Systems Review of Systems Systems Reviewed: All systems reviewed, normal except as documented Past Medical History Past Medical History NEUROLOGIC: Positive Neurological Disorders, Cerebrovascular Accident and Peripheral Neuropathy CARDIAC: Positive Cardiac Disorders, Myocardial Infarction, Atrial Fibrillation, Coronary Artery Disease, Peripheral Vascular Disease, Hypercholesterolemia, Congestive Heart Failure, Congenital Heart Disease, Edema, Cellulitis and Hypertension RESPIRATORY: Positive Chronic Obstructive Pulmonary Disease (COPD), Asthma, Pneumonia, Smoking and Tobacco Use GASTROINTESTINAL: Positive Gastrointestinal Disorders, Gastrointestinal Bleed, Gastroesophageal Reflux Disease and Obesity GENITOURINARY: Positive Genitourinary Disorders and Benign Prostatic Hyperplasia MUSCULOSKELETAL: Positive Musculoskeletal Disorders, Arthritis, Gout and Fractures ENDOCRINE: Positive Endocrine Disorders and Diabetes Mellitus Type 2 HEMATOLOGIC: Positive Blood Disorders and Anemia PSYCHO/SOCIAL: Positive Anxiety OTHER HISTORY: Positive Hospitalization, Falls and MRSA Family History FAMILY HISTORY: Positive Family Respiratory Disorders, Family Cardiac Disorders and Family Cancer Surgical History SURGICAL: Positive Cardiac Surgery, Coronary Stent, Cardiac Catheterization, Angiogram, Joint Replacement and Arthroscopy Social History SMOKING STATUS: Former smoker SECOND HAND EXPOSURE: No SUBSTANCE USE: does not use ED Exam General Limitations: Present no limitations General appearance: Present alert, in no apparent distress, obese and other (nasal cannula in place, increased respiratory rate ) Head Head exam: Present atraumatic, normocephalic and normal inspection Eye Eye exam: Present normal appearance, PERRL and EOMI ENT ENT exam: Present normal exam, normal oropharynx and mucous membranes moist Neck Neck exam: Present normal inspection, full ROM, trachea midline and other (No JVD laying at 45 degrees. ) Chest Chest inspection: Present normal inspection and symmetric chest wall rise Respiratory Respiratory exam: Present other (mild diminished breath sounds throughout, mild expiratory wheezing bilateral lung steward) Cardiovascular Cardiovascular exam: Present regular rate, normal rhythm and normal heart sounds Abdominal Exam Abdominal exam: Present soft and normal bowel sounds Extremities Exam Extremities exam: Present full ROM and pedal edema (2-3+ edema bilateral lower extremities) Back Exam Back exam: Present normal inspection and full ROM Neurological Exam Neurological exam: Present alert, oriented X3 and CN II-XII intact Psychiatric Psychiatric exam: Present normal affect and normal mood Skin Skin exam: Present warm, dry, intact and normal color Course Quality Measures none Orders Category Date Time Status EKG (ED ONLY) *Do not use* NOW Care 03/03/25 14:40 Completed Insert [Insert IV] NOW Care 03/03/25 14:40 Active CXRP [XR chest 1V portable] Stat Exams 03/03/25 15:51 Completed EKG (ED Only) Stat Exams 03/03/25 14:40 Draft CBC Stat Lab 03/03/25 14:58 Completed Comprehensive Metabolic Panel Stat Lab 03/03/25 14:58 Completed Troponin I Stat Lab 03/03/25 14:58 Completed ALBUTEROL RT 0.5ml [Proventil Rt 0.5ml] Med 03/03/25 14:40 Discontinued 2.5 mg INH X1 ONE MethylPREDNISolone.* [SoluMEDROL Inj] Med 03/03/25 14:40 Discontinued 125 mg IVP X1 ONE Sodium Chloride Rt Raquel 0.9% [NS Rt Raquel 0.9%] Med 03/03/25 14:40 Active 3 ml INH PRN PRN Vital Signs Vital signs: Vital Signs Temperature 98.1 F 03/03/25 12:00 Pulse Rate 86 03/03/25 12:00 Respiratory Rate 18 03/03/25 12:00 Blood Pressure 125/81 03/03/25 12:00 Pulse Oximetry (%) 99 03/03/25 12:00 Pulse ox is 99% on 2L nasal cannula which is adequate. Upper Respiratory Infection MDM Narrative MDM Narrative:: Varsha Luna, andre scribing for and in the presence of Dr. Orellana. Patient data External records reviewed:: [facility] previous records and EMS form Clinical information provided by:: patient and EMS Social determinants that could affect healthcare access:: none Patient has the following chronic illnesses:: HFpEF (EF 50-55% 03/2024) , CAD s/p PCI, atrial fibrillation, CVA, hypertension, diabetes, asthma, COPD on 2L supplemental oxygen How is presenting disease/condition affected by chronic disease/condition?: exacerbated by Evaluation data The following diagnostics were reviewed and interpreted by me:: lab results, radiology exam(s) and EKG tracing(s) (EKG @ 14:50p. Atrial fibrillation, right bundle branch block, rate 82, no STEMI. ) Lab and/or radiology exams considered but not ordered:: None Interpretation Summary: Ordering Physician: Canelo Orellana MD Date of Service: 03/03/25 Procedure(s): XR chest 1V portable Accession Number(s): [id number] cc: Canelo Orellana MD; Howard Briceño MD; Sonu Ellison MD~ EXAMINATION: AP chest single view TECHNIQUE: AP portable upright chest single view Date and time: March 03, 2025, 1559 hours, comparison August 29, 2024 INDICATIONS: Chest pain shortness of breath coughing today FINDINGS: Mild prominence cardiac contour Mild vascular congestion. No lobar pneumonia or pulmonary edema Prominent osteopenia IMPRESSION: Mild vascular congestion Dictated By: Sonu Ellsion MD Signed By: <Electronically signed by Sonu Ellison MD in OV> 03/03/25 1619 Medications / Prescriptions Medications or Prescriptions considered but not ordered:: None Medication administrations:: Medication Administration History Sodium Chloride (Sodium Chloride Rt Raquel 0.9% 3 Ml Nebu) 3 ml INH PRN PRN PRN Reason: SOLN Stop: 04/02/25 14:39 Last Admin: 03/03/25 16:08 Dose: 3 ml Documented By: STEVEN Discontinued Medications Albuterol (Albuterol Rt 2.5 Mg/0.5 Ml Nebu) 2.5 mg INH X1 ONE Stop: 03/03/25 14:41 Last Admin: 03/03/25 16:07 Dose: 2.5 mg Documented By: STEVEN Methylprednisolone Sodium Succinate (Methylprednisolone Sod Succ 62.5 Mg/Ml 2ml Vial) 125 mg IVP X1 ONE Stop: 03/03/25 14:41 Last Admin: 03/03/25 14:58 Dose: 125 mg Documented By: RITU See above Consultations Consultation(s) initiated? (list below): No Diagnosis Upper Respiratory Differential Diagnosis: upper respiratory infection, viral infection, bronchitis and influenza Most likely diagnosis given after review of the tests above:: COPD exacerbation Chronic pain Admission Indicated Admission indicated?: not indicated Admission Request Was there a request for admission?: No Disposition Plan Disposition Plan: Discharge Discharge Attestation Discharge Attestation: The patient and all family members were given an opportunity to ask questions and understood the discharge instructions. Discharge instructions specifically effects, indications for sooner follow up or return to the emergency department, and the expected course of current diagnosis. Patient condition: Stable Discharge Plan Plan Patient Disposition: HOME (Self Care) Patient condition on transfer: Stable Prescriptions/Referrals Prescriptions/Med Rec: No Action potassium chloride 10 mEq Capsule, Extended Release 10 meq PO QDAY atorvastatin 40 mg Tablet 40 mg PO QPM carvedilol 6.25 mg Tablet 6.25 mg PO BID Rx Instructions: must administer with a meal/food tizanidine 2 mg Tablet 2 mg PO HS Patient Comments: Per pt son. Pt does not take this every day. Only as needed amlodipine 5 mg Tablet 5 mg PO QDAY allopurinol 100 mg Tablet 100 mg PO HS pantoprazole 40 mg Tablet,Delayed Release (Dr/Ec) 40 mg PO QDAY Ozempic 2 mg/dose (8 mg/3 mL) pen injector 2 mg SUBCUT QWEEK Patient Comments: INJECT 2 mg SUBCUTANEOUSLY EVERY WEEK Rx Instructions: Every Friday bumetanide 2 mg tablet 4 mg PO BID Patient Comments: TAKE TWO TABLETS BY MOUTH TWICE DAILY FOR FOURTEEN DAYS famotidine 20 mg tablet 20 mg PO QDAY Patient Comments: TAKE ONE TABLET BY MOUTH EVERY DAY HEARTBURN GASTRIC ACIDITY docusate sodium 250 mg capsule 250 mg PO BID dutasteride 0.5 mg capsule 0.5 mg PO QDAY Patient Comments: TAKE ONE CAPSULE BY MOUTH EVERY DAY Eliquis 5 mg tablet 5 mg PO BID Patient Comments: TAKE ONE TABLET BY MOUTH TWICE DAILY FOR THE HEART magnesium oxide 400 mg magnesium Tablet 800 mg PO BID montelukast 10 mg Tablet 10 mg PO HS Qty: 30 1RF metolazone 2.5 mg tablet See Rx Instructions .ROUTE .COMPLEX Qty: 8 1RF Rx Instructions: 2.5 mg orally twice weekly insulin glargine [Lantus Solostar U-100 Insulin] 100 unit/mL (3 mL) insulin pen 30 unit subcut QPM Qty: 15 2RF metolazone 5 mg tablet 5 mg PO QDAY Qty: 7 0RF potassium chloride 10 mEq tablet extended release 10 meq PO QDAY Qty: 7 0RF Referrals: Howard Briceño MD [Primary Care Provider, Family Practice] - In 1 week Problem List Clinical Impression: COPD exacerbation, Chronic pain Patient/Caregiver Discharge Instructions Discharge Activity: activity as tolerated Additional Instructions: Follow-up with your primary care doctor in 3 to 5 days for recheck. You can return to the emergency department sooner if symptoms worsen or if you notice any new, concerning issues. Print Language: Serbian Stand Alone Forms: Kathleen Award Info., Patient Portal Info Letter
[2025-03-03] MEDS: MethylPREDNISolone SOD SUCC 62.5 MG/ML 2ML VIAL 125 MG IVP (14:58)
--- NOTE | 2025-03-03 14:58 | PC.CC ---
Per Dr. Orellana, pt is not ready for d/c yet, but will be in one hour. wanted ASW to arrange transportation now, so ASW made transportation via [employer] [facility] [phone], Trip Reservation #[id number]. ASW scheduled a Will Call with Dispatch [phone] and Dispatch will contact grain elevator agent for a designated time of p/u. Pt is tentatively scheduled for a p/u at 1630, but [facility]patch will call and confirm that time.
[2025-03-03 15:05] LABS: Basophils # (Auto) 0.0 Thou/mm3 (0.0-0.2); Basophils % (Auto) 0 % (0-2.5); Eosinophils # (Auto) 0.4 Thou/mm3 (0.0-0.5); Eosinophils % (Auto) 3 % (0-10); Hematocrit 30.6 % (41.0-53.0); Hemoglobin 9.4 g/dL (13.5-16.0); Immature Granulocytes Auto 0.09 Thou/mm3 (0.00-0.00); Lymphocytes # (Auto) 2.5 Thou/mm3 (1.0-4.8); Lymphocytes % (Auto) 16 % (10-50); Mean Corpuscular HGB Conc 30.7 g/dl (31.0-37.0); Mean Corpuscular Hemoglobin 28.4 pg (25.0-35.0); Mean Corpuscular Volume 92 fL (80-100); Monocytes # (Auto) 1.4 Thou/mm3 (0.0-0.8); Monocytes % (Auto) 9 % (0-12); Neutrophils # (Auto) 11.0 Thou/mm3 (1.8-7.7); Neutrophils % (Auto) 72 % (37-80); Nucleated Red Blood Cell # 0.00 Thou/mm3 (0.00-0.00); Nucleated Red Blood Cell % 0 /100 WBC (0); Platelet Count 495 Thou/mm3 (140-440); RDW Standard Deviation 52.8 fL (35.1-43.9); Red Blood Count 3.31 Miln/mm3 (4.50-5.90); White Blood Count 15.4 Thou/mm3 (3.8-10.6)
[2025-03-03 15:32] LABS: Alanine Aminotransferase 24 U/L (10-49); Albumin, Serum 4.1 gm/dL (3.4-4.8); Albumin/Globulin Ratio 1.6 (1.2-2.2); Alkaline Phosphatase 200 U/L (46-116); Anion Gap 7 (7-16); Aspartate Amino Transferase 35 U/L (0-34); BUN/Creatinine Ratio 20 Ratio (12-20); Bilirubin,Total 0.2 mg/dL (0.3-1.2); Blood Urea Nitrogen 45 mg/dL (9-23); Calcium 9.8 mg/dL (8.3-10.6); Calcium (Corrected) 9.8 mg/dL (8.5-10.1); Carbon Dioxide 31.5 mMol/L (20.0-31.0); Chloride 103 mMol/L (98-107); Creatinine (Component) 2.2 mg/dL (0.6-1.3); Estimated Creatinine Clearance 37.7 mL/min (>60); Globulin 2.5 gm/dL (2.3-3.5); Glucose 227 mg/dL (74-106); Osmolality,Calculated 299 (275-295); Potassium 5.0 mMol/L (3.4-5.1); Sodium 141 mMol/L (136-145); Total Protein 6.6 gm/dL (5.7-8.2); Troponin I < 0.020 ng/mL (0.0-0.045); eGFR 32 See Note
--- NOTE | 2025-03-03 15:51 | XR_ITS ---
EXAMINATION: AP chest single view TECHNIQUE: AP portable upright chest single view Date and time: March 03, 2025, 1559 hours, comparison August 29, 2024 INDICATIONS: Chest pain shortness of breath coughing today FINDINGS: Mild prominence cardiac contour Mild vascular congestion. No lobar pneumonia or pulmonary edema Prominent osteopenia IMPRESSION: Mild vascular congestion
[2025-03-03] MEDS: ALBUTEROL RT 2.5 MG/0.5 ML NEBU INH (16:07)
[2025-03-03] MEDS: SODIUM CHLORIDE RT SOL 0.9% 3 ML NEBU INH (16:08)
== END 2025-03-03 17:30 | disposition home or self-care (01) ==
PROVIDERS: Emergency Provider Family Medicine; PCP Family Medicine
DX: J44.1 Chronic obstructive pulmonary disease with (acute) exacerbation (principal); G89.29 Other chronic pain; I48.91 Unspecified atrial fibrillation; I45.10 Unspecified right bundle-branch block; I50.32 Chronic diastolic (congestive) heart failure; I11.0 Hypertensive heart disease with heart failure; Z79.01 Long term (current) use of anticoagulants; Z87.891 Personal history of nicotine dependence
CPT/HCPCS: 36415; 71045; 80053; 84484; 85025; 93005; 94640; 96374; 99284; J2919

== ENCOUNTER 2025-03-10 14:57 | Emergency (ER) | payer MEDICARE, MEDICAID, SELFPAY ==
[2025-03-10 15:00] VITALS: BP 140/74; PULSE 84; RESP 17; TEMP 36.4; O2SAT 99
[2025-03-10 15:20] VITALS: PULSE 100; RESP 18; O2SAT 99
[2025-03-10 15:26] VITALS: BMI 51.7
--- NOTE | 2025-03-10 15:32 | XR_ITS ---
Examination: CT abdomen and pelvis without contrast. Coronal 3-D reconstructions. Sagittal 2-D reconstructions. Date and time of exam: February 25, 2016, 2024, 1548 hours, comparison August 04, 2024 INDICATIONS: Lower back pain pelvic pain onset today CTDI: vol (mGy): 17.5 DLP: (mGycm): 1031 Technique: Axial images of the abdomen have been obtained, 3 mm slice thickness Intravenous contrast material has not been administered. Low dose protocols were performed. One or more of the following dose reduction techniques were used; automated exposure control, adjustment of the mA and/or KV according to patient size, use of iterative reconstruction technique. Findings: No focal liver or splenic lesions No diagnostic visualization gallbladder No biliary tract dilatation No pancreatic or adrenal mass Moderate bilateral renal scar formation, no hydronephrosis or ureteral calculi Dense abdominal aortic calcification no aneurysmal dilatation No pericecal inflammatory change No bowel obstruction A few loops of fluid distended small bowel in the right abdomen Bladder intact No prostatomegaly Normal seminal vesicles Prominent osteopenia with advanced degenerative disc disease L4-L5, L5-S1 Moderate narrowing hip joints IMPRESSION: Atrophic kidneys with moderate renal scar formation, no hydronephrosis No bowel obstruction Minor small bowel ileus
--- NOTE | 2025-03-10 15:32 | PD.EDRME ---
Rapid Medical Screening Exam RME Arrival date/time: 03/10/25 14:57 69-year-old male presents to the emergency room today via EMS with complaints of lower back pain and hip pain Chief Complaint: General Adult/Misc Complain Vital signs: Vital Signs Temperature 97.6 F 03/10/25 15:00 Pulse Rate 84 03/10/25 15:00 Respiratory Rate 17 03/10/25 15:00 Blood Pressure 140/74 H 03/10/25 15:00 Pulse Oximetry (%) 99 03/10/25 15:00 Oxygen Delivery Method Nasal Cannula 03/10/25 15:00 Oxygen Flow Rate 4 03/10/25 15:00
[2025-03-10 16:18] LABS: Basophils # (Auto) 0.1 Thou/mm3 (0.0-0.2); Basophils % (Auto) 0 % (0-2.5); Eosinophils # (Auto) 0.3 Thou/mm3 (0.0-0.5); Eosinophils % (Auto) 2 % (0-10); Hematocrit 33.7 % (41.0-53.0); Hemoglobin 10.5 g/dL (13.5-16.0); Immature Granulocytes Auto 0.12 Thou/mm3 (0.00-0.00); Lymphocytes # (Auto) 3.1 Thou/mm3 (1.0-4.8); Lymphocytes % (Auto) 17 % (10-50); Mean Corpuscular HGB Conc 31.2 g/dl (31.0-37.0); Mean Corpuscular Hemoglobin 27.9 pg (25.0-35.0); Mean Corpuscular Volume 90 fL (80-100); Monocytes # (Auto) 1.5 Thou/mm3 (0.0-0.8); Monocytes % (Auto) 8 % (0-12); Neutrophils # (Auto) 13.4 Thou/mm3 (1.8-7.7); Neutrophils % (Auto) 73 % (37-80); Nucleated Red Blood Cell # 0.00 Thou/mm3 (0.00-0.00); Nucleated Red Blood Cell % 0 /100 WBC (0); Platelet Count 382 Thou/mm3 (140-440); RDW Standard Deviation 50.8 fL (35.1-43.9); Red Blood Count 3.76 Miln/mm3 (4.50-5.90); White Blood Count 18.4 Thou/mm3 (3.8-10.6)
[2025-03-10 16:37] LABS: Alanine Aminotransferase 23 U/L (10-49); Albumin, Serum 4.5 gm/dL (3.4-4.8); Albumin/Globulin Ratio 1.6 (1.2-2.2); Alkaline Phosphatase 222 U/L (46-116); Anion Gap 11 (7-16); Aspartate Amino Transferase 20 U/L (0-34); BUN/Creatinine Ratio 23 Ratio (12-20); Bilirubin,Total 0.3 mg/dL (0.3-1.2); Blood Urea Nitrogen 54 mg/dL (9-23); Calcium 9.5 mg/dL (8.3-10.6); Calcium (Corrected) 9.5 mg/dL (8.5-10.1); Carbon Dioxide 31.6 mMol/L (20.0-31.0); Chloride 99 mMol/L (98-107); Creatinine (Component) 2.4 mg/dL (0.6-1.3); Estimated Creatinine Clearance 43.5 mL/min (>60); Globulin 2.8 gm/dL (2.3-3.5); Glucose 226 mg/dL (74-106); Lipase 35 U/L (12-53); Osmolality,Calculated 304 (275-295); Potassium 4.0 mMol/L (3.4-5.1); Sodium 142 mMol/L (136-145); Total Protein 7.3 gm/dL (5.7-8.2); eGFR 28 See Note
[2025-03-10 17:31] LABS: Collection Type, Urine Clean Catch
[2025-03-10 17:47] LABS: Bacteria,Urine Rare; Bilirubin,Urine Negative (Negative); Blood,Urine Negative (Negative); Clarity,Urine Clear (Clear/Hazy); Color,Urine Colorless (Lt Yel-Yel); Glucose, Urine Negative (Negative); Hyaline Casts,Urine < 1 /hpf (0-1); Ketones,Urine Negative (Negative); Leukocyte Esterase,Urine Positive (Negative); Nitrite,Urine Negative (Negative); PH,Urine 6.5 (5.0-7.0); Protein,Urine Negative (Neg - Trace); RBC,Urine 1 /hpf (0-3); Specific Gravity,Urine 1.009 (1.001-1.035); Squamous Epithelial Cell,Urine 1 /hpf (0-5); Urobilinogen,Urine Negative mg/dL (0.0-1.0); WBC,Urine 20 /hpf (0-5)
[2025-03-10 17:48] LABS: Culture Indicated,Urine Yes
[2025-03-10 18:17] VITALS: BP 141/95; PULSE 86; RESP 18; TEMP 36.8; O2SAT 100
--- NOTE | 2025-03-10 18:47 | PD.EDADULT ---
ED General RME/HPI General Chief complaint: General Adult/Misc Complain Stated complaint: LOWER BACK PAIN/ SACRAL PAIN Time Seen by Provider: 03/10/25 17:11 Arrival date/time: 03/10/25 14:57 CC: Abdominal pain followed by back pain HPI patient presents to the ER via EMS who initial call was left lower quadrant abdominal pain the patient then after being placed on the gurney states that his back pain is significantly worsened after sitting on the gurney and his lower abdominal pain had resolved patient denies fever chest pain shortness of breath daughter states the patient is a little more confused and talks about intermittent urinary incontinence. The patient is known for having an decubitus on his right buttock. Patient denies chest pain fever nausea vomiting or headache. RME / HPI RME / HPI narrative: 03/10/25 14:57 69-year-old male presents to the emergency room today via EMS with complaints of lower back pain and hip pain Related Data Home Medications ?Medication ?Instructions ?Recorded ?Confirmed potassium chloride 10 mEq 10 meq PO QDAY 06/19/23 04/08/24 capsule,extended release allopurinol 100 mg tablet 100 mg PO HS 01/23/24 04/13/24 amlodipine 5 mg tablet 5 mg PO QDAY 01/23/24 04/08/24 atorvastatin 40 mg tablet 40 mg PO QPM 01/23/24 04/08/24 carvedilol 6.25 mg tablet 6.25 mg PO BID 01/23/24 04/08/24 pantoprazole 40 mg tablet,delayed 40 mg PO QDAY 01/23/24 04/08/24 release semaglutide 2 mg/dose (8 mg/3 mL) 2 mg subcut QWEEK 01/23/24 04/08/24 subcutaneous pen injector (Ozempic) tizanidine 2 mg tablet 2 mg PO HS 01/23/24 04/08/24 apixaban 5 mg tablet (Eliquis) 5 mg PO BID 04/08/24 04/08/24 bumetanide 2 mg tablet 4 mg PO BID 04/08/24 04/08/24 docusate sodium 250 mg capsule 250 mg PO BID 04/08/24 04/13/24 dutasteride 0.5 mg capsule 0.5 mg PO QDAY 04/08/24 04/08/24 famotidine 20 mg tablet 20 mg PO QDAY 04/08/24 04/08/24 magnesium oxide 800 mg PO BID 04/08/24 04/08/24 Previous Rx's ?Medication ?Instructions ?Recorded insulin glargine 100 unit/mL (3 30 unit (0.3 mL) subcut QPM #15 mL 04/14/24 mL) subcutaneous pen (Lantus Solostar U-100 Insulin) metolazone 2.5 mg tablet See Rx Instructions .Route 04/14/24 .COMPLEX #8 tabs montelukast 10 mg tablet 10 mg PO HS #30 tabs 04/14/24 metolazone 5 mg tablet 5 mg PO QDAY #7 tabs 08/29/24 potassium chloride 10 mEq 10 meq PO QDAY #7 tabs 08/29/24 tablet,extended release metolazone 2.5 mg tablet 2.5 mg PO Q OTHER DAY PULMONARY 03/03/25 EDEMA #10 tabs prednisone 20 mg tablet See Taper PO QDAY allergic 03/03/25 reaction #18 tabs Allergies Allergy/AdvReac Type Severity Reaction Status Date / Time baclofen Allergy Severe Confusion Verified 03/10/25 15:24 bee venom protein (honey bee) Allergy Severe Swelling Verified 03/10/25 15:24 of Lip/Tongue/Throat chicken derived Allergy Severe DIFF Verified 03/10/25 15:24 BREATHING ketorolac (From Toradol) Allergy Intermediate Hallucinati Verified 03/10/25 15:24 ng METAL Allergy Severe Rash Uncoded 04/24/23 13:24 Review of Systems Review of Systems Narrative Review of Systems: GEN: No fever, no chills, no weight loss EYES: No discharge, no visual changes, no pain HEENT: No ear pain, no congestion, no sore throat PULM: No shortness of breath, no cough, no congestion CV: No chest pain, no dyspnea on exertion, no palpitations GI: No nausea, no vomiting, no diarrhea, + pain, no constipation : No frequency, no urgency, no dysuria MUSC/SKEL: No joint pain, no back pain SKIN: No rash PSYCH: No hallucinations, no depression HEME/LYMPH: No easy bleeding or bruising tendencies NEURO: No weakness, no headache ED Exam Narrative Physical exam: [General: Morbidly obese not in any acute distress Head normocephalic HEENT: Eyes pupils are PERRLA EOMs are intact mouth pink moist membranes uvula is midline swallow symmetrical phonation is normal. All of the subsystems of HEENT are within acceptable limits Neck is supple nontender Chest equal chest rise nontender to palpation Respiratory: Clear to auscultation no wheezes crackles or rubs CV: Rate rhythm is regular no murmurs rubs or clicks Abdomen is grossly distended secondary to body habitus soft nontender no masses positive bowel sounds all 4 quadrants Back: No CVA tenderness no spinous process tenderness from cervical spine thoracic and lumbar spine Skin: 2 cm circumferential ulceration to the left buttock with fresh amount of bleeding. Minimal surrounding erythema no eschar no exudate. Not warm to touch. Otherwise skin is intact no petechiae rash induration ulceration or crepitus Extremities: Moving all extremity against resistance cap refill less than 2 seconds neurosensory intact. 2+ pitting edema of both legs. Neuro: Awake alert oriented x2 Glascow coma 15 no focal deficits] Course Course Course Narrative: As noted the patient is chronically elevated leukocytosis of unknown cause the patient is not on any steroids. There is a chronic but stable renal insufficiency, as well as a chronic but stable anemia. Patient is nonambulatory residing mostly in a wheelchair and this may probably contribute to the bilateral lower extremity edema. Patient needs to follow-up with nephrology for better medical management. As we are about to discharge the patient this son came on the line stating the patient also had had altered mental status I find no evidence of altered mental status however CT of the head is negative for any acute finding patient will continue with the discharge. Quality Measures none Orders Category Date Time Status Referral Wound Care Stat Cons 03/10/25 19:[address] abdomen pelvis wo con Stat Exams 03/10/25 15:[address] head/brain wo con Stat Exams 03/10/25 19:50 Completed CBC Stat Lab 03/10/25 16:09 Completed Comprehensive Metabolic Panel Stat Lab 03/10/25 16:09 Completed Lipase Stat Lab 03/10/25 16:09 Completed UA, C/S IF [Urinalysis, C/S if Indicated] Stat Lab 03/10/25 17:16 Completed Urine Culture Stat Lab 03/10/25 17:16 Received Vital Signs Vital signs: Vital Signs Temperature 97.6 F 03/10/25 15:00 Pulse Rate 84 03/10/25 15:00 Respiratory Rate 17 03/10/25 15:00 Blood Pressure 140/74 H 03/10/25 15:00 Pulse Oximetry (%) 99 03/10/25 15:00 Oxygen Delivery Method Nasal Cannula 03/10/25 15:00 Oxygen Flow Rate 4 03/10/25 15:00 Discharge Plan Plan Patient Disposition: HOME (Self Care) Patient condition on transfer: Stable Prescriptions/Referrals Prescriptions/Med Rec: No Action potassium chloride 10 mEq Capsule, Extended Release 10 meq PO QDAY atorvastatin 40 mg Tablet 40 mg PO QPM carvedilol 6.25 mg Tablet 6.25 mg PO BID Rx Instructions: must administer with a meal/food tizanidine 2 mg Tablet 2 mg PO HS Patient Comments: Per pt son. Pt does not take this every day. Only as needed amlodipine 5 mg Tablet 5 mg PO QDAY allopurinol 100 mg Tablet 100 mg PO HS pantoprazole 40 mg Tablet,Delayed Release (Dr/Ec) 40 mg PO QDAY Ozempic 2 mg/dose (8 mg/3 mL) pen injector 2 mg SUBCUT QWEEK Patient Comments: INJECT 2 mg SUBCUTANEOUSLY EVERY WEEK Rx Instructions: Every Friday bumetanide 2 mg tablet 4 mg PO BID Patient Comments: TAKE TWO TABLETS BY MOUTH TWICE DAILY FOR FOURTEEN DAYS famotidine 20 mg tablet 20 mg PO QDAY Patient Comments: TAKE ONE TABLET BY MOUTH EVERY DAY HEARTBURN GASTRIC ACIDITY docusate sodium 250 mg capsule 250 mg PO BID dutasteride 0.5 mg capsule 0.5 mg PO QDAY Patient Comments: TAKE ONE CAPSULE BY MOUTH EVERY DAY Eliquis 5 mg tablet 5 mg PO BID Patient Comments: TAKE ONE TABLET BY MOUTH TWICE DAILY FOR THE HEART magnesium oxide 400 mg magnesium Tablet 800 mg PO BID montelukast 10 mg Tablet 10 mg PO HS Qty: 30 1RF metolazone 2.5 mg tablet See Rx Instructions .ROUTE .COMPLEX Qty: 8 1RF Rx Instructions: 2.5 mg orally twice weekly insulin glargine [Lantus Solostar U-100 Insulin] 100 unit/mL (3 mL) insulin pen 30 unit subcut QPM Qty: 15 2RF metolazone 5 mg tablet 5 mg PO QDAY Qty: 7 0RF potassium chloride 10 mEq tablet extended release 10 meq PO QDAY Qty: 7 0RF metolazone 2.5 mg tablet 2.5 mg PO Q OTHER DAY MDD 2.5 MG Qty: 10 0RF prednisone 20 mg tablet See Taper PO QDAY MDD 3 Qty: 18 0RF Taper: Prednisone Taper 20 mg DAILY for 9 Days and 0 Hour Rx Instructions: Take 3 Tabs q Day for 3 days then take 2 tabs q Day for 3 days then take 1 tablet q Day for 3 days then D/C #18 Referrals: Sohail Ibrahim MD [Primary Care Provider, Family Practice] - In 1 week Problem List Clinical Impression: Decubitus ulcer of buttock, Buttock pain, CRI (chronic renal insufficiency) Patient/Caregiver Discharge Instructions Other Activity Instructions:: At this time there is no acute finding requires emergent or immediate intervention. Education Materials: Abdominal Pain, Pressure Ulcer Common Sites, Pressure Injury Dc, ED Renal Insufficiency Print Language: Lao Stand Alone Forms: Kathleen Award Info., Work/School Release, Patient Portal Info Letter PA/MARTHA Supervising Physician PA/MARTHA Supervising Physician: Romario Sanches ENP
--- NOTE | 2025-03-10 19:50 | XR_ITS ---
Examination: CT brain head without contrast. 2-D sagittal coronal reconstructions Date and time of exam: March 10, 2025, 2019 hours, comparison August 11, 2024 INDICATIONS: Onset altered mental status confusion today CTDI: vol (mGy): 44 DLP: (mGycm): 876 Technique: Multiple CT axial sections of the brain have been obtained, 5 mm slice thickness. Contrast has not been administered. 2-D sagittal, coronal reconstructions have been obtained Low dose protocols were performed. One or more of the following dose reduction techniques were used; automated exposure control, adjustment of the mA and/or KV according to patient size, use of iterative reconstruction technique. Findings: No significant ventricular enlargement. Again noted is encephalomalacia in the posterior right parietal lobe Intra-axial or extra-axial hemorrhage density is not seen. No mass effect or midline shift Basal cisterns are not remarkable. Fourth ventricle is midline. Cranial vault intact. Impression: No interval acute hemorrhage, mass effect or midline shift
[2025-03-10 20:10] VITALS: BP 107/51; PULSE 98; RESP 19; TEMP 36.4; O2SAT 100
[2025-03-10 21:21] VITALS: BP 104/70; PULSE 94; RESP 19; TEMP 36.6; O2SAT 100
== END 2025-03-10 22:06 | disposition home or self-care (01) ==
PROVIDERS: Nurse Practitioner Primary Care; Emergency Provider Emergency Medicine; PCP Family Medicine
DX: L89.319 Pressure ulcer of right buttock, unspecified stage (principal); N18.9 Chronic kidney disease, unspecified; Z79.01 Long term (current) use of anticoagulants
CPT/HCPCS: 36415; 70450; 74176; 80053; 81001; 83690; 85025; 87077; 87086; 87186; 99283

== ENCOUNTER 2025-04-01 18:01 | Emergency (ER) | payer MEDICARE, MEDICAID, SELFPAY ==
[2025-04-01 18:07] VITALS: PULSE 92; O2SAT 96; BMI 29.5
[2025-04-01 18:34] VITALS: BP 114/67; PULSE 86; RESP 22; TEMP 36.6; O2SAT 100
--- NOTE | 2025-04-01 18:47 | PD.EDSKIN ---
ED Skin Abcess FB-RME/HPI General Chief complaint: Skin/Abscess/Foreign Body Stated complaint: TRAUMATIC INJURY Time Seen by Provider: 04/01/25 18:40 Arrival date/time: 04/01/25 18:01 RME / HPI RME / HPI narrative: DR. MANCUSO MAIN ED EVALUATION: Patient lost control of wheelchair incurring a large laceration/skin tear to the right antral lateral leg. Denies distal parasthesias or weakness. PMH: Cerebrovascular Accident, Peripheral Neuropathy, Myocardial Infarction, Atrial Fibrillation, Coronary Artery Disease, Peripheral Vascular Disease, Hypercholesterolemia, Congestive Heart Failure, Congenital Heart Disease, Edema, Cellulitis, Hypertension, COPD, Asthma, Smoking and Tobacco Use, Gastrointestinal Bleed, Gastroesophageal Reflux Disease and Obesity, Renal Disease, Benign Prostatic Hyperplasia, Arthritis, Gout, Diabetes Mellitus Type 2, Anemia, Anxiety PSH: Orthopedic Related Procedures Allergies: PCN, TCN Social: Non-smoker, Non-drinker, No illicit drug abuse. Related Data Home Medications ?Medication ?Instructions ?Recorded ?Confirmed potassium chloride 10 mEq 10 meq PO QDAY 06/19/23 04/08/24 capsule,extended release allopurinol 100 mg tablet 100 mg PO HS 01/23/24 04/13/24 amlodipine 5 mg tablet 5 mg PO QDAY 01/23/24 04/08/24 atorvastatin 40 mg tablet 40 mg PO QPM 01/23/24 04/08/24 carvedilol 6.25 mg tablet 6.25 mg PO BID 01/23/24 04/08/24 pantoprazole 40 mg tablet,delayed 40 mg PO QDAY 01/23/24 04/08/24 release semaglutide 2 mg/dose (8 mg/3 mL) 2 mg subcut QWEEK 01/23/24 04/08/24 subcutaneous pen injector (Ozempic) tizanidine 2 mg tablet 2 mg PO HS 01/23/24 04/08/24 apixaban 5 mg tablet (Eliquis) 5 mg PO BID 04/08/24 04/08/24 bumetanide 2 mg tablet 4 mg PO BID 04/08/24 04/08/24 docusate sodium 250 mg capsule 250 mg PO BID 04/08/24 04/13/24 dutasteride 0.5 mg capsule 0.5 mg PO QDAY 04/08/24 04/08/24 famotidine 20 mg tablet 20 mg PO QDAY 04/08/24 04/08/24 magnesium oxide 800 mg PO BID 04/08/24 04/08/24 Previous Rx's ?Medication ?Instructions ?Recorded insulin glargine 100 unit/mL (3 30 unit (0.3 mL) subcut QPM #15 mL 04/14/24 mL) subcutaneous pen (Lantus Solostar U-100 Insulin) metolazone 2.5 mg tablet See Rx Instructions .Route 04/14/24 .COMPLEX #8 tabs montelukast 10 mg tablet 10 mg PO HS #30 tabs 04/14/24 metolazone 5 mg tablet 5 mg PO QDAY #7 tabs 08/29/24 potassium chloride 10 mEq 10 meq PO QDAY #7 tabs 08/29/24 tablet,extended release metolazone 2.5 mg tablet 2.5 mg PO Q OTHER DAY PULMONARY 03/03/25 EDEMA #10 tabs prednisone 20 mg tablet See Taper PO QDAY allergic 03/03/25 reaction #18 tabs Allergies Allergy/AdvReac Type Severity Reaction Status Date / Time baclofen Allergy Severe Confusion Verified 04/01/25 20:12 bee venom protein (honey bee) Allergy Severe Swelling Verified 04/01/25 20:12 of Lip/Tongue/Throat chicken derived Allergy Severe DIFF Verified 04/01/25 20:12 BREATHING ketorolac (From Toradol) Allergy Intermediate Hallucinati Verified 04/01/25 20:12 ng morphine Allergy Verified 04/01/25 20:12 METAL Allergy Severe Rash Uncoded 04/01/25 20:12 Review of Systems Review of Systems Systems Reviewed: All systems reviewed, normal except as documented Past Medical History Past Medical History NEUROLOGIC: Positive Neurological Disorders, Cerebrovascular Accident and Peripheral Neuropathy CARDIAC: Positive Cardiac Disorders, Myocardial Infarction, Atrial Fibrillation, Coronary Artery Disease, Peripheral Vascular Disease, Hypercholesterolemia, Congestive Heart Failure, Congenital Heart Disease, Edema, Cellulitis and Hypertension RESPIRATORY: Positive Chronic Obstructive Pulmonary Disease (COPD), Asthma, Pneumonia, Smoking and Tobacco Use GASTROINTESTINAL: Positive Gastrointestinal Disorders, Gastrointestinal Bleed, Gastroesophageal Reflux Disease and Obesity GENITOURINARY: Positive Genitourinary Disorders, Renal Disease and Benign Prostatic Hyperplasia MUSCULOSKELETAL: Positive Musculoskeletal Disorders, Arthritis, Gout and Fractures ENDOCRINE: Positive Endocrine Disorders and Diabetes Mellitus Type 2 HEMATOLOGIC: Positive Blood Disorders and Anemia PSYCHO/SOCIAL: Positive Anxiety OTHER HISTORY: Positive Hospitalization, Falls and MRSA Family History FAMILY HISTORY: Positive Family Respiratory Disorders, Family Cardiac Disorders and Family Cancer Surgical History SURGICAL: Positive Cardiac Surgery, Coronary Stent, Cardiac Catheterization, Angiogram, Joint Replacement and Arthroscopy Social History SMOKING STATUS: Current every day smoker ED Exam Narrative Physical exam: GEN. APPEARANCE: The patient is alert awake oriented X-3 under no distress, lying down comfortably, does not look ill/toxic. Patient has good eye contact. Patient is cooperative. VITALS: All vitals were reviewed and the pulse ox is 100% on 2L/min via NC, which is normal according to my interpretation HEENT: Normocephalic, atraumatic and nontender. Pupils are equal and reactive. Oral mucosa is moist. NECK: Supple, nontender, no meningismus, no JVD. There is no thyromegaly and no lymphadenopathy. CHEST: Nontender on palpation no deformity and no crepitus. CARDIOVASCULAR: Heart regular rhythm, no murmur or gallop rub or extra beats. LUNGS: Clear to auscultation bilaterally with symmetrical chest rise. No laboring tachypnea or wheezing. No intercostal subcostal retraction. No rales and no rhonchi. ABDOMEN: Soft, flat, nontender to palpation, no guarding or rebound tenderness. There are no abnormal masses palpated. No pulsatile masses or bruits. Active and normal bowel sounds. EXTREMITIES: RLE - 14 cm vertically-oriented skin tear/full thickness laceration, distal function intact. No edema. No cyanosis. Patient is able to move all 4 extremities well SKIN: Warm and dry, no rashes noted. MUSCULOSKELETAL: No lumbar or midline bony tenderness. There is no CVA tenderness. No paraspinal muscle spasm or tenderness. NEURO: Cranial nerves II through XII grossly intact. There are no focal neurologic deficits noted. GCS is 15 PSYCHIATRIC: Patient is in normal mood and affect, cooperative. LYMPHATICS: No major lymphadenopathy noted. Course Quality Measures none Orders Category Date Time Status IV [Insert IV] NOW Care 04/01/25 19:52 Active Clindamycin 900Mg Ivpb [Cleocin/D5w Ivpb] 900 mg Med 04/01/25 18:51 Discontinued Pre-Mixed [Pre-mixed Bag] 1 bag IV X1 HYDROcodone*/APAP 7.5/325 [[place]ushing 7.5/325] Med 04/01/25 20:37 Discontinued 1 tab PO X1 ONE Lidocaine Inj 2% 20 ml [Xylocaine Inj 2% 20 ml] Med 04/01/25 18:57 Discontinued 20 ml INFL X1 ONE Morphine* Inj Med 04/01/25 18:51 Discontinued 2 mg IVP X1 ONE Prochlorperazine Inj [Compazine Inj] Med 04/01/25 18:51 Discontinued 5 mg IV X1 ONE Vital Signs Vital signs: Vital Signs Temperature 97.9 F 04/01/25 18:34 Pulse Rate 86 04/01/25 18:34 Respiratory Rate 22 H 04/01/25 18:34 Blood Pressure 114/67 04/01/25 18:34 Pulse Oximetry (%) 100 04/01/25 18:34 Oxygen Delivery Method Nasal Cannula 04/01/25 18:34 Oxygen Flow Rate 2 04/01/25 18:34 PROCEDURES: Laceration Laceration 1: Site: lower extremity Side (If applicable): right Size (cm): 14 Description: linear and other Depth: simple, single layer Local Anesthetic: lidocaine 1% Amount of anesthesia used (mL): 15 Pre-repair: wound explored and wound margins revised Skin layer closed with: other (Prolene) Suture size (cm): 4-0 Number of sutures: 24 Technique: simple, interrupted Skin / Abscess / Foreign Body MDM Narrative MDM Narrative:: Scribe Attestation: Shaye Luna am scribing for and in the presence of Dr. Jefferson. Provider Notation: Although this document has been carefully reviewed, there may still be some phonetic and other typographical errors. These errors are purely grammatical due to imperfections in the software program and should not be construed in any way to compromise the substance of the patient's medical care during this visit. Patient lost control of wheelchair incurring a large laceration/skin tear to the right antral lateral leg. Denies distal parasthesias or weakness. Please see PE findings. Patient underwent laceration repair. Laceration repair performed by Jessee Tejeda NP, (please see procedure note above). Patient tolerated well no complications. Imperic ABX initiated. Patient will be discharged with Velcro boot, sutures out in 10-12 days, and topical and oral ABX will be prescribed. Precautionary instructions issued. Final diagnosis includes RLE laceration repair moderate complexity. Patient data External records reviewed:: [facility] previous records (Reviewed prior ED records from 03/10/25. Patient was seen for Buttock pain.) and EMS form Clinical information provided by:: patient and EMS Social determinants that could affect healthcare access:: none Patient has the following chronic illnesses:: Cerebrovascular Accident, Peripheral Neuropathy, Myocardial Infarction, Atrial Fibrillation, Coronary Artery Disease, Peripheral Vascular Disease, Hypercholesterolemia, Congestive Heart Failure, Congenital Heart Disease, Edema, Cellulitis, Hypertension, COPD, Asthma, Smoking and Tobacco Use, Gastrointestinal Bleed, Gastroesophageal Reflux Disease and Obesity, Renal Disease, Benign Prostatic Hyperplasia, Arthritis, Gout, Diabetes Mellitus Type 2, Anemia, Anxiety How is presenting disease/condition affected by chronic disease/condition?: exacerbated by Evaluation data The following diagnostics were reviewed and interpreted by me:: other (specify) (N/A) Lab and/or radiology exams considered but not ordered:: None Interpretation Summary: None Medications / Prescriptions Medications or Prescriptions considered but not ordered:: None Medication administrations:: Medication Administration History Discontinued Medications Hydrocodone Bitart/Acetaminophen (Hydrocodone/Apap 7.5/325 Tablet) 1 tab PO X1 ONE Stop: 04/01/25 20:38 Last Admin: 04/01/25 21:29 Dose: 1 tab Documented By: AM Clindamycin Phosphate 900 mg/ (IV Miscellaneous Supplies) 50 mls @ 50 mls/hr IV X1 ONE Stop: 04/01/25 19:50 Last Infusion: 04/01/25 21:31 Dose: Infused Documented By: Admin: 04/01/25 20:14 Dose: 50 mls/hr Documented By: DT Lidocaine HCl (Lidocaine Inj 2% 20 Ml Vial) 20 ml INFL X1 ONE Stop: 04/01/25 18:58 Morphine Sulfate (Morphine Sulf Inj 4 Mg/Ml Vial) 2 mg IVP X1 ONE Stop: 04/01/25 18:52 Last Admin: 04/01/25 20:52 Dose: Not Given Documented By: CVL Non-Admin Reason: Patient Refused Prochlorperazine Edisylate (Prochlorperazine Inj 5 Mg/Ml Vial 2 Ml) 5 mg IV X1 ONE; Protocol Stop: 04/01/25 18:52 Last Admin: 04/01/25 20:52 Dose: Not Given Documented By: CVL Non-Admin Reason: Patient Asleep See above if any Consultations Consultation(s) initiated? (list below): No Diagnosis Skin/Abscess Differential Diagnosis: abscess of skin or subcutaneous tissue, cellulitis, eczema, contact dermatitis and other (Abrasion, Laceration) Most likely diagnosis given after review of the tests above:: RLE laceration repair moderate complexity Admission Indicated Admission indicated?: not indicated Explain why admission is indicated or not indicated:: Patient does not meet admission criteria Admission Request Was there a request for admission?: No Disposition Plan Disposition Plan: Discharge Discharge Attestation Discharge Attestation: The patient and all family members were given an opportunity to ask questions and understood the discharge instructions. Discharge instructions specifically effects, indications for sooner follow up or return to the emergency department, and the expected course of current diagnosis. Patient condition: Stable Discharge Plan Plan Patient Disposition: HOME (Self Care) Discharge Disposition comment: Stable Prescriptions/Referrals Prescriptions/Med Rec: No Action potassium chloride 10 mEq Capsule, Extended Release 10 meq PO QDAY atorvastatin 40 mg Tablet 40 mg PO QPM carvedilol 6.25 mg Tablet 6.25 mg PO BID Rx Instructions: must administer with a meal/food tizanidine 2 mg Tablet 2 mg PO HS Patient Comments: Per pt son. Pt does not take this every day. Only as needed amlodipine 5 mg Tablet 5 mg PO QDAY allopurinol 100 mg Tablet 100 mg PO HS pantoprazole 40 mg Tablet,Delayed Release (Dr/Ec) 40 mg PO QDAY Ozempic 2 mg/dose (8 mg/3 mL) pen injector 2 mg SUBCUT QWEEK Patient Comments: INJECT 2 mg SUBCUTANEOUSLY EVERY WEEK Rx Instructions: Every Friday bumetanide 2 mg tablet 4 mg PO BID Patient Comments: TAKE TWO TABLETS BY MOUTH TWICE DAILY FOR FOURTEEN DAYS famotidine 20 mg tablet 20 mg PO QDAY Patient Comments: TAKE ONE TABLET BY MOUTH EVERY DAY HEARTBURN GASTRIC ACIDITY docusate sodium 250 mg capsule 250 mg PO BID dutasteride 0.5 mg capsule 0.5 mg PO QDAY Patient Comments: TAKE ONE CAPSULE BY MOUTH EVERY DAY Eliquis 5 mg tablet 5 mg PO BID Patient Comments: TAKE ONE TABLET BY MOUTH TWICE DAILY FOR THE HEART magnesium oxide 400 mg magnesium Tablet 800 mg PO BID montelukast 10 mg Tablet 10 mg PO HS Qty: 30 1RF metolazone 2.5 mg tablet See Rx Instructions .ROUTE .COMPLEX Qty: 8 1RF Rx Instructions: 2.5 mg orally twice weekly insulin glargine [Lantus Solostar U-100 Insulin] 100 unit/mL (3 mL) insulin pen 30 unit subcut QPM Qty: 15 2RF metolazone 5 mg tablet 5 mg PO QDAY Qty: 7 0RF potassium chloride 10 mEq tablet extended release 10 meq PO QDAY Qty: 7 0RF metolazone 2.5 mg tablet 2.5 mg PO Q OTHER DAY MDD 2.5 MG Qty: 10 0RF prednisone 20 mg tablet See Taper PO QDAY MDD 3 Qty: 18 0RF Taper: Prednisone Taper 20 mg DAILY for 9 Days and 0 Hour Rx Instructions: Take 3 Tabs q Day for 3 days then take 2 tabs q Day for 3 days then take 1 tablet q Day for 3 days then D/C #18 Referrals: Howard Briceño MD [Primary Care Provider, Family Practice] - In 1 week Problem List Clinical Impression: Laceration of leg not thigh, right, Laceration of leg, right Patient/Caregiver Discharge Instructions Print Language: Slovak Stand Alone Forms: Kathleen Award Info., Patient Portal Info Letter
[2025-04-01 20:02] VITALS: BP 109/54; PULSE 85; RESP 17; TEMP 36.8; O2SAT 99
[2025-04-01] MEDS: CLINDAMYCIN 900MG IVPB 900 MG in PRE-MIXED 1 BAG 50 MG IV (20:14)
[2025-04-01] MEDS: HYDROcodone/APAP 7.5/325 TABLET 1 TAB PO (21:29)
[2025-04-01] MEDS: LIDOCAINE INJ 2% 20 ML VIAL INFL (23:25)
[2025-04-01 23:26] VITALS: RESP 14
== END 2025-04-01 23:27 | disposition home or self-care (01) ==
PROVIDERS: Emergency Provider Emergency Medicine; PCP Family Medicine
DX: S81.811A Laceration without foreign body, right lower leg, initial encounter (principal); E11.42 Type 2 diabetes mellitus with diabetic polyneuropathy; E11.51 Type 2 diabetes mellitus with diabetic peripheral angiopathy without gangrene; E78.00 Pure hypercholesterolemia, unspecified; I11.0 Hypertensive heart disease with heart failure
CPT/HCPCS: 12002; 96365; 99283; J0736; A9270

== ENCOUNTER 2025-04-10 15:17 | Emergency (ER) | payer MEDICARE, MEDICAID, SELFPAY ==
[2025-04-10 16:26] VITALS: BP 95/58; PULSE 89; RESP 20; TEMP 36.9; O2SAT 94; BMI 42.0
--- NOTE | 2025-04-10 16:28 | XR_ITS ---
Examination: CT abdomen and pelvis without contrast. Coronal 3-D reconstructions. Sagittal 2-D reconstructions. Date and time of exam: April 10, 2025, 1640 hours, comparison March 10, 2025 INDICATIONS: Right-sided flank pain right abdominal pain nausea vomiting onset today CTDI: vol (mGy): 17 DLP: (mGycm): 1089 Technique: Axial images of the abdomen have been obtained, 3 mm slice thickness Intravenous contrast material has not been administered. Low dose protocols were performed. One or more of the following dose reduction techniques were used; automated exposure control, adjustment of the mA and/or KV according to patient size, use of iterative reconstruction technique. Findings: Hypodense mass in the right rectus muscle for instance axial image 113, coronal image 36, measuring 3.4 cm in thickness, 12 cm in mediolateral dimension and 10 cm in cephalocaudad dimension consistent with rectus sheath hematoma Hepatomegaly 20 cm Gallbladder is not visualized. No pancreatic mass Atrophic kidneys with moderate renal scarring No hydronephrosis No bowel obstruction no pericecal inflammatory change No diverticulitis No prostatomegaly No bladder mass or bladder calculi Severe osteopenia with advanced disc narrowing L4-L5, L5-S1 Moderate narrowing hip joints IMPRESSION: Hematoma in the right rectus muscle anterior abdominal wall, 12 x 3.4 x 10 cm Hepatomegaly, 20 cm Atrophic kidneys with moderate renal scarring, no hydronephrosis renal or ureteral calculi
--- NOTE | 2025-04-10 16:28 | EDRME_ITS ---
Rapid Medical Screening Exam [facility] Arrival date/time: 04/10/25 15:17 Chief Complaint: Abdominal Pain Vital signs: Vital Signs Temperature 98.4 F 04/10/25 16:26 Pulse Rate 89 04/10/25 16:26 Respiratory Rate 20 04/10/25 16:26 Blood Pressure 95/58 L 04/10/25 16:26 Pulse Oximetry (%) 94 L 04/10/25 16:26 Oxygen Delivery Method Room Air 04/10/25 16:26 [facility] Narrative: 69 male history of back surgery and cholecystectomy presents with right flank pain for 2 days. Associated nausea. No other symptoms. Entered orders and another provider will follow-up. Exam: Remarkable for pain in right flank region. Clinical Impression: Right flank pain.
[2025-04-10 17:16] LABS: Basophils # (Auto) 0.1 Thou/mm3 (0.0-0.2); Basophils % (Auto) 0 % (0-2.5); Eosinophils # (Auto) 0.3 Thou/mm3 (0.0-0.5); Eosinophils % (Auto) 1 % (0-10); Hematocrit 28.1 % (41.0-53.0); Hemoglobin 8.9 g/dL (13.5-16.0); Immature Granulocytes Auto 0.15 Thou/mm3 (0.00-0.00); Lymphocytes # (Auto) 2.7 Thou/mm3 (1.0-4.8); Lymphocytes % (Auto) 13 % (10-50); Mean Corpuscular HGB Conc 31.7 g/dl (31.0-37.0); Mean Corpuscular Hemoglobin 27.6 pg (25.0-35.0); Mean Corpuscular Volume 87 fL (80-100); Monocytes # (Auto) 2.3 Thou/mm3 (0.0-0.8); Monocytes % (Auto) 11 % (0-12); Neutrophils # (Auto) 15.5 Thou/mm3 (1.8-7.7); Neutrophils % (Auto) 74 % (37-80); Nucleated Red Blood Cell # 0.00 Thou/mm3 (0.00-0.00); Nucleated Red Blood Cell % 0 /100 WBC (0); Platelet Count 562 Thou/mm3 (140-440); RDW Standard Deviation 51.9 fL (35.1-43.9); Red Blood Count 3.23 Miln/mm3 (4.50-5.90); White Blood Count 21.0 Thou/mm3 (3.8-10.6)
[2025-04-10 17:33] LABS: Alanine Aminotransferase 11 U/L (10-49); Albumin, Serum 4.2 gm/dL (3.4-4.8); Albumin/Globulin Ratio 1.5 (1.2-2.2); Alkaline Phosphatase 179 U/L (46-116); Amylase 40 U/L (30-118); Anion Gap 11 (7-16); Aspartate Amino Transferase 18 U/L (0-34); BUN/Creatinine Ratio 18 Ratio (12-20); Bilirubin,Direct 0.2 mg/dL (0.0-0.3); Bilirubin,Total 0.4 mg/dL (0.3-1.2); Blood Urea Nitrogen 66 mg/dL (9-23); Calcium 9.6 mg/dL (8.3-10.6); Calcium (Corrected) 9.6 mg/dL (8.5-10.1); Carbon Dioxide 30.4 mMol/L (20.0-31.0); Chloride 94 mMol/L (98-107); Creatinine (Component) 3.7 mg/dL (0.6-1.3); Estimated Creatinine Clearance 25.3 mL/min (>60); Globulin 2.8 gm/dL (2.3-3.5); Glucose 211 mg/dL (74-106); Lipase 28 U/L (12-53); Magnesium 2.3 mg/dL (1.6-2.6); Osmolality,Calculated 295 (275-295); Potassium 4.0 mMol/L (3.4-5.1); Sodium 135 mMol/L (136-145); Total Protein 7.0 gm/dL (5.7-8.2); eGFR 17 See Note
[2025-04-10 17:44] LABS: Collection Type, Urine Clean Catch
[2025-04-10 18:01] LABS: Bilirubin,Urine Negative (Negative); Blood,Urine Negative (Negative); Clarity,Urine Clear (Clear/Hazy); Color,Urine Yellow (Lt Yel-Yel); Culture Indicated,Urine Not Indicated; Glucose, Urine Negative (Negative); Hyaline Casts,Urine 2 /hpf (0-1); Ketones,Urine Negative (Negative); Leukocyte Esterase,Urine Negative (Negative); Nitrite,Urine Negative (Negative); PH,Urine 6.5 (5.0-7.0); Protein,Urine Negative (Neg - Trace); RBC,Urine 2 /hpf (0-3); Specific Gravity,Urine 1.014 (1.001-1.035); Squamous Epithelial Cell,Urine 5 /hpf (0-5); Urobilinogen,Urine Negative mg/dL (0.0-1.0); WBC,Urine 1 /hpf (0-5)
--- NOTE | 2025-04-10 18:26 | PD.EDABDPN ---
ED Abdominal Pain RME/HPI General Chief Complaint: Abdominal Pain Stated complaint: R SIDE ABD PAIN X2 DAYS Time seen by provider: 04/10/25 18:28 Arrival date/time: 04/10/25 15:17 RME / HPI RME / HPI narrative: 69 male history of back surgery and cholecystectomy presents with right flank pain for 2 days. Associated nausea. No other symptoms. Entered orders and another provider will follow-up. Dr. Felton?s Main ED Evaluation: 69yo male with a history of CVA, COPD on 2L, HLD, DMII, HTN, HFpEF 55 to 60%, CAD s/p stent, aFib on Eliquis, back surgery, cholecystectomy presents to the ED for a chief complaint of right-sided abdominal pain x 2 days. No radiation or migration. Patient denies any falls or trauma. Notes having a chronic cough. Denies any fever, chills, vomiting, or any other associated symptoms. Related Data Home Medications ?Medication ?Instructions ?Recorded ?Confirmed potassium chloride 10 mEq 10 meq PO QDAY 06/19/23 04/08/24 capsule,extended release allopurinol 100 mg tablet 100 mg PO HS 01/23/24 04/13/24 amlodipine 5 mg tablet 5 mg PO QDAY 01/23/24 04/08/24 atorvastatin 40 mg tablet 40 mg PO QPM 01/23/24 04/08/24 carvedilol 6.25 mg tablet 6.25 mg PO BID 01/23/24 04/08/24 pantoprazole 40 mg tablet,delayed 40 mg PO QDAY 01/23/24 04/08/24 release semaglutide 2 mg/dose (8 mg/3 mL) 2 mg subcut QWEEK 01/23/24 04/08/24 subcutaneous pen injector (Ozempic) tizanidine 2 mg tablet 2 mg PO HS 01/23/24 04/08/24 apixaban 5 mg tablet (Eliquis) 5 mg PO BID 04/08/24 04/08/24 bumetanide 2 mg tablet 4 mg PO BID 04/08/24 04/08/24 docusate sodium 250 mg capsule 250 mg PO BID 04/08/24 04/13/24 dutasteride 0.5 mg capsule 0.5 mg PO QDAY 04/08/24 04/08/24 famotidine 20 mg tablet 20 mg PO QDAY 04/08/24 04/08/24 magnesium oxide 800 mg PO BID 04/08/24 04/08/24 Previous Rx's ?Medication ?Instructions ?Recorded insulin glargine 100 unit/mL (3 30 unit (0.3 mL) subcut QPM #15 mL 04/14/24 mL) subcutaneous pen (Lantus Solostar U-100 Insulin) metolazone 2.5 mg tablet See Rx Instructions .Route 04/14/24 .COMPLEX #8 tabs montelukast 10 mg tablet 10 mg PO HS #30 tabs 04/14/24 metolazone 5 mg tablet 5 mg PO QDAY #7 tabs 08/29/24 potassium chloride 10 mEq 10 meq PO QDAY #7 tabs 08/29/24 tablet,extended release metolazone 2.5 mg tablet 2.5 mg PO Q OTHER DAY PULMONARY 03/03/25 EDEMA #10 tabs prednisone 20 mg tablet See Taper PO QDAY allergic 03/03/25 reaction #18 tabs bacitracin zinc 500 unit-polymyxin 1 applic topical Q8H #14.2 grams 04/01/25 B 10,000 unit/gram topical ointment hydrocodone 7.5 mg-acetaminophen 1 tab PO BID #14 tabs 04/01/25 300 mg tablet Allergies Allergy/AdvReac Type Severity Reaction Status Date / Time baclofen Allergy Severe Confusion Verified 04/10/25 15:20 bee venom protein (honey bee) Allergy Severe Swelling Verified 04/10/25 15:20 of Lip/Tongue/Throat chicken derived Allergy Severe DIFF Verified 04/10/25 15:20 BREATHING ketorolac (From Toradol) Allergy Intermediate Hallucinati Verified 04/10/25 15:20 ng morphine Allergy Verified 04/10/25 15:20 METAL Allergy Severe Rash Uncoded 04/10/25 15:20 Review of Systems Review of Systems Systems Reviewed: All systems reviewed, normal except as documented Past Medical History Past Medical History NEUROLOGIC: Positive Neurological Disorders, Cerebrovascular Accident and Peripheral Neuropathy; Negative Seizures CARDIAC: Positive Cardiac Disorders, Myocardial Infarction, Atrial Fibrillation, Coronary Artery Disease, Peripheral Vascular Disease, Hypercholesterolemia, Congestive Heart Failure, Congenital Heart Disease, Edema, Cellulitis and Hypertension RESPIRATORY: Positive Chronic Obstructive Pulmonary Disease (COPD), Asthma, Pneumonia, Smoking and Tobacco Use GASTROINTESTINAL: Positive Gastrointestinal Disorders, Gastrointestinal Bleed, Gastroesophageal Reflux Disease and Obesity GENITOURINARY: Positive Genitourinary Disorders, Renal Disease and Benign Prostatic Hyperplasia MUSCULOSKELETAL: Positive Musculoskeletal Disorders, Arthritis, Gout and Fractures ENDOCRINE: Positive Endocrine Disorders and Diabetes Mellitus Type 2; Negative Diabetes Mellitus Type 1 HEMATOLOGIC: Positive Blood Disorders and Anemia; Negative Sickle Cell Disease PSYCHO/SOCIAL: Positive Anxiety OTHER HISTORY: Positive Hospitalization, Falls and MRSA; Negative Autoimmune Disease, Down Syndrome, Developmental Delay, Blood Transfusions, Blood Transfusion Reaction, Anesthesia Reactions, Clostridium Difficile or Cancer Family History FAMILY HISTORY: Positive Family Respiratory Disorders, Family Cardiac Disorders and Family Cancer Surgical History SURGICAL: Positive Cardiac Surgery, Coronary Stent, Cardiac Catheterization, Angiogram, Joint Replacement and Arthroscopy; Negative Ear Surgery, Abdominal Surgery, Nephrectomy, Neurologic Surgery, Mastectomy or Vasectomy Social History SMOKING STATUS: Heavy (> 1 pack/day) SECOND HAND EXPOSURE: No SUBSTANCE USE: does not use ED Exam Narrative Physical exam: Generally patient is alert wheelchair-bound morbidly obese and chronically ill-appearing., Heart regular rate and rhythm, lungs clear to auscultation but distant breath sounds bilaterally, abdomen is obese nondiscolored overlying skin. The patient's area of tenderness is over the right rectus abdominal musculature where there is somewhat of a firm palpable region when compared to the left, extremities show no acute edema, neurologic exam patient is alert and oriented without focal motor deficit Course Quality Measures none Orders Category Date Time Status CT abdomen pelvis wo con Stat Exams 04/10/25 16:28 Completed Amylase Stat Lab 04/10/25 16:58 Completed Bilirubin,Direct Stat Lab 04/10/25 16:58 Completed CBC Stat Lab 04/10/25 16:58 Completed CMP [Comprehensive Metabolic Panel] Stat Lab 04/10/25 16:58 Completed Lipase Stat Lab 04/10/25 16:58 Completed Magnesium Stat Lab 04/10/25 16:58 Completed UA, C/S IF [Urinalysis, C/S if Indicated] Stat Lab 04/10/25 17:35 Completed Vital Signs Vital signs: Vital Signs Temperature 98.4 F 04/10/25 16:26 Pulse Rate 89 04/10/25 16:26 Respiratory Rate 20 04/10/25 16:26 Blood Pressure 95/58 L 04/10/25 16:26 Pulse Oximetry (%) 94 L 04/10/25 16:26 Oxygen Delivery Method Room Air 04/10/25 16:26 Abdominal Pain MDM MDM Narrative MDM Narrative:: Scribe Attestation: 04/10/25 - Dennise Luna, am scribing for and in the presence of Dr. Felton. I interpreted all labs. There is renal insufficiency however there has been renal insufficiency in the past. Potassium is normal. White count was noted to be 21,000 but 1 month ago was 18,500. CT scan done of the abdomen pelvis without IV contrast ordered prior to my evaluation showed a right rectus musculature hematoma. Patient is on Eliquis for blood clots and dysrhythmia. There was no other acute findings within the abdominal or pelvic CT scan. At this time I think the patient needs to continue with the Eliquis. The size of the hematoma will be monitored. He was made aware of his diagnosis. I am aware of the leukocytosis and uncertain of the significance at this time. Patient does have primary care follow-up. Patient data External records reviewed:: [facility] previous records (Per chart review, patient was seen here on 04/01/25 for laceration of the right leg.) Clinical information provided by:: patient Social determinants that could affect healthcare access:: none Patient has the following chronic illnesses:: COPD on 2L, HLD, DMII, HTN, HFpEF 55 to 60%, CAD s/p stent, aFib on Eliquis, history of CVA with left-sided residual deficit in 2022, asthma, gout, BPH How is presenting disease/condition affected by chronic disease/condition?: exacerbated by Evaluation data The following diagnostics were reviewed and interpreted by me:: lab results and radiology exam(s) Lab and/or radiology exams considered but not ordered:: none Interpretation Summary: [facility] Report Signed Patient: SHIRLEY VALDIVIA [facility]. Record#: [id number] Birthdate: 1955 Age/Sex: 69 / M Location: [facility] Attending Dr: Ordering Physician: Paco Knight MD Date of Service: 04/10/25 Procedure(s): CT abdomen pelvis wo con Accession Number(s): [id number] cc: Paco Knight MD; Sonu Ellison MD~ Examination: CT abdomen and pelvis without contrast. Coronal 3-D reconstructions. Sagittal 2-D reconstructions. Date and time of exam: April 10, 2025, 1640 hours, comparison March 10, 2025 INDICATIONS: Right-sided flank pain right abdominal pain nausea vomiting onset today CTDI: vol (mGy): 17 DLP: (mGycm): 1089 Technique: Axial images of the abdomen have been obtained, 3 mm slice thickness Intravenous contrast material has not been administered. Low dose protocols were performed. One or more of the following dose reduction techniques were used; automated exposure control, adjustment of the mA and/or KV according to patient size, use of iterative reconstruction technique. Findings: Hypodense mass in the right rectus muscle for instance axial image 113, coronal image 36, measuring 3.4 cm in thickness, 12 cm in mediolateral dimension and 10 cm in cephalocaudad dimension consistent with rectus sheath hematoma Hepatomegaly 20 cm Gallbladder is not visualized. No pancreatic mass Atrophic kidneys with moderate renal scarring No hydronephrosis No bowel obstruction no pericecal inflammatory change No diverticulitis No prostatomegaly No bladder mass or bladder calculi Severe osteopenia with advanced disc narrowing L4-L5, L5-S1 Moderate narrowing hip joints IMPRESSION: Hematoma in the right rectus muscle anterior abdominal wall, 12 x 3.4 x 10 cm Hepatomegaly, 20 cm Atrophic kidneys with moderate renal scarring, no hydronephrosis renal or ureteral calculi Dictated By: Sonu Ellison MD Signed By: <Electronically signed by Sonu Ellison MD in OV> 04/10/25 9835 Medications / Prescriptions Medications or Prescriptions considered but not ordered:: none Medication administrations:: see above, if any Consultations Consultation(s) initiated? (list below): No Diagnosis Differential diagnosis abdominal pain: other (See MDM) Most likely diagnosis given after review of the tests above:: see clinical impression below Admission Indicated Admission indicated?: not indicated Admission Request Was there a request for admission?: No Disposition Plan Disposition Plan: Discharge Discharge Attestation Discharge Attestation: The patient and all family members were given an opportunity to ask questions and understood the discharge instructions. Discharge instructions specifically effects, indications for sooner follow up or return to the emergency department, and the expected course of current diagnosis. Patient condition: Stable Discharge Plan Plan Patient Disposition: HOME (Self Care) Prescriptions/Referrals Prescriptions/Med Rec: No Action potassium chloride 10 mEq Capsule, Extended Release 10 meq PO QDAY atorvastatin 40 mg Tablet 40 mg PO QPM carvedilol 6.25 mg Tablet 6.25 mg PO BID Rx Instructions: must administer with a meal/food tizanidine 2 mg Tablet 2 mg PO HS Patient Comments: Per pt son. Pt does not take this every day. Only as needed amlodipine 5 mg Tablet 5 mg PO QDAY allopurinol 100 mg Tablet 100 mg PO HS pantoprazole 40 mg Tablet,Delayed Release (Dr/Ec) 40 mg PO QDAY Ozempic 2 mg/dose (8 mg/3 mL) pen injector 2 mg SUBCUT QWEEK Patient Comments: INJECT 2 mg SUBCUTANEOUSLY EVERY WEEK Rx Instructions: Every Friday bumetanide 2 mg tablet 4 mg PO BID Patient Comments: TAKE TWO TABLETS BY MOUTH TWICE DAILY FOR FOURTEEN DAYS famotidine 20 mg tablet 20 mg PO QDAY Patient Comments: TAKE ONE TABLET BY MOUTH EVERY DAY HEARTBURN GASTRIC ACIDITY docusate sodium 250 mg capsule 250 mg PO BID dutasteride 0.5 mg capsule 0.5 mg PO QDAY Patient Comments: TAKE ONE CAPSULE BY MOUTH EVERY DAY Eliquis 5 mg tablet 5 mg PO BID Patient Comments: TAKE ONE TABLET BY MOUTH TWICE DAILY FOR THE HEART magnesium oxide 400 mg magnesium Tablet 800 mg PO BID montelukast 10 mg Tablet 10 mg PO HS Qty: 30 1RF metolazone 2.5 mg tablet See Rx Instructions .ROUTE .COMPLEX Qty: 8 1RF Rx Instructions: 2.5 mg orally twice weekly insulin glargine [Lantus Solostar U-100 Insulin] 100 unit/mL (3 mL) insulin pen 30 unit subcut QPM Qty: 15 2RF metolazone 5 mg tablet 5 mg PO QDAY Qty: 7 0RF potassium chloride 10 mEq tablet extended release 10 meq PO QDAY Qty: 7 0RF metolazone 2.5 mg tablet 2.5 mg PO Q OTHER DAY MDD 2.5 MG Qty: 10 0RF prednisone 20 mg tablet See Taper PO QDAY MDD 3 Qty: 18 0RF Taper: Prednisone Taper 20 mg DAILY for 9 Days and 0 Hour Rx Instructions: Take 3 Tabs q Day for 3 days then take 2 tabs q Day for 3 days then take 1 tablet q Day for 3 days then D/C #18 bacitracin zinc-polymyxin B 500-10,000 unit/gram ointment 1 applic topical Q8H Qty: 14.2 0RF hydrocodone-acetaminophen 7.5-300 mg tablet 1 tab PO BID MDD 2 tabs Qty: 14 0RF Referrals: Howard Briceño MD [Primary Care Provider, Family Practice] - In 1 week Problem List Clinical Impression: Hematoma Patient/Caregiver Discharge Instructions Additional Instructions: At this time continue all medication including the Eliquis. Follow-up with your doctor. Return to ER as needed or if condition worsens. Print Language: Bolivian Stand Alone Forms: Kathleen Award Info., Patient Portal Info Letter
== END 2025-04-10 19:28 | disposition home or self-care (01) ==
PROVIDERS: Emergency Medicine; Emergency Provider Emergency Medicine; PCP Family Medicine
DX: R10.9 Unspecified abdominal pain (principal); E11.9 Type 2 diabetes mellitus without complications; E78.5 Hyperlipidemia, unspecified; I11.0 Hypertensive heart disease with heart failure; I25.10 Atherosclerotic heart disease of native coronary artery without angina pectoris; I50.32 Chronic diastolic (congestive) heart failure; J44.9 Chronic obstructive pulmonary disease, unspecified
CPT/HCPCS: 36415; 74176; 80053; 81001; 82150; 82248; 83690; 83735; 85025; 99283

== ENCOUNTER 2025-05-03 11:40 | Emergency (ER) | payer MEDICARE, MEDICAID, SELFPAY ==
[2025-05-03 12:31] VITALS: BP 94/61; PULSE 88; RESP 19; TEMP 36.5; O2SAT 96; BMI 41.3
--- NOTE | 2025-05-03 12:37 | EKG_ITS ---
[facility] Test Date: 2025-05-03 Pat Name: SHIRLEY VALDIVIA Department: Room: - Gender: Male Benefit Director: : 1955 Requested By: Estuardo Broussard Order Number: [id number] Reading MD: Estuardo Broussard Measurements Intervals [place] Rate: 113 P: MN: QRS: -32 QRSD: 118 T: 53 QT: 252 QTc: 346 Interpretive Statements SUPRAVENTRICULAR TACHYCARDIA LEFT AXIS DEVIATION [QRS AXIS < -30] LOW QRS VOLTAGE IN PRECORDIAL LEADS [QRS DEFLECTION < 1.0 mV IN CHEST LEADS] RIGHT BUNDLE BRANCH BLOCK [120+ ms QRS DURATION, UPRIGHT V1, 40+ ms S IN I/aVL/V4/V5/V6] POSSIBLE ANTERIOR MYOCARDIAL INFARCTION , PROBABLY OLD [30 ms Q WAVE IN V3/V4, OR R < 0.2 mV IN V4] Compared to ECG 03/03/2025 14:50:11 Left-axis deviation now present Low QRS voltage now present Myocardial infarct finding now present Atrial fibrillation no longer present /store/S0/[id number].pdf
--- NOTE | 2025-05-03 12:37 | XR_ITS ---
EXAMINATION: AP chest single view TECHNIQUE: AP portable upright chest single view Date and time: May 03, 2025, 1247 hours COMPARISON: March 03, 2025 INDICATIONS: Coughing today FINDINGS: Suspicious for early left basilar pneumonia Normal heart size Mild vascular congestion Intact osseous structures IMPRESSION: Suspicious for early left basilar pneumonia
--- NOTE | 2025-05-03 12:38 | PD.EDRME ---
Rapid Medical Screening Exam RME Arrival date/time: 05/03/25 11:40 This is a case of 69-year-old male with history of CHF hypertension GERD diabetes came in in the emergency room due to productive cough nasal congestion for 1 week now with shortness of breath and chest pain thus patient decided to start consult here in the emergency rom Chief Complaint: Flu Like Symptoms Time Seen by Provider: 05/03/25 12:34 Vital signs: Vital Signs Temperature 97.7 F 05/03/25 12:31 Pulse Rate 88 05/03/25 12:31 Respiratory Rate 19 05/03/25 12:31 Blood Pressure 94/61 05/03/25 12:31 Pulse Oximetry (%) 96 05/03/25 12:31 Oxygen Delivery Method Room Air 05/03/25 12:31 Exam: Normal rate regular rhythm no murmur wheezing both lower lung steward no crackles no rales no retractions Clinical Impression: Shortness of breath chest pain
[2025-05-03] MEDS: ALBUTEROL/IPRATROPIUM (Duoneb) RT SOL 3 ML NEBU INH (13:11)
[2025-05-03 13:14] VITALS: PULSE 80; RESP 20; O2SAT 99
[2025-05-03 13:25] LABS: Basophils # (Auto) 0.0 Thou/mm3 (0.0-0.2); Basophils % (Auto) 0 % (0-2.5); Eosinophils # (Auto) 0.4 Thou/mm3 (0.0-0.5); Eosinophils % (Auto) 3 % (0-10); Hematocrit 25.0 % (41.0-53.0); Immature Granulocytes Auto 0.08 Thou/mm3 (0.00-0.00); Lymphocytes # (Auto) 2.3 Thou/mm3 (1.0-4.8); Lymphocytes % (Auto) 16 % (10-50); Mean Corpuscular HGB Conc 30.4 g/dl (31.0-37.0); Mean Corpuscular Hemoglobin 26.4 pg (25.0-35.0); Mean Corpuscular Volume 87 fL (80-100); Monocytes # (Auto) 1.6 Thou/mm3 (0.0-0.8); Monocytes % (Auto) 11 % (0-12); Neutrophils # (Auto) 9.5 Thou/mm3 (1.8-7.7); Neutrophils % (Auto) 69 % (37-80); Nucleated Red Blood Cell # 0.00 Thou/mm3 (0.00-0.00); Nucleated Red Blood Cell % 0 /100 WBC (0); Platelet Count 427 Thou/mm3 (140-440); RDW Standard Deviation 57.9 fL (35.1-43.9); Red Blood Count 2.88 Miln/mm3 (4.50-5.90); White Blood Count 13.8 Thou/mm3 (3.8-10.6)
[2025-05-03 13:42] LABS: Hemoglobin 7.6 g/dL (13.5-16.0)
[2025-05-03 13:44] LABS: Collection Type, Urine Voided
[2025-05-03 13:53] LABS: Alanine Aminotransferase 9 U/L (10-49); Albumin, Serum 4.1 gm/dL (3.4-4.8); Albumin/Globulin Ratio 1.4 (1.2-2.2); Alkaline Phosphatase 191 U/L (46-116); Anion Gap 9 (7-16); Aspartate Amino Transferase 17 U/L (0-34); BUN/Creatinine Ratio 20 Ratio (12-20); Bilirubin,Total 0.2 mg/dL (0.3-1.2); Blood Urea Nitrogen 64 mg/dL (9-23); Calcium 8.7 mg/dL (8.3-10.6); Calcium (Corrected) 8.7 mg/dL (8.5-10.1); Carbon Dioxide 32.0 mMol/L (20.0-31.0); Chloride 97 mMol/L (98-107); Creatinine (Component) 3.2 mg/dL (0.6-1.3); Estimated Creatinine Clearance 28.7 mL/min (>60); Globulin 2.9 gm/dL (2.3-3.5); Glucose 159 mg/dL (74-106); Osmolality,Calculated 296 (275-295); Potassium 4.2 mMol/L (3.4-5.1); Sodium 138 mMol/L (136-145); Total Protein 7.0 gm/dL (5.7-8.2); Troponin I < 0.020 ng/mL (0.0-0.045); eGFR 20 See Note
[2025-05-03 14:01] LABS: Bilirubin,Urine Negative (Negative); Blood,Urine Negative (Negative); Clarity,Urine Clear (Clear/Hazy); Color,Urine Lt-Yellow (Lt Yel-Yel); Glucose, Urine Negative (Negative); Hyaline Casts,Urine < 1 /hpf (0-1); Ketones,Urine Negative (Negative); Leukocyte Esterase,Urine Negative (Negative); Nitrite,Urine Negative (Negative); PH,Urine 6.0 (5.0-7.0); Protein,Urine Negative (Neg - Trace); RBC,Urine < 1 /hpf (0-3); Specific Gravity,Urine 1.013 (1.001-1.035); Squamous Epithelial Cell,Urine 1 /hpf (0-5); Urobilinogen,Urine Negative mg/dL (0.0-1.0); WBC,Urine < 1 /hpf (0-5)
[2025-05-03 14:31] LABS: B-Type Natriuretic Peptide 68 pg/mL (0-100)
[2025-05-03 17:46] VITALS: BP 125/66; PULSE 100; RESP 20; TEMP 36.4; O2SAT 95
--- NOTE | 2025-05-03 17:58 | PC.NURSE ---
pt continues to ask for food. Ice provided at this time, no food due to BG 168.
[2025-05-03 19:19] VITALS: BP 118/63; PULSE 99; RESP 19; TEMP 36.6; O2SAT 95
--- NOTE | 2025-05-03 19:45 | PD.EDURI ---
Upper Respiratory Inf. RME/HPI General Chief Complaint: Flu Like Symptoms Stated Complaint: CONGESTED, BAD COUGH, HEADACHE Time Seen by Provider: 05/03/25 12:34 Arrival date/time: 05/03/25 11:40 69-year-old male well-known to emergency room with history of HTN, A-fib, CHF, and COPD reports with complaints of cough congestion and shortness of breath. Patient states that he has been using cough drops with no relief of symptoms. He denies fever chills chest pain nausea vomiting or abdominal pain Limitations: no limitations RME / HPI RME / HPI Narrative: 05/03/25 11:40 This is a case of 69-year-old male with history of CHF hypertension GERD diabetes came in in the emergency room due to productive cough nasal congestion for 1 week now with shortness of breath and chest pain thus patient decided to start consult here in the emergency rom Exam: Normal rate regular rhythm no murmur wheezing both lower lung steward no crackles no rales no retractions Impression: Shortness of breath chest pain Related Data Home Medications ?Medication ?Instructions ?Recorded ?Confirmed potassium chloride 10 mEq 10 meq PO QDAY 06/19/23 04/08/24 capsule,extended release allopurinol 100 mg tablet 100 mg PO HS 01/23/24 04/13/24 amlodipine 5 mg tablet 5 mg PO QDAY 01/23/24 04/08/24 atorvastatin 40 mg tablet 40 mg PO QPM 01/23/24 04/08/24 carvedilol 6.25 mg tablet 6.25 mg PO BID 01/23/24 04/08/24 pantoprazole 40 mg tablet,delayed 40 mg PO QDAY 01/23/24 04/08/24 release semaglutide 2 mg/dose (8 mg/3 mL) 2 mg subcut QWEEK 01/23/24 04/08/24 subcutaneous pen injector (Ozempic) tizanidine 2 mg tablet 2 mg PO HS 01/23/24 04/08/24 apixaban 5 mg tablet (Eliquis) 5 mg PO BID 04/08/24 04/08/24 bumetanide 2 mg tablet 4 mg PO BID 04/08/24 04/08/24 docusate sodium 250 mg capsule 250 mg PO BID 04/08/24 04/13/24 dutasteride 0.5 mg capsule 0.5 mg PO QDAY 04/08/24 04/08/24 famotidine 20 mg tablet 20 mg PO QDAY 04/08/24 04/08/24 magnesium oxide 800 mg PO BID 04/08/24 04/08/24 Previous Rx's ?Medication ?Instructions ?Recorded insulin glargine 100 unit/mL (3 30 unit (0.3 mL) subcut QPM #15 mL 04/14/24 mL) subcutaneous pen (Lantus Solostar U-100 Insulin) metolazone 2.5 mg tablet See Rx Instructions .Route 04/14/24 .COMPLEX #8 tabs montelukast 10 mg tablet 10 mg PO HS #30 tabs 04/14/24 metolazone 5 mg tablet 5 mg PO QDAY #7 tabs 08/29/24 potassium chloride 10 mEq 10 meq PO QDAY #7 tabs 08/29/24 tablet,extended release metolazone 2.5 mg tablet 2.5 mg PO Q OTHER DAY PULMONARY 03/03/25 EDEMA #10 tabs prednisone 20 mg tablet See Taper PO QDAY allergic 03/03/25 reaction #18 tabs bacitracin zinc 500 unit-polymyxin 1 applic topical Q8H #14.2 grams 04/01/25 B 10,000 unit/gram topical ointment hydrocodone 7.5 mg-acetaminophen 1 tab PO BID #14 tabs 04/01/25 300 mg tablet benzonatate 200 mg capsule 200 mg PO TID PRN cough #30 caps 05/03/25 doxycycline hyclate 100 mg capsule 100 mg PO BID 10 days #20 caps 05/03/25 Allergies Allergy/AdvReac Type Severity Reaction Status Date / Time baclofen Allergy Severe Confusion Verified 05/03/25 11:43 bee venom protein (honey bee) Allergy Severe Swelling Verified 05/03/25 11:43 of Lip/Tongue/Throat chicken derived Allergy Severe DIFF Verified 05/03/25 11:43 BREATHING ketorolac (From Toradol) Allergy Intermediate Hallucinati Verified 05/03/25 11:43 ng morphine Allergy Verified 05/03/25 11:43 METAL Allergy Severe Rash Uncoded 05/03/25 11:43 Review of Systems Constitutional Constitutional: Denies chills, Denies fever(s) and Denies headache(s) ENT Ears, Nose, Mouth, and Throat: Denies dizziness and Denies headache(s) Cardiovascular Cardiovascular: Denies chest pain and Denies dyspnea Respiratory Respiratory: Reports cough and Denies dyspnea Musculoskeletal Musculoskeletal: Denies back pain and Denies myalgias Integumentary/Breasts Skin/Breast: Denies erythema and Denies rash Neurologic Neurologic: Denies dizziness and Denies headache(s) Past Medical History Past Medical History NEUROLOGIC: Positive Neurological Disorders, Cerebrovascular Accident and Peripheral Neuropathy; Negative Seizures CARDIAC: Positive Cardiac Disorders, Myocardial Infarction, Atrial Fibrillation, Coronary Artery Disease, Peripheral Vascular Disease, Hypercholesterolemia, Congestive Heart Failure, Congenital Heart Disease, Edema, Cellulitis and Hypertension RESPIRATORY: Positive Chronic Obstructive Pulmonary Disease (COPD), Asthma, Pneumonia, Smoking and Tobacco Use GASTROINTESTINAL: Positive Gastrointestinal Disorders, Gastrointestinal Bleed, Gastroesophageal Reflux Disease and Obesity GENITOURINARY: Positive Genitourinary Disorders, Renal Disease and Benign Prostatic Hyperplasia MUSCULOSKELETAL: Positive Musculoskeletal Disorders, Arthritis, Gout and Fractures ENDOCRINE: Positive Endocrine Disorders and Diabetes Mellitus Type 2; Negative Diabetes Mellitus Type 1 HEMATOLOGIC: Positive Blood Disorders and Anemia; Negative Sickle Cell Disease PSYCHO/SOCIAL: Positive Anxiety OTHER HISTORY: Positive Hospitalization, Falls and MRSA; Negative Autoimmune Disease, Down Syndrome, Developmental Delay, Blood Transfusions, Blood Transfusion Reaction, Anesthesia Reactions, Clostridium Difficile or Cancer Family History FAMILY HISTORY: Positive Family Respiratory Disorders, Family Cardiac Disorders and Family Cancer Surgical History SURGICAL: Positive Cardiac Surgery, Coronary Stent, Cardiac Catheterization, Angiogram, Joint Replacement and Arthroscopy; Negative Ear Surgery, Abdominal Surgery, Nephrectomy, Neurologic Surgery, Mastectomy or Vasectomy Social History SMOKING STATUS: Current every day smoker SECOND HAND EXPOSURE: No SUBSTANCE USE: does not use ED Exam General Limitations: Present no limitations General appearance: Present alert and in no apparent distress Head Head exam: Present atraumatic Chest Chest inspection: Present normal inspection and symmetric chest wall rise Respiratory Respiratory exam: Present normal lung sounds bilaterally and wheezes (Inspiratory bilateral posterior lung bases) Cardiovascular Cardiovascular exam: Present regular rate, normal rhythm and normal heart sounds Neurological Exam Neurological exam: Present alert, oriented X3 and CN II-XII intact Psychiatric Psychiatric exam: Present normal affect and normal mood Skin Skin exam: Present warm, dry, intact and normal color Course Course Course Narrative: 69-year-old male chronically ill and well-known to emergency room with history of HTN, A-fib, CHF, and COPD reports with complaints of cough and congestion. Patient chest x-ray significant for some left basilar pneumonia, troponin and BNP unremarkable CBC significant for elevated white cell count, CMP essentially unchanged from previous levels. EKG with no STEMI or ischemic changes noted patient is stable nontoxic-appearing with stable vital signs. He is given an injection of Rocephin here in the emergency department and will be discharged home with oral antibiotics and a follow-up exam with his primary care provider in 24 to 48 hours. Patient is also advised that if his symptoms should worsen to return to the emergency department. Quality Measures none Orders Category Date Time Status EKG (ED ONLY) *Do not use* NOW Care 05/03/25 12:37 Completed EKG (ED Only) Stat Exams 05/03/25 12:37 Draft XR chest 1V Stat Exams 05/03/25 12:37 Completed BNP [B-Type Natriuretic Peptide] Stat Lab 05/03/25 13:09 Completed CBC Stat Lab 05/03/25 13:09 Completed CMP [Comprehensive Metabolic Panel] Stat Lab 05/03/25 13:09 Completed Troponin I Stat Lab 05/03/25 13:09 Completed Urinalysis Stat Lab 05/03/25 13:33 Completed Albuterol/Ipratr Rt Raquel [Duoneb Rt Raquel] Med 05/03/25 12:37 Discontinued 3 ml INH X1 ONE cefTRIAXone [Rocephin] 1,000 mg Med 05/03/25 19:42 Discontinued Lidocaine 1% Pf Vial 5ml [Xylocaine 1% Pf 5 ml] 2.1 ml IM X1 Vital Signs Vital signs: Vital Signs Temperature 97.7 F 05/03/25 12:31 Pulse Rate 88 05/03/25 12:31 Respiratory Rate 19 05/03/25 12:31 Blood Pressure 94/61 05/03/25 12:31 Pulse Oximetry (%) 96 05/03/25 12:31 Oxygen Delivery Method Room Air 05/03/25 12:31 Upper Respiratory Infection Patient data External records reviewed:: None Clinical information provided by:: patient Social determinants that could affect healthcare access:: none Patient has the following chronic illnesses:: COPD, hypertension, A-fib, CHF How is presenting disease/condition affected by chronic disease/condition?: uneffected by Evaluation data The following diagnostics were reviewed and interpreted by me:: lab results and radiology exam(s) Lab and/or radiology exams considered but not ordered:: None Interpretation Summary: Pneumonia Medications / Prescriptions Medications or Prescriptions considered but not ordered:: None Medication administrations:: Medication Administration History Discontinued Medications Albuterol/Ipratropium (Albuterol/Ipratropium (Duoneb) Rt Raquel 3 Ml Nebu) 3 ml INH X1 ONE Stop: 05/03/25 12:38 Last Admin: 05/03/25 13:11 Dose: 3 ml Documented By: CARLOS Ceftriaxone Sodium 1,000 mg/ (Lidocaine HCl 2.1 ml) 0 mg IM X1 ONE Stop: 05/03/25 19:43 As above Consultations Consultation(s) initiated? (list below): No Diagnosis Upper Respiratory Differential Diagnosis: upper respiratory infection, viral infection and bronchitis Most likely diagnosis given after review of the tests above:: Pneumonia Admission Indicated Admission indicated?: not indicated Admission Request Was there a request for admission?: No Disposition Plan Disposition Plan: Discharge Discharge Attestation Discharge Attestation: The patient and all family members were given an opportunity to ask questions and understood the discharge instructions. Discharge instructions specifically effects, indications for sooner follow up or return to the emergency department, and the expected course of current diagnosis. Patient condition: Stable Discharge Plan Plan Patient Disposition: HOME (Self Care) Prescriptions/Referrals Prescriptions/Med Rec: New doxycycline hyclate 100 mg capsule 100 mg PO BID 10 Days Qty: 20 0RF benzonatate 200 mg capsule 200 mg PO TID PRN (Reason: cough) Qty: 30 0RF No Action potassium chloride 10 mEq Capsule, Extended Release 10 meq PO QDAY atorvastatin 40 mg Tablet 40 mg PO QPM carvedilol 6.25 mg Tablet 6.25 mg PO BID Rx Instructions: must administer with a meal/food tizanidine 2 mg Tablet 2 mg PO HS Patient Comments: Per pt son. Pt does not take this every day. Only as needed amlodipine 5 mg Tablet 5 mg PO QDAY allopurinol 100 mg Tablet 100 mg PO HS pantoprazole 40 mg Tablet,Delayed Release (Dr/Ec) 40 mg PO QDAY Ozempic 2 mg/dose (8 mg/3 mL) pen injector 2 mg SUBCUT QWEEK Patient Comments: INJECT 2 mg SUBCUTANEOUSLY EVERY WEEK Rx Instructions: Every Friday bumetanide 2 mg tablet 4 mg PO BID Patient Comments: TAKE TWO TABLETS BY MOUTH TWICE DAILY FOR FOURTEEN DAYS famotidine 20 mg tablet 20 mg PO QDAY Patient Comments: TAKE ONE TABLET BY MOUTH EVERY DAY HEARTBURN GASTRIC ACIDITY docusate sodium 250 mg capsule 250 mg PO BID dutasteride 0.5 mg capsule 0.5 mg PO QDAY Patient Comments: TAKE ONE CAPSULE BY MOUTH EVERY DAY Eliquis 5 mg tablet 5 mg PO BID Patient Comments: TAKE ONE TABLET BY MOUTH TWICE DAILY FOR THE HEART magnesium oxide 400 mg magnesium Tablet 800 mg PO BID montelukast 10 mg Tablet 10 mg PO HS Qty: 30 1RF metolazone 2.5 mg tablet See Rx Instructions .ROUTE .COMPLEX Qty: 8 1RF Rx Instructions: 2.5 mg orally twice weekly insulin glargine [Lantus Solostar U-100 Insulin] 100 unit/mL (3 mL) insulin pen 30 unit subcut QPM Qty: 15 2RF metolazone 5 mg tablet 5 mg PO QDAY Qty: 7 0RF potassium chloride 10 mEq tablet extended release 10 meq PO QDAY Qty: 7 0RF metolazone 2.5 mg tablet 2.5 mg PO Q OTHER DAY MDD 2.5 MG Qty: 10 0RF prednisone 20 mg tablet See Taper PO QDAY MDD 3 Qty: 18 0RF Taper: Prednisone Taper 20 mg DAILY for 9 Days and 0 Hour Rx Instructions: Take 3 Tabs q Day for 3 days then take 2 tabs q Day for 3 days then take 1 tablet q Day for 3 days then D/C #18 bacitracin zinc-polymyxin B 500-10,000 unit/gram ointment 1 applic topical Q8H Qty: 14.2 0RF hydrocodone-acetaminophen 7.5-300 mg tablet 1 tab PO BID MDD 2 tabs Qty: 14 0RF Referrals: Howard Briceño MD [Primary Care Provider, Family Practice] - In 1 week Problem List Clinical Impression: Pneumonia Patient/Caregiver Discharge Instructions Education Materials: ED Pneumonia (Adult) Additional Instructions: Take medication as directed hydrate well and follow-up with your primary care provider in 48 hours. Ask to review all test results and official radiology reports, to make sure you receive all necessary follow-ups and monitoring. Print Language: Lithuanian Stand Alone Forms: Kathleen Award Info., Patient Portal Info Letter
== END 2025-05-03 20:17 | disposition home or self-care (01) ==
PROVIDERS: Nurse Practitioner Family; Emergency Provider Emergency Medicine; PCP Family Medicine
DX: J44.0 Chronic obstructive pulmonary disease with (acute) lower respiratory infection (principal); J18.9 Pneumonia, unspecified organism; I47.10 Supraventricular tachycardia, unspecified; I45.10 Unspecified right bundle-branch block; I48.91 Unspecified atrial fibrillation; I11.0 Hypertensive heart disease with heart failure; I50.9 Heart failure, unspecified; F17.210 Nicotine dependence, cigarettes, uncomplicated; Z79.01 Long term (current) use of anticoagulants
CPT/HCPCS: 36415; 71045; 80053; 81001; 83880; 84484; 85025; 93005; 94640; 96372; 99284; A9270; J0696; J3490